=== PATIENT | male | born 1970 | race Caucasian/White ===

== ENCOUNTER 2022-11-12 06:10 | Emergency (ER) | payer MEDICAID, SELFPAY ==
--- NOTE | 2022-11-12 06:42 | ECG_ITS ---
Test Reason : CP Blood Pressure : / mmHG Vent. Rate : 075 BPM Atrial Rate : 075 BPM P-R Int : 146 ms QRS Dur : 088 ms QT Int : 420 ms P-R-T Axes : 043 032 060 degrees QTc Int : 469 ms Normal sinus rhythm Normal ECG No previous ECGs available Referred By: Dona Hernández Electronically Signed By:MOY HAIRSTON
--- NOTE | 2022-11-12 07:32 | ED_ITS ---
HPI - Alcohol General Chief Complaint: ETOH/Substance Use Time Seen by Provider: 11/12/22 07:26 Source: patient Mode of arrival: ambulatory Limitations: no limitations History of Present Illness HPI narrative: 52-year-old male with history of alcohol abuse and dependence, history withdrawal seizures in the past, history of HTN, borderline diabetes, history of PR x2 in the past who presents to the ER for evaluation of alcohol withdrawal. He states he usually drinks 7 or 8 large beers per day. He has been trying to wean himself off at home in is having symptoms of severe alcohol withdrawal. He feels anxious, nervous, shaky, nauseous and he has vomited a few times. He has a headache. He states his last alcoholic drink was about 8 hours ago. He denies any other drug use. He states he wants to be sober. He last went to [facility] for detox about 3 months ago and his sobriety lasted about a month afterward. He reports suffering from depression. Denies SI. Denies any chest pain, SOB, abdominal pain at this time. MD complaint: alcohol withdrawal, alcohol dependence and desires rehab Last drink: Hours (ago) (8) Chronic alcohol use: Yes Recent trauma: No Associated symptoms: nausea, vomiting, diaphoresis, tremors and depression Treatments prior to arrival: none Related Data Allergies Allergy/AdvReac Type Severity Reaction Status Date / Time No Known Allergies Allergy Verified 11/12/22 08:05 Review of Systems 2 Review of Systems: Yes all other systems are reviewed and are negative [facility] Social History Social History Alcohol intake: current Alcohol intake frequency: 3 or more drinks per day Alcohol type: beer Smoked in Last 30 Days: Yes Use of substances other than those prescribed or required for medical reasons: No Advance Directives: No Advance Directives Information Provided: Yes Physical Exam ED Vital Signs: Vital Signs - 24 hr 11/12/22 09:16 11/12/22 11:43 11/12/22 12:45 Temperature 98.2 F 99.8 F 99.1 F Pulse Rate 95 95 78 Respiratory Rate 17 15 18 Blood Pressure 168/103 H 162/96 H 166/104 H Pulse Oximetry 96 95 96 Oxygen Delivery Method Room Air Room Air BMI result Body Mass Index 32.6 Appearance: Alert. Oriented X3. anxious Head: normocephalic, atraumatic. Eyes: Pupils equal, round and reactive to light. ENT: Pharynx normal. No tonsillar swelling or exudate. Neck: Normal inspection. Neck supple. CVS: Normal heart rate and rhythm. Pulses normal. Respiratory: No respiratory distress. Breath sounds normal. Abdomen: Soft and nontender. +BS x4 Skin: Skin warm and dry. Normal skin color. Normal skin turgor. No rashes. Extremities: No lower extremity edema. No joint swelling. mild hand tremor Neuro/psych: Oriented X 3. No motor deficit. No sensory deficit. CN II-XII intact. Normal speech and cognition. Course Reevaluation(s) Reevaluation #1: Patient face and physician observation. Patient has been medically cleared at this time and is awaiting evaluation by Addiction Medicine. Alcohol level 129. Lab work otherwise unremarkable. Vital signs remained stable. Given Ativan, Zofran, Tylenol for comfort meds. Will monitor CIWA scores. Will continue monitor. Time: 09:15 Reevaluation #2: No detox beds available at this time. CIWA improved to a 2. Patient is stable for discharge home with plan to continue calling local detox facilities for potential beds. He agrees with plan. Comfortable discharge home. Strict return precautions were discussed and patient expressed understanding. Case discussed with Marley from recovery. Time: 13:23 Medical Decision Making Medical Decision Making [facility] Narrative: 52-year-old male with history of alcohol use disorder, history of alcohol withdrawal seizures in the past who presents to the ER for evaluation of withdrawal from alcohol. He states his last drink was 8 hours ago. He reports anxiety, tremulousness, headache, nausea and states he vomited. Initial CIWA score is 11. He was given 2 mg of IV Ativan. He is feeling much better. Alcohol level is 129. His lab workup was unremarkable. He was seen by addiction medicine, and is agreeable to a detox bed search. Will monitor his CIWA scores and need for additional benzodiazepines verses phenobarbital and admission for alcohol withdrawal. Will monitor closely. Differential Diagnosis Differential Diagnoses: The differential diagnosis associated with the presentation includes Alcohol intoxication, alcohol withdrawal, polysubstance abuse, dehydration, viral syndrome, metabolic derangement Admission/Observation Consideration of admission/observation: Escalation of care including admission/observation considered CIWA of 11, considered admission for alcohol withdrawal Consult Healthcare Provider Management of the patient was discussed with: Behavioral Health Provider Lab Data [facility] Lab Attestation statement: I reviewed the patient's lab results. Isolated mild elevation of total bilirubin only, normal LFTs and lipase 11/12/22 07:40 11/12/22 07:40 Labs: Lab Results 11/12/22 Range/Units 07:40 WBC 6.6 (4.8-10.8) X10*3/uL RBC 4.66 (4.60-5.80) X10*6/uL Hgb 14.2 (14.0-18.0) g/dl Hct 40.2 L (42.0-52.0) % MCV 86.3 (80.0-98.0) fL MCH 30.5 (27.0-33.0) pg MCHC 35.3 (31.0-36.0) g/dl RDW 13.2 (11.0-16.0) % Plt Count 215 (160-400) X10*3/uL MPV 9.6 (9.4-12.4) fL Immature Gran % (Auto) 0.3 (0.0-0.4) % Neut % (Auto) 75.2 H (45-73) % Lymph % (Auto) 16.9 L (20-40) % [place] % (Auto) 5.6 (2-11) % Eos % (Auto) 1.4 (0-4) % Baso % (Auto) 0.6 (0-2) % Lymph # (Auto) 1.1 L (1.2-4.9) X10*3/uL [place] # (Auto) 0.4 (0.1-1.2) X10*3/uL Eos # (Auto) 0.1 (0.0-0.4) X10*3/uL Baso # (Auto) 0.0 (0.0-0.2) X10*3/uL Abs Immat Gran (auto) 0.02 (0.00-0.03) X10*3/uL Absolute Neuts (auto) 5.0 (2.0-8.3) x10*3/uL Absolute Nucleated RBC 0.000 (0.0-0.012) X10*3/uL Nucleated RBC % (auto) 0.0 (0.0-0.2) /100WBC Sodium 141 (135-145) mmol/L Potassium 4.4 (3.3-5.1) mmol/L Chloride 106 (96-108) mmol/L Carbon Dioxide 19 L (22-29) mmol/L Anion Gap 20 (12-20) BUN 10 (9-16) mg/dL Creatinine 1.01 (0.5-1.4) mg/dL Estim Creat Clear Calc TNP Estimated GFR > 60 Random Glucose 79 (60-115) mg/dL Calcium 9.5 (8.4-10.2) mg/dL Magnesium 2.1 (1.6-2.6) mg/dL Total Bilirubin 1.6 H (0.0-1.0) mg/dL Direct Bilirubin 0.4 (0.0-0.5) mg/dL AST 34 (5-37) U/L ALT 22 (0-40) U/L Alkaline Phosphatase 59 (39-117) U/L Total Protein 7.2 (6.5-8.0) g/dL Albumin 4.3 (3.5-5.0) g/dL Lipase 43 (8-78) U/L Ethyl Alcohol 129 mg/dL Prescription Management I considered prescription management with: Other (Benzodiazepine) Chronic Conditions Patient?s care impacted by: Other (Coronary artery disease, depression, alcohol use disorder) Social Determinants Patient?s care significantly limited by Social Determinants of Health including: Problems related to primary support group and Other Social Determinant of Health Medications Administered Discontinued Medications Generic Name Dose Route Start Last Admin Trade Name Mir PRN Reason Stop Dose Admin Acetaminophen 975 mg 11/12/22 07:59 11/12/22 08:04 Acetaminophen 325 Mg Tablet PO 11/12/22 08:00 975 mg ONCE ONE Administration Sodium Chloride 1,000 mls @ 999 mls/hr 11/12/22 07:30 11/12/22 09:10 Ns IVCONT 11/12/22 08:30 Infused .Q1H1M KATHERYN Infusion Lorazepam 2 mg 11/12/22 07:30 11/12/22 08:04 Lorazepam 2 Mg/Ml Vial IVPUSH 11/12/22 07:31 2 mg ONCE ONE Administration Lorazepam 1 mg 11/12/22 11:40 11/12/22 12:38 Lorazepam 1 Mg Tablet PO 11/12/22 11:41 1 mg ONCE ONE Administration Ondansetron HCl 4 mg 11/12/22 07:30 11/12/22 08:04 Ondansetron Hcl 4 Mg/2 Ml Vial IVPUSH 11/12/22 07:31 4 mg ONCE ONE Administration Ticagrelor 90 mg 11/12/22 11:40 11/12/22 12:39 Ticagrelor 90 Mg Tablet PO 11/12/22 11:41 90 mg ONCE ONE Administration Critical Care Time Critical Care Time Critical Care Time: No Discharge Plan Discharge Clinical Impression: Alcohol use disorder Patient Disposition: Home, Self-Care Instructions: Alcohol Use Disorder (ED) Additional Instructions: Continue to call local rehab/detox facilities for a bed. If/when you develop increasing alcohol withdrawal symptoms, come back to the emergency room Acute alcohol withdrawal can be life-threatening If you develop new or worsening symptoms call 911 or come back to the ER for further evaluation.
[2022-11-12 07:47] LABS: MANUAL DIFF FLAG NO
[2022-11-12 07:48] LABS: Basophils Percent Auto 0.6 % (0-2); Eosinophils Absolute Auto 0.1 X10*3/uL (0.0-0.4); Eosinophils Percent Auto 1.4 % (0-4); Hematocrit 40.2 % (42.0-52.0); Hemoglobin 14.2 g/dl (14.0-18.0); Imm Gran Abs Auto 0.02 X10*3/uL (0.00-0.03); Imm Gran Pct Auto 0.3 % (0.0-0.4); Lymphocytes Absolute Auto 1.1 X10*3/uL (1.2-4.9); Lymphocytes Percent Auto 16.9 % (20-40); Mean Corpuscular HGB Conc 35.3 g/dl (31.0-36.0); Mean Corpuscular Hemoglobin 30.5 pg (27.0-33.0); Mean Corpuscular Volume 86.3 fL (80.0-98.0); Mean Platelet Volume 9.6 fL (9.4-12.4); Monocytes Absolute Auto 0.4 X10*3/uL (0.1-1.2); Monocytes Percent Auto 5.6 % (2-11); Neutrophils Percent Auto 75.2 % (45-73); Platelet Count 215 X10*3/uL (160-400); Red Blood Count 4.66 X10*6/uL (4.60-5.80); Red Cell Distribution Width 13.2 % (11.0-16.0); White Blood Count 6.6 X10*3/uL (4.8-10.8)
[2022-11-12 07:58] LABS: Ethanol 129 mg/dL
[2022-11-12 08:02] LABS: Alanine Aminotransferase 22 U/L (0-40); Albumin Level 4.3 g/dL (3.5-5.0); Alkaline Phosphatase 59 U/L (39-117); Anion Gap 20 (12-20); Aspartate Amino Transferase 34 U/L (5-37); Bilirubin Direct 0.4 mg/dL (0.0-0.5); Bilirubin Total 1.6 mg/dL (0.0-1.0); Blood Urea Nitrogen 10 mg/dL (9-16); Calcium 9.5 mg/dL (8.4-10.2); Carbon Dioxide 19 mmol/L (22-29); Chloride 106 mmol/L (96-108); Estimated Glomerular Filt Rate > 60; Glucose Random 79 mg/dL (60-115); Lipase 43 U/L (8-78); Magnesium 2.1 mg/dL (1.6-2.6); Potassium 4.4 mmol/L (3.3-5.1); Sodium 141 mmol/L (135-145); Total Protein 7.2 g/dL (6.5-8.0)
[2022-11-12] MEDS: 0.9 % Sodium Chloride 1,000 ML 999 ML IVCONT (08:04)
[2022-11-12] MEDS: LORazepam 2 MG/ML VIAL IVPUSH (08:04)
[2022-11-12] MEDS: ondansetron HCL 4 MG/2 ML VIAL IVPUSH (08:04)
[2022-11-12] MEDS: Acetaminophen 325 MG TABLET 975 MG PO (08:04)
[2022-11-12 08:05] VITALS: BMI 32.6
--- NOTE | 2022-11-12 08:29 | PC.NURSE ---
PT IS A/O X 4 NO SOB/JUN NOTED SPEAKS IN FULL SENTENCES. C/O 8/10 CHEST PAIN/EPIGASTRIC PAIN AND HEADACHE. PT DENIES ANY FALL. PT C/O NAUSEA, NO VOMITING. PT'S CIWA SCALE -11. PT MEDICATED WITH ZOFRAN, ATIVAN, TYLENOL AND NS 1L BOLUS. NO SEIZURE ACTIVITY NOTED. PT IS AWARE OF PLAN OF CARE.
[2022-11-12 09:16] VITALS: BP 168/103; PULSE 95; RESP 17; TEMP 36.8; O2SAT 96
--- NOTE | 2022-11-12 11:27 | MHC.RECOVRN ---
Addendum entered by Marley Viveros RN 11/12/22 11:53: Referral packet sent to Ramesh. Addendum entered by Marley Viveros RN 11/12/22 11:43: Pt requesting to speak with t/w, states he has changed his mind and would like to explore going to a detox. Plan to conduct a detox bedsearch at this time, pt asking to stay local. Original Note: T/w met with pt to discuss his goals for recovery. Per provider note pt seeking detox at this time. When asked, pt declining detox stating I just did detox and expressing that he wishes to go home and just stop drinking . T/w expressed how dangerous it is to stop drinking cold turkey, pt educated that he needs to slowly and carefully cut down either under monitoring of medical providers, or very slowly on his own. T/w discussed dangers of withdrawal seizures and educated pt that ETOH is one of the only substances that withdrawal can be fatal. Pt agreeable to resource packet. Discussed with provider Shira and plan to monitor.
[2022-11-12 11:43] VITALS: BP 162/96; PULSE 95; RESP 15; TEMP 37.7; O2SAT 95
--- NOTE | 2022-11-12 11:45 | MHC.EDTECH ---
I and Patrick gave the patient a bed bath, and clean his feet. we did not see any maggots.
[2022-11-12] MEDS: LORazepam 1 MG TABLET PO (12:38)
[2022-11-12] MEDS: Ticagrelor 90 MG TABLET PO (12:39)
[2022-11-12 12:45] VITALS: BP 166/104; PULSE 78; RESP 18; TEMP 37.3; O2SAT 96
[2022-11-12] MEDS: chlordiazePOXIDE HCl 25 MG CAPSULE PO (13:26)
== END 2022-11-12 13:37 | disposition home or self-care (01) ==
PROVIDERS: Physician Assistant; Emergency Provider Emergency Medicine
DX: F10.239 Alcohol dependence with withdrawal, unspecified (principal); R07.89 Other chest pain; Y90.6 Blood alcohol level of 120-199 mg/100 ml; Z79.899 Other long term (current) drug therapy
CPT/HCPCS: 36415; 80048; 80076; 80307; 83690; 83735; 85025; 93005; 96361; 96374; 96375; 99284; J2060; J2405

== ENCOUNTER 2022-11-13 08:24 | Emergency (ER) | payer MEDICAID, SELFPAY ==
[2022-11-13 08:42] VITALS: BP 153/101; PULSE 84; RESP 22; TEMP 36.9; O2SAT 99; BMI 35.0
--- NOTE | 2022-11-13 09:02 | PC.NURSE ---
Pt reporting he was unable to get into detox, and was d/c home, told to come back if he felt worst. Pt reporting SANDOVAL, Nausea, increased anxiety this morning. Last drink was 2 days ago. Pt speaking in full sentences at this time, is calm and cooperative. Pt reporting the Ativan and Librium he received yesterday was extremely helpful. Reports he has not been able to stomach any Po intake besides water for 2 days
--- NOTE | 2022-11-13 09:24 | ECG_ITS ---
Test Reason : SEIZURE Blood Pressure : / mmHG Vent. Rate : 089 BPM Atrial Rate : 089 BPM P-R Int : 164 ms QRS Dur : 104 ms QT Int : 358 ms P-R-T Axes : 026 039 029 degrees QTc Int : 435 ms Sinus rhythm with occasional Premature ventricular complexes Otherwise normal ECG When compared with ECG of 12-NOV-2022 06:42, Premature ventricular complexes are now Present Referred By: Frederick Bradley Electronically Signed By:MOY HAIRSTON
[2022-11-13] MEDS: LORazepam 1 MG TABLET 2 MG PO (09:41)
--- NOTE | 2022-11-13 09:53 | ED_ITS ---
HPI - Alcohol General Chief Complaint: ETOH/Substance Use Stated Complaint: Meds For Alcohol Withdrawal Time Seen by Provider: 11/13/22 08:48 Source: patient Mode of arrival: ambulatory Limitations: no limitations History of Present Illness HPI narrative: This is a 52-year-old male history of alcohol use disorder presenting to the emergency department stating that he may be in alcohol withdrawal, patient reports he typically drinks 6, 22 oz beers and a few naps a day last drink was 2 days ago, he reports he was seen here yesterday given Ativan and Librium while in the department and was discharged home without medications, he reports he is trying to find himself detox from home, he reports he is shaky, anxious, and is having muscle aches and pains. Denies SI and HI. No hallucinations. Denies nausea/vomiting. Denies fevers, chills Related Data Allergies Allergy/AdvReac Type Severity Reaction Status Date / Time No Known Allergies Allergy Verified 11/12/22 08:05 Review of Systems Review of Systems: Constitutional : No Weight loss, No Fever, No Chills, No Fatigue, No Malaise ENT/Mouth : No sore throat, No Rhinorrhea Eyes: No Eye Pain, No Swelling, No Redness Cardiovascular : No Chest Pain, No SOB, No Dyspnea on Exertion, No Orthopnea, No Edema, No Palpitations Respiratory : No Cough, No Sputum, No Wheezing Gastrointestinal : No Nausea, No Vomiting, No Diarrhea, No Constipation, No abdominal Pain, No Hematochezia, No Melena Genitourinary : No Dysuria, No Urinary Frequency, No Hematuria, Musculoskeletal : No joint pain, No Myalgias, No Joint Swelling Skin : No Skin Lesions, No rash Neuro : No Weakness, No Numbness, No Dizziness, No Headache Psych : No Anxiety/Panic, No Depression All other systems reviewed and are negative Yes all other systems are reviewed and are negative [facility] Past Medical History Attestation statement: The following information was validated with the patient. Source: old records reviewed and nursing notes reviewed Social History Social History Alcohol intake: current Alcohol intake frequency: 3 or more drinks per day Alcohol type: beer and hard liquor Smoked in Last 30 Days: Yes Use of substances other than those prescribed or required for medical reasons: No Advance Directives: No Advance Directives Information Provided: No Physical Exam ED Vital Signs: Vital Signs - 24 hr 11/13/22 08:42 Temperature 98.4 F Pulse Rate 84 Respiratory Rate 22 H Blood Pressure 153/101 H Pulse Oximetry 99 Oxygen Delivery Method Room Air BMI result Body Mass Index 35.0 vss Appearance: Alert.? Oriented X3.? No acute distress.? Head: Normocephalic, atraumatic, no step-offs or deformities Eyes: Pupils equal, round and reactive to light.? Neck: Normal inspection.? Neck supple.? No tongue fasciculation CVS: Normal heart rate and rhythm.? Pulses normal.? Respiratory: No respiratory distress.? Breath sounds normal.? Abdomen: Soft and nontender.? Skin: Skin warm and dry.? Normal skin color.? Normal skin turgor.? Extremities: No lower extremity edema.? No calf ttp. 5/5 strength to bilateral upper and lower extremities. Slight upper extremity tremor. Neuro: Oriented X 3.? No motor deficit.? No sensory deficit. CN 2-12 intact Course Reevaluation(s) Reevaluation #1: Patient refused labs, further intervention, just wanted Ativan. He is refusing detox. I told me he would be leaving against medical advice if he leaves this facility without admission he tells me he is too busy. I did write up his disposition as against medical advice, patient eloped the department prior to signing paperwork however nursing did make him aware of risks. He was alert and oriented x4 at time patient left, mentating well. Not suicidal or homicidal. Time: 11:21 Medical Decision Making Medical Decision Making [facility] Narrative: 1121 52-year-old male presents stating he thinks he may be in withdrawal last drink 2 days ago. Came in yesterday and got Ativan and Librium Physical examination slight upper extremity tremor, no tongue fasciculations. No hallucinations. Patient well appearing patient is tachypneic and hypertensive CIWA 5 on my exam Likely alcohol withdrawal without delirium tremens, no signs of seizure. No suicidal or homicidal ideation. Will rule out metabolic derangement/electrolyte abnormalities. Patient denies recent drinking, unlikely acute intoxication. Low suspicion for polysubstance abuse. No signs of trauma head, neck, chest, abdomen and pelvis. Plan at this time Ativan, offered patient hospital admission however he is refusing he states he does not to stay for that. He does not exceed care team. He states he wants to find detox outpatient on his own. Differential Diagnosis Differential Diagnoses: The differential diagnosis associated with the present ation includes Likely alcohol withdrawal without delirium tremens, no signs of seizure. No suicidal or homicidal ideation. Will rule out metabolic derangement/electrolyte abnormalities. Patient denies recent drinking, unlikely acute intoxication. Low suspicion for polysubstance abuse. No signs of trauma head, neck, chest, abdomen and pelvis. Admission/Observation Consideration of admission/observation: Escalation of care including admission/observation considered unlikely Core Measures AMI core measures followed: Yes Measure exclusions: not indicated Medications Administered Discontinued Medications Generic Name Dose Route Start Last Admin Trade Name Freq PRN Reason Stop Dose Admin Lorazepam 2 mg 11/13/22 09:37 11/13/22 09:41 Lorazepam 1 Mg Tablet PO 11/13/22 09:38 2 mg ONCE ONE Administration Critical Care Time Critical Care Time Critical Care Time: No Discharge Plan Discharge Clinical Impression: Alcohol use disorder, Left against medical advice Patient Disposition: Home, Self-Care Instructions: Abuse of Alcohol (ED), Alcohol Use Disorder (ED) Additional Instructions: Take your medications as prescribed. If you were prescribed antibiotics today, it is important that you take your medication to their entirety, do not skip any doses, do not finish them early. Follow-up with your primary care provider this week. Return to the emergency department with new or worsening symptoms. Such as fevers, chills, chest pain, shortness of breath, nausea, vomiting, dizziness, headache, vision changes, lethargy In case of emergency call 911 You decided to leave against medical advice. Risks include worsening condition, decreased quality of life, pain, , respiratory distress, seizure- Referrals: Hermila Cui PA [Primary Care Provider] - 2 days Stand Alone Forms: Against Medical Advice
--- NOTE | 2022-11-13 10:18 | MHC.RECOVRN ---
Addendum entered by Marley Viveros RN 11/13/22 10:28: Referral packet sent to Gadiel for review. Original Note: T/w in to meet with pt to discuss recovery goals. Pt agreeable to detox bedsearch. Pt seen by t/w yesterday and unable to find pt a bed, pt was enc to return to ED should he feel withdrawal symptoms. Pt endorsing anxiety, nausea, and bad headache pt's last drink yesterday, daily ETOH use of 6-7 22oz beers a day. Pt reports he has been attempting to self wean at home, but has been experiencing significant withdrawal symptoms. Pt reports hx of seizures from withdrawal. Plan to conduct a detox bedsearch at this time.
--- NOTE | 2022-11-13 10:51 | MHC.EDTECH ---
This pct attempted to take an EKG but patient refused stated he had an EKG yesterday and doesn't feel he needs one and also stated he doesn't feel like hes getting the care he needs. RN aware
--- NOTE | 2022-11-13 11:01 | PC.NURSE ---
PT REFUSING EKG AND LABS ORDERED PROVIDER AWARE
--- NOTE | 2022-11-13 11:15 | PC.NURSE ---
PT LEFT ED WITHOUT DISCHARGE INSTRUCTIONS
== END 2022-11-13 11:52 | disposition home or self-care (01) ==
PROVIDERS: Emergency Provider Emergency Medicine; PCP Physician Assistant
DX: F10.988 Alcohol use, unspecified with other alcohol-induced disorder (principal); Y90.9 Presence of alcohol in blood, level not specified; M79.18 Myalgia, other site; G25.2 Other specified forms of tremor; I10 Essential (primary) hypertension; R06.82 Tachypnea, not elsewhere classified
CPT/HCPCS: 93005; 99283; 99284

== ENCOUNTER 2023-04-27 11:54 | Inpatient (IN) | payer MEDICAID, SELFPAY ==
--- NOTE | ~2023-04-27 | US_ITS ---
EXAMINATION: US ABDOMEN LIMITED CLINICAL INFORMATION: Right upper quadrant pain, elevated lipase. COMPARISON: Chest radiograph 04/27/2023 TECHNIQUE: Real-time imaging of the right upper quadrant abdominal viscera. Technically difficult study due to body habitus and patient's inability to hold their breath. FINDINGS: PANCREAS: The pancreas is obscured by bowel gas. LIVER: The left lobe is obscured by bowel gas. Views are slightly limited by the patient's inability to take a deep breath and hold it. The liver is normal in size. The liver contour is normal. There is diffuse increased liver parenchymal echogenicity, consistent with hepatic steatosis. No focal hepatic lesion. There is no intrahepatic biliary duct dilatation seen. GALLBLADDER: Normal. The gallbladder is physiologically distended without evidence of stones, sludge, polyps, wall thickening or pericholecystic fluid. COMMON BILE DUCT: Normal in caliber measuring 0.4 cm in diameter. RIGHT KIDNEY: Views are of the right kidney are limited due to body habitus and patient's inability to hold their breath. No hydronephrosis. No renal calculi or focal parenchymal lesions. The kidney measures 9.2 cm in maximum dimension. FREE FLUID: None. US/US abdomen limited IMPRESSION: 1. Hepatic steatosis. 2. The pancreas and left lobe of the liver are obscured by bowel gas. 3. Views of the right kidney are limited due to body habitus and patient's inability to hold their breath.
--- NOTE | ~2023-04-27 | XR_ITS ---
EXAMINATION: XR ABDOMEN KUB CLINICAL INDICATION: Abdominal pain and bowel obstruction COMPARISON: 04/27/2023 TECHNIQUE: AP view of the abdomen. FINDINGS: There is extensive enteric distention today of the small bowel with nondistended colon. 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 No free air. No mass effect. XR/XR KUB IMPRESSION: Persistent small bowel distention.
--- NOTE | ~2023-04-27 | XR_ITS ---
EXAMINATION: XR CHEST CLINICAL INFORMATION: Chest pain COMPARISON: None available. TECHNIQUE: AP upright portable view of the chest was obtained. 12:58 PM FINDINGS: The patient is slightly rotated on the frontal view. The lungs are well expanded and clear. No focal consolidation, interstitial pulmonary edema or pneumothorax. The cardiac silhouette is mildly enlarged. Stent is seen in within a coronary artery. No pleural effusion. Several healed right lateral rib fractures are noted. XR/XR chest 1V IMPRESSION: No acute cardiopulmonary disease.
--- NOTE | ~2023-04-27 | CT_ITS ---
EXAMINATION: CT ABDOMEN AND PELVIS WITH CONTRAST CLINICAL INFORMATION: Abdominal pain. COMPARISON: Abdominal ultrasound earlier today. TECHNIQUE: Multidetector volumetric images were obtained from the superior aspect of the liver through the pubic symphysis following administration 85 mL of Omnipaque 350 intravenous contrast. Sagittal and coronal reformatted images were obtained on the technologist's workstation. Oral contrast: No This CT examination was performed using dose optimization techniques as appropriate, variously including the following: *Automated exposure control *Adjustment of mA and/or kV according to patient size (this includes techniques or standardized protocols for targeted exams where dose is matched to indication/reason for exam; i.e. extremities or head) *Use of iterative reconstruction technique DLP: 774 mGy-cm FINDINGS: LUNG BASES: No focal consolidation or pleural effusion. Partially seen multivessel coronary artery calcifications. LIVER, GALLBLADDER, AND BILIARY TREE: Decreased attenuation of liver parenchyma consistent with hepatic steatosis. Otherwise, liver is normal in size and morphology. Too small to characterize hypodensity in the left hepatic lobe (3:17), statistically favoring to represent a cyst. No biliary ductal dilatation. The gallbladder is unremarkable with no evidence of radiopaque gallstones, gallbladder wall thickening, or obvious pericholecystic inflammatory changes. PANCREAS: Unremarkable. SPLEEN: Unremarkable. ADRENAL GLANDS: Unremarkable. KIDNEYS AND URETERS: Asymmetric atrophy of the right kidney with cortical thinning. The right kidney measures 9.7 cm in length and the left kidney measures 12.9 cm in length. A few too small to characterize cortical hypodensities in the right kidney, statistically favoring to represent simple cysts and for which no imaging follow-up is recommended. No nephrolithiasis or hydronephrosis. Mild fairly symmetric perinephric fat stranding of uncertain significance. BLADDER: Unremarkable. GASTROINTESTINAL TRACT: Diffuse dilatation of the small bowel measuring up to 4 cm in diameter. The transition point appears to be identified in the right abdomen with decompressed distal ileum and terminal ileum. No significant pericolonic inflammatory changes. Normal appearance of the terminal ileum. Normal appendix. No pneumatosis, free air or organized extraluminal collection. ABDOMINAL WALL: Small fat-containing umbilical hernia. LYMPH NODES: No lymphadenopathy. VASCULAR: Scattered atherosclerotic disease. Normal caliber of the abdominal aorta. PELVIC VISCERA: Unremarkable. OSSEOUS STRUCTURES: No acute or aggressive appearing osseous findings. Rigid spine with prominent fused anterior osteophytes. Chronic bilateral rib deformities. CT/CT abdomen pelvis w IV con IMPRESSION: 1. Findings are most consistent with a small bowel obstruction transitioning in the right abdomen into a decompressed distal ileum and terminal ileum. 2. Hepatic steatosis. 3. Asymmetric atrophy of the right kidney.
--- NOTE | 2023-04-27 12:09 | ECG_ITS ---
Test Reason : CP Blood Pressure : / mmHG Vent. Rate : 073 BPM Atrial Rate : 073 BPM P-R Int : 148 ms QRS Dur : 090 ms QT Int : 430 ms P-R-T Axes : 042 043 075 degrees QTc Int : 473 ms Normal sinus rhythm Normal ECG When compared with ECG of 13-NOV-2022 22:12, Premature ventricular complexes are no longer Present Referred By: Yulissa Salazar Electronically Signed By:VARGHESE QUIROZ MD
[2023-04-27 12:10] VITALS: BP 117/79; BP 122/75; PULSE 72; PULSE 75; RESP 18; TEMP 36.6; O2SAT 95; O2SAT 96; BMI 34.6
--- NOTE | 2023-04-27 12:24 | ED.CHESTPAIN ---
HPI - Chest Pain General Chief Complaint: Chest Pain Stated Complaint: STABBING CP 8 HRS,HEAVY ETOH USE 3 DAYS,VOMITING Time Seen by Provider: 04/27/23 12:05 Source: patient and RN notes reviewed Mode of arrival: ambulatory Limitations: no limitations History of Present Illness HPI narrative: This is a 52-year-old male, with a history of EtOH abuse, and history of 2 heart attacks, presenting to the emergency department for evaluation of alcohol withdrawal. He states that since last night he has had intermittent chest pain and shortness of breath, which last for several hours and resolves on its own. The chest pain is nonradiating. He also endorses nausea, vomiting, and diarrhea. Denies any hemoptysis, palpitations. He states that he drinks 7-8 12oz beers with 3-4 nips of hard alcohol per day. Last drink about 8 hours ago. He feels as though he is in alcohol withdrawal. He has a history of alcohol withdrawal seizures. MD complaint: chest pain Pertinent past history: prior ID Onset (ago): day(s) Prior episodes: Yes Onset: during rest Pain location: substernal Pain radiation: none Severity: moderate Relieving factors: nothing Exacerbating factors: nothing Associated symptoms: nausea and vomiting Treatment prior to arrival: none Risk Factors Coronary artery disease risk factors: none Thoracic aortic dissection risk factors: none Related Data Allergies Allergy/AdvReac Type Severity Reaction Status Date / Time No Known Allergies Allergy Verified 11/12/22 08:05 Review of Systems Review of Systems: Yes all other systems are reviewed and are negative Constitutional: Constitutional: [place] [facility] [place] Social History Social History Alcohol intake: current Alcohol intake frequency: 0-2 drinks per day Alcohol type: beer and hard liquor Smoked in Last 30 Days: Yes Use of substances other than those prescribed or required for medical reasons: No Advance Directives: No Advance Directives Information Provided: Yes Physical Exam Vital Signs: Vital Signs: Last Vital Signs Temp 98.1 F 04/28/23 00:13 Pulse 93 04/28/23 00:13 Resp 16 04/28/23 00:13 BP 150/99 H 04/28/23 00:13 Pulse Ox 93 04/28/23 00:13 O2 Del Method Room Air 04/28/23 00:13 BMI result Body Mass Index 34.6 Const: General: cooperative, comfortable and no acute distress Orientation/consciousness: patient oriented x3 Limitations: no limitations HEENT: Head: Yes normal to inspection, Yes normocephalic and Yes atraumatic Ears: hearing grossly normal bilaterally General nose exam: Normal external nose present Face and sinus: Yes normal facial exam Mouth: Normal oral and palatal mucosa present, oropharynx normal and moist mucous membranes Throat: Yes posterior oropharynx normal Eyes: General: appearance normal, both eyes and all related structures Eyelids: Yes eyelids normal Conjunctivae: conjunctivae normal Sclerae: sclerae normal Pupils: Equal, round and reactive pupils present EOM: EOMs intact bilaterally Neck: Neck: Yes normal visual inspection, Yes full ROM and Yes no lymphadenopathy Lymphatic: no lymphadenopathy noted Chest: Chest palpation & inspection: normal inspection of the chest Resp: Effort & Inspection: normal respiratory effort and able to speak in complete sentences Auscultation: clear to auscultation bilaterally, no crackles, no rales, no rhonchi and no wheezes Cardio: Rate: regular rate Rhythm: regular rhythm Heart sounds: S1 normal heart sound present and S2 normal heart sound present GI: Other: Abdomen is soft, nontender, nondistended Inspection: Yes normal to inspection Skin: General skin exam: no rashes or lesions noted Trauma: no lacerations or abrasions Wounds: no wounds Neuro: General: patient oriented x3 and moves all extremities Cranial nerves: Yes Equal, round and reactive pupils present Extrem: General: Yes normal to inspection Right upper extremity: normal to inspection Left upper extremity: normal to inspection Right lower extremity: normal to inspection Left lower extremity: normal to inspection Course Reevaluation(s) Reevaluation #1: CBC, with no leukocytosis, chemistry within normal limits. He does have an elevated lipase at 258. Patient asleep, resting comfortably. Awaiting ultrasound. Time: 14:22 Reevaluation #2: Ultrasound returns, revealing hepatic steatosis, pancreas and left lobe of the liver arms scared by gas, views of the right kidney limited due to body habitus. Patient re-evaluated, states that he is still feeling ?bad?. Reporting diffuse abdominal pain. Time: 16:57 Reevaluation #3: Patient complaining complaining of severe abdominal pain, he has tenderness toleration along the umbilical region. Lipase elevated elevated at 258. ?pancreatitis. Will get troponin, CT abdomen, and medicate with Ativan. CT abdomen and pelvis with IV contrast ordered. Sign-out given to my colleague Malachi, pending CT abdomen reassess. Time: 17:47 Additional Reevaluation(s): 04/27/2023 20:00 - reviewed CT abdomen and pelvis which reveals radiologist impression of small bowel obstruction transitioning into the right abdomen into a decompressed distal ileum and terminal ileum. I consulted with General surgery on-call, Dr. Childress who expressed concern for ileus rather than small bowel obstruction secondary to a pancreatitis. She evaluated patient at bedside and patient was admitted to surgical service for acute pancreatitis and partial small-bowel obstruction. Medications Administered Generic Name Dose Route Start Last Admin Trade Name Freq PRN Reason Stop Dose Admin Sodium Chloride 1,000 mls @ 100 mls/hr 04/27/23 22:30 04/27/23 22:50 Ns IVCONT 100 mls/hr .Q10H KATHERYN Administration Discontinued Medications Generic Name Dose Route Start Last Admin Trade Name Freq PRN Reason Stop Dose Admin Sodium Chloride 1,000 mls @ 999 mls/hr 04/27/23 12:24 04/27/23 14:50 Ns IV 04/27/23 13:24 Infused .Q1H1M ONE Infusion Sodium Chloride 1,000 mls @ 999 mls/hr 04/27/23 17:49 04/27/23 19:06 Ns IV 04/27/23 18:49 Infused .Q1H1M ONE Infusion Iohexol 100 ml 04/27/23 19:06 04/27/23 19:06 Iohexol 350 Mg/Ml 100 Ml Infus..Btl IV 04/27/23 19:07 85 ml ONCE ONE Administration Lorazepam 2 mg 04/27/23 12:24 04/27/23 12:32 Lorazepam 2 Mg/Ml Vial IVPUSH 04/27/23 12:25 2 mg ONCE ONE Administration Lorazepam 2 mg 04/27/23 17:49 04/27/23 18:02 Lorazepam 2 Mg/Ml Vial IVPUSH 04/27/23 17:50 2 mg ONCE ONE Administration Medical Decision Making Medical Decision Making [facility] Narrative: This is a 52-year-old male, with a history of EtOH abuse, and 2 myocardial infarctions, presenting to the emergency department for evaluation of alcohol abuse/withdrawal and 10/10 chest pain with associated nausea, vomiting and diarrhea. On arrival, vital signs within normal limits. Patient is nontoxic appearing. Lungs clear to auscultation bilaterally, abdomen is soft and nontender. Dry mucous membranes noted. Differential diagnoses include ACS, pneumonia, alcohol withdrawal, ETOH dependency Plan: Labs, EKG, chest x-ray, CIWA, IV Ativan Differential Diagnosis Differential Diagnoses: The differential diagnosis associated with the presentation includes Alcohol abuse, ACS-unlikely, alcohol withdrawal COVID, flu Admission/Observation Consideration of admission/observation: Escalation of care including admission/observation considered Lab Data MDM Lab Attestation statement: I reviewed the patient's lab results. 04/27/23 12:26 04/27/23 12:26 Labs: Lab Results 04/27/23 04/27/23 04/27/23 Range/Units 12:26 14:09 14:54 WBC 7.5 (4.8-10.8) X10*3/uL RBC 5.00 (4.60-5.80) X10*6/uL Hgb 15.2 (14.0-18.0) g/dl Hct 44.0 (42.0-52.0) % MCV 88.0 (80.0-98.0) fL MCH 30.4 (27.0-33.0) pg MCHC 34.5 (31.0-36.0) g/dl RDW 13.3 (11.0-16.0) % Plt Count 261 (160-400) X10*3/uL MPV 9.7 (9.4-12.4) fL Immature Gran % (Auto) 0.4 (0.0-0.4) % Neut % (Auto) 69.2 (45-73) % Lymph % (Auto) 22.8 (20-40) % [place] % (Auto) 6.3 (2-11) % Eos % (Auto) 0.8 (0-4) % Baso % (Auto) 0.5 (0-2) % Lymph # (Auto) 1.7 (1.2-4.9) X10*3/uL [place] # (Auto) 0.5 (0.1-1.2) X10*3/uL Eos # (Auto) 0.1 (0.0-0.4) X10*3/uL Baso # (Auto) 0.0 (0.0-0.2) X10*3/uL Abs Immat Gran (auto) 0.03 (0.00-0.03) X10*3/uL Absolute Neuts (auto) 5.2 (2.0-8.3) x10*3/uL Absolute Nucleated RBC 0.000 (0.0-0.012) X10*3/uL Nucleated RBC % (auto) 0.0 (0.0-0.2) /100WBC Sodium 139 (135-145) mmol/L Potassium 4.0 (3.3-5.1) mmol/L Chloride 102 (96-108) mmol/L Carbon Dioxide 22 (22-29) mmol/L Anion Gap 19 (12-20) BUN 11 (9-16) mg/dL Creatinine 1.00 (0.5-1.4) mg/dL Estim Creat Clear Calc 100.5 Estimated GFR > 60 Random Glucose 97 (60-115) mg/dL Calcium 8.6 D (8.4-10.2) mg/dL Magnesium 2.4 (1.6-2.6) mg/dL Total Bilirubin 0.7 (0.0-1.0) mg/dL Direct Bilirubin 0.2 (0.0-0.5) mg/dL AST 25 (5-37) U/L ALT 15 (0-40) U/L Alkaline Phosphatase 57 (39-117) U/L Troponin I High Sens < 2.7 (<3.5-35.0) ng/L Total Protein 7.4 (6.5-8.0) g/dL Albumin 4.3 (3.5-5.0) g/dL Lipase 258 H (8-78) U/L Urine Opiates Screen Not Detected (Not Detect) Urine Fentanyl Screen Not Detected (Not Detect) Ur Barbiturates Screen Not Detected (Not Detect) Ur Phencyclidine Scrn Not Detected (Not Detect) Ur Amphetamines Screen Not Detected (Not Detect) U Benzodiazepines Scrn Not Detected (Not Detect) Urine Cocaine Screen Not Detected (Not Detect) U Marijuana (THC) Screen Not Detected (Not Detect) Ethyl Alcohol 374 H* mg/dL Influenza Type A (PCR) NEGATIVE (Negative) Influenza Type B (PCR) NEGATIVE (Negative) RSV RNA Qual (PCR) NEGATIVE (Negative) SARS-CoV-2 RNA (RT-PCR) NEGATIVE (Negative) 02/20/24 Range/Units 18:13 WBC (4.8-10.8) X10*3/uL RBC (4.60-5.80) X10*6/uL Hgb (14.0-18.0) g/dl Hct (42.0-52.0) % MCV (80.0-98.0) fL MCH (27.0-33.0) pg MCHC (31.0-36.0) g/dl RDW (11.0-16.0) % Plt Count (160-400) X10*3/uL MPV (9.4-12.4) fL Immature Gran % (Auto) (0.0-0.4) % Neut % (Auto) (45-73) % Lymph % (Auto) (20-40) % [place] % (Auto) (2-11) % Eos % (Auto) (0-4) % Baso % (Auto) (0-2) % Lymph # (Auto) (1.2-4.9) X10*3/uL [place] # (Auto) (0.1-1.2) X10*3/uL Eos # (Auto) (0.0-0.4) X10*3/uL Baso # (Auto) (0.0-0.2) X10*3/uL Abs Immat Gran (auto) (0.00-0.03) X10*3/uL Absolute Neuts (auto) (2.0-8.3) x10*3/uL Absolute Nucleated RBC (0.0-0.012) X10*3/uL Nucleated RBC % (auto) (0.0-0.2) /100WBC Sodium (135-145) mmol/L Potassium (3.3-5.1) mmol/L Chloride (96-108) mmol/L Carbon Dioxide (22-29) mmol/L Anion Gap (12-20) BUN (9-16) mg/dL Creatinine (0.5-1.4) mg/dL Estim Creat Clear Calc Estimated GFR Random Glucose (60-115) mg/dL Calcium (8.4-10.2) mg/dL Magnesium (1.6-2.6) mg/dL Total Bilirubin (0.0-1.0) mg/dL Direct Bilirubin (0.0-0.5) mg/dL AST (5-37) U/L ALT (0-40) U/L Alkaline Phosphatase (39-117) U/L Troponin I High Sens 2.7 (<3.5-35.0) ng/L Total Protein (6.5-8.0) g/dL Albumin (3.5-5.0) g/dL Lipase (8-78) U/L Urine Opiates Screen (Not Detect) Urine Fentanyl Screen (Not Detect) Ur Barbiturates Screen (Not Detect) Ur Phencyclidine Scrn (Not Detect) Ur Amphetamines Screen (Not Detect) U Benzodiazepines Scrn (Not Detect) Urine Cocaine Screen (Not Detect) U Marijuana (THC) Screen (Not Detect) Ethyl Alcohol mg/dL Influenza Type A (PCR) (Negative) Influenza Type B (PCR) (Negative) RSV RNA Qual (PCR) (Negative) SARS-CoV-2 RNA (RT-PCR) (Negative) Radiology Impression Discussion of test interpretation with radiology: I have reviewed the radiologist's reading. Discharge Plan Discharge Clinical Impression: Partial small bowel obstruction, Pancreatitis, alcoholic, acute Patient Disposition: Admitted As Inpatient
--- NOTE | 2023-04-27 12:25 | PC.NURSE ---
per pt, he has constant 10/10 CP, nausea, dizziness, shortness of brath, headache. He also reports sore throat and nasal congestion. pt says he is a daily drinker and his last drink was at midnight when he had several beers and some nips. Comes in with 18g IV. EKG done, labs drawn
[2023-04-27] MEDS: 0.9 % Sodium Chloride 1,000 ML 999 ML IV ×2 (12:32→18:02)
[2023-04-27] MEDS: LORazepam 2 MG/ML VIAL IVPUSH ×2 (12:32→18:02)
[2023-04-27 12:36] LABS: MANUAL DIFF FLAG NO
[2023-04-27 12:39] LABS: Basophils Percent Auto 0.5 % (0-2); Eosinophils Absolute Auto 0.1 X10*3/uL (0.0-0.4); Eosinophils Percent Auto 0.8 % (0-4); Hemoglobin 15.2 g/dl (14.0-18.0); Imm Gran Abs Auto 0.03 X10*3/uL (0.00-0.03); Imm Gran Pct Auto 0.4 % (0.0-0.4); Lymphocytes Absolute Auto 1.7 X10*3/uL (1.2-4.9); Lymphocytes Percent Auto 22.8 % (20-40); Mean Corpuscular HGB Conc 34.5 g/dl (31.0-36.0); Mean Corpuscular Hemoglobin 30.4 pg (27.0-33.0); Mean Platelet Volume 9.7 fL (9.4-12.4); Monocytes Absolute Auto 0.5 X10*3/uL (0.1-1.2); Monocytes Percent Auto 6.3 % (2-11); Neutrophils Absolute Auto 5.2 x10*3/uL (2.0-8.3); Neutrophils Percent Auto 69.2 % (45-73); Platelet Count 261 X10*3/uL (160-400); Red Cell Distribution Width 13.3 % (11.0-16.0); White Blood Count 7.5 X10*3/uL (4.8-10.8)
[2023-04-27 12:58] LABS: Alanine Aminotransferase 15 U/L (0-40); Albumin Level 4.3 g/dL (3.5-5.0); Alkaline Phosphatase 57 U/L (39-117); Anion Gap 19 (12-20); Aspartate Amino Transferase 25 U/L (5-37); Bilirubin Direct 0.2 mg/dL (0.0-0.5); Bilirubin Total 0.7 mg/dL (0.0-1.0); Blood Urea Nitrogen 11 mg/dL (9-16); Calcium 8.6 mg/dL (8.4-10.2); Carbon Dioxide 22 mmol/L (22-29); Chloride 102 mmol/L (96-108); Creatinine Clr Calc Pharmacy 100.5; Estimated Glomerular Filt Rate > 60; Ethanol 374 mg/dL; Glucose Random 97 mg/dL (60-115); Lipase 258 U/L (8-78); Magnesium 2.4 mg/dL (1.6-2.6); Sodium 139 mmol/L (135-145); Total Protein 7.4 g/dL (6.5-8.0)
[2023-04-27 13:07] LABS: Troponin-I High Sensitivity < 2.7 ng/L (<3.5-35.0)
[2023-04-27 14:06] VITALS: BP 145/86; PULSE 97; RESP 18; O2SAT 97
--- NOTE | 2023-04-27 14:43 | PC.NURSE ---
pt reports feeling significantly better. he says his nausea is mild, he is not having tactile disturbances, and his chest pain has reduced to a 5/10. he says his nausea is still there, but at baseline. he states it is always there a little bit
[2023-04-27 14:59] LABS: Influenza A PCR NEGATIVE (Negative); Influenza B PCR NEGATIVE (Negative); Resp Syncy Virus RNA Qual PCR NEGATIVE (Negative); SARS COV2 PCR INHOUSE NEGATIVE (Negative)
[2023-04-27 15:11] LABS: Amphetamine Screen Urine Not Detected (Not Detect); Barbiturates, Urine Not Detected (Not Detect); Benzodiazepines Screen Urine Not Detected (Not Detect); Cannabinoid Screen Urine Not Detected (Not Detect); Cocaine Screen Urine Not Detected (Not Detect); Fentanyl, urine Not Detected (Not Detect); Opiate Screen Urine Not Detected (Not Detect); Phencyclidine Screen Urine Not Detected (Not Detect)
[2023-04-27 18:08] VITALS: BP 133/80; PULSE 87; RESP 15; TEMP 36.7; O2SAT 94
--- NOTE | 2023-04-27 18:17 | MHC.EDTECH ---
Patient repeated trop drawn and sent to lab ,vitals taken .
[2023-04-27 18:43] LABS: Troponin-I High Sensitivity 2.7 ng/L (<3.5-35.0)
[2023-04-27] MEDS: iohexoL 350 MG/ML 100 ML INFUS..BTL IV (19:06)
[2023-04-27 19:11] VITALS: BP 154/91; PULSE 91; RESP 18; TEMP 36.4; O2SAT 94
[2023-04-27 21:26] VITALS: BP 141/90; PULSE 98; RESP 14; TEMP 36.6; O2SAT 96
--- NOTE | 2023-04-27 22:43 | P.HPGS_ITS ---
History of Present Illness History of Present Illness Date of Service: 04/27/23 Chief complaint: Chest pain Narrative: Papi Pierce is a 52 year old male known alcoholic who came into the emergency room today complaining of chest pain and sensation of not being able to breathe. He said he was not feeling well. At the time he was highly intoxicated said that he had been drinking earlier today. He says he drinks rum and beer in moderate amounts. He says he drinks 2 take away his depression and his pain. Initially said he has had diarrhea but then said his last bowel movement was 2 days ago. He says that he has passed gas yesterday and today in the emergency room but it is difficult to know how reliable he is. At this point he is more awake and alert and sober but a little difficult to hold down and get an accurate story. He denies any previous surgery although he says he has had kidney stones and had a stent and a procedure for that. He says he has not been eating the last several days because he has been drinking alcohol consistently. He says that he does smoke about 1-2 cigarettes a day but denies any drug use. He says that he does not want to drink anymore because he is getting too old for that. Review of Systems Review of Systems: Yes all other systems are reviewed and are negative [facility]LY [facility], [facility] Social History Social History Alcohol intake: current Alcohol intake frequency: 0-2 drinks per day Alcohol type: beer and hard liquor Smoked in Last 30 Days: Yes Use of substances other than those prescribed or required for medical reasons: No Advance Directives: No Advance Directives Information Provided: Yes Meds Allergies Allergy/AdvReac Type Severity Reaction Status Date / Time No Known Allergies Allergy Verified 11/12/22 08:05 Active Medications: Current Medications Diatrizoate Meglum/Diatrizoate Sod (Diatrizoate Meglumine, Sodium 120 Ml Solution) 100 ml PO ONCE ONE Stop: 04/27/23 22:26 Sodium Chloride (Ns) 1,000 mls @ 100 mls/hr IVCONT .Q10H KATHERYN Ondansetron HCl (Ondansetron Hcl 4 Mg/2 Ml Vial) 4 mg IVPUSH Q8H PRN PRN Reason: Nausea and Vomiting Sodium Chloride (0.9 % Sodium Chloride Flush 3 Ml Syringe) 3 ml IVFLUSH QSHIFT KATHERYN Physical Exam Vital Signs: Vital Signs: Last Vital Signs Temp 97.9 F 04/27/23 21:26 Pulse 98 04/27/23 21:26 Resp 14 04/27/23 21:26 BP 141/90 H 04/27/23 21:26 Pulse Ox 96 04/27/23 21:26 O2 Del Method Room Air 04/27/23 21:26 BMI result Body Mass Index 34.6 Const: General: cooperative and no acute distress Orientation/consciousness: patient oriented x3 HEENT: Head: Yes normal to inspection Resp: Effort & Inspection: normal respiratory effort and able to speak in complete sentences Auscultation: clear to auscultation bilaterally Cardio: Rate: regular rate Rhythm: regular rhythm GI: Other: His abdomen is round but he says it is always like this and he has a small umbilical hernia with some incarcerated fat. His abdomen is mildly tender to deep palpation but no guarding rebound or peritoneal signs. He does have bowel sounds but they are little hypoactive Skin: Other: Nonicteric Neuro: General: patient oriented x3 Extrem: General: Yes full ROM Psych: Appearance: disheveled Affect: Labile affect present Attitude: cooperative Thought content: Normal thought content present Insight: Fair insight present (Psych) Judgement: Fair judgement present (Psych) Results Results Labs: Short CBC 04/27/23 Range/Units 12:26 WBC 7.5 (4.8-10.8) X10*3/uL Hgb 15.2 (14.0-18.0) g/dl Hct 44.0 (42.0-52.0) % Plt Count 261 (160-400) X10*3/uL BMP 04/27/23 12:26 Sodium 139 Potassium 4.0 Chloride 102 Carbon Dioxide 22 BUN 11 Creatinine 1.00 Calcium 8.6 D Liver Function 04/27/23 Range/Units 12:26 Total Bilirubin 0.7 (0.0-1.0) mg/dL Direct Bilirubin 0.2 (0.0-0.5) mg/dL AST 25 (5-37) U/L ALT 15 (0-40) U/L Alkaline Phosphatase 57 (39-117) U/L Albumin 4.3 (3.5-5.0) g/dL Abdomen CT scan report/results: report reviewed and image reviewed CT scan - pelvis: report reviewed and image reviewed Assessment and Plan (1) Partial small bowel obstruction: Status: Acute (2) Pancreatitis, alcoholic, acute: Status: Acute Plan The patient is a 52-year-old male with a significant alcohol abuse history who comes in today complaining of chest pain and not feeling well. He has had a history of cardiac MIs in the past. He admits to some abdominal pain and nausea and vomiting and on initial examination and laboratory work his white count was normal but is lipase was elevated. Right upper quadrant ultrasound was done to rule out gallstone pancreatitis but this was normal. He then underwent a CT scan of his abdomen and pelvis which showed moderate distended diffuse small bowel loops with a transition point in the right lower quadrant. He does have some bowel sounds his abdomen is not very tender his white count is normal. He has never had any surgeries before so in regards to adhesions he really should have a history for too much of that. Question small bowel mass or potentially congenital adhesion or internal hernia. At this point he has not sick he is thirsty asking for food and drinks it saying that his abdomen does not hurt and he has not nauseated. We will plan on getting a Gastrografin study and seeing what this shows. We will mix Gastrografin 100 cc with 200 cc of p.o. clear liquids and then carry out abdominal films in the morning. If KUB shows holdup of contrast and small bowel are the patient's situation worsens we will consider exploratory laparoscopy/laparotomy and evaluation of the distal small bowel. Patient at this point does not want any surgery thinking it is all ridiculous and that he wants to have something to drink. I explained the concerns of his diagnosis and our plan for tonight and after much convincing he is in agreement to cooperate and drink his contrast and then be re-evaluated in the morning. In the past he has left AMA but he says that he will not do that this time. Quality Stroke Does the patient have a stroke diagnosis?: No VTE Prior VTE?: No VTE Risk Level:: Surgical - low VTE Device Contraindication: N/A - Device Ordered VTE Drug Contraindication: Treatment Not Indicated Procedures Date of Service Date of Service: 04/27/23
[2023-04-27] MEDS: 0.9 % Sodium Chloride 1,000 ML 100 ML IVCONT (22:50)
[2023-04-28] VITALS (7 sets, daily range): BP systolic 150–199; BP diastolic 84–100; PULSE 70–100; RESP 16–18; TEMP 36.2–36.9; O2SAT 93–97; BMI 34.1
[2023-04-28] MEDS: 0.9 % Sodium Chloride Flush 3 ML SYRINGE IVFLUSH (00:01)
[2023-04-28] MEDS: PHENobarbitaL sodium 130 MG/ML IM ONCE 273 MG IM (02:48)
[2023-04-28 05:16] LABS: MANUAL DIFF FLAG NO
[2023-04-28 05:19] LABS: Basophils Absolute Auto 0.1 X10*3/uL (0.0-0.2); Basophils Percent Auto 0.7 % (0-2); Eosinophils Absolute Auto 0.1 X10*3/uL (0.0-0.4); Eosinophils Percent Auto 0.8 % (0-4); Hematocrit 39.6 % (42.0-52.0); Hemoglobin 13.7 g/dl (14.0-18.0); Imm Gran Abs Auto 0.02 X10*3/uL (0.00-0.03); Imm Gran Pct Auto 0.3 % (0.0-0.4); Lymphocytes Absolute Auto 1.1 X10*3/uL (1.2-4.9); Lymphocytes Percent Auto 14.9 % (20-40); Mean Corpuscular HGB Conc 34.6 g/dl (31.0-36.0); Mean Corpuscular Hemoglobin 31.2 pg (27.0-33.0); Mean Corpuscular Volume 90.2 fL (80.0-98.0); Mean Platelet Volume 10.1 fL (9.4-12.4); Monocytes Absolute Auto 0.6 X10*3/uL (0.1-1.2); Monocytes Percent Auto 8.4 % (2-11); Neutrophils Absolute Auto 5.7 x10*3/uL (2.0-8.3); Neutrophils Percent Auto 74.9 % (45-73); Platelet Count 223 X10*3/uL (160-400); Red Blood Count 4.39 X10*6/uL (4.60-5.80); Red Cell Distribution Width 13.3 % (11.0-16.0); White Blood Count 7.6 X10*3/uL (4.8-10.8)
[2023-04-28 05:55] LABS: Blood Urea Nitrogen 14 mg/dL (9-16); Calcium 8.2 mg/dL (8.4-10.2); Carbon Dioxide 16 mmol/L (22-29); Chloride 107 mmol/L (96-108); Creatinine Clr Calc Pharmacy 115.5; Estimated Glomerular Filt Rate > 60; Glucose Random 64 mg/dL (60-115); Lipase 73 U/L (8-78); Potassium 4.2 mmol/L (3.3-5.1); Sodium 141 mmol/L (135-145)
[2023-04-28 05:56] LABS: Anion Gap 22 (12-20)
[2023-04-28] MEDS: PHENobarbitaL sodium 130 MG/ML VIAL IM Q3Hx2 205 MG IM ×2 (06:43→09:50)
--- NOTE | 2023-04-28 08:02 | PC.NURSE ---
assumed care of pt at 0700. pt a&o x4, pleasant, calm, and cooperative. pt NPO, KUB taken this AM. fluids infusing per may. admission report complete. awaiting for transport.
--- NOTE | 2023-04-28 08:21 | P.PNGS_ITS ---
Subjective Subjective Date of Service: 05/05/23 Interval history: history reviewed came in for chest pain, ETOH abuse CT aof abd shows diffuse dilatation of SB, question of transition in distal ileum clinically looks well passing flatus no nausea or vomitting no previous surgery denies abdl pain Physical Exam 2 Vital Signs: Vital Signs: Last Vital Signs Temp 98.3 F 04/28/23 06:10 Pulse 100 04/28/23 06:10 Resp 18 04/28/23 06:10 BP 155/100 H 04/28/23 06:10 Pulse Ox 97 04/28/23 06:10 O2 Del Method Room Air 04/28/23 06:10 BMI result Body Mass Index 34.6 Const: General: comfortable and no acute distress O rientation/consciousness: patient oriented x3 Neck: Neck: Yes no lymphadenopathy Resp: Auscultation: clear to auscultation bilaterally Cardio: Rhythm: regular rhythm GI: Palpation (GI): Soft to palpation, nontender and no guarding Neuro: General: patient oriented x3 Objective Data Active Medications Sodium Chloride (Ns) 1,000 mls @ 100 mls/hr IVCONT .Q10H [facility] Last Admin: 04/27/23 22:50 Dose: 100 mls/hr Documented By: IAN Thiamine HCl 100 mg/ Sodium (Chloride) 101 mls @ 202 mls/hr IV DAILY [facility] Folic Acid 1 mg/ Sodium (Chloride) 50.2 mls @ 100.4 mls/hr IV DAILY [facility] Stop: 04/30/23 09:29 Ondansetron HCl (Ondansetron Hcl 4 Mg/2 Ml Vial) 4 mg IVPUSH Q8H PRN PRN Reason: Nausea and Vomiting Pharmacy Consult (Consult Rx Etoh Phenob Im/Po) 1 each MISCELLANE ONCE PRN; Protocol PRN Reason: Consult order Phenobarbital (Phenobarbital 15 Mg Tablet) 45 mg PO BID [facility]; Protocol Stop: 04/30/23 09:01 Phenobarbital (Phenobarbital 30 Mg Tablet) 30 mg PO BID [facility]; Protocol Stop: 05/02/23 09:01 Phenobarbital (Phenobarbital 30 Mg Tablet) 30 mg PO DAILY [facility]; Protocol Stop: 05/04/23 09:01 Phenobarbital Sodium (Phenobarbital Sodium 130 Mg/Ml Vial Im Q3hx2) 205 mg IM Q3H [facility]ATH[facility] Stop: 04/28/23 09:01 Last Admin: 04/28/23 06:43 Dose: 205 mg Documented By: LEONARD Sodium Chloride (0.9 % Sodium Chloride Flush 3 Ml Syringe) 3 ml IVFLUSH [facility] Last Admin: 04/28/23 07:14 Dose: Not Given Documented By: ALEXIS Non-Admin Reason: Med Not Available Labs 04/28/23 04:31 04/29/23 07:27 Labs: Laboratory Results - last 24 hr 04/27/23 04/27/23 04/27/23 12:26 14:09 14:54 MCV 88.0 MCH 30.4 MCHC 34.5 RDW 13.3 Plt Count 261 MPV 9.7 Immature Gran % (Auto) 0.4 Neut % (Auto) 69.2 Lymph % (Auto) 22.8 [place] % (Auto) 6.3 Eos % (Auto) 0.8 Baso % (Auto) 0.5 Lymph # (Auto) 1.7 [place] # (Auto) 0.5 Eos # (Auto) 0.1 Baso # (Auto) 0.0 Abs Immat Gran (auto) 0.03 Absolute Neuts (auto) 5.2 Absolute Nucleated RBC 0.000 Nucleated RBC % (auto) 0.0 Anion Gap 19 Estim Creat Clear Calc 100.5 Estimated GFR > 60 Random Glucose 97 Calcium 8.6 D Magnesium 2.4 Total Bilirubin 0.7 Direct Bilirubin 0.2 AST 25 ALT 15 Alkaline Phosphatase 57 Troponin I High Sens < 2.7 Total Protein 7.4 Albumin 4.3 Lipase 258 H Urine Opiates Screen Not Detected Urine Fentanyl Screen Not Detected Ur Barbiturates Screen Not Detected Ur Phencyclidine Scrn Not Detected Ur Amphetamines Screen Not Detected U Benzodiazepines Scrn Not Detected Urine Cocaine Screen Not Detected U Marijuana (THC) Screen Not Detected Ethyl Alcohol 374 H* Influenza Type A (PCR) NEGATIVE Influenza Type B (PCR) NEGATIVE RSV RNA Qual (PCR) NEGATIVE SARS-CoV-2 RNA (RT-PCR) NEGATIVE 04/27/23 04/28/23 18:13 04:31 MCV 90.2 MCH 31.2 MCHC 34.6 RDW 13.3 Plt Count 223 MPV 10.1 Immature Gran % (Auto) 0.3 Neut % (Auto) 74.9 H Lymph % (Auto) 14.9 L [place] % (Auto) 8.4 Eos % (Auto) 0.8 Baso % (Auto) 0.7 Lymph # (Auto) 1.1 L [place] # (Auto) 0.6 Eos # (Auto) 0.1 Baso # (Auto) 0.1 Abs Immat Gran (auto) 0.02 Absolute Neuts (auto) 5.7 Absolute Nucleated RBC 0.000 Nucleated RBC % (auto) 0.0 Anion Gap 22 H Estim Creat Clear Calc 115.5 Estimated GFR > 60 Random Glucose 64 Calcium 8.2 L Magnesium Total Bilirubin Direct Bilirubin AST ALT Alkaline Phosphatase Troponin I High Sens 2.7 Total Protein Albumin Lipase 73 Urine Opiates Screen Urine Fentanyl Screen Ur Barbiturates Screen Ur Phencyclidine Scrn Ur Amphetamines Screen U Benzodiazepines Scrn Urine Cocaine Screen U Marijuana (THC) Screen Ethyl Alcohol Influenza Type A (PCR) Influenza Type B (PCR) RSV RNA Qual (PCR) SARS-CoV-2 RNA (RT-PCR) Procedures Date of Service Date of Service: 05/05/23 Progress Note: A&P Assessment and plan (1) Pancreatitis, alcoholic, acute: Status: Acute Assessment and Plan: CT reviewed - equivocal findings, question of PSBO KUB this AM - good amount of air in colon passing flatus abd soft and nontender no vomitting clinically not obstructed at this time will hold off on SB series trial of clear liquids Hospitalist consult - afib, ETOH Time Spent With Patient Time: Total time managing care of this patient today ____ minutes. Quality Stroke Does the patient have a stroke diagnosis?: No VTE Prior VTE?: No VTE Risk Level:: Surgical - low VTE Device Contraindication: N/A - Device Ordered VTE Drug Contraindication: Treatment Not Indicated
[2023-04-28] MEDS: 0.9 % Sodium Chloride 1,000 ML 100 ML IVCONT ×2 (09:40→19:40)
[2023-04-28] MEDS: Thiamine HCL 100 MG in 0.9 % Sodium Chloride 100 ML 202 MG IV (09:42)
--- NOTE | 2023-04-28 10:35 | PHA.MEDREC ---
Pharmacy Consult ? Medication Reconciliation Pharmacy has completed the medication reconciliation. Spoke to patient and confirmed medication list.
[2023-04-28] MEDS: Folic Acid 1 MG in 0.9 % Sodium Chloride 50 ML 100.4 MG IV (10:49)
--- NOTE | 2023-04-28 10:56 | MHC.CM.PN ---
pt lives at [place] residence he will need transport home when dcd
--- NOTE | 2023-04-28 11:22 | P.CONHOSP_ITS ---
History of Present Illness Data of Consult Service Date: 04/28/23 Primary Care Provider: Unknown Physician HPI Reason for consult: Etoh withdrawal, med management Patient is a 52-year-old male with a PMH significant for MIs x2 (2014 and 2019), alcohol use disorder drinking 12-pack and 4 nips daily, and hx of withdrawal seizures who initially presented to the emergency department for evaluation of alcohol withdrawal, intermittent chest pain and shortness of breath, nausea, vomiting, and diarrhea. Workup in the ED showed likely at least partial small bowel obstruction and patient was admitted under general surgery services for initial conservative management. Medical consult for alcohol withdrawal and medical management. Pt was started on phenobarb protocol last night. Patient seen and evaluated in bed where he is resting comfortably. Reports continuing to pass gas. Gets up during interview to go to the bathroom and reports having a large amount of liquid stool. Continues to experience mild central, substernal chest discomfort though improved since yesterday. Has headache and some nausea, but no vomiting. SOB better. Denies abdominal pain. Review of Systems 2 Review of Systems: Nausea, no vomiting Mild substernal chest discomfort Passing flatus Large liquid bowel movement x1 No abdominal pain [facility] Medical History (Updated 04/28/23 @ 12:28 by KE Cheung) Myocardial infarction CAD (coronary artery disease) Social History Alcohol intake: current Alcohol intake frequency: 0-2 drinks per day Alcohol type: beer and hard liquor service: No Meds Allergies Allergy/AdvReac Type Severity Reaction Status Date / Time No Known Allergies Allergy Verified 11/12/22 08:05 Active Medications: Current Medications Sodium Chloride (Ns) 1,000 mls @ 100 mls/hr IVCONT .Q10H [facility] Last Admin: 04/28/23 09:40 Dose: 100 mls/hr Thiamine HCl 100 mg/ Sodium (Chloride) 101 mls @ 202 mls/hr IV DAILY [facility] Last Infusion: 04/28/23 10:23 Dose: Infused Folic Acid 1 mg/ Sodium (Chloride) 50.2 mls @ 100.4 mls/hr IV DAILY [facility] Stop: 04/30/23 09:29 Last Admin: 04/28/23 10:49 Dose: 100.4 mls/hr Ondansetron HCl (Ondansetron Hcl 4 Mg/2 Ml Vial) 4 mg IVPUSH Q8H PRN PRN Reason: Nausea and Vomiting Pharmacy Consult (Consult Rx Etoh Phenob Im/Po) 1 each MISCELLANE ONCE PRN; Protocol PRN Reason: Consult order Phenobarbital (Phenobarbital 15 Mg Tablet) 45 mg PO BID [facility]; Protocol Stop: 04/30/23 09:01 Phenobarbital (Phenobarbital 30 Mg Tablet) 30 mg PO BID [facility]; Protocol Stop: 05/02/23 09:01 Phenobarbital (Phenobarbital 30 Mg Tablet) 30 mg PO DAILY [facility]; Protocol Stop: 05/04/23 09:01 Sodium Chloride (0.9 % Sodium Chloride Flush 3 Ml Syringe) 3 ml IVFLUSH QSHIFT [facility] Last Admin: 04/28/23 07:14 Dose: Not Given Home Medications Medication Instructions Recorded Confirmed Last Taken Type aspirin 81 mg tablet,delayed 81 mg PO DAILY 04/28/23 04/28/23 04/27/23 History release atorvastatin 80 mg tablet 80 mg PO DAILY 04/28/23 04/28/23 04/27/23 History carvedilol 6.25 mg tablet 6.25 mg PO BID 04/28/23 04/28/23 04/27/23 History escitalopram oxalate 20 mg tablet 20 mg PO DAILY 04/28/23 04/28/23 04/27/23 History ticagrelor 90 mg tablet (Brilinta) 90 mg PO BID 04/28/23 04/28/23 04/27/23 History trazodone 50 mg tablet 100 mg PO BEDTIME 04/28/23 04/28/23 04/27/23 History Physical Exam 2 Vital Signs and Narrative: Vital Signs: Last Vital Signs Temp 97.2 F 04/28/23 08:00 Pulse 88 04/28/23 08:00 Resp 18 04/28/23 08:00 BP 199/97 H 04/28/23 08:00 Pulse Ox 97 04/28/23 08:00 O2 Del Method Room Air 04/28/23 08:00 BMI result Body Mass Index 34.6 General: AOx3, no acute distress Resp: CTA bilaterally CVS: S1, S2, RRR GI: +BS, NT, no distention Skin: Warm, dry Neuro: Cranial nerves II-XII grossly intact bilaterally. Motor grossly intact bilaterally Extremities: No edema Psych: Appropriate affect Results Labs 04/28/23 04:31 04/28/23 04:31 Labs: Laboratory Results - last 24 hr 04/27/23 04/27/23 04/27/23 12:26 14:09 14:54 MCV 88.0 MCH 30.4 MCHC 34.5 RDW 13.3 Plt Count 261 MPV 9.7 Immature Gran % (Auto) 0.4 Neut % (Auto) 69.2 Lymph % (Auto) 22.8 [place] % (Auto) 6.3 Eos % (Auto) 0.8 Baso % (Auto) 0.5 Lymph # (Auto) 1.7 [place] # (Auto) 0.5 Eos # (Auto) 0.1 Baso # (Auto) 0.0 Abs Immat Gran (auto) 0.03 Absolute Neuts (auto) 5.2 Absolute Nucleated RBC 0.000 Nucleated RBC % (auto) 0.0 Anion Gap 19 Estim Creat Clear Calc 100.5 Estimated GFR > 60 Random Glucose 97 Calcium 8.6 D Magnesium 2.4 Total Bilirubin 0.7 Direct Bilirubin 0.2 AST 25 ALT 15 Alkaline Phosphatase 57 Troponin I High Sens < 2.7 Total Protein 7.4 Albumin 4.3 Lipase 258 H Urine Opiates Screen Not Detected Urine Fentanyl Screen Not Detected Ur Barbiturates Screen Not Detected Ur Phencyclidine Scrn Not Detected Ur Amphetamines Screen Not Detected U Benzodiazepines Scrn Not Detected Urine Cocaine Screen Not Detected U Marijuana (THC) Screen Not Detected Ethyl Alcohol 374 H* Influenza Type A (PCR) NEGATIVE Influenza Type B (PCR) NEGATIVE RSV RNA Qual (PCR) NEGATIVE SARS-CoV-2 RNA (RT-PCR) NEGATIVE 04/27/23 04/28/23 18:13 04:31 MCV 90.2 MCH 31.2 MCHC 34.6 RDW 13.3 Plt Count 223 MPV 10.1 Immature Gran % (Auto) 0.3 Neut % (Auto) 74.9 H Lymph % (Auto) 14.9 L [place] % (Auto) 8.4 Eos % (Auto) 0.8 Baso % (Auto) 0.7 Lymph # (Auto) 1.1 L [place] # (Auto) 0.6 Eos # (Auto) 0.1 Baso # (Auto) 0.1 Abs Immat Gran (auto) 0.02 Absolute Neuts (auto) 5.7 Absolute Nucleated RBC 0.000 Nucleated RBC % (auto) 0.0 Anion Gap 22 H Estim Creat Clear Calc 115.5 Estimated GFR > 60 Random Glucose 64 Calcium 8.2 L Magnesium Total Bilirubin Direct Bilirubin AST ALT Alkaline Phosphatase Troponin I High Sens 2.7 Total Protein Albumin Lipase 73 Urine Opiates Screen Urine Fentanyl Screen Ur Barbiturates Screen Ur Phencyclidine Scrn Ur Amphetamines Screen U Benzodiazepines Scrn Urine Cocaine Screen U Marijuana (THC) Screen Ethyl Alcohol Influenza Type A (PCR) Influenza Type B (PCR) RSV RNA Qual (PCR) SARS-CoV-2 RNA (RT-PCR) Imaging Radiologist's Impressions: Impressions Chest X-Ray 04/27/23 13:00 IMPRESSION: No acute cardiopulmonary disease. Abdomen Ultrasound 04/27/23 15:17 IMPRESSION: 1. Hepatic steatosis. 2. The pancreas and left lobe of the liver are obscured by bowel gas. 3. Views of the right kidney are limited due to body habitus and patient's inability to hold their breath. Abdomen/Pelvis CT 04/27/23 19:10 IMPRESSION: 1. Findings are most consistent with a small bowel obstruction transitioning in the right abdomen into a decompressed distal ileum and terminal ileum. 2. Hepatic steatosis. 3. Asymmetric atrophy of the right kidney. KUB X-Ray 04/28/23 08:00 IMPRESSION: Persistent small bowel distention. Assessment and Plan (1) Partial small bowel obstruction: Status: Acute Plan Patient is a 52-year-old male with a PMH significant for MIs x2 (2014 and 2019), alcohol use disorder drinking 12-pack and 4 nips daily, and hx of withdrawal seizures who initially presented to the emergency department for evaluation of alcohol withdrawal, intermittent chest pain and shortness of breath, nausea, vomiting, and diarrhea. Workup in the ED showed likely at least partial small bowel obstruction and patient was admitted under general surgery services for initial conservative management. Medical consult for alcohol withdrawal and medical management. Small-bowel obstruction Passing flatus, had large liquid bowel movement Plan as per General surgery Alcohol withdrawal Patient reports drinking 12 pack of beer and four nips daily Continue phenobarb protocol Will give one dose Protonix IV, start on famotidine Folic acid, thiamine, multivitamin Monitor CIWA Chest pain EKG showed normal sinus rhythm without ischemic changes Initial troponin negative with repeat 2.7 Most likely secondary to partial small bowel obstruction, possibly GERD/alcoholic gastritis Will repeat EKG if patient's chest pain returns CAD/hx of MIs Hold aspirin and ticagrelor d/t possible exploratory laparotomy Continue tomorrow if patient advance his diet and continues to pass flatus and stool HTN Continue carvedilol Thank you for allowing us to participate in the care of this patient. Will continue to follow along with you. Attending: Dr. Benson
[2023-04-28] MEDS: Pantoprazole Sodium 40 MG/10 ML VIAL IVPUSH (12:58)
[2023-04-28] MEDS: ondansetron HCL 4 MG/2 ML VIAL IVPUSH (12:58)
[2023-04-28] MEDS: Escitalopram Oxalate 20 MG TABLET PO (13:00)
[2023-04-28] MEDS: Atorvastatin Calcium 80 MG TABLET PO (13:00)
[2023-04-28] MEDS: carvediloL 6.25 MG TABLET PO ×2 (13:01→19:42)
[2023-04-28] MEDS: Acetaminophen 325 MG TABLET 650 MG PO ×2 (13:01→19:41)
[2023-04-28] MEDS: Multivitamin TABLET 1 TAB PO (13:01)
--- NOTE | 2023-04-28 15:46 | PM.EVENT ---
Event Note Date of Service: 04/28/23 Event Note: Has had multiple loose stools during the day Denies significant abdominal pain Complaints of headache, dizziness and nausea Abdomen soft and benign No significant tenderness Currently obstructed Likely to advance diet tomorrow Appreciate input by hospitalist service for coronary artery disease and ETOH Time Spent With Patient Time: Total time managing care of this patient today ____ minutes.
[2023-04-28] MEDS: amLODIPine Besylate 5 MG TABLET PO (15:47)
[2023-04-28] MEDS: PHENobarbitaL sodium 130 MG/ML VIAL IM (17:19)
[2023-04-28] MEDS: Famotidine 20 MG TABLET PO (19:42)
[2023-04-28] MEDS: PHENobarbitaL 15 MG TABLET 45 MG PO (19:42)
[2023-04-28] MEDS: traZODone HCL 100 MG TABLET PO (19:42)
[2023-04-29 03:02] VITALS: BP 168/73; PULSE 71; RESP 16; TEMP 36.4; O2SAT 98
[2023-04-29] MEDS: ondansetron HCL 4 MG/2 ML VIAL IVPUSH ×2 (03:20→12:54)
[2023-04-29] MEDS: Acetaminophen 325 MG TABLET 650 MG PO ×5 (03:23→23:45)
[2023-04-29] MEDS: HYDROmorphone HCl 1 MG/ML SYRINGE IVPUSH (03:53)
[2023-04-29] MEDS: 0.9 % Sodium Chloride 1,000 ML 100 ML IVCONT ×2 (04:59→15:13)
[2023-04-29 07:27] VITALS: BP 157/80; PULSE 63; RESP 20; TEMP 36.8; O2SAT 97
[2023-04-29] MEDS: carvediloL 6.25 MG TABLET PO ×2 (07:49→19:38)
[2023-04-29] MEDS: PHENobarbitaL 15 MG TABLET 45 MG PO ×2 (07:50→19:37)
[2023-04-29] MEDS: Escitalopram Oxalate 20 MG TABLET PO (07:50)
[2023-04-29] MEDS: Multivitamin TABLET 1 TAB PO (07:50)
[2023-04-29] MEDS: Atorvastatin Calcium 80 MG TABLET PO (07:51)
[2023-04-29] MEDS: Famotidine 20 MG TABLET PO ×2 (07:51→19:37)
[2023-04-29] MEDS: Thiamine HCL 100 MG in 0.9 % Sodium Chloride 100 ML 202 MG IV (07:53)
[2023-04-29 08:08] LABS: Anion Gap 14 (12-20); Blood Urea Nitrogen 7 mg/dL (9-16); Calcium 8.5 mg/dL (8.4-10.2); Carbon Dioxide 28 mmol/L (22-29); Chloride 105 mmol/L (96-108); Creatinine Clr Calc Pharmacy 116.1; Estimated Glomerular Filt Rate > 60; Glucose Random 117 mg/dL (60-115); Potassium 3.8 mmol/L (3.3-5.1); Sodium 143 mmol/L (135-145)
--- NOTE | 2023-04-29 08:10 | PM.PNGS ---
Subjective Subjective Date of Service: 04/29/23 Interval history: feels anxious, says he is in withdrawal denies abdl pain some loose stools passing flatus Physical Exam Vital Signs: Vital Signs: Last Vital Signs Temp 98.3 F 04/29/23 07:27 Pulse 63 04/29/23 07:27 Resp 20 04/29/23 07:27 BP 168/73 H 04/29/23 03:02 Pulse Ox 97 04/29/23 07:27 O2 Del Method Room Air 04/29/23 07:27 BMI result Body Mass Index 34.1 Const: Other: anxious General: comfortable and no acute distress Resp: Effort & Inspection: normal respiratory effort Cardio: Rate: regular rate GI: Palpation (GI): Soft to palpation, not firm and nontender Objective Data Active Medications Acetaminophen (Acetaminophen 325 Mg Tablet) 650 mg PO Q4H PRN PRN Reason: Pain, Mild (Pain Scale 1-3) Last Admin: 04/29/23 07:50 Dose: 650 mg Documented By: REAGAN Atorvastatin Calcium (Atorvastatin Calcium 80 Mg Tablet) 80 mg PO DAILY [facility] Last Admin: 04/29/23 07:51 Dose: 80 mg Documented By: REAGAN Carvedilol (Carvedilol 6.25 Mg Tablet) 6.25 mg PO BID [facility]; Protocol Last Admin: 04/29/23 07:49 Dose: 6.25 mg Documented By: REAGAN Escitalopram Oxalate (Escitalopram Oxalate 20 Mg Tablet) 20 mg PO DAILY [facility] Last Admin: 04/29/23 07:50 Dose: 20 mg Documented By: REAGAN Famotidine (Famotidine 20 Mg Tablet) 20 mg PO BID [facility] Last Admin: 04/29/23 07:51 Dose: 20 mg Documented By: REAGAN Sodium Chloride (Ns) 1,000 mls @ 100 mls/hr IVCONT .Q10H [facility] Last Admin: 04/29/23 04:59 Dose: 100 mls/hr Documented By: BRIA Thiamine HCl 100 mg/ Sodium (Chloride) 101 mls @ 202 mls/hr IV DAILY [facility] Last Admin: 04/29/23 07:53 Dose: 202 mls/hr Documented By: REAGAN Folic Acid 1 mg/ Sodium (Chloride) 50.2 mls @ 100.4 mls/hr IV DAILY [facility] Stop: 04/30/23 09:29 Last Infusion: 04/28/23 11:37 Dose: Infused Documented By: REAGAN Multivitamins/Vitamin C (Multivitamin Tablet) 1 tab PO DAILY [facility] Stop: 05/01/23 12:34 Last Admin: 04/29/23 07:50 Dose: 1 tab Documented By: REAGAN Ondansetron HCl (Ondansetron Hcl 4 Mg/2 Ml Vial) 4 mg IVPUSH Q8H PRN PRN Reason: Nausea and Vomiting Last Admin: 04/29/23 03:20 Dose: 4 mg Documented By: BRIA Pharmacy Consult (Consult Rx Etoh Phenob Im/Po) 1 each MISCELLANE ONCE PRN; Protocol PRN Reason: Consult order Phenobarbital (Phenobarbital 15 Mg Tablet) 45 mg PO BID [facility]; Protocol Stop: 04/30/23 09:01 Last Admin: 04/29/23 07:50 Dose: 45 mg Documented By: REAGAN Phenobarbital (Phenobarbital 30 Mg Tablet) 30 mg PO BID [facility]; Protocol Stop: 05/02/23 09:01 Phenobarbital (Phenobarbital 30 Mg Tablet) 30 mg PO DAILY [facility]; Protocol Stop: 05/04/23 09:01 Sodium Chloride (0.9 % Sodium Chloride Flush 3 Ml Syringe) [facility] Last Admin: 04/29/23 07:39 Dose: Not Given Documented By: REAGAN Non-Admin Reason: IV Running Trazodone HCl (Trazodone Hcl 100 Mg Tablet) 100 mg PO BEDTIME [facility] Last Admin: 04/28/23 19:42 Dose: 100 mg Documented By: BRIA Labs 04/28/23 04:31 04/29/23 07:27 Labs: Laboratory Results - last 24 hr 04/29/23 04/29/23 07:27 07:35 Hold Purple Top SEE NOTE Anion Gap 14 Estim Creat Clear Calc 116.1 Estimated GFR > 60 Random Glucose 117 H Calcium 8.5 Procedures Date of Service Date of Service: 04/29/23 Progress Note: A&P Assessment and plan (1) Ileus: Status: Acute Assessment and Plan: clinically not obstructed likely had ileus from ETOH, pancreatitis no abdl pain or tenderness advance diet Hospitalist following for ETOH, on withdrawal precautions/protocol pt counseled Time Spent With Patient Time: Total time managing care of this patient today ____ minutes. Quality Stroke Does the patient have a stroke diagnosis?: No VTE Prior VTE?: No VTE Risk Level:: Surgical - low VTE Device Contraindication: N/A - Device Ordered VTE Drug Contraindication: Treatment Not Indicated
[2023-04-29] MEDS: Folic Acid 1 MG in 0.9 % Sodium Chloride 50 ML 100.4 MG IV (09:33)
--- NOTE | 2023-04-29 12:34 | P.PNIM_ITS ---
Subjective Subjective Date of Service: 04/29/23 Interval History: seen and evaluated reports pain is better has mild nausea tolerating clears feels tired, palpitations and hot flashes Review of Systems Review of Systems: Yes all other systems are reviewed and are negative Physical Exam 2 Vital Signs: Vital Signs: Last Vital Signs Temp 98.3 F 04/29/23 07:27 Pulse 63 04/29/23 07:27 Resp 20 04/29/23 07:27 BP 157/80 H 04/29/23 07:27 Pulse Ox 97 04/29/23 07:27 O2 Del Method Room Air 04/29/23 07:27 BMI result Body Mass Index 34.1 Const: Other: Constitutional : Awake, interactive, little anxious Neck : Normal inspection, Supple Cardiovascular : RRR, no JVP, no lower extremity edema Respiratory : good bilateral air entry, no crackles, wheezes or rhonchi Gastrointestinal: soft, lax, Normal bowel sounds, mild generalized tenderness with no surgical signs Skin : Warm, Dry Neurological : Alert & oriented x3, No focal deficit, mild tremor Objective Data Active Medications Acetaminophen (Acetaminophen 325 Mg Tablet) 650 mg PO Q4H PRN PRN Reason: Pain, Mild (Pain Scale 1-3) Last Admin: 04/29/23 07:50 Dose: 650 mg Documented By: REAGAN Atorvastatin Calcium (Atorvastatin Calcium 80 Mg Tablet) 80 mg PO DAILY [facility] Last Admin: 04/29/23 07:51 Dose: 80 mg Documented By: REAGAN Carvedilol (Carvedilol 6.25 Mg Tablet) 6.25 mg PO BID [facility]; Protocol Last Admin: 04/29/23 07:49 Dose: 6.25 mg Documented By: REAGAN Escitalopram Oxalate (Escitalopram Oxalate 20 Mg Tablet) 20 mg PO DAILY [facility] Last Admin: 04/29/23 07:50 Dose: 20 mg Documented By: REAGAN Famotidine (Famotidine 20 Mg Tablet) 20 mg PO BID [facility] Last Admin: 04/29/23 07:51 Dose: 20 mg Documented By: REAGAN Sodium Chloride (Ns) 1,000 mls @ 100 mls/hr IVCONT .Q10H [facility] Last Admin: 04/29/23 04:59 Dose: 100 mls/hr Documented By: BRIA Thiamine HCl 100 mg/ Sodium (Chloride) 101 mls @ 202 mls/hr IV DAILY [facility] Last Infusion: 04/29/23 08:32 Dose: Infused Documented By: REAGAN Folic Acid 1 mg/ Sodium (Chloride) 50.2 mls @ 100.4 mls/hr IV DAILY [facility] Stop: 04/30/23 09:29 Last Infusion: 04/29/23 10:34 Dose: Infused Documented By: REAGAN Multivitamins/Vitamin C (Multivitamin Tablet) 1 tab PO DAILY [facility] Stop: 05/01/23 12:34 Last Admin: 04/29/23 07:50 Dose: 1 tab Documented By: REAGAN Ondansetron HCl (Ondansetron Hcl 4 Mg/2 Ml Vial) 4 mg IVPUSH Q8H PRN PRN Reason: Nausea and Vomiting Last Admin: 04/29/23 03:20 Dose: 4 mg Documented By: BRIA Pharmacy Consult (Consult Rx Etoh Phenob Im/Po) 1 each [facility]IS[facility]ANE ONCE [facility]; Protocol PRN Reason: Consult order Phenobarbital (Phenobarbital 15 Mg Tablet) 45 mg PO BID [facility]; Protocol Stop: 04/30/23 09:01 Last Admin: 04/29/23 07:50 Dose: 45 mg Documented By: REAAGN Phenobarbital (Phenobarbital 30 Mg Tablet) 30 mg PO BID [facility]; Protocol Stop: 05/02/23 09:01 Phenobarbital (Phenobarbital 30 Mg Tablet) 30 mg PO DAILY [facility]; Protocol Stop: 05/04/23 09:01 Sodium Chloride (0.9 % Sodium Chloride Flush 3 Ml Syringe) 3 ml IVFLUSH QSHIFT [facility] Last Admin: 04/29/23 07:39 Dose: Not Given Documented By: REAGAN Non-Admin Reason: IV Running Trazodone HCl (Trazodone Hcl 100 Mg Tablet) 100 mg PO BEDTIME [facility] Last Admin: 04/28/23 19:42 Dose: 100 mg Documented By: BRIA Labs 04/28/23 04:31 04/29/23 07:27 Labs: Laboratory Results - last 24 hr 04/29/23 04/29/23 07:27 07:35 Hold Purple Top SEE NOTE Anion Gap 14 Estim Creat Clear Calc 116.1 Estimated GFR > 60 Random Glucose 117 H Calcium 8.5 Assessment and Plan (1) Pancreatitis, alcoholic, acute: Status: Acute (2) Alcohol withdrawal: Status: Acute Plan Patient is a 52-year-old male with a PMH significant for MIs x2 (2014 and 2019), alcohol use disorder drinking 12-pack and 4 nips daily, and hx of withdrawal seizures who initially presented to the emergency department for evaluation of alcohol withdrawal, intermittent chest pain and shortness of breath, nausea, vomiting, and diarrhea. Workup in the ED showed likely at least partial small bowel obstruction and patient was admitted under general surgery services for initial conservative management. Medical consult for alcohol withdrawal and medical management. Small-bowel obstruction having bowel movements Plan as per General surgery Alcohol withdrawal Continue phenobarb protocol famotidine Folic acid, thiamine, multivitamin Monitor CIWA give extra dose PHenobarb CAD/hx of MIs restart aspirin and ticagrelor HTN Continue carvedilol Thank you for allowing us to participate in the care of this patient. Will continue to follow along with you. Quality Stroke Does the patient have a stroke diagnosis?: No VTE Prior VTE?: No VTE Risk Level:: Surgical - low VTE Device Contraindication: N/A - Device Ordered VTE Drug Contraindication: Treatment Not Indicated
[2023-04-29] MEDS: PHENobarbitaL sodium 130 MG/ML VIAL IM ×2 (12:55→23:51)
[2023-04-29 15:06] VITALS: BP 162/92; PULSE 74; RESP 18; TEMP 36.8; O2SAT 97
[2023-04-29 19:01] VITALS: BP 158/86; PULSE 78; RESP 18; TEMP 36.3; O2SAT 95
[2023-04-29] MEDS: traZODone HCL 100 MG TABLET PO (19:38)
[2023-04-29] MEDS: oxyCODONE HCl Immed Release 5 MG TABLET PO (23:27)
[2023-04-30] MEDS: oxyCODONE HCl Immed Release 5 MG TABLET PO ×3 (03:05→11:04)
[2023-04-30 04:00] VITALS: BP 159/97; PULSE 63; RESP 18; TEMP 36.2; O2SAT 96
[2023-04-30] MEDS: Acetaminophen 325 MG TABLET 650 MG PO (06:39)
[2023-04-30 07:04] VITALS: BP 170/98; PULSE 66; RESP 18; TEMP 36.6; O2SAT 97
[2023-04-30] MEDS: Escitalopram Oxalate 20 MG TABLET PO (08:16)
[2023-04-30] MEDS: Multivitamin TABLET 1 TAB PO (08:16)
[2023-04-30] MEDS: Atorvastatin Calcium 80 MG TABLET PO (08:16)
[2023-04-30] MEDS: PHENobarbitaL 15 MG TABLET 45 MG PO (08:16)
[2023-04-30] MEDS: carvediloL 6.25 MG TABLET PO ×2 (08:16→10:56)
[2023-04-30] MEDS: Famotidine 20 MG TABLET PO (08:17)
[2023-04-30] MEDS: Aspirin Enteric Coated 81 MG TABLET.DR PO (08:17)
[2023-04-30] MEDS: Thiamine HCL 100 MG in 0.9 % Sodium Chloride 100 ML 202 MG IV (08:17)
[2023-04-30] MEDS: amLODIPine Besylate 5 MG TABLET PO (08:54)
[2023-04-30] MEDS: 0.9 % Sodium Chloride Flush 3 ML SYRINGE IVFLUSH (08:55)
--- NOTE | 2023-04-30 09:56 | PM.PNGS ---
Subjective Subjective Date of Service: 04/30/23 <Stephanie aPdilla PA-C - Last Filed: 04/30/23 09:58> 04/30/23 <Percy Cuevas MD - Last Filed: 04/30/23 13:22> Interval history: Overall feels better. Continues to have anxiety but this is at his baseline. Denies abd pain. Tolerating diet. BM more formed this am. Asking to go home. <Stephanie Padilla PA-C - Last Filed: 04/30/23 09:58> Physical Exam Vital Signs: Vital Signs: Last Vital Signs Temp 97.8 F 04/30/23 07:04 Pulse 66 04/30/23 07:04 Resp 18 04/30/23 07:04 BP 170/98 H 04/30/23 07:04 Pulse Ox 97 04/30/23 07:04 O2 Del Method Room Air 04/30/23 07:04 BMI result Body Mass Index 34.1 <Stephanie Padilla PA-C - Last Filed: 04/30/23 09:58> Const: General: comfortable, no acute distress and alert <Stephanie Padilla PA-C - Last Filed: 04/30/23 09:58> Orientation/consciousness: patient oriented x3 <Stephanie Padilla PA-C - Last Filed: 04/30/23 09:58> Resp: Effort & Inspection: normal respiratory effort <Stephanie Padilla PA-C - Last Filed: 04/30/23 09:58> GI: Inspection: No distended <Stephanie Padilla PA-C - Last Filed: 04/30/23 09:58> Palpation (GI): Soft to palpation, nontender, no guarding and not rigid <Stephanie Padilla PA-C - Last Filed: 04/30/23 09:58> Skin: General skin exam: no rashes or lesions noted and no jaundice <PORTIA Cevallos Last Filed: 04/30/23 09:58> Neuro: General: patient oriented x3 <PORTIA Cevallos Last Filed: 04/30/23 09:58> Objective Data Active Medications Acetaminophen (Acetaminophen 325 Mg Tablet) 650 mg PO Q4H PRN PRN Reason: Pain, Mild (Pain Scale 1-3) Last Admin: 04/30/23 06:39 Dose: 650 mg Documented By: ARELI Amlodipine Besylate (Amlodipine Besylate 5 Mg Tablet) 5 mg PO DAILY [facility]; Protocol Last Admin: 04/30/23 08:54 Dose: 5 mg Documented By: RENETTA Aspirin (Aspirin Enteric Coated 81 Mg Tablet.Dr) 81 mg PO DAILY [facility] Last Admin: 04/30/23 08:17 Dose: 81 mg Documented By: RENETTA Atorvastatin Calcium (Atorvastatin Calcium 80 Mg Tablet) 80 mg PO DAILY [facility] Last Admin: 04/30/23 08:16 Dose: 80 mg Documented By: RENETTA Carvedilol (Carvedilol 12.5 Mg Tablet) 12.5 mg PO BID [facility]; Protocol Escitalopram Oxalate (Escitalopram Oxalate 20 Mg Tablet) 20 mg PO DAILY [facility] Last Admin: 04/30/23 08:16 Dose: 20 mg Documented By: RENETTA Famotidine (Famotidine 20 Mg Tablet) 20 mg PO BID [facility] Last Admin: 04/30/23 08:17 Dose: 20 mg Documented By: RENETTA Thiamine HCl 100 mg/ Sodium (Chloride) 101 mls @ 202 mls/hr IV DAILY [facility] Last Infusion: 04/30/23 08:57 Dose: Infused Documented By: RENETTA Multivitamins/Vitamin C (Multivitamin Tablet) 1 tab PO DAILY [facility] Stop: 05/01/23 12:34 Last Admin: 04/30/23 08:16 Dose: 1 tab Documented By: RENETTA Ondansetron HCl (Ondansetron Hcl 4 Mg/2 Ml Vial) 4 mg IVPUSH Q8H PRN PRN Reason: Nausea and Vomiting Last Admin: 04/29/23 12:54 Dose: 4 mg Documented By: REAGAN Oxycodone HCl (Oxycodone Hcl Immed Release 5 Mg Tablet) 5 mg PO Q4H PRN PRN Reason: Pain, Severe (Pain Scale 7-10) Last Admin: 04/30/23 06:40 Dose: 5 mg Documented By: ARELI Pharmacy Consult (Consult Rx Etoh Phenob Im/Po) 1 each MISCELLANE ONCE PRN; Protocol PRN Reason: Consult order Phenobarbital (Phenobarbital 30 Mg Tablet) 30 mg PO BID [facility]; Protocol Stop: 05/02/23 09:01 Phenobarbital (Phenobarbital 30 Mg Tablet) 30 mg PO DAILY [facility]; Protocol Stop: 05/04/23 09:01 Phenobarbital Sodium (Phenobarbital Sodium 130 Mg/Ml Vial) 130 mg IM ONCE PRN PRN Reason: Alcohol Withdrawal Last Admin: 04/29/23 23:51 Dose: 130 mg Documented By: ARELI Sodium Chloride (0.9 % Sodium Chloride Flush 3 Ml Syringe) 3 ml IVFLUSH QSHIFT [facility] Last Admin: 04/30/23 08:55 Dose: 3 ml Documented By: RENETTA Trazodone HCl (Trazodone Hcl 100 Mg Tablet) 100 mg PO BEDTIME [facility] Last Admin: 04/29/23 19:38 Dose: 100 mg Documented By: REAGAN <Stephanie Padilla PA-C - Last Filed: 04/30/23 09:58> Labs CBC & Chem 7: 04/28/23 04:31 04/29/23 07:27 <Stephanie Padilla PA-C - Last Filed: 04/30/23 09:58> Procedures Date of Service Date of Service: 04/30/23 <Stephanie Padilla PA-C - Last Filed: 04/30/23 09:58> 04/30/23 <Percy Ceuvas MD - Last Filed: 04/30/23 13:22> Progress Note: A&P Assessment and plan (1) Ileus: Status: Acute <Stephanie Padilla PA-C - Last Filed: 04/30/23 09:58> Assessment and Plan: Denies abdominal pain Tolerating diet well Good flatus and BMs Abdomen soft, nontender, nondistended Okay to DC home Consult on ETOH abuse Discussed with hospitalist service <Percy Cuevas MD - Last Filed: 04/30/23 13:22> (2) Alcohol withdrawal: Status: Acute <Stephanie Padilla PA-C - Last Filed: 04/30/23 09:58> Assessment and Plan: Likely had ileus from ETOH, pancreatitis. Now tolerating solid diet with good GI function. Abd remains benign. Will discuss with medicine regarding possible dc to home. Has f/u appt for depression in early May. <Stephanie Padilla PA-C - Last Filed: 04/30/23 09:58> Time Spent With Patient Time: Total time managing care of this patient today ____ minutes. <Stephanie Padilla PA-C - Last Filed: 04/30/23 09:58> Quality Stroke Does the patient have a stroke diagnosis?: No <Stephanie Padilla PA-C - Last Filed: 04/30/23 09:58> VTE Prior VTE?: No <Stephanie Padilla PA-C - Last Filed: 04/30/23 09:58> VTE Risk Level:: Surgical - low <Stephanie Padilla PA-C - Last Filed: 04/30/23 09:58> VTE Device Contraindication: N/A - Device Ordered <Stephanie Padilla PA-C - Last Filed: 04/30/23 09:58> VTE Drug Contraindication: Treatment Not Indicated <Stephanie Padilla PA-C - Last Filed: 04/30/23 09:58>
[2023-04-30] MEDS: Folic Acid 1 MG in 0.9 % Sodium Chloride 50 ML 100.4 MG IV (10:18)
[2023-04-30 10:33] VITALS: BP 173/95
--- NOTE | 2023-04-30 10:49 | PM.DS ---
DS: Providers Provider Date of Service: 04/30/23 Date of admission: 04/27/23 22:25 Primary care physician: Unknown Physician Attending physician on admission: Kristine Childress Consults: 04/27/23 22:35 Consult to Hospitalist Routine Comment: Consulting Provider: Hospitalist Reason For Exam: med management of etoh intoxication possible detox 04/28/23 08:26 Consult to Hospitalist Routine Comment: Consulting Provider: Hospitalist Reason For Exam: ETOH abuse, hx of CAD Attending physician on discharge: Percy Cuevas DS: Diagnosis Discharge Diagnosis (1) Ileus: Status: Acute (2) Alcohol withdrawal: Status: Acute DS: Summary Hospital Course Hospital Course: HPI AT ADMISSION: Papi Pierce is a 52 year old male known alcoholic who came into the emergency room today complaining of chest pain and sensation of not being able to breathe. He said he was not feeling well. At the time he was highly intoxicated said that he had been drinking earlier today. He says he drinks rum and beer in moderate amounts. He says he drinks 2 take away his depression and his pain. Initially said he has had diarrhea but then said his last bowel movement was 2 days ago. He says that he has passed gas yesterday and today in the emergency room but it is difficult to know how reliable he is. At this point he is more awake and alert and sober but a little difficult to hold down and get an accurate story. He denies any previous surgery although he says he has had kidney stones and had a stent and a procedure for that. He says he has not been eating the last several days because he has been drinking alcohol consistently. He says that he does smoke about 1-2 cigarettes a day but denies any drug use. He says that he does not want to drink anymore because he is getting too old for that. Right upper quadrant ultrasound was done to rule out gallstone pancreatitis but this was normal. He then underwent a CT scan of his abdomen and pelvis which showed moderate distended diffuse small bowel loops with a transition point in the right lower quadrant. HOSPITAL COURSE: The patient was admitted to the surgical service for further evaluation and treatment. He was kept NPO and on IVF with plan for Gastrografin study with f/u KUB to further evaluation possible SBO. Hospitalist consult was obtained for management of his medical comorbidities. He was placed on CIWA precautions and phenobarbitol protocol. His abdominal symptoms resolved during his stay and f/u KUB showed air in the colon. He began to pass flatus. Likely had ileus secondary to ETOH intake. He was advanced to clear liquids and then solids which he was tolerating. He began to have loose BMs. He remained inpatient for treatment of alcohol withdrawal. His home medications were resumed. His BP was uncontrolled on his home dose of carvedilol and this was increased to 12.5mg PO BID and amlodipine 5mg PO daily was added. On the day of discharge, his abdominal symptoms and withdrawal symptoms had resolved. He felt back to baseline. He was tolerating a solid diet with good GI function. His abdomen was benign and soft without any abd tenderness. He was educated on abstaining from alcohol. He was discharged to home on 04/30/23 in stable condition. He is to follow up with his PCP. Status at Discharge Functional status at discharge: independent ambulation Overall status at discharge: patient is back to baseline Time Attestation Discharge coordination time: Less than 30 minutes Quality: Safe Use of Opioids Does Pt have an Active Cancer Diagnosis on the Problem List?: No Quality: Stroke Does the patient have a stroke diagnosis?: No Physical Exam Vital Signs: Vital Signs: Last Vital Signs Temp 97.8 F 04/30/23 07:04 Pulse 66 04/30/23 07:04 Resp 18 04/30/23 07:04 BP 173/95 H 04/30/23 10:33 Pulse Ox 97 04/30/23 07:04 O2 Del Method Room Air 04/30/23 07:04 BMI result Body Mass Index 34.1 Const: General: comfortable, no acute distress and alert Orientation/consciousness: patient oriented x3 Resp: Effort & Inspection: normal respiratory effort GI: Other: protuberant abd Inspection: No distended Palpation (GI): Soft to palpation and nontender Skin: General skin exam: no rashes or lesions noted and no jaundice Neuro: General: patient oriented x3 and moves all extremities Discharge Plan Discharge Anticipated Discharge Date/Time: 04/30/23 10:48 Patient Disposition: Home, Self-Care Discharge Diagnosis: ileus, ETOH withdrawal Referrals: Physician,Unknown J [Primary Care Provider] - 1 Week Discharge Medications: New trazodone 50 mg tablet 50 mg PO BEDTIME PRN (Reason: insomnia) Qty: 30 0RF carvedilol 12.5 mg Tablet 12.5 mg PO BID Qty: 180 0RF Protocol: Hold for SBP/HR < HOLD for SBP < : 90 HOLD for HR < : 60 amlodipine 5 mg Tablet 5 mg PO DAILY Qty: 90 0RF Protocol: Hold for SBP< HOLD for SBP < : 90 Continued atorvastatin 80 mg tablet 80 mg PO DAILY trazodone 50 mg tablet 100 mg PO BEDTIME aspirin 81 mg tablet,delayed release (DR/EC) 81 mg PO DAILY escitalopram oxalate 20 mg tablet 20 mg PO DAILY Brilinta 90 mg tablet 90 mg PO BID Discontinued carvedilol 6.25 mg tablet 6.25 mg PO BID Discharge Orders: Discharge Order (Routine); Ordered 04/30/23 Ordered By: Stephanie Padilla Diet: Advance to usual diet Activity on Discharge: As tolerated Stand Alone Forms: Patient Portal Discharge page Activity Restrictions/Additional Instructions: Follow up with your PCP. Abstain from alcohol. Call Your Doctor If: ? ? -Your temperature exceeds 101.5? F? ? ? -You experience excessive pain or swelling ? ? -You have an unexpected reaction to medication ? ? -You experience continued vomiting/nausea Care Plan Goals: Return to baseline health and resume normal activities. Abstain from alcohol. Health Concerns: ileus alcohol abuse and withdrawal hypertension Plan of Treatment: supportive f/u with PCP and therapist, treatment for alcohol abuse Assessment: Improved
--- NOTE | 2023-04-30 10:57 | MHC.CM.PN ---
[place] [facility] home via [facility] [place]
== END 2023-04-30 11:06 | disposition home or self-care (01) | DRG 282 ==
LOC: HO.ED 13:58 → HO.EDOVER 22:41 → HO.S3 04-28 07:32
PROVIDERS: Physician Assistant Medical; Surgery; Admitting Provider Surgery; Emergency Provider Emergency Medicine; Visit Provider Surgery
DX: K85.20 Alcohol induced acute pancreatitis without necrosis or infection (principal); K56.7 Ileus, unspecified; F10.229 Alcohol dependence with intoxication, unspecified; K29.20 Alcoholic gastritis without bleeding; F17.210 Nicotine dependence, cigarettes, uncomplicated; I25.10 Atherosclerotic heart disease of native coronary artery without angina pectoris; Z71.6 Tobacco abuse counseling; Z20.822 Contact with and (suspected) exposure to COVID-19; I25.2 Old myocardial infarction; Y90.8 Blood alcohol level of 240 mg/100 ml or more; Z79.82 Long term (current) use of aspirin; Z79.899 Other long term (current) drug therapy
CPT/HCPCS: 0241U; 36415; 71045; 74018; 74177; 76705; 80048; 80076; 80307; 83690; 83735; 84484; 85025; 93005; 99285; C9113; J1170; J2060; J2405; J2560; J3411; Q9967

== ENCOUNTER → 2023-04-27 12:09 | Outpatient (BNV) | payer MEDICAID, SELFPAY | PROVIDERS: Admitting Provider Surgery; Emergency Provider Emergency Medicine; Visit Provider Internal Medicine Cardiovascular Disease | DX: R07.9 Chest pain, unspecified (principal) | CPT/HCPCS: 93010 ==

== ENCOUNTER → 2023-04-27 22:25 | Outpatient (BNV) | payer MEDICAID, SELFPAY | PROVIDERS: Admitting Provider Surgery; Emergency Provider Emergency Medicine; Visit Provider Student in an Organized Health Care Education/Training Program | DX: K85.20 Alcohol induced acute pancreatitis without necrosis or infection (principal); F10.939 Alcohol use, unspecified with withdrawal, unspecified; K56.600 Partial intestinal obstruction, unspecified as to cause | CPT/HCPCS: 99222; 99231 ==

== ENCOUNTER → 2023-04-27 22:25 | Outpatient (BNV) | payer MEDICAID, SELFPAY | PROVIDERS: Admitting Provider Surgery; Emergency Provider Emergency Medicine; Visit Provider Surgery | DX: K56.7 Ileus, unspecified (principal); K85.20 Alcohol induced acute pancreatitis without necrosis or infection; F10.939 Alcohol use, unspecified with withdrawal, unspecified | CPT/HCPCS: 99223; 99232; 99238; 99499 ==

== ENCOUNTER 2023-05-03 10:52 | Emergency (ER) | payer MEDICAID, SELFPAY ==
[2023-05-03 10:55] VITALS: BP 148/88; PULSE 70; O2SAT 99
[2023-05-03 11:39] VITALS: BP 119/74; PULSE 69; RESP 18; TEMP 36.8; O2SAT 99; BMI 34.2
--- NOTE | 2023-05-03 11:40 | ED.GENADULT ---
HPI - General Adult General Chief complaint: Dizziness Stated complaint: vomiting,dizzy Related Data Home Medications Medication Instructions Recorded Confirmed aspirin 81 mg tablet,delayed 81 mg PO DAILY 04/28/23 04/28/23 release atorvastatin 80 mg tablet 80 mg PO DAILY 04/28/23 04/28/23 escitalopram oxalate 20 mg tablet 20 mg PO DAILY 04/28/23 04/28/23 ticagrelor 90 mg tablet (Brilinta) 90 mg PO BID 04/28/23 04/28/23 trazodone 50 mg tablet 100 mg PO BEDTIME 04/28/23 04/28/23 Previous Rx's Medication Instructions Recorded amlodipine 5 mg tablet 5 mg PO DAILY #90 tabs 04/30/23 carvedilol 12.5 mg tablet 12.5 mg PO BID #180 tabs 04/30/23 trazodone 50 mg tablet 50 mg PO BEDTIME PRN insomnia #30 04/30/23 tabs Allergies Allergy/AdvReac Type Severity Reaction Status Date / Time No Known Allergies Allergy Verified 11/12/22 08:05 [facility] Past Medical History Medical History (Updated 05/03/23 @ 22:57 by KE Zhu) Ileus Myocardial infarction CAD (coronary artery disease) Social History Social History Household Members Other:: self Housing: Apartment Do you presently have visiting nurse or other home services: No Alcohol intake: current Alcohol intake frequency: 0-2 drinks per day Alcohol type: beer and hard liquor Patient Tobacco Use Status: Current everyday Tobacco user Tobacco use type: Cigarette Cigarettes Per Day: 3 Years Smoked: 40 Second Hand Smoke Exposure: No service: No Physical Exam ED Vital Signs: Vital Signs - 24 hr 05/03/23 11:39 Temperature 98.3 F Pulse Rate 69 Respiratory Rate 18 Blood Pressure 119/74 Pulse Oximetry 99 Oxygen Delivery Method Room Air BMI result Body Mass Index 34.2 Course Course Course Narrative: RME: 52 yo male hx of etoh abuse and [place] X2, nausea, vomiting, diarrhea, headache, and dizziness x 1wk. dx with pancreatitis 1 wk ago here, admitted. while here, he went through detox from etoh. last drink 8 days ago. denies hx of withdrawal or withdrawal seizure. placed on new BP meds (amlodipine) and increased carvedolol to 12.5 at ED visit 6 days ago. additionally endorses infected tooth to right front upper. admits to chills. denies chest pain, SOB. +epigastric ttp. no asterixis or tongue fasiculations. labs, UA ordered. Full HPI, ROS and PE to be performed by the primary ED provider. Reevaluation(s) Reevaluation #1: Patient left the ED without completing treatment. Medical Decision Making Lab Data 05/03/23 12:13 05/03/23 12:13 Labs: Lab Results 05/03/23 Range/Units 12:13 WBC 7.8 (4.8-10.8) X10*3/uL RBC 4.58 L (4.60-5.80) X10*6/uL Hgb 14.3 (14.0-18.0) g/dl Hct 40.3 L (42.0-52.0) % MCV 88.0 (80.0-98.0) fL MCH 31.2 (27.0-33.0) pg MCHC 35.5 (31.0-36.0) g/dl RDW 13.3 (11.0-16.0) % Plt Count 235 (160-400) X10*3/uL MPV 9.6 (9.4-12.4) fL Immature Gran % (Auto) 0.3 (0.0-0.4) % Neut % (Auto) 71.6 (45-73) % Lymph % (Auto) 17.6 L (20-40) % [place] % (Auto) 6.9 (2-11) % Eos % (Auto) 3.2 (0-4) % Baso % (Auto) 0.4 (0-2) % Lymph # (Auto) 1.4 (1.2-4.9) X10*3/uL [place] # (Auto) 0.5 (0.1-1.2) X10*3/uL Eos # (Auto) 0.3 (0.0-0.4) X10*3/uL Baso # (Auto) 0.0 (0.0-0.2) X10*3/uL Abs Immat Gran (auto) 0.02 (0.00-0.03) X10*3/uL Absolute Neuts (auto) 5.6 (2.0-8.3) x10*3/uL Absolute Nucleated RBC 0.000 (0.0-0.012) X10*3/uL Nucleated RBC % (auto) 0.0 (0.0-0.2) /100WBC Sodium 138 (135-145) mmol/L Potassium 3.2 L (3.3-5.1) mmol/L Chloride 103 (96-108) mmol/L Carbon Dioxide 24 (22-29) mmol/L Anion Gap 14 (12-20) BUN 12 (9-16) mg/dL Creatinine 1.01 (0.5-1.4) mg/dL Estim Creat Clear Calc 99.0 Estimated GFR > 60 Random Glucose 107 (60-115) mg/dL Calcium 9.5 D (8.4-10.2) mg/dL Magnesium 1.9 (1.6-2.6) mg/dL Total Bilirubin 0.7 (0.0-1.0) mg/dL AST 58 H (5-37) U/L ALT 35 (0-40) U/L Alkaline Phosphatase 50 (39-117) U/L Total Protein 7.3 (6.5-8.0) g/dL Albumin 4.2 (3.5-5.0) g/dL Lipase 71 (8-78) U/L Discharge Plan Discharge Clinical Impression: Vomiting Patient Disposition: Left W/O Completing Treatment Prescriptions: No Action atorvastatin 80 mg tablet 80 mg PO DAILY trazodone 50 mg tablet 100 mg PO BEDTIME aspirin 81 mg tablet,delayed release (DR/EC) 81 mg PO DAILY escitalopram oxalate 20 mg tablet 20 mg PO DAILY Brilinta 90 mg tablet 90 mg PO BID trazodone 50 mg tablet 50 mg PO BEDTIME PRN (Reason: insomnia) Qty: 30 0RF carvedilol 12.5 mg Tablet 12.5 mg PO BID Qty: 180 0RF Protocol: Hold for SBP/HR < HOLD for SBP < : 90 HOLD for HR < : 60 amlodipine 5 mg Tablet 5 mg PO DAILY Qty: 90 0RF Protocol: Hold for SBP< HOLD for SBP < : 90 Discharge Date/Time: 05/03/23 17:49
--- NOTE | 2023-05-03 11:47 | ECG_ITS ---
Test Reason : dizziness Blood Pressure : / mmHG Vent. Rate : 064 BPM Atrial Rate : 064 BPM P-R Int : 138 ms QRS Dur : 084 ms QT Int : 442 ms P-R-T Axes : -09 021 049 degrees QTc Int : 455 ms Normal sinus rhythm Nonspecific ST and T wave abnormality Abnormal ECG When compared with ECG of 27-APR-2023 12:01, Nonspecific T wave abnormality now evident in Inferior leads Referred By: Karlie Mann Electronically Signed By:LUIS ROUSE
[2023-05-03 12:23] LABS: MANUAL DIFF FLAG NO
[2023-05-03 12:26] LABS: Basophils Percent Auto 0.4 % (0-2); Eosinophils Absolute Auto 0.3 X10*3/uL (0.0-0.4); Eosinophils Percent Auto 3.2 % (0-4); Hematocrit 40.3 % (42.0-52.0); Hemoglobin 14.3 g/dl (14.0-18.0); Imm Gran Abs Auto 0.02 X10*3/uL (0.00-0.03); Imm Gran Pct Auto 0.3 % (0.0-0.4); Lymphocytes Absolute Auto 1.4 X10*3/uL (1.2-4.9); Lymphocytes Percent Auto 17.6 % (20-40); Mean Corpuscular HGB Conc 35.5 g/dl (31.0-36.0); Mean Corpuscular Hemoglobin 31.2 pg (27.0-33.0); Mean Platelet Volume 9.6 fL (9.4-12.4); Monocytes Absolute Auto 0.5 X10*3/uL (0.1-1.2); Monocytes Percent Auto 6.9 % (2-11); Neutrophils Absolute Auto 5.6 x10*3/uL (2.0-8.3); Neutrophils Percent Auto 71.6 % (45-73); Platelet Count 235 X10*3/uL (160-400); Red Blood Count 4.58 X10*6/uL (4.60-5.80); Red Cell Distribution Width 13.3 % (11.0-16.0); White Blood Count 7.8 X10*3/uL (4.8-10.8)
[2023-05-03 12:40] LABS: Alanine Aminotransferase 35 U/L (0-40); Albumin Level 4.2 g/dL (3.5-5.0); Alkaline Phosphatase 50 U/L (39-117); Anion Gap 14 (12-20); Aspartate Amino Transferase 58 U/L (5-37); Bilirubin Total 0.7 mg/dL (0.0-1.0); Blood Urea Nitrogen 12 mg/dL (9-16); Calcium 9.5 mg/dL (8.4-10.2); Carbon Dioxide 24 mmol/L (22-29); Chloride 103 mmol/L (96-108); Estimated Glomerular Filt Rate > 60; Glucose Random 107 mg/dL (60-115); Lipase 71 U/L (8-78); Magnesium 1.9 mg/dL (1.6-2.6); Potassium 3.2 mmol/L (3.3-5.1); Sodium 138 mmol/L (135-145); Total Protein 7.3 g/dL (6.5-8.0)
== END 2023-05-03 17:49 | disposition left against medical advice (07) ==
PROVIDERS: Physician Assistant Medical; Emergency Provider Emergency Medicine; PCP Physician Assistant
DX: R11.10 Vomiting, unspecified (principal); F10.10 Alcohol abuse, uncomplicated; I25.10 Atherosclerotic heart disease of native coronary artery without angina pectoris; I25.2 Old myocardial infarction; Z79.899 Other long term (current) drug therapy
CPT/HCPCS: 36415; 80053; 83690; 83735; 85025; 93005; 99283

== ENCOUNTER → 2023-05-03 11:47 | Outpatient (BNV) | payer MEDICAID, SELFPAY | PROVIDERS: Visit Provider Internal Medicine | DX: R94.31 Abnormal electrocardiogram [ECG] [EKG] (principal) | CPT/HCPCS: 93010 ==

== ENCOUNTER 2023-05-26 11:38 | Inpatient (IN) | payer MEDICAID, SELFPAY ==
--- NOTE | ~2023-05-26 | XR_ITS ---
EXAMINATION: XR ABDOMEN KUB CLINICAL INDICATION: Abdominal pain with history of obstruction COMPARISON: KUB 04/28/2023 TECHNIQUE: AP view of the abdomen. FINDINGS: Compared with the previous study, there is been significant improvement in appearances with resolved dilatation of the previously seen dilated small bowel loops. At this time, a few air-filled nondilated loops are present in the left midabdomen. Gas and stool present throughout the colon. There is no evidence of bowel obstruction. Phleboliths are noted in the left hemipelvis. XR/XR KUB IMPRESSION: No evidence of bowel obstruction. Significant improvement in appearances when compared to the prior study.
--- NOTE | 2023-05-26 11:56 | ED.ALCOHOL ---
HPI - Alcohol General Chief Complaint: Abdominal Pain Stated Complaint: ETOH NEEDS DETOX Time Seen by Provider: 05/26/23 16:35 Source: patient, EMS, RN notes reviewed and old records reviewed Mode of arrival: EMS Limitations: no limitations History of Present Illness HPI narrative: 52 year old male with pmhx significant for etoh abuse, acute pancreatitis, and myocardial infarction x2 presents with nausea, vomiting, abdominal pain, dizziness, and headache x3-5days. He currently endorses 10/10 diffuse abdominal pain without radiation. Admits to consuming 7-8 12oz beers and 3-4 nips of hard liquor daily. Reports last drank one large beer a few hours ago to take the edge off . Endorses history of ETOH withdrawal seizures. He last went to detox a few months ago. He has been unable to tolerate PO intake over the last few days due to nausea. Last BM this morning. Denies SI/HI. Denies AH/VH/TH. Denies illicit substance use including marijuana. Endorses smoking tobacco- approximately 3 cigarettes a day. Denies known sick contacts. Denies fever, chills, sore throat, chest pain, palpitations, sob, dyspnea, flank pain, dysuria, hematuria. Related Data Home Medications Medication Instructions Recorded Confirmed aspirin 81 mg tablet,delayed 81 mg PO DAILY 04/28/23 05/26/23 release atorvastatin 80 mg tablet 80 mg PO DAILY 04/28/23 05/26/23 escitalopram oxalate 20 mg tablet 20 mg PO DAILY 04/28/23 05/26/23 ticagrelor 90 mg tablet (Brilinta) 90 mg PO BID 04/28/23 05/26/23 trazodone 50 mg tablet 50 mg PO BEDTIME 04/28/23 05/26/23 Previous Rx's Medication Instructions Recorded amlodipine 5 mg tablet 5 mg PO DAILY #90 tabs 04/30/23 carvedilol 12.5 mg tablet 12.5 mg PO BID #180 tabs 04/30/23 trazodone 50 mg tablet 50 mg PO BEDTIME PRN insomnia #30 04/30/23 tabs Allergies Allergy/AdvReac Type Severity Reaction Status Date / Time No Known Allergies Allergy Verified 11/12/22 08:05 Review of Systems Review of Systems: Constitutional: No fever, chills, fatigue, night sweats, weight changes ENT/Mouth: No ear pain, hearing loss, nasal congestion, sinus pain, rhinorrhea, sore throat Eyes: No eye pain, swelling, redness, vision changes, discharge Cardio: No chest pain, palpitations, ARCE, orthopnea, peripheral edema Pulm: No SOB, cough, sputum, wheezing, dyspnea, hemoptysis GI: +nausea, +vomiting, No hematemesis, +abdominal pain, No diarrhea, constipation, hematochezia, melena : No irregular bleeding, dysuria, frequency, urgency, hesitancy, hematuria, flank pain, urinary flow changes, urinary incontinence or retention MSK: No back pain, neck pain, joint pain, +myalgias Skin: No lesions, rashes Neuro: No weakness, numbness, paresthesias, LOC, +dizziness, +headache Psych: No anxiety/panic, depression, SI/HI, AH/VH All other systems reviewed and are negative. [facility] Past Medical History Attestation statement: The following information was validated with the patient. Source: old records reviewed and nursing notes reviewed Medical History Ileus Myocardial infarction CAD (coronary artery disease) Social History Social History Household Members: None Household Members Other:: self Housing: Apartment Do you presently have visiting nurse or other home services: No Alcohol intake: current Alcohol intake frequency: 3 or more drinks per day Alcohol type: beer and hard liquor Patient Tobacco Use Status: Current everyday Tobacco user Tobacco use type: Cigarette Cigarettes Per Day: 4 Years Smoked: 40 Smoked in Last 30 Days: No Patient Interested in Nicotine Replacement: No Patient Given Instructions on How to Stop Smoking: No Second Hand Smoke Exposure: No Use of substances other than those prescribed or required for medical reasons: No Have you been hit, kicked, punched, or otherwise hurt by someone within the past year? If so, by whom?: No Do you feel safe in your current relationship?: No Are you made to feel afraid or neglected: No Advance Directives: Yes Advance Directives Information Provided: No Advance Directives on File: No Advance Directives Date on File: 05/26/23 Do you have thoughts of harming others: None Recently lost weight without trying: No service: No Physical Exam ED Vital Signs: Vital Signs - 24 hr 05/26/23 11:59 05/26/23 15:22 Temperature 99.3 F 100 F Pulse Rate 66 76 Respiratory Rate 14 18 Blood Pressure 130/74 151/88 H Pulse Oximetry 98 95 Oxygen Delivery Method Room Air Room Air BMI result Body Mass Index 26.2 Const Orientation/consciousness: patient oriented x3 Eyes Pupils: Equal, round and reactive pupils present GI Other: + abdomen soft, slightly distended, diffusely tender to palpation greater on the right side of the abdomen. Normoactive bowel sounds x4. No fluid wave. Inspection: Yes normal to inspection General: Yes no CVA tenderness Back/Spine/Pelvis Back: no CVA tenderness Skin General skin exam: no rashes or lesions noted Neuro General: patient oriented x3 and gait normal Cranial nerves: Yes CN's II-XII intact bilaterally and Yes Equal, round and reactive pupils present Motor exam (neuro): no tremor noted, no asterixis and Motor fasciculations not present Coordination: [id number] test normal, [id number] test normal and Normal rapid alternating movements of the distal upper extremity present (Neuro) Pupils: Normal pupillary reactivity/response: bilateral Course Course Course Narrative: 1428-- CBC without leukocytosis or left shift. H&H stable. Chemistry without acute electrolyte abnormality requiring intervention. Slightly elevated total bili to 1.9, chronic when compared to priors. Lipase WNL at 62 > no concern for acute pancreatitis. Normal renal function. Ethanol undetectable. Salicylate undetectable > pending UA and urine drug screen 1520-- Patient evaluated by Yuliya from addiction medicine who states that patient is declining bed search for detox facility and wishes to detox at [facility]. Yuliya states that this is not feasible. As patient is declining bed search at this time, he will be discharged home on scheduled librium for etoh withdrawal given patient remains stable. 1537-- patient is still diaphoretic and tremulous after receiving Ativan. CIWA 11. He was initially normotensive with vitals wnl. He is now hypertensive with a temp of 100F. Viral serology ordered to rule out acute febrile illness. Motrin ordered. Discussed with my attending physician, Dr. Hernández. Given patient has a history of withdrawal seizures, patient will be placed on phenobarbital protocol and presented for admission for acute etoh wtihdrawal. 1530-- Urine without infection. UDS negative. Ethanol 29. Viral serology negative. I spoke with to hospitalist Dr. Torrez who states he will accept patient for admission for acute etoh withdrawal however suggests obtaining KUB first. Labs are pretty unremarkable and patient passed BM this morning however given history of obstruction approximately one month ago, will order KUB for rule out. 1641-- sign-out given to my colleague PORTIA Littlejohn. Patient is stable at the end of my shift. He is pending KUB +/- surgical consult and admission. Reevaluation(s) Reevaluation #1: Negative KUB --> admission Time: 17:44 Medical Decision Making Medical Decision Making [facility] Narrative: 52 year old male with pmhx significant for etoh abuse, acute pancreatitis, and myocardial infarction x2 presents with nausea, vomiting, abdominal pain, dizziness, and headache x3-5days. Vital signs stable. Patient is nontoxic appearing in no acute distress. Slightly diaphoretic and tremulous. No asterixis. No tongue fasciculations. Ambulating with steady gait. Abdomen soft, distended, diffusely tender to palpation greater on the right side. Normoactive bowel sounds x4. RRR. Lungs CTA b/l. No peripheral edema or JVD. Differential diagnosis includes acute etoh intoxication, etoh withrdawal, polysubstance use. lower suspicion for DT, etoh withdrawal seizures. Plan for medical clearance for addiction med consult. Differential Diagnosis Differential Diagnoses: The differential diagnosis associated with the presentation includes As above Admission/Observation Consideration of admission/observation: Escalation of care including admission/observation considered Patient in acute alcohol withdrawal will be admitted. Consult Healthcare Provider Yuliya Hammond, addiction med Dr. Hinton, hospitalist Dr. Torrez, hospitalist Lab Data [facility] Lab Attestation statement: I reviewed the patient's lab results. As above 05/26/23 12:57 05/26/23 12:57 Labs: Lab Results 05/26/23 05/26/23 05/26/23 Range/Units 12:57 15:45 17:07 WBC 6.0 (4.8-10.8) X10*3/uL RBC 4.54 L (4.60-5.80) X10*6/uL Hgb 14.3 (14.0-18.0) g/dl Hct 39.8 L (42.0-52.0) % MCV 87.7 (80.0-98.0) fL MCH 31.5 (27.0-33.0) pg MCHC 35.9 (31.0-36.0) g/dl RDW 13.3 (11.0-16.0) % Plt Count 195 (160-400) X10*3/uL MPV 10.2 (9.4-12.4) fL Immature Gran % (Auto) 0.2 (0.0-0.4) % Neut % (Auto) 70.7 (45-73) % Lymph % (Auto) 19.5 L (20-40) % [place] % (Auto) 7.1 (2-11) % Eos % (Auto) 1.8 (0-4) % Baso % (Auto) 0.7 (0-2) % Lymph # (Auto) 1.2 (1.2-4.9) X10*3/uL Hyde # (Auto) 0.4 (0.1-1.2) X10*3/uL Eos # (Auto) 0.1 (0.0-0.4) X10*3/uL Baso # (Auto) 0.0 (0.0-0.2) X10*3/uL Abs Immat Gran (auto) 0.01 (0.00-0.03) X10*3/uL Absolute Neuts (auto) 4.3 (2.0-8.3) x10*3/uL Absolute Nucleated RBC 0.000 (0.0-0.012) X10*3/uL Nucleated RBC % (auto) 0.0 (0.0-0.2) /100WBC Sodium 133 L (135-145) mmol/L Potassium 3.8 (3.3-5.1) mmol/L Chloride 103 (96-108) mmol/L Carbon Dioxide 16 L (22-29) mmol/L Anion Gap 18 (12-20) BUN 11 (9-16) mg/dL Creatinine 0.85 (0.5-1.4) mg/dL Estim Creat Clear Calc 138.0 Estimated GFR > 60 Random Glucose 80 (60-115) mg/dL Calcium 8.8 D (8.4-10.2) mg/dL Magnesium 2.1 (1.6-2.6) mg/dL Total Bilirubin 1.9 H (0.0-1.0) mg/dL AST 20 (5-37) U/L ALT 13 (0-40) U/L Alkaline Phosphatase 54 (39-117) U/L Total Protein 7.3 (6.5-8.0) g/dL Albumin 4.3 (3.5-5.0) g/dL Lipase 62 (8-78) U/L Urine Color Yellow Urine Appearance Clear Urine pH 5.5 (5.0-9.0) Ur Specific [place] <= 1.005 (1.005-1.025) Urine Protein Negative (Neg-Trace) mg/dL Urine Glucose (UA) Negative (Negative) mg/dL Urine Ketones 15 (Negative) mg/dL Urine Blood Negative (Negative) Urine Nitrite Negative (Negative) Ur Leukocyte Esterase Negative (Negative) Salicylates < 5.0 L (15-30) mg/dL Urine Opiates Screen Not Detected (Not Detect) Urine Fentanyl Screen Not Detected (Not Detect) Ur Barbiturates Screen Not Detected (Not Detect) Ur Phencyclidine Scrn Not Detected (Not Detect) Ur Amphetamines Screen Not Detected (Not Detect) U Benzodiazepines Scrn Not Detected (Not Detect) Urine Cocaine Screen Not Detected (Not Detect) U Marijuana (THC) Screen Not Detected (Not Detect) Ethyl Alcohol 29 mg/dL Influenza Type A (PCR) NEGATIVE (Negative) Influenza Type B (PCR) NEGATIVE (Negative) RSV RNA Qual (PCR) NEGATIVE (Negative) SARS-CoV-2 RNA (RT-PCR) NEGATIVE (Negative) Independent Interpretation I performed an independent interpretation of an: Plain X-Ray Interpretation: I have personally reviewed KUB and agree with radiologist's interpretation. Radiology Impression Discussion of test interpretation with radiology: I have reviewed the radiologist's reading. Radiologist Impression: EXAMINATION: XR ABDOMEN KUB CLINICAL INDICATION: Abdominal pain with history of obstruction COMPARISON: KUB 04/28/2023 TECHNIQUE: AP view of the abdomen. FINDINGS: Compared with the previous study, there is been significant improvement in appearances with resolved dilatation of the previously seen dilated small bowel loops. At this time, a few air-filled nondilated loops are present in the left midabdomen. Gas and stool present throughout the colon. There is no evidence of bowel obstruction. Phleboliths are noted in the left hemipelvis. XR/XR KUB IMPRESSION: No evidence of bowel obstruction. Significant improvement in appearances when compared to the prior study. Independent Historian Clinical information obtained from an independent historian. History obtained from or confirmed by: EMS External Record Review External record reviewed: Inpatient record, Office record, Outpatient record, Prior outpatient labs, Prior outpatient radiology, Primary care record and Outside ED record Prescription Management I considered prescription management with: Pain Medication and Other (zofran) Chronic Conditions Patient?s care impacted by: Other (etoh dependence) Social Determinants Patient?s care significantly limited by Social Determinants of Health including: Alcoholism and drug addiction in family and Other Social Determinant of Health Medications Administered Generic Name Dose Route Start Last Admin Trade Name Freq PRN Reason Stop Dose Admin Enoxaparin Sodium 40 mg 05/26/23 19:00 05/26/23 19:38 Enoxaparin Sodium 40 Mg/0.4 Ml Syringe SUBCUT Not Given Q24H KATHERYN Lactated Ringer's 1,000 mls @ 100 mls/hr 05/26/23 16:15 05/26/23 17:28 Lr IVCONT 100 mls/hr .Q10H KATHERYN Administration Thiamine HCl 100 mg/ Sodium 101 mls @ 202 mls/hr 05/26/23 16:15 05/26/23 18:06 Chloride IV Infused DAILY KATHERYN Infusion Folic Acid 1 mg/ Sodium 50.2 mls @ 100.4 mls/hr 05/26/23 16:15 05/26/23 18:25 Chloride IV Infused DAILY KATHERYN Infusion Discontinued Medications Generic Name Dose Route Start Last Admin Trade Name Freq PRN Reason Stop Dose Admin Sodium Chloride 1,000 mls @ 999 mls/hr 05/26/23 12:45 05/26/23 14:10 Ns IV 05/26/23 13:45 Infused .Q1H1M KATHERYN Infusion Lorazepam 2 mg 05/26/23 12:03 05/26/23 12:19 Lorazepam 1 Mg Tablet PO 05/26/23 12:04 2 mg ONCE ONE Administration Ondansetron HCl 4 mg 05/26/23 12:42 05/26/23 13:01 Ondansetron Hcl 4 Mg/2 Ml Vial IVPUSH 05/26/23 12:43 4 mg ONCE ONE Administration Phenobarbital Sodium 460.2 mg 05/26/23 16:00 05/26/23 17:21 Phenobarbital Sodium 130 Mg/Ml Im Once IM 05/26/23 16:01 460.2 mg ONCE ONE Administration Protocol Critical Care Time Critical Care Time Critical Care Time: Yes Total Critical Care Time: 120 Attestation: Critical care time in the amount of 120 minutes has been provided to the patient in terms of direct patient care, frequent reevaluation, consultation with addiction medicine and hospitalist, review and interpretation of medical data and results, and management of potentially life-threatening conditions. This is all outside of any medical procedures. Discharge Plan Discharge Clinical Impression: Alcohol abuse, Alcohol withdrawal Patient Disposition: Admitted As Inpatient Interventions: Admission Worksheet (ED) Last Done: 05/26/23 19:35 Discharge Date/Time: 05/26/23 20:44
[2023-05-26 11:59] VITALS: BP 130/74; PULSE 66; PULSE 69; RESP 14; TEMP 37.4; O2SAT 98; O2SAT 99; BMI 26.2
[2023-05-26] MEDS: LORazepam 1 MG TABLET 2 MG PO (12:19)
[2023-05-26] MEDS: 0.9 % Sodium Chloride 1,000 ML 999 ML IV (12:59)
[2023-05-26] MEDS: ondansetron HCL 4 MG/2 ML VIAL IVPUSH (13:01)
[2023-05-26 13:17] LABS: MANUAL DIFF FLAG NO
[2023-05-26 13:25] LABS: Basophils Percent Auto 0.7 % (0-2); Eosinophils Absolute Auto 0.1 X10*3/uL (0.0-0.4); Eosinophils Percent Auto 1.8 % (0-4); Hematocrit 39.8 % (42.0-52.0); Hemoglobin 14.3 g/dl (14.0-18.0); Imm Gran Abs Auto 0.01 X10*3/uL (0.00-0.03); Imm Gran Pct Auto 0.2 % (0.0-0.4); Lymphocytes Absolute Auto 1.2 X10*3/uL (1.2-4.9); Lymphocytes Percent Auto 19.5 % (20-40); Mean Corpuscular HGB Conc 35.9 g/dl (31.0-36.0); Mean Corpuscular Hemoglobin 31.5 pg (27.0-33.0); Mean Corpuscular Volume 87.7 fL (80.0-98.0); Mean Platelet Volume 10.2 fL (9.4-12.4); Monocytes Absolute Auto 0.4 X10*3/uL (0.1-1.2); Monocytes Percent Auto 7.1 % (2-11); Neutrophils Absolute Auto 4.3 x10*3/uL (2.0-8.3); Neutrophils Percent Auto 70.7 % (45-73); Platelet Count 195 X10*3/uL (160-400); Red Blood Count 4.54 X10*6/uL (4.60-5.80); Red Cell Distribution Width 13.3 % (11.0-16.0)
[2023-05-26 13:32] LABS: Ethanol 29 mg/dL
[2023-05-26 13:33] LABS: Alanine Aminotransferase 13 U/L (0-40); Albumin Level 4.3 g/dL (3.5-5.0); Alkaline Phosphatase 54 U/L (39-117); Anion Gap 18 (12-20); Aspartate Amino Transferase 20 U/L (5-37); Bilirubin Total 1.9 mg/dL (0.0-1.0); Blood Urea Nitrogen 11 mg/dL (9-16); Calcium 8.8 mg/dL (8.4-10.2); Carbon Dioxide 16 mmol/L (22-29); Chloride 103 mmol/L (96-108); Estimated Glomerular Filt Rate > 60; Glucose Random 80 mg/dL (60-115); Lipase 62 U/L (8-78); Magnesium 2.1 mg/dL (1.6-2.6); Potassium 3.8 mmol/L (3.3-5.1); Sodium 133 mmol/L (135-145); Total Protein 7.3 g/dL (6.5-8.0)
[2023-05-26 13:35] LABS: Salicylate < 5.0 mg/dL (15-30)
--- NOTE | 2023-05-26 13:49 | MHC.RECOVRN ---
Received Addiction Medicine consult for alcohol use, seeking ATS. Chart reviewed, pt not yet medically cleared. Will continue to follow.
--- NOTE | 2023-05-26 15:19 | MHC.RECOVRN ---
Met with pt in [id number] after consult placed to Addiction Medicine for alcohol use, seeking ATS. Pt medically cleared. Pt reports alcohol use, 3 nips plus 3 24 ounce beers daily, last drink prior to arrival. Pt reports longest period in recovery was 1.5 months after completing treatment at [facility] last summer. Pt does not desire ATS facility, however, is requesting to be admitted to the hospital. Discussed with provider, pt does not meet criteria for medical admission but will send Librium prescription. Discussed outpatient options with pt, pt declines referrals at this time. Pt provided with written resources including ATS, harm reduction, CCC, etc. Pt reports inability to find transportation home, t/w scheduled Ly[employer] for 4:30. Pt denies other questions or concerns at this time.
[2023-05-26 15:22] VITALS: BP 151/88; PULSE 76; RESP 18; TEMP 37.7; O2SAT 95
[2023-05-26 15:57] LABS: Appearance Urine Clear; Color Urine Yellow; Glucose Urine UA Negative (Negative); Leukocyte Esterase Urine Negative (Negative); Nitrite Urine Negative (Negative); PH 5.5 (5.0-9.0); Specific Gravity - Urine <= 1.005 (1.005-1.025); Urine Blood Negative (Negative); Urine Ketones 15 mg/dL (Negative); Urine Protein Negative (Neg-Trace)
[2023-05-26 16:05] LABS: Amphetamine Screen Urine Not Detected (Not Detect); Barbiturates, Urine Not Detected (Not Detect); Benzodiazepines Screen Urine Not Detected (Not Detect); Cannabinoid Screen Urine Not Detected (Not Detect); Cocaine Screen Urine Not Detected (Not Detect); Fentanyl, urine Not Detected (Not Detect); Opiate Screen Urine Not Detected (Not Detect); Phencyclidine Screen Urine Not Detected (Not Detect)
--- NOTE | 2023-05-26 17:12 | PHA.MEDREC ---
Pharmacy Consult ? Medication Reconciliation Pharmacy has completed the medication reconciliation.Confirmed medications with patient and through claim history. Reports that he hasn't taking Atorvastatin in about a week.
[2023-05-26] MEDS: PHENobarbitaL sodium 130 MG/ML IM ONCE 460.2 MG IM (17:21)
[2023-05-26] MEDS: Thiamine HCL 100 MG in 0.9 % Sodium Chloride 100 ML 202 MG IV (17:28)
[2023-05-26] MEDS: Lactated Ringers 1,000 ML 100 ML IVCONT (17:28)
--- NOTE | 2023-05-26 17:35 | PC.NURSE ---
pharmacy notified for need to retime phenobarb as initial dose administered later than ordered time.
[2023-05-26 17:53] LABS: Influenza A PCR NEGATIVE (Negative); Influenza B PCR NEGATIVE (Negative); Resp Syncy Virus RNA Qual PCR NEGATIVE (Negative); SARS COV2 PCR INHOUSE NEGATIVE (Negative)
[2023-05-26] MEDS: Folic Acid 1 MG in 0.9 % Sodium Chloride 50 ML 100.4 MG IV (17:54)
--- NOTE | 2023-05-26 18:38 | P.HPHOSP_ITS ---
History of Present Illness Date of Service: 05/26/23 Attending physician on admission: Edilberto Torrez Chief Complaint: Alcohol withdrawal Pt is a 52-year-old male with a PMH significant for?HTN, HLD/CAD, hx of UT (last in 2020) s/p stenting, and alcohol use disorder with hx of alcohol withdrawal with seizures who presents to the ED with??withdrawal symptoms?. Patient initially presented to the ED complaining of nausea, vomiting, abdominal pain, lightheadedness, dizziness, and headache times 3-5 days. Has been unable to tolerate p.o. for the past 2-3 days secondary to nausea and because he was drinking so heavily. Reports he has been drinking ?a good amount? of alcohol, apparently 6+ beers daily and 3-4 nips of hard liquor. Last drink was 1 hour prior to arriving to the ED. Reports increasing anxiety, tino, diaphoresis, and tremors. Patient was previously admitted to the hospital last month on 04/27- 04/30 for ileus/possible SBO and alcohol withdrawal. Today patient reports passing gas with last bowel movement earlier this morning. Currently reports abdominal pain moderately well controlled. Denies chest pain/pressure, palpitations. No shortness of breath. Denies fever, chills. In the ED pt had elevated temperature of 100.0 degrees and was mildly hypertensive up to 151/88. Labs were significant for sodium 133, and bilirubin 1.9, otherwise grossly unremarkable. Tested negative for influenza type a and B, RSV, COVID. Tox screen showing ethyl alcohol level of 29, otherwise negative. KUB showed no evidence of bowel obstruction and significant improvement appearances when compared to prior study on 04/28/2023. Pt was treated with lorazepam, IVF, and ondansetron. Pt will be admitted to the hospital for treatment and further evaluation acute alcohol withdrawal. Review of Systems 2 Review of Systems: Anxiety Upper extremity tremors Diaphoresis Nausea, vomiting, abdominal pain Denies auditory or visual hallucination No chest pain/pressure, palpitations No shortness of breath [facility] Medical History Ileus Myocardial infarction CAD (coronary artery disease) Social History Household Members: None Household Members Other:: self Housing: Apartment Do you presently have visiting nurse or other home services: No Alcohol intake: current Alcohol intake frequency: 3 or more drinks per day Alcohol type: beer and hard liquor Patient Tobacco Use Status: Current everyday Tobacco user Tobacco use type: Cigarette Cigarettes Per Day: 4 Years Smoked: 40 Smoked in Last 30 Days: No Patient Interested in Nicotine Replacement: No Patient Given Instructions on How to Stop Smoking: No Second Hand Smoke Exposure: No Use of substances other than those prescribed or required for medical reasons: No Currently Displaying Signs/Symptoms of Drug Intoxication Withdrawal: No Have you been hit, kicked, punched, or otherwise hurt by someone within the past year? If so, by whom?: No Do you feel safe in your current relationship?: No Are you made to feel afraid or neglected: No Advance Directives: Yes Advance Directives Information Provided: No Advance Directives on File: No Advance Directives Date on File: 05/26/23 Do you have thoughts of harming others: None Recently lost weight without trying: No service: No Meds Allergies Allergy/AdvReac Type Severity Reaction Status Date / Time No Known Allergies Allergy Verified 11/12/22 08:05 Active Medications: Current Medications Acetaminophen (Acetaminophen 325 Mg Tablet) 650 mg PO Q6H PRN PRN Reason: Pain, Mild (Pain Scale 1-3) Amlodipine Besylate (Amlodipine Besylate 5 Mg Tablet) 5 mg PO DAILY [facility]; Protocol Aspirin (Aspirin Enteric Coated 81 Mg Tablet.Dr) 81 mg PO DAILY [facility] Atorvastatin Calcium (Atorvastatin Calcium 80 Mg Tablet) 80 mg PO DAILY [facility] Benzonatate (Benzonatate 100 Mg Capsule) 100 mg PO TID PRN PRN Reason: Cough Carvedilol (Carvedilol 12.5 Mg Tablet) 12.5 mg PO BID [facility]; Protocol Docusate Sodium (Docusate Sodium 100 Mg Capsule) 100 mg PO DAILY PRN PRN Reason: Constipation Enoxaparin Sodium (Enoxaparin Sodium 40 Mg/0.4 Ml Syringe) 40 mg SUBCUT Q24H [facility] Escitalopram Oxalate (Escitalopram Oxalate 20 Mg Tablet) 20 mg PO DAILY [facility] Famotidine (Famotidine 20 Mg Tablet) 20 mg PO BID [facility] Lactated Ringer's (Lr) 1,000 mls @ 100 mls/hr IVCONT .Q10H [facility] Last Admin: 05/26/23 17:28 Dose: 100 mls/hr Thiamine HCl 100 mg/ Sodium (Chloride) 101 mls @ 202 mls/hr IV DAILY [facility] Last Infusion: 05/26/23 18:06 Dose: Infused Folic Acid 1 mg/ Sodium (Chloride) 50.2 mls @ 100.4 mls/hr IV DAILY [facility] Last Infusion: 05/26/23 18:25 Dose: Infused Ondansetron HCl (Ondansetron Hcl 4 Mg/2 Ml Vial) 4 mg IVPUSH Q8H PRN PRN Reason: Nausea and Vomiting Pharmacy Consult (Consult Rx Etoh Phenob Im/Po) 1 each MISCELLANE ONCE PRN; Protocol PRN Reason: Consult order Phenobarbital (Phenobarbital 30 Mg Tablet) 60 mg PO BID [facility]; Protocol Stop: 05/28/23 21:01 Phenobarbital (Phenobarbital 30 Mg Tablet) 30 mg PO BID [facility]; Protocol Stop: 05/30/23 21:01 Phenobarbital (Phenobarbital 30 Mg Tablet) 30 mg PO DAILY [facility] Stop: 06/01/23 09:01 Phenobarbital Sodium (Phenobarbital Sodium 130 Mg/Ml Vial Im Q3hx2) 345.8 mg IM Q3H [facility]; Protocol Stop: 05/26/23 22:01 Sodium Chloride (0.9 % Sodium Chloride Flush 3 Ml Syringe) 3 ml IVFLUSH QSHIFT [facility] Trazodone HCl (Trazodone Hcl 50 Mg Tablet) 50 mg PO BEDTIME PRN PRN Reason: insomnia Trazodone HCl (Trazodone Hcl 50 Mg Tablet) 50 mg PO BEDTIME [facility] Home Medications Medication Instructions Recorded Confirmed Last Taken Type aspirin 81 mg tablet,delayed 81 mg PO DAILY 04/28/23 05/26/23 05/26/23 History release atorvastatin 80 mg tablet 80 mg PO DAILY 04/28/23 05/26/23 04/27/23 History escitalopram oxalate 20 mg tablet 20 mg PO DAILY 04/28/23 05/26/23 05/26/23 History ticagrelor 90 mg tablet (Brilinta) 90 mg PO BID 04/28/23 05/26/23 05/26/23 History trazodone 50 mg tablet 50 mg PO BEDTIME 04/28/23 05/26/23 04/27/23 History Physical Exam 2 Vital Signs and Narrative: Vital Signs: Last Vital Signs Temp 100 F 05/26/23 15:22 Pulse 76 05/26/23 15:22 Resp 18 05/26/23 15:22 BP 151/88 H 05/26/23 15:22 Pulse Ox 95 05/26/23 15:22 O2 Del Method Room Air 05/26/23 15:22 BMI result Body Mass Index 26.2 General: AOx3, no acute distress Resp: CTA bilaterally CVS: S1, S2, RRR GI: +BS, NT, no distention Skin: Warm, dry Neuro: Cranial nerves II-XII grossly intact bilaterally. Motor grossly intact bilaterally. No upper extremity tremors noted. No tongue fasciculations. Extremities: No edema Psych: Slightly nervous, agitated Results Labs 05/26/23 12:57 05/27/23 06:24 Labs: Laboratory Results - last 24 hr 05/26/23 05/26/23 05/26/23 12:57 15:45 17:07 MCV 87.7 MCH 31.5 MCHC 35.9 RDW 13.3 Plt Count 195 MPV 10.2 Immature Gran % (Auto) 0.2 Neut % (Auto) 70.7 Lymph % (Auto) 19.5 L [place] % (Auto) 7.1 Eos % (Auto) 1.8 Baso % (Auto) 0.7 Lymph # (Auto) 1.2 [place] # (Auto) 0.4 Eos # (Auto) 0.1 Baso # (Auto) 0.0 Abs Immat Gran (auto) 0.01 Absolute Neuts (auto) 4.3 Absolute Nucleated RBC 0.000 Nucleated RBC % (auto) 0.0 Anion Gap 18 Estim Creat Clear Calc 138.0 Estimated GFR > 60 Random Glucose 80 Calcium 8.8 D Magnesium 2.1 Total Bilirubin 1.9 H AST 20 ALT 13 Alkaline Phosphatase 54 Total Protein 7.3 Albumin 4.3 Lipase 62 Urine Color Yellow Urine Appearance Clear Urine pH 5.5 Ur Specific [place] <= 1.005 Urine Protein Negative Urine Glucose (UA) Negative Urine Ketones 15 Urine Blood Negative Urine Nitrite Negative Ur Leukocyte Esterase Negative Salicylates < 5.0 L Urine Opiates Screen Not Detected Urine Fentanyl Screen Not Detected Ur Barbiturates Screen Not Detected Ur Phencyclidine Scrn Not Detected Ur Amphetamines Screen Not Detected U Benzodiazepines Scrn Not Detected Urine Cocaine Screen Not Detected U Marijuana (THC) Screen Not Detected Ethyl Alcohol 29 Influenza Type A (PCR) NEGATIVE Influenza Type B (PCR) NEGATIVE RSV RNA Qual (PCR) NEGATIVE SARS-CoV-2 RNA (RT-PCR) NEGATIVE Imaging Radiologist's Impressions: Impressions KUB X-Ray 05/26/23 16:15 IMPRESSION: No evidence of bowel obstruction. Significant improvement in appearances when compared to the prior study. Assessment and Plan (1) Alcohol withdrawal: Qualifiers: Complication of substance-induced condition: uncomplicated Qualified Code(s): F10.930 - Alcohol use, unspecified with withdrawal, uncomplicated Status: Acute Plan Pt is a 52-year-old male with a PMH significant for?HTN, HLD/CAD, hx of UT (last in 2020) s/p stenting, and alcohol use disorder with hx of alcohol withdrawal with seizures who presents to the ED with??withdrawal symptoms?. Pt will be admitted to the hospital for treatment and further evaluation acute alcohol withdrawal. Acute alcohol withdrawal Patient given Ativan in ED Will start on Phenobarb protocol Daily multivitamin, folic acid, Thiamine Famotidine 20 mg p.o. Follow lytes, Mag, BMP CIWA scale Seizure protocols Addiction medicine consult Monitor on telemetry Intractable nausea, vomiting, abdominal pain Previously admitted 1 month prior for ileus/possible SBO Today KUB negative for SBO; abdominal exam benign Antiemetics for nausea Analgesics for pain management Clear liquid diet for now, advance as tolerated HTN Continue amlodipine, carvedilol HLD/CAD Continue statin, aspirin Hold Brillinta while on phenobarb Mood disorder Continue escitalopram Insomnia Continue trazodone Full Code Attending:?Dr. Torrez DVT Prophylaxis: Lovenox Pt will require a hospitalization of at least two nights for treatment of?acute alcohol withdrawal. Given patient's previous history of alcohol withdrawal with seizures, he will require hospitalization for treatment of alcohol withdrawal with phenobarb, and close monitoring of labs and cardiac functioning. Quality Stroke Does the patient have a stroke diagnosis?: No VTE Prior VTE?: No VTE Risk Level:: Medical - moderate - high VTE Device Contraindication: Treatment Not Indicated VTE Drug Contraindication: N/A - Med Ordered
[2023-05-26 20:59] VITALS: BMI 24.7
[2023-05-26 21:10] VITALS: BP 143/83; PULSE 79; RESP 16; TEMP 36.7; O2SAT 94
[2023-05-26] MEDS: PHENobarbitaL sodium 130 MG/ML VIAL IM Q3Hx2 345.8 MG IM (21:24)
[2023-05-26] MEDS: traZODone HCL 50 MG TABLET PO (21:24)
[2023-05-26] MEDS: Famotidine 20 MG TABLET PO (21:24)
[2023-05-26] MEDS: carvediloL 12.5 MG TABLET PO (21:24)
[2023-05-27] VITALS (8 sets, daily range): BP systolic 106–174; BP diastolic 66–94; PULSE 60–94; RESP 16–20; TEMP 36–37.1; O2SAT 95–98
[2023-05-27] MEDS: PHENobarbitaL sodium 130 MG/ML VIAL IM Q3Hx2 345.8 MG IM (00:13)
[2023-05-27] MEDS: Lactated Ringers 1,000 ML 100 ML IVCONT (03:31)
[2023-05-27 06:59] LABS: Anion Gap 15 (12-20); Blood Urea Nitrogen 11 mg/dL (9-16); Calcium 8.7 mg/dL (8.4-10.2); Carbon Dioxide 23 mmol/L (22-29); Chloride 107 mmol/L (96-108); Estimated Glomerular Filt Rate > 60; Glucose Random 98 mg/dL (60-115); Potassium 4.3 mmol/L (3.3-5.1); Sodium 141 mmol/L (135-145)
[2023-05-27] MEDS: Aspirin Enteric Coated 81 MG TABLET.DR PO (08:26)
[2023-05-27] MEDS: Atorvastatin Calcium 80 MG TABLET PO (08:26)
[2023-05-27] MEDS: Escitalopram Oxalate 20 MG TABLET PO (08:26)
[2023-05-27] MEDS: amLODIPine Besylate 5 MG TABLET PO (08:26)
[2023-05-27] MEDS: carvediloL 12.5 MG TABLET PO ×2 (08:26→20:12)
[2023-05-27] MEDS: Famotidine 20 MG TABLET PO ×2 (08:26→20:12)
[2023-05-27] MEDS: PHENobarbitaL 30 MG TABLET 60 MG PO ×2 (08:27→20:12)
[2023-05-27] MEDS: Folic Acid 1 MG in 0.9 % Sodium Chloride 50 ML 100 MG IV (08:27)
[2023-05-27] MEDS: Acetaminophen 325 MG TABLET 650 MG PO (08:30)
[2023-05-27] MEDS: ondansetron HCL 4 MG/2 ML VIAL IVPUSH (08:31)
--- NOTE | 2023-05-27 10:32 | MHC.RECOVRN ---
Met with pt while in ED prior to admission. Had discussed outpatient supports at that time, pt declined referrals. T/w available if pt would like to discuss further.
[2023-05-27] MEDS: hydrOXYzine HCL 25 MG TABLET PO (11:13)
--- NOTE | 2023-05-27 13:15 | MHC.CM.PN ---
Male 52 DX ETOH WD He lives in a CHD apartment. 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 He is independent with all functional mobility. He states that he is depressed. Notified MD. Psych eval pending. 413 cares and Family resource guide have been provided to the patient. A copy of his HCP has been requested. DP TBD by patients recovery ETOH WD. Psych eval pending. Recovery team in place. Home self care shuttle transport home.
--- NOTE | 2023-05-27 14:02 | PM.PSYCN ---
History of Present Illness Date of Service: 05/27/2023 Chief Complaint: Alcohol withdrawal Sources of Information: patient interviewed, chart reviewed and crisis/core team assessment reviewed HPI Narrative: Mr. Pierce is a 52 year-old male with hx of depression, alcohol use disorder who is medically admitted for alcohol withdrawal on phenobarbital protocol. Psychiatry asked to see him for mood contributing to alcohol use. Pt seen in his room. He is sitting in bed. He is pleasant on approach. He reports hx of trauma and depression contributing to his urges to use alcohol. He reports using alcohol daily for several years. He reports is affecting his health and relationships. He denies VH/AH. He also denies SI/HI. He reports his PCP has been prescribing lexapro for several years but he is unsure as to how much is helping. We discussed medications to decrease alcohol cravings. He decided to try naltrexon- although hour after he took medication he reports feeling anxious, sweating, space out. We decided on retrying it outpatient once he is done with phenobarb protocol. He is not on any opioids, utox negative for opioids. [facility] Medical History Ileus Myocardial infarction CAD (coronary artery disease) Diagnostics Vital Signs (24Hr): Vital Signs - 24 hr 05/26/23 15:22 05/26/23 21:10 05/27/23 00:00 Temperature 100 F 98.0 F 98.6 F Pulse Rate 76 79 76 Respiratory Rate 18 16 18 Blood Pressure 151/88 H 143/83 H 133/78 Pulse Oximetry 95 94 96 Oxygen Delivery Method Room Air Room Air Room Air 05/27/23 03:47 05/27/23 08:00 05/27/23 09:49 Temperature 98.2 F 98.6 F Pulse Rate 64 76 Respiratory Rate 18 20 Blood Pressure 130/84 174/94 H 125/76 Pulse Oximetry 98 96 Oxygen Delivery Method Room Air Room Air 05/27/23 11:47 Temperature 98.3 F Pulse Rate 60 Respiratory Rate 16 Blood Pressure 106/66 Pulse Oximetry 96 Oxygen Delivery Method Room Air BMI result Body Mass Index 24.7 Labs 05/26/23 12:57 05/27/23 06:24 Labs: Laboratory Results - last 48 hr 05/26/23 05/26/23 05/26/23 12:57 15:45 17:07 WBC 6.0 RBC 4.54 L Hgb 14.3 Hct 39.8 L MCV 87.7 MCH 31.5 MCHC 35.9 RDW 13.3 Plt Count 195 MPV 10.2 Immature Gran % (Auto) 0.2 Neut % (Auto) 70.7 Lymph % (Auto) 19.5 L [place] % (Auto) 7.1 Eos % (Auto) 1.8 Baso % (Auto) 0.7 Lymph # (Auto) 1.2 [place] # (Auto) 0.4 Eos # (Auto) 0.1 Baso # (Auto) 0.0 Abs Immat Gran (auto) 0.01 Absolute Neuts (auto) 4.3 Absolute Nucleated RBC 0.000 Nucleated RBC % (auto) 0.0 Hold Purple Top Sodium 133 L Potassium 3.8 Chloride 103 Carbon Dioxide 16 L Anion Gap 18 BUN 11 Creatinine 0.85 Estim Creat Clear Calc 138.0 Estimated GFR > 60 Random Glucose 80 Calcium 8.8 D Magnesium 2.1 Total Bilirubin 1.9 H AST 20 ALT 13 Alkaline Phosphatase 54 Total Protein 7.3 Albumin 4.3 Lipase 62 Urine Color Yellow Urine Appearance Clear Urine pH 5.5 Ur Specific [place] <= 1.005 Urine Protein Negative Urine Glucose (UA) Negative Urine Ketones 15 Urine Blood Negative Urine Nitrite Negative Ur Leukocyte Esterase Negative Salicylates < 5.0 L Urine Opiates Screen Not Detected Urine Fentanyl Screen Not Detected Ur Barbiturates Screen Not Detected Ur Phencyclidine Scrn Not Detected Ur Amphetamines Screen Not Detected U Benzodiazepines Scrn Not Detected Urine Cocaine Screen Not Detected U Marijuana (THC) Screen Not Detected Ethyl Alcohol 29 Influenza Type A (PCR) NEGATIVE Influenza Type B (PCR) NEGATIVE RSV RNA Qual (PCR) NEGATIVE SARS-CoV-2 RNA (RT-PCR) NEGATIVE 05/27/23 06:24 WBC RBC Hgb Hct MCV MCH MCHC RDW Plt Count MPV Immature Gran % (Auto) Neut % (Auto) Lymph % (Auto) [place] % (Auto) Eos % (Auto) Baso % (Auto) Lymph # (Auto) [place] # (Auto) Eos # (Auto) Baso # (Auto) Abs Immat Gran (auto) Absolute Neuts (auto) Absolute Nucleated RBC Nucleated RBC % (auto) Hold Purple Top SEE NOTE Sodium 141 Potassium 4.3 Chloride 107 Carbon Dioxide 23 Anion Gap 15 BUN 11 Creatinine 1.02 Estim Creat Clear Calc 115.0 Estimated GFR > 60 Random Glucose 98 Calcium 8.7 Magnesium Total Bilirubin AST ALT Alkaline Phosphatase Total Protein Albumin Lipase Urine Color Urine Appearance Urine pH Ur Specific [place] Urine Protein Urine Glucose (UA) Urine Ketones Urine Blood Urine Nitrite Ur Leukocyte Esterase Salicylates Urine Opiates Screen Urine Fentanyl Screen Ur Barbiturates Screen Ur Phencyclidine Scrn Ur Amphetamines Screen U Benzodiazepines Scrn Urine Cocaine Screen U Marijuana (THC) Screen Ethyl Alcohol Influenza Type A (PCR) Influenza Type B (PCR) RSV RNA Qual (PCR) SARS-CoV-2 RNA (RT-PCR) Imaging Radiology Impressions: ITS Impressions KUB X-Ray 05/26/23 16:15 IMPRESSION: No evidence of bowel obstruction. Significant improvement in appearances when compared to the prior study. Mental Status Exam Mental Status Exam Narrative: Appearance: wearing hospital gown, fair hygiene, in NAD Behavior: cooperative Psychomotor: no agitation or retardation noted Speech: clear, normal rate/rhythm/volume, spontaneous TP: linear TC: wanting help for mood and alcohol use disorder Mood: depressed Affect: brightens up at times SI: denies HI: denies VH/AH: none Delusions: none Insight/judgment: fair x 2. Memory/cog: alert, oriented x 3. Medications Medications Current Medications Acetaminophen (Acetaminophen 325 Mg Tablet) 650 mg PO Q6H PRN PRN Reason: Pain, Mild (Pain Scale 1-3) Last Admin: 05/27/23 08:30 Dose: 650 mg Amlodipine Besylate (Amlodipine Besylate 5 Mg Tablet) 5 mg PO DAILY [facility]; Protocol Last Admin: 05/27/23 08:26 Dose: 5 mg Aspirin (Aspirin Enteric Coated 81 Mg Tablet.Dr) 81 mg PO DAILY [facility] Last Admin: 05/27/23 08:26 Dose: 81 mg Atorvastatin Calcium (Atorvastatin Calcium 80 Mg Tablet) 80 mg PO DAILY [facility] Last Admin: 05/27/23 08:26 Dose: 80 mg Benzonatate (Benzonatate 100 Mg Capsule) 100 mg PO TID PRN PRN Reason: Cough Carvedilol (Carvedilol 12.5 Mg Tablet) 12.5 mg PO BID [facility]; Protocol Last Admin: 05/27/23 08:26 Dose: 12.5 mg Docusate Sodium (Docusate Sodium 100 Mg Capsule) 100 mg PO DAILY PRN PRN Reason: Constipation Enoxaparin Sodium (Enoxaparin Sodium 40 Mg/0.4 Ml Syringe) 40 mg SUBCUT Q24H [facility] Last Admin: 05/26/23 19:38 Dose: Not Given Escitalopram Oxalate (Escitalopram Oxalate 20 Mg Tablet) 20 mg PO DAILY [facility] Last Admin: 05/27/23 08:26 Dose: 20 mg Famotidine (Famotidine 20 Mg Tablet) 20 mg PO BID [facility] Last Admin: 05/27/23 08:26 Dose: 20 mg Lactated Ringer's (Lr) 1,000 mls @ 100 mls/hr IVCONT .Q10H [facility] Last Admin: 05/27/23 03:31 Dose: 100 mls/hr Thiamine HCl 100 mg/ Sodium (Chloride) 101 mls @ 202 mls/hr IV DAILY [facility] Last Admin: 05/27/23 08:41 Dose: Not Given Folic Acid 1 mg/ Sodium (Chloride) 50.2 mls @ 100.4 mls/hr IV DAILY [facility] Last Infusion: 05/27/23 09:36 Dose: Infused Ondansetron HCl (Ondansetron Hcl 4 Mg/2 Ml Vial) 4 mg IVPUSH Q8H PRN PRN Reason: Nausea and Vomiting Last Admin: 05/27/23 08:31 Dose: 4 mg Pharmacy Consult (Consult Rx Etoh Phenob Im/Po) 1 each MISCELLANE ONCE PRN; Protocol PRN Reason: Consult order Phenobarbital (Phenobarbital 30 Mg Tablet) 60 mg PO BID [facility]; Protocol Stop: 05/28/23 21:01 Last Admin: 05/27/23 08:27 Dose: 60 mg Phenobarbital (Phenobarbital 30 Mg Tablet) 30 mg PO BID [facility]; Protocol Stop: 05/30/23 21:01 Phenobarbital (Phenobarbital 30 Mg Tablet) 30 mg PO DAILY [facility] Stop: 06/01/23 09:01 Sodium Chloride (0.9 % Sodium Chloride Flush 3 Ml Syringe) 3 ml IVFLUSH QSHIFT [facility] Last Admin: 05/27/23 08:27 Dose: Not Given Trazodone HCl (Trazodone Hcl 50 Mg Tablet) 50 mg PO BEDTIME PRN PRN Reason: insomnia Trazodone HCl (Trazodone Hcl 50 Mg Tablet) 50 mg PO BEDTIME [facility] Last Admin: 05/26/23 21:24 Dose: 50 mg Allergies Allergies Allergy/AdvReac Type Severity Reaction Status Date / Time No Known Allergies Allergy Verified 11/12/22 08:05 Assessment & Plan Assessment & Plan (1) MDD (major depressive disorder), recurrent episode, moderate: Status: Acute Code(s): F33.1 - Major depressive disorder, recurrent, moderate (2) Alcohol abuse: Status: Acute Code(s): F10.10 - Alcohol abuse, uncomplicated Plan Mr. Pierce is a 52 year-old male with hx of depression and alcohol use disorder. He was medically admitted for alcohol withdrawal, currently on a phenobarbital protocol. Pt reports depressed mood for a very long time. He has been taking lexapro, which he is not sure how much is helping. He reports he has upcoming appointment with [facility] to see psych prescriber. We discussed since discharge is soon to follow up with [facility] providers to further adjust medications. We discussed medications to decrease alcohol use and cravings. He tried while in the hospital naltrexon but felt sweaty and anxious and space out. Again advice to retry outpatient once done with phenobarbital protocol. No imminent safety concerns. plan 1. follow up with appointment with [facility]. will not do any changes as he is leaving soon. 2. he tried naltrexon 50mg po felt sweaty and spaced out. advice to re try outpatient once he is done with phenobarb protocol. he was not on any opioid prior or during admission to suspect opioid withdrawal reaction when he tried naltrexon. Total time managing care of this patient today ____ minutes.
[2023-05-27] MEDS: Acamprosate Calcium 333 MG TABLET.DR 666 MG PO (14:13)
[2023-05-27] MEDS: Naltrexone HCl 50 MG TABLET PO (14:13)
--- NOTE | 2023-05-27 16:10 | P.PNIM_ITS ---
Subjective Subjective Date of Service: 05/27/23 Interval History: Alcohol withdrawal,hyponatremia Review of Systems nausea vomiting seems improved abd pain also improved. feels still very anxious ,tramulous. Physical Exam 2 Vital Signs: Vital Signs: Last Vital Signs Temp 98.3 F 05/27/23 11:47 Pulse 60 05/27/23 11:47 Resp 16 05/27/23 11:47 BP 106/66 05/27/23 11:47 Pulse Ox 96 05/27/23 11:47 O2 Del Method Room Air 05/27/23 11:47 BMI result Body Mass Index 24.7 Appearance: Alert.? Oriented X3.? tramulous ,anxious cvs: rrr, [id number] . res: clear to auscultation ,no rhonchii or wheezing abd: no rebound or guarding ,nt, bs present. ext pulses present , no cyanosis . neuro: axo3 , nonfocal. Objective Data Active Medications Acetaminophen (Acetaminophen 325 Mg Tablet) 650 mg PO Q6H PRN PRN Reason: Pain, Mild (Pain Scale 1-3) Last Admin: 05/27/23 08:30 Dose: 650 mg Documented By: DORCAS Amlodipine Besylate (Amlodipine Besylate 5 Mg Tablet) 5 mg PO DAILY [facility]; Protocol Last Admin: 05/27/23 08:26 Dose: 5 mg Documented By: DORCAS Aspirin (Aspirin Enteric Coated 81 Mg Tablet.) 81 mg PO DAILY [facility] Last Admin: 05/27/23 08:26 Dose: 81 mg Documented By: DORCAS Atorvastatin Calcium (Atorvastatin Calcium 80 Mg Tablet) 80 mg PO DAILY [facility] Last Admin: 05/27/23 08:26 Dose: 80 mg Documented By: DORCAS Benzonatate (Benzonatate 100 Mg Capsule) 100 mg PO TID PRN PRN Reason: Cough Carvedilol (Carvedilol 12.5 Mg Tablet) 12.5 mg PO BID [facility]; Protocol Last Admin: 05/27/23 08:26 Dose: 12.5 mg Documented By: DORCAS Docusate Sodium (Docusate Sodium 100 Mg Capsule) 100 mg PO DAILY PRN PRN Reason: Constipation Enoxaparin Sodium (Enoxaparin Sodium 40 Mg/0.4 Ml Syringe) 40 mg SUBCUT Q24H [facility] Last Admin: 05/26/23 19:38 Dose: Not Given Documented By: JONNY Non-Admin Reason: Patient Refused Escitalopram Oxalate (Escitalopram Oxalate 20 Mg Tablet) 20 mg PO DAILY [facility] Last Admin: 05/27/23 08:26 Dose: 20 mg Documented By: DORCAS Famotidine (Famotidine 20 Mg Tablet) 20 mg PO BID [facility] Last Admin: 05/27/23 08:26 Dose: 20 mg Documented By: DORCAS Lactated Ringer's (Lr) 1,000 mls @ 100 mls/hr IVCONT .Q10H [facility] Last Infusion: 05/27/23 12:00 Dose: 0 mls/hr Documented By: DORCAS Thiamine HCl 100 mg/ Sodium (Chloride) 101 mls @ 202 mls/hr IV DAILY [facility] Last Admin: 05/27/23 08:41 Dose: Not Given Documented By: DORCAS Non-Admin Reason: Duplicate Order Folic Acid 1 mg/ Sodium (Chloride) 50.2 mls @ 100.4 mls/hr IV DAILY [facility] Last Infusion: 05/27/23 09:36 Dose: Infused Documented By: DORCAS Ondansetron HCl (Ondansetron Hcl 4 Mg/2 Ml Vial) 4 mg IVPUSH Q8H PRN PRN Reason: Nausea and Vomiting Last Admin: 05/27/23 08:31 Dose: 4 mg Documented By: DORCAS Pharmacy Consult (Consult Rx Etoh Phenob Im/Po) 1 each MISCELLANE ONCE PRN; Protocol PRN Reason: Consult order Phenobarbital (Phenobarbital 30 Mg Tablet) 60 mg PO BID [facility]; Protocol Stop: 05/28/23 21:01 Last Admin: 05/27/23 08:27 Dose: 60 mg Documented By: DORCAS Phenobarbital (Phenobarbital 30 Mg Tablet) 30 mg PO BID [facility]; Protocol Stop: 05/30/23 21:01 Phenobarbital (Phenobarbital 30 Mg Tablet) 30 mg PO DAILY [facility] Stop: 06/01/23 09:01 Sodium Chloride (0.9 % Sodium Chloride Flush 3 Ml Syringe) 3 ml IVFLUSH QSHIFT [facility] Last Admin: 05/27/23 08:27 Dose: Not Given Documented By: DORCAS Non-Admin Reason: IV Running Trazodone HCl (Trazodone Hcl 50 Mg Tablet) 50 mg PO BEDTIME PRN PRN Reason: insomnia Trazodone HCl (Trazodone Hcl 50 Mg Tablet) 50 mg PO BEDTIME [facility]ATH[facility] Last Admin: 05/26/23 21:24 Dose: 50 mg Documented By: JOCELINE Labs 05/26/23 12:57 05/27/23 06:24 Labs: Laboratory Results - last 24 hr 05/26/23 05/27/23 17:07 06:24 Hold Purple Top SEE NOTE Anion Gap 15 Estim Creat Clear Calc 115.0 Estimated GFR > 60 Random Glucose 98 Calcium 8.7 Influenza Type A (PCR) NEGATIVE Influenza Type B (PCR) NEGATIVE RSV RNA Qual (PCR) NEGATIVE SARS-CoV-2 RNA (RT-PCR) NEGATIVE Assessment and Plan (1) Alcohol withdrawal: Status: Acute Plan 52-year-old male with a PMH significant for?HTN, HLD/CAD, hx of [place] (last in 2020) s/p stenting, and alcohol use disorder with hx of alcohol withdrawal with seizures who presents to the ED with??withdrawal symptoms?. Pt will be admitted to the hospital for treatment and further evaluation acute alcohol withdrawal. Acute alcohol withdrawal still symptomatic Follow lytes, Mag, BMP CIWA scale on Phenobarb protocol,Daily multivitamin, folic acid, Thiamine,Famotidine 20 mg p.o. Seizure protocols,Monitor on telemetry Addiction medicine consult psych eval for anxiety Intractable nausea, vomiting, abdominal pain Previously admitted 1 month prior for ileus/possible SBO KUB negative for SBO; abdominal exam benign symptoms resolved . Antiemetics for nausea,Analgesics for pain management diet advanced. HTN Continue amlodipine, carvedilol HLD/CAD Continue statin, aspirin, Brillinta . Mood disorder-Continue escitalopram Insomnia-Continue trazodone Full Code DVT Prophylaxis: Lovenox ongoing hospitalization need for treatment of?acute alcohol withdrawal- for treatment of alcohol withdrawal with phenobarb, and close monitoring of labs and cardiac functioning. Quality Stroke Does the patient have a stroke diagnosis?: No VTE Prior VTE?: No VTE Risk Level:: Medical - moderate - high VTE Device Contraindication: Treatment Not Indicated VTE Drug Contraindication: N/A - Med Ordered
[2023-05-27] MEDS: traZODone HCL 50 MG TABLET PO (20:11)
[2023-05-27] MEDS: Ticagrelor 90 MG TABLET PO (20:12)
[2023-05-27] MEDS: Enoxaparin Sodium 40 MG/0.4 ML SYRINGE SUBCUT (20:16)
[2023-05-27] MEDS: Melatonin 3 MG TABLET 6 MG PO (21:52)
[2023-05-27] MEDS: 0.9 % Sodium Chloride Flush 3 ML SYRINGE IVFLUSH (21:54)
[2023-05-28] VITALS (7 sets, daily range): BP systolic 117–185; BP diastolic 71–104; PULSE 67–76; RESP 16–20; TEMP 35.8–37.2; O2SAT 95–99
[2023-05-28] MEDS: amLODIPine Besylate 5 MG TABLET PO (07:57)
[2023-05-28] MEDS: carvediloL 12.5 MG TABLET PO ×2 (07:57→20:38)
[2023-05-28] MEDS: Famotidine 20 MG TABLET PO ×2 (07:57→20:38)
[2023-05-28] MEDS: Ticagrelor 90 MG TABLET PO ×2 (07:57→20:38)
[2023-05-28] MEDS: Escitalopram Oxalate 20 MG TABLET PO (07:57)
[2023-05-28] MEDS: Aspirin Enteric Coated 81 MG TABLET.DR PO (07:57)
[2023-05-28] MEDS: Atorvastatin Calcium 80 MG TABLET PO (07:57)
[2023-05-28] MEDS: PHENobarbitaL 30 MG TABLET 60 MG PO ×2 (07:57→20:38)
[2023-05-28] MEDS: 0.9 % Sodium Chloride Flush 3 ML SYRINGE IVFLUSH ×2 (07:58→15:18)
[2023-05-28] MEDS: Thiamine HCL 100 MG in 0.9 % Sodium Chloride 100 ML 202 MG IV (07:58)
[2023-05-28] MEDS: hydrOXYzine HCL 25 MG TABLET PO (08:41)
[2023-05-28] MEDS: Folic Acid 1 MG in 0.9 % Sodium Chloride 50 ML 100 MG IV (08:41)
--- NOTE | 2023-05-28 13:39 | MHC.CM.PN ---
EMR REVIEWED, PER MULTIDISCIPLINARY ROUND PT CONT'S TO SCORE ON CIWA AND NOT YET MEDICALLY CLEARED, ANTIC PT WILL RETURN TO HIS [facility]D APT ONCE MEDICALLY CLEARED, CM WILL CONT TO FOLLOW DC NEEDS.
[2023-05-28] MEDS: Acetaminophen 325 MG TABLET 650 MG PO (15:18)
[2023-05-28] MEDS: ondansetron HCL 4 MG/2 ML VIAL IVPUSH (15:18)
[2023-05-28] MEDS: PHENobarbitaL sodium 130 MG/ML VIAL 65 MG IM (16:24)
--- NOTE | 2023-05-28 16:26 | P.PNIM_ITS ---
Subjective Subjective Date of Service: 05/28/23 Interval History: alcohol withdrawal Review of Systems still has anxiety severe tramulous Physical Exam 2 Vital Signs: Vital Signs: Last Vital Signs Temp 97.2 F 05/28/23 11:10 Pulse 70 05/28/23 11:10 Resp 16 05/28/23 11:10 BP 149/86 H 05/28/23 11:10 Pulse Ox 95 05/28/23 11:10 O2 Del Method Room Air 05/28/23 11:10 BMI result Body Mass Index 24.7 Appearance: Alert.? Oriented X3.? tramulous ,anxious cvs: rrr, [id number] . res: clear to auscultation ,no rhonchii or wheezing abd: no rebound or guarding ,nt, bs present. ext pulses present , no cyanosis . neuro: axo3 , nonfocal. Objective Data Active Medications Acetaminophen (Acetaminophen 325 Mg Tablet) 650 mg PO Q6H PRN PRN Reason: Pain, Mild (Pain Scale 1-3) Last Admin: 05/28/23 15:18 Dose: 650 mg Documented By: DESIRAE Amlodipine Besylate (Amlodipine Besylate 5 Mg Tablet) 5 mg PO DAILY [facility]; Protocol Aspirin (Aspirin Enteric Coated 81 Mg Tablet.) 81 mg PO DAILY [facility] Last Admin: 05/28/23 07:57 Dose: 81 mg Documented By: SHILPA Atorvastatin Calcium (Atorvastatin Calcium 80 Mg Tablet) 80 mg PO DAILY [facility] Last Admin: 05/28/23 07:57 Dose: 80 mg Documented By: SHILPA Benzonatate (Benzonatate 100 Mg Capsule) 100 mg PO TID PRN PRN Reason: Cough Carvedilol (Carvedilol 12.5 Mg Tablet) 12.5 mg PO BID [facility]; Protocol Last Admin: 05/28/23 07:57 Dose: 12.5 mg Documented By: SHILPA Docusate Sodium (Docusate Sodium 100 Mg Capsule) 100 mg PO DAILY PRN PRN Reason: Constipation Enoxaparin Sodium (Enoxaparin Sodium 40 Mg/0.4 Ml Syringe) 40 mg SUBCUT Q24H [facility] Last Admin: 05/27/23 20:16 Dose: 40 mg Documented By: WILLIAM Escitalopram Oxalate (Escitalopram Oxalate 20 Mg Tablet) 20 mg PO DAILY [facility] Last Admin: 05/28/23 07:57 Dose: 20 mg Documented By: SHILPA Famotidine (Famotidine 20 Mg Tablet) 20 mg PO BID [facility] Last Admin: 05/28/23 07:57 Dose: 20 mg Documented By: SHILPA Thiamine HCl 100 mg/ Sodium (Chloride) 101 mls @ 202 mls/hr IV DAILY [facility] Last Infusion: 05/28/23 08:49 Dose: Infused Documented By: SHILPA Folic Acid 1 mg/ Sodium (Chloride) 50.2 mls @ 100.4 mls/hr IV DAILY [facility] Last Infusion: 05/28/23 09:20 Dose: Infused Documented By: SHILPA Melatonin (Melatonin 3 Mg Tablet) 6 mg PO BEDTIME [facility] Last Admin: 05/27/23 21:52 Dose: 6 mg Documented By: WILLIAM Ondansetron HCl (Ondansetron Hcl 4 Mg/2 Ml Vial) 4 mg IVPUSH Q8H PRN PRN Reason: Nausea and Vomiting Last Admin: 05/28/23 15:18 Dose: 4 mg Documented By: DESIRAE Pharmacy Consult (Consult Rx Etoh Phenob Im/Po) 1 each MISCELLANE ONCE PRN; Protocol PRN Reason: Consult order Phenobarbital (Phenobarbital 30 Mg Tablet) 60 mg PO BID [facility]; Protocol Stop: 05/28/23 21:01 Last Admin: 05/28/23 07:57 Dose: 60 mg Documented By: SHILPA Phenobarbital (Phenobarbital 30 Mg Tablet) 30 mg PO BID [facility]; Protocol Stop: 05/30/23 21:01 Phenobarbital (Phenobarbital 30 Mg Tablet) 30 mg PO DAILY [facility] Stop: 06/01/23 09:01 Sodium Chloride (0.9 % Sodium Chloride Flush 3 Ml Syringe) [facility] Last Admin: 05/28/23 15:18 Dose: 3 ml Documented By: DESIRAE Ticagrelor (Ticagrelor 90 Mg Tablet) 90 mg PO BID [facility] Last Admin: 05/28/23 07:57 Dose: 90 mg Documented By: SHILPA Trazodone HCl (Trazodone Hcl 50 Mg Tablet) 50 mg PO BEDTIME PRN PRN Reason: insomnia Trazodone HCl (Trazodone Hcl 50 Mg Tablet) 50 mg PO BEDTIME [facility] Last Admin: 05/27/23 20:11 Dose: 50 mg Documented By: WILLIAM Labs 05/26/23 12:57 05/27/23 06:24 Assessment and Plan (1) Alcohol withdrawal: Status: Acute Assessment and Plan: 52-year-old male with a PMH significant for?HTN, HLD/CAD, hx of [place] (last in 2020) s/p stenting, and alcohol use disorder with hx of alcohol withdrawal with seizures who presents to the ED with??withdrawal symptoms?. Pt will be admitted to the hospital for treatment and further evaluation acute alcohol withdrawal. Acute alcohol withdrawal still symptomatic CIWA scale:11-? mostly anxiety Follow lytes, Mag, BMP. added extra phenobarbital dose. on Phenobarb protocol,Daily multivitamin, folic acid, Thiamine,Famotidine 20 mg p.o. Seizure protocols,Monitor on telemetry Addiction medicine consult psych eval for anxiety Intractable nausea, vomiting, abdominal pain Previously admitted 1 month prior for ileus/possible SBO KUB negative for SBO; abdominal exam benign symptoms resolved . Antiemetics for nausea,Analgesics for pain management diet advanced. HTN Continue amlodipine, carvedilol HLD/CAD Continue statin, aspirin, Brillinta . Mood disorder-Continue escitalopram Insomnia-Continue trazodone Full Code DVT Prophylaxis: Lovenox ongoing hospitalization need for treatment of?acute alcohol withdrawal- for treatment of alcohol withdrawal with phenobarb, and close monitoring of labs and cardiac functioning. Quality Stroke Does the patient have a stroke diagnosis?: No VTE Prior VTE?: No VTE Risk Level:: Medical - moderate - high VTE Device Contraindication: Treatment Not Indicated VTE Drug Contraindication: N/A - Med Ordered
[2023-05-28] MEDS: Mirtazapine 7.5 MG TABLET PO (20:38)
[2023-05-28] MEDS: traZODone HCL 50 MG TABLET PO (20:38)
[2023-05-28] MEDS: Melatonin 3 MG TABLET 6 MG PO (20:38)
[2023-05-28] MEDS: Enoxaparin Sodium 40 MG/0.4 ML SYRINGE SUBCUT (20:39)
[2023-05-29 03:14] VITALS: BP 137/84; PULSE 58; RESP 19; TEMP 36.3; O2SAT 97
[2023-05-29] MEDS: 0.9 % Sodium Chloride Flush 3 ML SYRINGE IVFLUSH ×3 (05:13→19:54)
[2023-05-29 08:00] VITALS: BP 176/99; PULSE 58; RESP 20; TEMP 36; O2SAT 95
[2023-05-29] MEDS: Ticagrelor 90 MG TABLET PO ×2 (08:59→19:53)
[2023-05-29] MEDS: Aspirin Enteric Coated 81 MG TABLET.DR PO (08:59)
[2023-05-29] MEDS: Escitalopram Oxalate 20 MG TABLET PO (08:59)
[2023-05-29] MEDS: amLODIPine Besylate 5 MG TABLET PO (08:59)
[2023-05-29] MEDS: Atorvastatin Calcium 80 MG TABLET PO (08:59)
[2023-05-29] MEDS: Famotidine 20 MG TABLET PO ×2 (08:59→19:52)
[2023-05-29] MEDS: carvediloL 12.5 MG TABLET PO ×2 (09:00→19:52)
[2023-05-29] MEDS: PHENobarbitaL 30 MG TABLET PO ×2 (09:00→19:52)
[2023-05-29] MEDS: Folic Acid 1 MG in 0.9 % Sodium Chloride 50 ML 100 MG IV (09:00)
[2023-05-29] MEDS: ondansetron HCL 4 MG/2 ML VIAL IVPUSH (09:02)
[2023-05-29] MEDS: Thiamine HCL 100 MG in 0.9 % Sodium Chloride 100 ML 202 MG IV (09:47)
[2023-05-29] MEDS: hydrOXYzine HCL 25 MG TABLET PO ×2 (10:39→18:34)
[2023-05-29 10:57] VITALS: BP 132/78; PULSE 71; RESP 20; TEMP 36.1; O2SAT 96
--- NOTE | 2023-05-29 12:25 | P.PNIM_ITS ---
Subjective Subjective Date of Service: 05/29/23 Interval History: alcohol withdrawal Review of Systems still similar anxious ,tramulous ciwa 10 Physical Exam 2 Vital Signs: Vital Signs: Last Vital Signs Temp 96.9 F 05/29/23 10:57 Pulse 71 05/29/23 10:57 Resp 20 05/29/23 10:57 BP 132/78 05/29/23 10:57 Pulse Ox 96 05/29/23 10:57 O2 Del Method Room Air 05/29/23 10:57 BMI result Body Mass Index 24.7 Appearance: Alert.? Oriented X3.? tramulous ,anxious cvs: rrr, [id number] . res: clear to auscultation ,no rhonchii or wheezing abd: no rebound or guarding ,nt, bs present. ext pulses present , no cyanosis . neuro: axo3 , nonfocal. Objective Data Active Medications Acetaminophen (Acetaminophen 325 Mg Tablet) 650 mg PO Q6H PRN PRN Reason: Pain, Mild (Pain Scale 1-3) Last Admin: 05/28/23 15:18 Dose: 650 mg Documented By: DESIRAE Amlodipine Besylate (Amlodipine Besylate 5 Mg Tablet) 5 mg PO DAILY [facility]; Protocol Last Admin: 05/29/23 08:59 Dose: 5 mg Documented By: KATHIE Aspirin (Aspirin Enteric Coated 81 Mg Tablet.) 81 mg PO DAILY [facility] Last Admin: 05/29/23 08:59 Dose: 81 mg Documented By: KATHIE Atorvastatin Calcium (Atorvastatin Calcium 80 Mg Tablet) 80 mg PO DAILY [facility] Last Admin: 05/29/23 08:59 Dose: 80 mg Documented By: KATHIE Benzonatate (Benzonatate 100 Mg Capsule) 100 mg PO TID PRN PRN Reason: Cough Carvedilol (Carvedilol 12.5 Mg Tablet) 12.5 mg PO BID [facility]; Protocol Last Admin: 05/29/23 09:00 Dose: 12.5 mg Documented By: KATHIE Docusate Sodium (Docusate Sodium 100 Mg Capsule) 100 mg PO DAILY PRN PRN Reason: Constipation Enoxaparin Sodium (Enoxaparin Sodium 40 Mg/0.4 Ml Syringe) 40 mg SUBCUT Q24H [facility] Last Admin: 05/28/23 20:39 Dose: 40 mg Documented By: JOSE JUAN Escitalopram Oxalate (Escitalopram Oxalate 20 Mg Tablet) 20 mg PO DAILY [facility] Last Admin: 05/29/23 08:59 Dose: 20 mg Documented By: KATHIE Famotidine (Famotidine 20 Mg Tablet) 20 mg PO BID [facility] Last Admin: 05/29/23 08:59 Dose: 20 mg Documented By: KATHIE Thiamine HCl 100 mg/ Sodium (Chloride) 101 mls @ 202 mls/hr IV DAILY [facility] Last Infusion: 05/29/23 11:23 Dose: Infused Documented By: KATHIE Folic Acid 1 mg/ Sodium (Chloride) 50.2 mls @ 100.4 mls/hr IV DAILY [facility] Last Infusion: 05/29/23 10:08 Dose: Infused Documented By: KATHIE Melatonin (Melatonin 3 Mg Tablet) 6 mg PO BEDTIME [facility] Last Admin: 05/28/23 20:38 Dose: 6 mg Documented By: JOSE JUAN Mirtazapine (Mirtazapine 7.5 Mg Tablet) 7.5 mg PO BEDTIME MRX1 [facility] Last Admin: 05/29/23 00:03 Dose: Not Given Documented By: JOSE JUAN Non-Admin Reason: FIRST DOSE EFFECTIVE Ondansetron HCl (Ondansetron Hcl 4 Mg/2 Ml Vial) 4 mg IVPUSH Q8H PRN PRN Reason: Nausea and Vomiting Last Admin: 05/29/23 09:02 Dose: 4 mg Documented By: KATHIE Pharmacy Consult (Consult Rx Etoh Phenob Im/Po) 1 each MISCELLANE ONCE PRN; Protocol PRN Reason: Consult order Phenobarbital (Phenobarbital 30 Mg Tablet) 30 mg PO BID [facility]; Protocol Stop: 05/30/23 21:01 Last Admin: 05/29/23 09:00 Dose: 30 mg Documented By: KATHIE Phenobarbital (Phenobarbital 30 Mg Tablet) 30 mg PO DAILY [facility] Stop: 06/01/23 09:01 Sodium Chloride (0.9 % Sodium Chloride Flush 3 Ml Syringe) 3 ml IVFLUSH QSHIFT [facility] Last Admin: 05/29/23 09:01 Dose: 3 ml Documented By: KATHIE Ticagrelor (Ticagrelor 90 Mg Tablet) 90 mg PO BID [facility] Last Admin: 05/29/23 08:59 Dose: 90 mg Documented By: KATHIE Trazodone HCl (Trazodone Hcl 50 Mg Tablet) 50 mg PO BEDTIME PRN PRN Reason: insomnia Trazodone HCl (Trazodone Hcl 50 Mg Tablet) 50 mg PO BEDTIME [facility] Last Admin: 05/28/23 20:38 Dose: 50 mg Documented By: JOSE JUAN Labs 05/26/23 12:57 05/27/23 06:24 Assessment and Plan (1) Alcohol withdrawal: Status: Acute Assessment and Plan: 52-year-old male with a PMH significant for?HTN, HLD/CAD, hx of [place] (last in 2020) s/p stenting, and alcohol use disorder with hx of alcohol withdrawal with seizures who presents to the ED with??withdrawal symptoms?. Pt will be admitted to the hospital for treatment and further evaluation acute alcohol withdrawal. Acute alcohol withdrawal still symptomatic CIWA scale:10 Follow lytes, Mag, BMP. added extra phenobarbital dose. on Phenobarb protocol,Daily multivitamin, folic acid, Thiamine,Famotidine 20 mg p.o. Seizure protocols,Monitor on telemetry Addiction medicine consult psych eval for anxiety-added remerone. Intractable nausea, vomiting, abdominal pain Previously admitted 1 month prior for ileus/possible SBO KUB negative for SBO; abdominal exam benign symptoms resolved . Antiemetics for nausea,Analgesics for pain management diet advanced. HTN Continue amlodipine, carvedilol HLD/CAD Continue statin, aspirin, Brillinta . Mood disorder-Continue escitalopram Insomnia-Continue trazodone Full Code DVT Prophylaxis: Lovenox ongoing hospitalization need for treatment of?acute alcohol withdrawal- for treatment of alcohol withdrawal with phenobarb, and close monitoring of labs and cardiac functioning. Quality Stroke Does the patient have a stroke diagnosis?: No VTE Prior VTE?: No VTE Risk Level:: Medical - moderate - high VTE Device Contraindication: Treatment Not Indicated VTE Drug Contraindication: N/A - Med Ordered
[2023-05-29 15:38] VITALS: BP 148/86; PULSE 68; RESP 20; TEMP 36.2; O2SAT 98
--- NOTE | 2023-05-29 18:20 | PM.PSYCN ---
History of Present Illness Date of Service: 05/29/23 Chief Complaint: Alcohol withdrawal Requesting physician: Edilberto Torrez Discussed with referring provider: Yes Sources of Information: patient interviewed and chart reviewed HPI Narrative: Patient was admitted care of Seen call withdrawal he does have a history of alcohol withdrawal seizures history of anxiety. Patient does have a psychiatric history history of depression generalized anxiety and has been on multiple antidepressants in the past. Not currently in treatment. Patient on a CINE protocol with phenobarb Reports he has been increasingly depressed and anxious at home he does have an appointment with local [facility] coming up denies recent self-harming behavior Patient was given 1 dose naltrexone felt sweaty no opiate use noted. He has been on escitalopram has been complaining of feeling increasingly anxious and dysphoric Past Psychiatric History: Reports history of depression chronic alcoholism Personal & Social History: The patient lives alone intermittently smokes marijuana he has some university [facility] Medical History (Updated 07/14/23 @ 12:23 by Tom Flores MD) Generalized anxiety disorder Ileus Myocardial infarction CAD (coronary artery disease) Diagnostics Vital Signs (24Hr): Vital Signs - 24 hr 05/28/23 19:31 05/28/23 23:07 05/29/23 03:14 Temperature 98.1 F 96.5 F L 97.3 F Pulse Rate 67 70 58 Respiratory Rate 20 20 19 Blood Pressure 146/88 H 117/71 137/84 Pulse Oximetry 99 95 97 Oxygen Delivery Method Room Air Room Air Room Air 05/29/23 08:00 05/29/23 10:57 05/29/23 15:38 Temperature 96.8 F 96.9 F 97.2 F Pulse Rate 58 71 68 Respiratory Rate 20 20 20 Blood Pressure 176/99 H 132/78 148/86 H Pulse Oximetry 95 96 98 Oxygen Delivery Method Room Air Room Air Room Air BMI result Body Mass Index 24.7 Labs 05/26/23 12:57 05/27/23 06:24 Imaging Radiology Impressions: ITS Impressions KUB X-Ray 05/26/23 16:15 IMPRESSION: No evidence of bowel obstruction. Significant improvement in appearances when compared to the prior study. Mental Status Exam Mental Status Exam Narrative: Appearance: wearing hospital gown, fair hygiene, in NAD Behavior: cooperative Psychomotor: no agitation or retardation noted Speech: clear, normal rate/rhythm/volume, spontaneous TP: linear TC: wanting help for mood and alcohol use disorder fearful of returning home Mood: Depressed and anxious Affect: brightens up at times SI: denies HI: denies VH/AH: none Delusions: none Insight/judgment: fair x 2. Memory/cog: alert, oriented x 3. Medications Medications Current Medications Acetaminophen (Acetaminophen 325 Mg Tablet) 650 mg PO Q6H PRN PRN Reason: Pain, Mild (Pain Scale 1-3) Last Admin: 05/28/23 15:18 Dose: 650 mg Amlodipine Besylate (Amlodipine Besylate 5 Mg Tablet) 5 mg PO DAILY [facility]; Protocol Last Admin: 05/29/23 08:59 Dose: 5 mg Aspirin (Aspirin Enteric Coated 81 Mg Tablet.Dr) 81 mg PO DAILY [facility] Last Admin: 05/29/23 08:59 Dose: 81 mg Atorvastatin Calcium (Atorvastatin Calcium 80 Mg Tablet) 80 mg PO DAILY [facility] Last Admin: 05/29/23 08:59 Dose: 80 mg Benzonatate (Benzonatate 100 Mg Capsule) 100 mg PO TID PRN PRN Reason: Cough Carvedilol (Carvedilol 12.5 Mg Tablet) 12.5 mg PO BID [facility]; Protocol Last Admin: 05/29/23 09:00 Dose: 12.5 mg Docusate Sodium (Docusate Sodium 100 Mg Capsule) 100 mg PO DAILY PRN PRN Reason: Constipation Enoxaparin Sodium (Enoxaparin Sodium 40 Mg/0.4 Ml Syringe) 40 mg SUBCUT Q24H [facility] Last Admin: 05/28/23 20:39 Dose: 40 mg Escitalopram Oxalate (Escitalopram Oxalate 20 Mg Tablet) 20 mg PO DAILY [facility] Last Admin: 05/29/23 08:59 Dose: 20 mg Famotidine (Famotidine 20 Mg Tablet) 20 mg PO BID [facility] Last Admin: 05/29/23 08:59 Dose: 20 mg Hydroxyzine HCl (Hydroxyzine Hcl 25 Mg Tablet) 25 mg PO Q6H PRN PRN Reason: Anxiety Thiamine HCl 100 mg/ Sodium (Chloride) 101 mls @ 202 mls/hr IV DAILY [facility] Last Infusion: 05/29/23 11:23 Dose: Infused Folic Acid 1 mg/ Sodium (Chloride) 50.2 mls @ 100.4 mls/hr IV DAILY [facility] Last Infusion: 05/29/23 10:08 Dose: Infused Melatonin (Melatonin 3 Mg Tablet) 6 mg PO BEDTIME [facility] Last Admin: 05/28/23 20:38 Dose: 6 mg Mirtazapine (Mirtazapine 7.5 Mg Tablet) 7.5 mg PO BEDTIME MRX1 [facility] Last Admin: 05/29/23 00:03 Dose: Not Given Ondansetron HCl (Ondansetron Hcl 4 Mg/2 Ml Vial) 4 mg IVPUSH Q8H PRN PRN Reason: Nausea and Vomiting Last Admin: 05/29/23 09:02 Dose: 4 mg Pharmacy Consult (Consult Rx Etoh Phenob Im/Po) 1 each MISCELLANE ONCE PRN; Protocol PRN Reason: Consult order Phenobarbital (Phenobarbital 30 Mg Tablet) 30 mg PO BID [facility]; Protocol Stop: 05/30/23 21:01 Last Admin: 05/29/23 09:00 Dose: 30 mg Phenobarbital (Phenobarbital 30 Mg Tablet) 30 mg PO DAILY [facility] Stop: 06/01/23 09:01 Sodium Chloride (0.9 % Sodium Chloride Flush 3 Ml Syringe) 3 ml IVFLUSH QSHIFT [facility] Last Admin: 05/29/23 17:45 Dose: Not Given Ticagrelor (Ticagrelor 90 Mg Tablet) 90 mg PO BID [facility] Last Admin: 05/29/23 08:59 Dose: 90 mg Trazodone HCl (Trazodone Hcl 50 Mg Tablet) 50 mg PO BEDTIME PRN PRN Reason: insomnia Trazodone HCl (Trazodone Hcl 50 Mg Tablet) 50 mg PO BEDTIME [facility] Last Admin: 05/28/23 20:38 Dose: 50 mg Allergies Allergies Allergy/AdvReac Type Severity Reaction Status Date / Time No Known Allergies Allergy Verified 11/12/22 08:05 Assessment & Plan Assessment & Plan (1) MDD (major depressive disorder), recurrent episode, moderate: Status: Acute Code(s): F33.1 - Major depressive disorder, recurrent, moderate (2) Alcohol withdrawal: Qualifiers: Complication of substance-induced condition: uncomplicated Qualified Code(s): F10.930 - Alcohol use, unspecified with withdrawal, uncomplicated Status: Acute Code(s): F10.939 - Alcohol use, unspecified with withdrawal, unspecified (3) Alcohol abuse: Status: Acute Code(s): F10.10 - Alcohol abuse, uncomplicated (4) Generalized anxiety disorder: Status: Acute Code(s): F41.1 - Generalized anxiety disorder Plan Discussed the addition of gabapentin and mirtazapine for help with anxiety will alcohol withdrawal symptoms. Patient might benefit from partial hospital setting he does have an appointment at [facility] risks alternatives different strategies reviewed with patient Case reviewed with Dr. Torrez Total time managing care of this patient today _35__ minutes.
[2023-05-29] MEDS: Enoxaparin Sodium 40 MG/0.4 ML SYRINGE SUBCUT (18:35)
[2023-05-29 19:27] VITALS: BP 139/83; PULSE 64; RESP 18; TEMP 35.8; O2SAT 96
[2023-05-29] MEDS: Mirtazapine 7.5 MG TABLET PO (19:52)
[2023-05-29] MEDS: traZODone HCL 50 MG TABLET PO (19:53)
[2023-05-29] MEDS: Melatonin 3 MG TABLET 6 MG PO (19:53)
[2023-05-29 23:01] VITALS: BP 128/79; PULSE 59; RESP 20; TEMP 36.6; O2SAT 96
[2023-05-30 03:12] VITALS: BP 162/93; PULSE 62; RESP 20; TEMP 36; O2SAT 98
[2023-05-30 08:00] VITALS: BP 160/82; PULSE 62; RESP 16; TEMP 36; O2SAT 97
[2023-05-30] MEDS: Famotidine 20 MG TABLET PO ×2 (08:56→20:02)
[2023-05-30] MEDS: Aspirin Enteric Coated 81 MG TABLET.DR PO (08:56)
[2023-05-30] MEDS: Escitalopram Oxalate 20 MG TABLET PO (08:57)
[2023-05-30] MEDS: amLODIPine Besylate 5 MG TABLET PO (08:57)
[2023-05-30] MEDS: Ticagrelor 90 MG TABLET PO ×2 (08:57→20:00)
[2023-05-30] MEDS: Folic Acid 1 MG in 0.9 % Sodium Chloride 50 ML 100 MG IV (08:57)
[2023-05-30] MEDS: PHENobarbitaL 30 MG TABLET PO ×2 (08:57→20:02)
[2023-05-30] MEDS: Atorvastatin Calcium 80 MG TABLET PO (08:57)
[2023-05-30] MEDS: carvediloL 12.5 MG TABLET PO ×2 (08:57→20:01)
[2023-05-30] MEDS: 0.9 % Sodium Chloride Flush 3 ML SYRINGE IVFLUSH (08:58)
--- NOTE | 2023-05-30 10:02 | PC.NURSE ---
Pt seen at approx 0900 for initial assessment and medication administration. Pt states that his withdrawal sx are much better at this time and that the only symptom he was feeling was slight anxiety and complained of sweatiness, requesting a shower and to go home. Pt instructed he would be able to shower later depending on how he felt after medications had taken effect, and that a discharge plan would be made once psych MD saw pt. Pt then requested one more night of hospitalization. MD rodriguez. Pt rang for RN at approx 0955 and c/o moderate to severe anxiety, requesting something to help ease his symptoms. Pt medicated with PRN atarax per MAY. Plan of care ongoing.
[2023-05-30] MEDS: Thiamine HCL 100 MG in 0.9 % Sodium Chloride 100 ML 202 MG IV (10:04)
[2023-05-30] MEDS: hydrOXYzine HCL 25 MG TABLET PO ×2 (10:04→15:30)
--- NOTE | 2023-05-30 11:51 | P.PNIM_ITS ---
Subjective Subjective Date of Service: 05/30/23 Interval History: alcohol withdrawal Review of Systems still similar anxious ,tramulous but somewhat improving ciwa 5 Physical Exam 2 Vital Signs: Vital Signs: Last Vital Signs Temp 96.8 F 05/30/23 08:00 Pulse 62 05/30/23 08:00 Resp 16 05/30/23 08:00 BP 160/82 H 05/30/23 08:00 Pulse Ox 97 05/30/23 08:00 O2 Del Method Room Air 05/30/23 08:00 BMI result Body Mass Index 24.7 Appearance: Alert.? Oriented X3.? tramulous ,anxious cvs: rrr, [id number] . res: clear to auscultation ,no rhonchii or wheezing abd: no rebound or guarding ,nt, bs present. ext pulses present , no cyanosis . neuro: axo3 , nonfocal. Objective Data Active Medications Acetaminophen (Acetaminophen 325 Mg Tablet) 650 mg PO Q6H PRN PRN Reason: Pain, Mild (Pain Scale 1-3) Last Admin: 05/28/23 15:18 Dose: 650 mg Documented By: DESIRAE Amlodipine Besylate (Amlodipine Besylate 5 Mg Tablet) 5 mg PO DAILY [facility]; Protocol Last Admin: 05/30/23 08:57 Dose: 5 mg Documented By: KATHIE Aspirin (Aspirin Enteric Coated 81 Mg Tablet.) 81 mg PO DAILY [facility] Last Admin: 05/30/23 08:56 Dose: 81 mg Documented By: KATHIE Atorvastatin Calcium (Atorvastatin Calcium 80 Mg Tablet) 80 mg PO DAILY [facility] Last Admin: 05/30/23 08:57 Dose: 80 mg Documented By: KATHIE Benzonatate (Benzonatate 100 Mg Capsule) 100 mg PO TID PRN PRN Reason: Cough Carvedilol (Carvedilol 12.5 Mg Tablet) 12.5 mg PO BID [facility]; Protocol Last Admin: 05/30/23 08:57 Dose: 12.5 mg Documented By: KATHIE Docusate Sodium (Docusate Sodium 100 Mg Capsule) 100 mg PO DAILY PRN PRN Reason: Constipation Enoxaparin Sodium (Enoxaparin Sodium 40 Mg/0.4 Ml Syringe) 40 mg SUBCUT Q24H [facility] Last Admin: 05/29/23 18:35 Dose: 40 mg Documented By: KATHIE Escitalopram Oxalate (Escitalopram Oxalate 20 Mg Tablet) 20 mg PO DAILY [facility] Last Admin: 05/30/23 08:57 Dose: 20 mg Documented By: KATHIE Famotidine (Famotidine 20 Mg Tablet) 20 mg PO BID [facility] Last Admin: 05/30/23 08:56 Dose: 20 mg Documented By: KATHIE Hydroxyzine HCl (Hydroxyzine Hcl 25 Mg Tablet) 25 mg PO Q6H PRN PRN Reason: Anxiety Last Admin: 05/30/23 10:04 Dose: 25 mg Documented By: KATHIE Thiamine HCl 100 mg/ Sodium (Chloride) 101 mls @ 202 mls/hr IV DAILY [facility] Last Infusion: 05/30/23 10:54 Dose: Infused Documented By: KATHIE Folic Acid 1 mg/ Sodium (Chloride) 50.2 mls @ 100.4 mls/hr IV DAILY [facility] Last Infusion: 05/30/23 09:47 Dose: Infused Documented By: KATHIE Melatonin (Melatonin 3 Mg Tablet) 6 mg PO BEDTIME [facility] Last Admin: 05/29/23 19:53 Dose: 6 mg Documented By: JOSE JUAN Mirtazapine (Mirtazapine 7.5 Mg Tablet) 7.5 mg PO BEDTIME MRX1 [facility] Last Admin: 05/29/23 21:45 Dose: Not Given Documented By: JOSE JUAN Non-Admin Reason: first dose effective Ondansetron HCl (Ondansetron Hcl 4 Mg/2 Ml Vial) 4 mg IVPUSH Q8H PRN PRN Reason: Nausea and Vomiting Last Admin: 05/29/23 09:02 Dose: 4 mg Documented By: KATHIE Pharmacy Consult (Consult Rx Etoh Phenob Im/Po) 1 each MISCELLANE ONCE PRN; Protocol PRN Reason: Consult order Phenobarbital (Phenobarbital 30 Mg Tablet) 30 mg PO BID [facility]; Protocol Stop: 05/30/23 21:01 Last Admin: 05/30/23 08:57 Dose: 30 mg Documented By: KATHIE Phenobarbital (Phenobarbital 30 Mg Tablet) 30 mg PO DAILY [facility] Stop: 06/01/23 09:01 Sodium Chloride (0.9 % Sodium Chloride Flush 3 Ml Syringe) 3 ml IVFLUSH QSHIFT [facility] Last Admin: 05/30/23 08:58 Dose: 3 ml Documented By: KATHIE Ticagrelor (Ticagrelor 90 Mg Tablet) 90 mg PO BID [facility] Last Admin: 05/30/23 08:57 Dose: 90 mg Documented By: KATHIE Trazodone HCl (Trazodone Hcl 50 Mg Tablet) 50 mg PO BEDTIME PRN PRN Reason: insomnia Trazodone HCl (Trazodone Hcl 50 Mg Tablet) 50 mg PO BEDTIME [facility] Last Admin: 05/29/23 19:53 Dose: 50 mg Documented By: JOSE JUAN Labs 05/26/23 12:57 05/27/23 06:24 Assessment and Plan (1) Alcohol withdrawal: Status: Acute Plan 52-year-old male with a PMH significant for?HTN, HLD/CAD, hx of NC (last in 2020) s/p stenting, and alcohol use disorder with hx of alcohol withdrawal with seizures who presents to the ED with??withdrawal symptoms?. Pt will be admitted to the hospital for treatment and further evaluation acute alcohol withdrawal. Acute alcohol withdrawal still symptomatic CIWA scale:5 Follow lytes, Mag, BMP. added extra phenobarbital dose. on Phenobarb protocol,Daily multivitamin, folic acid, Thiamine,Famotidine 20 mg p.o. Seizure protocols,Monitor on telemetry Addiction medicine consult psych eval for anxiety-added remerone. Intractable nausea, vomiting, abdominal pain Previously admitted 1 month prior for ileus/possible SBO KUB negative for SBO; abdominal exam benign symptoms resolved . Antiemetics for nausea,Analgesics for pain management diet advanced. HTN Continue amlodipine, carvedilol HLD/CAD Continue statin, aspirin, Brillinta . Mood disorder-Continue escitalopram Insomnia-Continue trazodone Full Code DVT Prophylaxis: Lovenox ongoing hospitalization need for treatment of?acute alcohol withdrawal- for treatment of alcohol withdrawal with phenobarb, and close monitoring of labs and cardiac functioning. Quality Stroke Does the patient have a stroke diagnosis?: No VTE Prior VTE?: No VTE Risk Level:: Medical - moderate - high VTE Device Contraindication: Treatment Not Indicated VTE Drug Contraindication: N/A - Med Ordered
[2023-05-30 12:00] VITALS: BP 130/77; PULSE 66; RESP 18; TEMP 36.3; O2SAT 96
[2023-05-30 15:27] VITALS: BP 134/85; PULSE 66; RESP 20; TEMP 36.4; O2SAT 98
[2023-05-30] MEDS: Gabapentin 100 MG CAPSULE 200 MG PO ×2 (15:30→20:01)
[2023-05-30] MEDS: Acetaminophen 325 MG TABLET 650 MG PO (15:30)
[2023-05-30] MEDS: Enoxaparin Sodium 40 MG/0.4 ML SYRINGE SUBCUT (18:24)
[2023-05-30 19:28] VITALS: BP 145/83; PULSE 77; RESP 20; TEMP 37.1; O2SAT 96
[2023-05-30] MEDS: Mirtazapine 7.5 MG TABLET PO ×2 (20:01→21:54)
[2023-05-30] MEDS: Melatonin 3 MG TABLET 6 MG PO (20:01)
[2023-05-30] MEDS: traZODone HCL 50 MG TABLET PO (20:01)
[2023-05-31] VITALS: BP 142/79; PULSE 55; RESP 20; TEMP 36.1; O2SAT 98
[2023-05-31] MEDS: 0.9 % Sodium Chloride Flush 3 ML SYRINGE IVFLUSH ×2 (00:16→08:22)
[2023-05-31 03:34] VITALS: BP 116/69; PULSE 54; RESP 20; TEMP 36.1; O2SAT 96
[2023-05-31 07:19] VITALS: BP 134/89; PULSE 64; RESP 20; TEMP 36.2; O2SAT 98
[2023-05-31] MEDS: Folic Acid 1 MG in 0.9 % Sodium Chloride 50 ML 100 MG IV (08:22)
[2023-05-31] MEDS: Aspirin Enteric Coated 81 MG TABLET.DR PO (08:23)
[2023-05-31] MEDS: PHENobarbitaL 30 MG TABLET PO (08:23)
[2023-05-31] MEDS: Famotidine 20 MG TABLET PO (08:23)
[2023-05-31] MEDS: amLODIPine Besylate 5 MG TABLET PO (08:23)
[2023-05-31] MEDS: carvediloL 12.5 MG TABLET PO (08:23)
[2023-05-31] MEDS: Ticagrelor 90 MG TABLET PO (08:23)
[2023-05-31] MEDS: Atorvastatin Calcium 80 MG TABLET PO (08:24)
[2023-05-31] MEDS: Escitalopram Oxalate 20 MG TABLET PO (08:24)
[2023-05-31] MEDS: Thiamine HCL 100 MG in 0.9 % Sodium Chloride 100 ML 202 MG IV (08:24)
--- NOTE | 2023-05-31 09:39 | P.DS_ITS ---
DS: Providers Provider Date of Service: 05/31/23 Date of admission: 05/26/23 18:22 Date of discharge: 05/31/23 Primary care physician: KE Norman Consults: 05/26/23 12:45 Addiction Medicine Stat Consulting Provider: Addiction Covering Reason for consultation: etoh abuse seeking detox 05/27/23 10:06 Consult to Psychiatry Routine Consulting Provider: Psych Covering Reason for consultation: Mood dis Has provider been notified: Yes 05/28/23 14:50 Consult to Psychiatry Routine Consulting Provider: Psych Covering Reason for consultation: severe anxiety/panic symptoms Has provider been notified: No Attending physician on discharge: Edilberto Torrez Discharging clinician: Edilberto Torrez DS: Diagnosis Discharge Diagnosis (1) Alcohol withdrawal: Status: Acute DS: Summary Hospital Course Hospital Course: 52-year-old male with a PMH significant for?HTN, HLD/CAD, hx of ID (last in 2020) s/p stenting, and alcohol use disorder with hx of alcohol withdrawal with seizures who presents to the ED with??withdrawal symptoms?. Patient initially presented to the ED complaining of nausea, vomiting, abdominal pain, lightheadedness, dizziness, and headache times 3-5 days. Has been unable to tolerate p.o. for the past 2-3 days secondary to nausea and because he was drinking so heavily. Reports he has been drinking ?a good amount? of alcohol, apparently 6+ beers daily and 3-4 nips of hard liquor. Last drink was 1 hour prior to arriving to the ED. Reports increasing anxiety, tino, diaphoresis, and tremors. Patient was previously admitted to the hospital last month on 04/27- 04/30 for ileus/possible SBO and alcohol withdrawal. Today patient reports passing gas with last bowel movement earlier this morning. Currently reports abdominal pain moderately well controlled. Denies chest pain/pressure, palpitations. No shortness of breath. Denies fever, chills. In the ED pt had elevated temperature of 100.0 degrees and was mildly hypertensive up to 151/88. Labs were significant for sodium 133, and bilirubin 1.9, otherwise grossly unremarkable. Tested negative for influenza type a and B, RSV, COVID. Tox screen showing ethyl alcohol level of 29, otherwise negative. KUB showed no evidence of bowel obstruction and significant improvement appearances when compared to prior study on 04/28/2023. Pt was treated with lorazepam, IVF, and ondansetron. Pt will be admitted to the hospital for treatment and further evaluation acute alcohol withdrawal. hospital course: Patient was admitted for alcohol withdrawal symptoms: Started on phenobarb protocol, CIWA monitored-patient withdrawals symptoms seems to be improved significantly with phenobarb, but afterwards patient still has anxiety which was also contributing to above symptoms-seen by psych recommended: Add mirtazapine 7.5 mg daily for 2 weeks as well as gabapentin 200 mg t.i.d. for 2 weeks and patient is to follow up outpatient psych for further management. plan: mirtazapine 7.5 mg daily for 2 weeks as well as gabapentin 200 mg t.i.d. for 2 weeks and patient is to follow up outpatient psych for further management. Above management discussed the patient detail length he understand in agreement with the above plan, time spent 40 minute. Time Attestation Total time managing care of this patient today: 40 mintues. Discharge Coordination Time (in mins): 40 min Quality: Safe Use of Opioids Does Pt have an Active Cancer Diagnosis on the Problem List?: No Quality: Stroke Does the patient have a stroke diagnosis?: No Physical Exam Vital Signs: Vital Signs: Last Vital Signs Temp 97.1 F 05/31/23 07:19 Pulse 64 05/31/23 07:19 Resp 20 05/31/23 07:19 BP 134/89 05/31/23 07:19 Pulse Ox 98 05/31/23 07:19 O2 Del Method Room Air 05/31/23 07:19 BMI result Body Mass Index 24.7 Appearance: Alert.? Oriented X3.? tramulous ,anxious cvs: rrr, [id number] . res: clear to auscultation ,no rhonchii or wheezing abd: no rebound or guarding ,nt, bs present. ext pulses present , no cyanosis . neuro: axo3 , nonfocal. DS: Data Data Completed and Pending Completed studies during hospitalization [Text1]: Procedures Detoxification Services for Substance Abuse Treatment (04/27/23) Imaging Chest x-ray: Radiologist's impression: ITS Impressions KUB X-Ray 05/26/23 16:15 IMPRESSION: No evidence of bowel obstruction. Significant improvement in appearances when compared to the prior study. Discharge Plan Discharge Anticipated Discharge Date/Time: 05/31/23 09:33 Patient Disposition: Home, Self-Care Discharge Diagnosis: alcohol withdrawal, anxiety Referrals: Hermila Cui PA [Primary Care Provider] - Discharge Medications: New gabapentin 100 mg Capsule 200 mg PO TID Qty: 42 0RF mirtazapine 7.5 mg Tablet 7.5 mg PO BEDTIME MRX1 Qty: 14 0RF acetaminophen 325 mg Tablet 650 mg PO Q6H PRN (Reason: Pain, Mild (Pain Scale 1-3)) Qty: 20 0RF melatonin 3 mg Tablet 6 mg PO BEDTIME Qty: 60 0RF Continued atorvastatin 80 mg tablet 80 mg PO DAILY trazodone 50 mg tablet 50 mg PO BEDTIME aspirin 81 mg tablet,delayed release (DR/EC) 81 mg PO DAILY escitalopram oxalate 20 mg tablet 20 mg PO DAILY Brilinta 90 mg tablet 90 mg PO BID trazodone 50 mg tablet 50 mg PO BEDTIME PRN (Reason: insomnia) Qty: 30 0RF carvedilol 12.5 mg Tablet 12.5 mg PO BID Qty: 180 0RF Protocol: Hold for SBP/HR < HOLD for SBP < : 90 HOLD for HR < : 60 amlodipine 5 mg Tablet 5 mg PO DAILY Qty: 90 0RF Protocol: Hold for SBP< HOLD for SBP < : 90 Discharge Orders: Discharge Order (Routine); Ordered 05/31/23 Ordered By: Edilberto Torrez Diet: Advance to usual diet Activity on Discharge: As tolerated Activity Restrictions/Additional Instructions: Care Plan Goals: Patient was admitted for alcohol withdrawal symptoms: Started on phenobarb protocol, CIWA monitored-patient withdrawals symptoms seems to be improved significantly with phenobarb, but afterwards patient still has anxiety which was also contributing to above symptoms-seen by psych recommended: Add mirtazapine 7.5 mg daily for 2 weeks as well as gabapentin 200 mg t.i.d. for 2 weeks and patient is to follow up outpatient psych for further management. Health Concerns: As above. Plan of Treatment: As above. Assessment: as above. Patient Instructions: Abuse of Alcohol (ED), Acute Delirium (ED), Alcohol Withdrawal (ED), Alcohol Use Disorder (ED), Hallucinations (ED)
[2023-05-31 11:06] VITALS: BP 97/62; PULSE 67; RESP 18; TEMP 36.2; O2SAT 97
--- NOTE | 2023-05-31 11:36 | MHC.CM.PN ---
Pt is medically cleared for D/C home self-care, pt will transport home via [facility] shuttle.
== END 2023-05-31 11:37 | disposition home or self-care (01) | DRG 775 ==
LOC: HO.ED 15:41 → HO.EDOVER 18:37 → HO.IMC 19:19
PROVIDERS: Physician Assistant Medical; Admitting Provider Student in an Organized Health Care Education/Training Program; Emergency Provider Emergency Medicine; PCP Physician Assistant; Visit Provider Internal Medicine
DX: F10.139 Alcohol abuse with withdrawal, unspecified (principal); F33.1 Major depressive disorder, recurrent, moderate; I10 Essential (primary) hypertension; F39 Unspecified mood [affective] disorder; E78.5 Hyperlipidemia, unspecified; G47.00 Insomnia, unspecified; F17.210 Nicotine dependence, cigarettes, uncomplicated; I25.10 Atherosclerotic heart disease of native coronary artery without angina pectoris; Z71.6 Tobacco abuse counseling; Z20.822 Contact with and (suspected) exposure to COVID-19; Y90.1 Blood alcohol level of 20-39 mg/100 ml; Z79.82 Long term (current) use of aspirin; Z79.899 Other long term (current) drug therapy
CPT/HCPCS: 0241U; 36415; 74018; 80048; 80053; 80179; 80307; 81003; 83690; 83735; 85025; 99285; J1650; J2405; J2560; J3411; J7120

== ENCOUNTER → 2023-05-26 18:22 | Outpatient (BNV) | payer MEDICAID, SELFPAY | PROVIDERS: Admitting Provider Student in an Organized Health Care Education/Training Program; Emergency Provider Emergency Medicine; PCP Physician Assistant; Visit Provider Student in an Organized Health Care Education/Training Program | DX: F10.930 Alcohol use, unspecified with withdrawal, uncomplicated (principal) | CPT/HCPCS: 99223; 99231; 99232; 99239 ==

== ENCOUNTER → 2023-05-26 18:22 | Outpatient (BNV) | payer OTHER, SELFPAY | PROVIDERS: Admitting Provider Student in an Organized Health Care Education/Training Program; Emergency Provider Emergency Medicine; PCP Physician Assistant; Visit Provider Psychiatry & Neurology Psychiatry | DX: F33.1 Major depressive disorder, recurrent, moderate (principal); F10.930 Alcohol use, unspecified with withdrawal, uncomplicated; F41.1 Generalized anxiety disorder | CPT/HCPCS: 99232 ==

== ENCOUNTER → 2023-05-26 18:22 | Outpatient (BNV) | payer OTHER, SELFPAY | PROVIDERS: Admitting Provider Student in an Organized Health Care Education/Training Program; Emergency Provider Emergency Medicine; PCP Physician Assistant; Visit Provider Social Worker | DX: F33.1 Major depressive disorder, recurrent, moderate (principal); F10.10 Alcohol abuse, uncomplicated | CPT/HCPCS: 99222 ==

== ENCOUNTER 2023-09-13 07:47 | Emergency (ER) | payer MEDICAID, SELFPAY ==
--- NOTE | ~2023-09-13 | XR_ITS ---
EXAMINATION: XR CHEST CLINICAL INFORMATION: Chest pain COMPARISON: Chest radiograph 04/27/2023 TECHNIQUE: Frontal view of the chest was obtained. FINDINGS: No significant abnormality is noted involving the heart, lungs, mediastinum, bony thorax or soft tissues. Heart size upper limits of normal given technique. Right coronary artery stent is present. Old healed right-sided rib fractures are seen. XR/XR chest 1V IMPRESSION: No acute intrathoracic disease.
[2023-09-13 07:53] VITALS: BP 124/86; BP 129/73; PULSE 65; PULSE 74; RESP 16; TEMP 36.4; O2SAT 95; O2SAT 96; BMI 35.4
[2023-09-13 07:59] VITALS: BP 129/73; PULSE 65; PULSE 73; RESP 16; TEMP 36.4; O2SAT 95
--- NOTE | 2023-09-13 08:00 | ECG_ITS ---
Test Reason : CHEST PAIN Blood Pressure : / mmHG Vent. Rate : 074 BPM Atrial Rate : 074 BPM P-R Int : 162 ms QRS Dur : 078 ms QT Int : 418 ms P-R-T Axes : 036 036 074 degrees QTc Int : 463 ms Normal sinus rhythm Normal ECG When compared with ECG of 03-MAY-2023 12:05, No significant change was found Referred By: Placido Feliciano Electronically Signed By:Mau Cox
--- NOTE | 2023-09-13 08:04 | ED_ITS ---
HPI - Chest Pain General Chief Complaint: Chest Pain Stated Complaint: CP X24 HRS W/INSP,ETOH USE T-1 PER EMS Time Seen by Provider: 09/13/23 07:54 Source: patient Mode of arrival: EMS Limitations: no limitations History of Present Illness HPI narrative: This is a 52 years old male presented to the emergency department with a chief complaint of chest pain. Chest pain is ongoing for a couple of days. Also the patient has a history of alcohol abuse states that he feels that is withdrawing. MD complaint: chest pain Pertinent past history: coronary artery disease Onset (ago): day(s) (2) Timing of current episode: episodic Prior episodes: Yes Onset: during rest Pain location: substernal Quality: aching Exacerbating factors: nothing Related Data Home Medications ?Medication ?Instructions ?Recorded ?Confirmed aspirin 81 mg tablet,delayed 81 mg PO DAILY 04/28/23 05/26/23 release atorvastatin 80 mg tablet 80 mg PO DAILY 04/28/23 05/26/23 escitalopram oxalate 20 mg tablet 20 mg PO DAILY 04/28/23 05/26/23 ticagrelor 90 mg tablet (Brilinta) 90 mg PO BID 04/28/23 05/26/23 trazodone 50 mg tablet 50 mg PO BEDTIME 04/28/23 05/26/23 Previous Rx's ?Medication ?Instructions ?Recorded amlodipine 5 mg tablet 5 mg PO DAILY #90 tabs 04/30/23 carvedilol 12.5 mg tablet 12.5 mg PO BID #180 tabs 04/30/23 trazodone 50 mg tablet 50 mg PO BEDTIME PRN insomnia #30 04/30/23 tabs acetaminophen 325 mg tablet 650 mg (2 x 325 mg) PO Q6H PRN 05/31/23 Pain, Mild (Pain Scale 1-3) #20 tabs gabapentin 100 mg capsule 200 mg (2 x 100 mg) PO TID #42 caps 05/31/23 melatonin 3 mg tablet 6 mg (2 x 3 mg) PO BEDTIME #60 tabs 05/31/23 mirtazapine 7.5 mg tablet 7.5 mg PO BEDTIME MRX1 #14 tabs 05/31/23 lorazepam 1 mg tablet 1 mg PO BID PRN alcohol withdrawal 09/13/23 #6 tabs Allergies Allergy/AdvReac Type Severity Reaction Status Date / Time No Known Allergies Allergy Verified 09/13/23 07:58 Review of Systems 2 Constitutional: Constitutional: Reports no additional constitutional complaints ENT: Reports system reviewed and no additional complaints, except as documented Cardiovascular: Cardiovascular: Reports no additional cardiovascular complaints Neurologic: Reports system reviewed and no additional complaints, except as documented [facility] Past Medical History [facility] Narrative: Alcohol abuse/history of coronary artery disease Medical History Generalized anxiety disorder Ileus Myocardial infarction CAD (coronary artery disease) Social History Social History Household Members: None Household Members Other:: self Housing: Apartment Do you presently have visiting nurse or other home services: No Alcohol intake: current Alcohol intake frequency: 3 or more drinks per day Alcohol type: beer Patient Tobacco Use Status: Current everyday Tobacco user Tobacco use type: Cigarette Cigarettes Per Day: 4 Years Smoked: 40 Smoked in Last 30 Days: Yes Second Hand Smoke Exposure: No Use of substances other than those prescribed or required for medical reasons: No Advance Directives: Yes Advance Directives on File: Yes Advance Directives Date on File: 05/26/23 Do you have a plan to hurt others: No Plan service: No Physical Exam 2 Vital Signs: Vital Signs: Last Vital Signs Temp 98.5 F 09/13/23 14:26 Pulse 89 09/13/23 14:26 Resp 16 09/13/23 14:26 BP 144/90 H 09/13/23 14:26 Pulse Ox 98 09/13/23 14:26 O2 Del Method Room Air 09/13/23 14:26 BMI result Body Mass Index 35.4 Const: General: cooperative Nutritional Appearance: average body habitus Orientation/consciousness: patient oriented x3 HEENT: Head: Yes normal to inspection General nose exam: Normal external nose present Face and sinus: Yes normal facial exam Mouth: Normal oral and palatal mucosa present Neck: Neck: Yes normal visual inspection Chest: Chest palpation & inspection: normal inspection of the chest Resp: Effort & Inspection: normal respiratory effort Auscultation: clear to auscultation bilaterally Cardio: Jugular venous distension: no JVD Rate: regular rate Rhythm: r egular rhythm GI: Inspection: Yes normal to inspection Palpation (GI): Soft to palpation, not firm and nontender Auscultation: normal bowel sounds Skin: General skin exam: no rashes or lesions noted Lesions: no lesions Rashes: no rashes Neuro: General: patient oriented x3 Cranial nerves: Yes CN's II-XII intact bilaterally Course Reevaluation(s) Reevaluation #1: Patient refused detox, was seen by assistant field hockey coach, delta trop is flat, he wants to go home I will send few Ativan to help him to detox. His vital signs remain stable he is not tachycardic his heart rate he is 89, knee he has afebrile is no diaphoretic. Time: 14:15 Medications Administered Discontinued Medications Generic Name Dose Route Start Last Admin Trade Name Freq PRN Reason Stop Dose Admin Aspirin 325 mg 09/13/23 08:01 09/13/23 08:13 Aspirin 325 Mg Tablet PO 09/13/23 08:02 325 mg ONCE ONE Administration Sodium Chloride 1,000 mls @ 999 mls/hr 09/13/23 12:30 09/13/23 13:55 Ns IVCONT 09/13/23 13:30 Infused .Q1H1M KATHERYN Infusion Lorazepam 1 mg 09/13/23 08:00 09/13/23 08:13 Lorazepam 1 Mg Tablet PO 09/13/23 08:01 1 mg ONCE ONE Administration Lorazepam 1 mg 09/13/23 11:08 09/13/23 11:33 Lorazepam 1 Mg Tablet PO 09/13/23 11:09 1 mg ONCE ONE Administration Lorazepam 1 mg 09/13/23 14:13 09/13/23 14:21 Lorazepam 1 Mg Tablet PO 09/13/23 14:14 1 mg ONCE ONE Administration Medical Decision Making Medical Decision Making [facility] Narrative: Patient presented with the complaint of chest pain we will obtain I says he troponin electrocardiogram and reassess Differential Diagnosis Differential Diagnoses: The differential diagnosis associated with the presentation includes ACS/pericarditis/pericardial effusion/alcohol withdrawal Admission/Observation Consideration of admission/observation: Escalation of care including admission/observation considered Consult Healthcare Provider Spoke with the assistant field hockey coach Lab Data [facility] Lab Attestation statement: I reviewed the patient's lab results. 09/13/23 08:18 09/13/23 08:17 Labs: Lab Results 09/13/23 09/13/23 09/13/23 Range/Units 08:17 08:18 11:40 WBC 5.2 (4.8-10.8) X10*3/uL RBC 4.43 L (4.60-5.80) X10*6/uL Hgb 14.1 (14.0-18.0) g/dl Hct 38.6 L (42.0-52.0) % MCV 87.1 (80.0-98.0) fL MCH 31.8 (27.0-33.0) pg MCHC 36.5 H (31.0-36.0) g/dl RDW 12.7 (11.0-16.0) % Plt Count 199 (160-400) X10*3/uL MPV 9.2 L (9.4-12.4) fL Immature Gran % (Auto) 0.4 (0.0-0.4) % Neut % (Auto) 70.0 (45-73) % Lymph % (Auto) 22.9 (20-40) % Real % (Auto) 5.5 (2-11) % Eos % (Auto) 0.4 (0-4) % Baso % (Auto) 0.8 (0-2) % Lymph # (Auto) 1.2 (1.2-4.9) X10*3/uL Real # (Auto) 0.3 (0.1-1.2) X10*3/uL Eos # (Auto) 0.0 (0.0-0.4) X10*3/uL Baso # (Auto) 0.0 (0.0-0.2) X10*3/uL Abs Immat Gran (auto) 0.02 (0.00-0.03) X10*3/uL Absolute Neuts (auto) 3.7 (2.0-8.3) x10*3/uL Absolute Nucleated RBC 0.000 (0.0-0.012) X10*3/uL Nucleated RBC % (auto) 0.0 (0.0-0.2) /100WBC Sodium 140 (135-145) mmol/L Potassium 3.7 (3.3-5.1) mmol/L Chloride 107 (96-108) mmol/L Carbon Dioxide 18 L (22-29) mmol/L Anion Gap 19 (12-20) BUN 13 (9-16) mg/dL Creatinine 1.15 (0.5-1.4) mg/dL Estim Creat Clear Calc 88.5 Estimated GFR > 60 Random Glucose 109 (60-115) mg/dL Calcium 8.1 L D (8.4-10.2) mg/dL Magnesium 2.2 (1.6-2.6) mg/dL Total Bilirubin 1.5 H (0.0-1.0) mg/dL AST 40 H (5-37) U/L ALT 20 (0-40) U/L Alkaline Phosphatase 52 (39-117) U/L Troponin I High Sens < 2.7 < 2.7 (<3.5-35.0) ng/L Total Protein 6.7 (6.5-8.0) g/dL Albumin 4.0 (3.5-5.0) g/dL Ethyl Alcohol 185 mg/dL Independent Interpretation I performed an independent interpretation of an: EKG Interpretation: Electrocardiogram was reviewed interpreted by me as normal sinus rhythm rate [address]-T changes External Record Review External record reviewed: Inpatient record Chronic Conditions Patient?s care impacted by: Other (CAD) Social Determinants Patient?s care significantly limited by Social Determinants of Health including: Other Social Determinant of Health lcohol abuse Discharge Plan Discharge Clinical Impression: Alcohol abuse Chest pain Qualifiers: Chest pain type: unspecified Qualified Code(s): R07.9 - Chest pain, unspecified Patient Disposition: Home, Self-Care Instructions: Chest Pain (DC), Abuse of Alcohol (DC) Prescriptions: New lorazepam 1 mg tablet 1 mg PO BID PRN (Reason: alcohol withdrawal) Qty: 6 0RF No Action atorvastatin 80 mg tablet 80 mg PO DAILY trazodone 50 mg tablet 50 mg PO BEDTIME aspirin 81 mg tablet,delayed release (DR/EC) 81 mg PO DAILY escitalopram oxalate 20 mg tablet 20 mg PO DAILY Brilinta 90 mg tablet 90 mg PO BID trazodone 50 mg tablet 50 mg PO BEDTIME PRN (Reason: insomnia) Qty: 30 0RF carvedilol 12.5 mg Tablet 12.5 mg PO BID Qty: 180 0RF Protocol: Hold for SBP/HR < HOLD for SBP < : 90 HOLD for HR < : 60 amlodipine 5 mg Tablet 5 mg PO DAILY Qty: 90 0RF Protocol: Hold for SBP< HOLD for SBP < : 90 gabapentin 100 mg Capsule 200 mg PO TID Qty: 42 0RF mirtazapine 7.5 mg Tablet 7.5 mg PO BEDTIME MRX1 Qty: 14 0RF acetaminophen 325 mg Tablet 650 mg PO Q6H PRN (Reason: Pain, Mild (Pain Scale 1-3)) Qty: 20 0RF melatonin 3 mg Tablet 6 mg PO BEDTIME Qty: 60 0RF Referrals: Hermila Cui PA [Primary Care Provider] - 2 days Interventions: ED Discharge Assessment Last Done: 09/13/23 14:26 Discharge Date/Time: 09/13/23 14:33 Print Language: Ukrainian
[2023-09-13] MEDS: LORazepam 1 MG TABLET PO ×3 (08:13→14:21)
[2023-09-13] MEDS: Aspirin 325 MG TABLET PO (08:13)
[2023-09-13 08:20] LABS: MANUAL DIFF FLAG NO
[2023-09-13 08:24] LABS: Basophils Percent Auto 0.8 % (0-2); Eosinophils Percent Auto 0.4 % (0-4); Hematocrit 38.6 % (42.0-52.0); Hemoglobin 14.1 g/dl (14.0-18.0); Imm Gran Abs Auto 0.02 X10*3/uL (0.00-0.03); Imm Gran Pct Auto 0.4 % (0.0-0.4); Lymphocytes Absolute Auto 1.2 X10*3/uL (1.2-4.9); Lymphocytes Percent Auto 22.9 % (20-40); Mean Corpuscular HGB Conc 36.5 g/dl (31.0-36.0); Mean Corpuscular Hemoglobin 31.8 pg (27.0-33.0); Mean Corpuscular Volume 87.1 fL (80.0-98.0); Mean Platelet Volume 9.2 fL (9.4-12.4); Monocytes Absolute Auto 0.3 X10*3/uL (0.1-1.2); Monocytes Percent Auto 5.5 % (2-11); Neutrophils Absolute Auto 3.7 x10*3/uL (2.0-8.3); Platelet Count 199 X10*3/uL (160-400); Red Blood Count 4.43 X10*6/uL (4.60-5.80); Red Cell Distribution Width 12.7 % (11.0-16.0); White Blood Count 5.2 X10*3/uL (4.8-10.8)
[2023-09-13 08:40] LABS: Ethanol 185 mg/dL; Magnesium 2.2 mg/dL (1.6-2.6)
[2023-09-13 08:40] LABS: Alanine Aminotransferase 20 U/L (0-40); Alkaline Phosphatase 52 U/L (39-117); Anion Gap 19 (12-20); Aspartate Amino Transferase 40 U/L (5-37); Bilirubin Total 1.5 mg/dL (0.0-1.0); Blood Urea Nitrogen 13 mg/dL (9-16); Calcium 8.1 mg/dL (8.4-10.2); Carbon Dioxide 18 mmol/L (22-29); Chloride 107 mmol/L (96-108); Creatinine Clr Calc Pharmacy 88.5; Estimated Glomerular Filt Rate > 60; Glucose Random 109 mg/dL (60-115); Potassium 3.7 mmol/L (3.3-5.1); Sodium 140 mmol/L (135-145); Total Protein 6.7 g/dL (6.5-8.0)
[2023-09-13 08:47] LABS: Troponin-I High Sensitivity < 2.7 ng/L (<3.5-35.0)
[2023-09-13 10:04] VITALS: BP 119/80; PULSE 82; RESP 16; TEMP 36.8; O2SAT 97
[2023-09-13 12:22] LABS: Troponin-I High Sensitivity < 2.7 ng/L (<3.5-35.0)
[2023-09-13 12:56] VITALS: BP 144/90; PULSE 89; RESP 16; TEMP 36.9; O2SAT 98
[2023-09-13] MEDS: 0.9 % Sodium Chloride 1,000 ML 999 ML IVCONT (12:57)
--- NOTE | 2023-09-13 13:38 | MHC.RECOVRN ---
Met with pt in ED16 after consult placed to CARE Team for ATS. Pt sitting in bed, awake, alert, easily engages in conversation, appears comfortable. Pt reports alcohol use, 3 24 ounce beers daily, 9% alcohol, as well as 2 nips Fireball daily x 3 months. Pt does report history withdrawal seizures. Discussed ATS, pt states I'd rather tough it out at home. Pt reports he has been to [facility] x 2. Pt reports longest period in recovery was 1 month, this occurred last summer. Pt reports he lives alone. Educated pt on dangers of abrupt cessation of alcohol, pt verbalizes understanding. Pt reports he has recovery supports in place, has a coach wirer and goes weekly to AA. Pt does not feel other support is needed at this time. Pt denies questions or concerns for t/w. Discussed with RN and provider.
[2023-09-13 14:26] VITALS: BP 144/90; PULSE 89; RESP 16; TEMP 36.9; O2SAT 98
== END 2023-09-13 14:33 | disposition home or self-care (01) ==
PROVIDERS: Emergency Provider Emergency Medicine; PCP Physician Assistant
DX: R07.89 Other chest pain (principal); I25.10 Atherosclerotic heart disease of native coronary artery without angina pectoris; R11.2 Nausea with vomiting, unspecified; F10.10 Alcohol abuse, uncomplicated; Y90.6 Blood alcohol level of 120-199 mg/100 ml; Z79.899 Other long term (current) drug therapy
CPT/HCPCS: 36415; 71045; 80053; 80307; 83735; 84484; 85025; 93005; 96360; 99284; 99285

== ENCOUNTER → 2023-09-13 08:00 | Outpatient (BNV) | payer MEDICAID, SELFPAY | PROVIDERS: Emergency Provider Emergency Medicine; PCP Physician Assistant; Visit Provider Internal Medicine Cardiovascular Disease | DX: R07.9 Chest pain, unspecified (principal) | CPT/HCPCS: 93010 ==

== ENCOUNTER 2023-09-15 06:57 | Emergency (ER) | payer MEDICAID, SELFPAY ==
--- NOTE | ~2023-09-15 | US_ITS ---
EXAMINATION: US ABDOMEN LIMITED CLINICAL INFORMATION: Right upper quadrant pain. COMPARISON: 04/27/2023 TECHNIQUE: Real-time imaging of the right upper quadrant abdominal viscera. FINDINGS: PANCREAS: The pancreas is obscured by midline bowel gas. LIVER: Liver does appear to be echogenic. There is a small simple appearing cyst in the left lobe at 8 x 7 x 7 mm. No suspicious hepatic lesions. There is no intrahepatic biliary dilatation. GALLBLADDER: Tiny 3 mm polyp observed within the gallbladder. No discrete stones. No gallbladder wall thickening or pericholecystic fluid. COMMON BILE DUCT: Normal in caliber measuring 0.3 cm in diameter. RIGHT KIDNEY: Slight cortical thinning. No hydronephrosis. No renal calculi or focal parenchymal lesions. The kidney measures 9.8 cm in maximum dimension. FREE FLUID: None. US/US abdomen limited IMPRESSION: Echogenic liver. Tiny gallbladder polyp.
[2023-09-15 07:16] VITALS: BP 136/85; BP 140/84; PULSE 83; PULSE 94; RESP 20; TEMP 37.3; O2SAT 98; O2SAT 99; BMI 35.0
--- NOTE | 2023-09-15 07:19 | ED_ITS ---
HPI - General Adult General Chief complaint: Abdominal Pain Stated complaint: SEVERE ABDOMINAL PAIN Time Seen by Provider: 09/15/23 07:19 Source: patient, EMS and RN notes reviewed Mode of arrival: EMS Limitations: no limitations History of Present Illness ED Provider: xuan HPI narrative: Patient is a 52-year-old male with history of alcohol use disorder, pancreatitis, CAD, MIx2, ileus, anxiety presenting to the emergency department with complaint of black, tarry stools since he was discharged from here 2 days ago for alcohol withdrawal, fatigue and lightheadedness. States he has been drinking fluids but has been urinating very little. Complains of generalized abdominal pain. Feeling very anxious. Denies nausea, vomiting or diarrhea. States has not drank any alcohol since he was here on 09/12 and denies any other drug use. Denies syncope. Denies chest pain, palpitations or dyspnea. Denies use of Pepto bismol or iron supplements. MD complaint: abdominal pain Onset (ago): day(s) Location: abdomen Radiation: non-radiation Quality: aching Pain Consistency: colicky Associated symptoms: other Treatments prior to arrival: none Related Data Home Medications ?Medication ?Instructions ?Recorded ?Confirmed aspirin 81 mg tablet,delayed 81 mg PO DAILY 04/28/23 05/26/23 release atorvastatin 80 mg tablet 80 mg PO DAILY 04/28/23 05/26/23 escitalopram oxalate 20 mg tablet 20 mg PO DAILY 04/28/23 05/26/23 ticagrelor 90 mg tablet (Brilinta) 90 mg PO BID 04/28/23 05/26/23 trazodone 50 mg tablet 50 mg PO BEDTIME 04/28/23 05/26/23 Previous Rx's ?Medication ?Instructions ?Recorded amlodipine 5 mg tablet 5 mg PO DAILY #90 tabs 04/30/23 carvedilol 12.5 mg tablet 12.5 mg PO BID #180 tabs 04/30/23 trazodone 50 mg tablet 50 mg PO BEDTIME PRN insomnia #30 04/30/23 tabs acetaminophen 325 mg tablet 650 mg (2 x 325 mg) PO Q6H PRN 05/31/23 Pain, Mild (Pain Scale 1-3) #20 tabs gabapentin 100 mg capsule 200 mg (2 x 100 mg) PO TID #42 caps 05/31/23 melatonin 3 mg tablet 6 mg (2 x 3 mg) PO BEDTIME #60 tabs 05/31/23 mirtazapine 7.5 mg tablet 7.5 mg PO BEDTIME MRX1 #14 tabs 05/31/23 lorazepam 1 mg tablet 1 mg PO BID PRN alcohol withdrawal 09/13/23 #6 tabs Allergies Allergy/AdvReac Type Severity Reaction Status Date / Time No Known Allergies Allergy Verified 09/15/23 07:22 Review of Systems 2 Review of Systems: As per HPI. Yes all other systems are reviewed and are negative Constitutional: Constitutional: Reports as per HPI [facility] Past Medical History Medical History Generalized anxiety disorder Ileus Myocardial infarction CAD (coronary artery disease) Social History Social History Household Members: None Household Members Other:: self Housing: Apartment Do you presently have visiting nurse or other home services: No Alcohol intake: current Alcohol intake frequency: former alcohol drinker Alcohol type: beer Patient Tobacco Use Status: Current everyday Tobacco user Tobacco use type: Cigarette Cigarettes Per Day: 4 Years Smoked: 40 Smoked in Last 30 Days: No Second Hand Smoke Exposure: No Use of substances other than those prescribed or required for medical reasons: No Advance Directives: No Advance Directives Information Provided: Yes Advance Directives Date on File: 05/26/23 service: No Physical Exam ED Vital Signs: Vital Signs - 24 hr 09/15/23 07:16 09/15/23 12:00 09/15/23 15:03 Temperature 99.2 F 98.0 F Pulse Rate 83 76 76 Respiratory Rate 20 20 Blood Pressure 140/84 H 147/95 H 147/95 H Pulse Oximetry 98 97 97 Oxygen Delivery Method Room Air Room Air Room Air BMI result Body Mass Index 35.0 Vital signs have been reviewed and appear to be correct. Blood pressure elevated. Heart rate normal. Respiratory rate normal. Temperature normal. Oxygen saturation normal. Const General: cooperative and no acute distress Orientation/consciousness: oriented to person, oriented to place, oriented to time and patient oriented x3 Limitations: no limitations HENMT Head: Yes normocephalic and Yes atraumatic Ears: external ears normal General nose exam: Normal external nose present Face and sinus: Yes face symmetric Mouth: oropharynx normal and moist mucous membranes Throat: Yes uvula midline Eyes Pupils: Equal, round and reactive pupils present Neck Neck: Yes normal visual inspection and Yes supple Resp Effort & Inspection: normal respiratory effort and able to speak in complete sentences Auscultation: clear to auscultation bilaterally Cardio Rate: regular rate Rhythm: regular rhythm Heart sounds: S1 normal heart sound present and S2 normal heart sound present GI Other: rectal exam chaperoned by ROHIT Meneses Palpation (GI): Soft to palpation, Tenderness to palpation present (GI) in the RUQ; Hopper's sign negative, no guarding and No Rebound tenderness present Auscultation: normoactive bowel sounds Rectal Exam - Male: Yes visual inspection normal, Yes normal sphincter tone, Yes heme positive stool, No mass and No tenderness General: Yes no CVA tenderness Back/Spine/Pelvis Back: no CVA tenderness Skin General skin exam: elasticity normal and turgor normal Neuro General: oriented to person, oriented to place, oriented to time, patient oriented x3, moves all extremities, no focal motor deficits and CN's II-XI intact bilaterally Cranial nerves: Yes Equal, round and reactive pupils present Cognition (Neuro): normal cognition Extrem General: Yes full ROM, Yes no pedal edema and Yes no calf tenderness Psych Mental Status: mental status grossly normal Affect: normal affect Thought process: Normal thought process present Medications Administered Discontinued Medications Generic Name Dose Route Start Last Admin Trade Name Freq PRN Reason Stop Dose Admin Sodium Chloride 1,000 mls @ 999 mls/hr 09/15/23 12:45 09/15/23 13:45 Ns IV 09/15/23 13:45 Infused .Q1H1M KATHERYN Infusion Medical Decision Making Medical Decision Making MDM Narrative: Patient is a 52-year-old male with history of alcohol use disorder, pancreatitis, CAD, MIx2, ileus, anxiety presenting to the emergency department with complaint of black, tarry stools since he was discharged from here 2 days ago for alcohol withdrawal, fatigue and lightheadedness. On exam patient is awake, A+Ox3, BP mildly elevated, VS otherwise WNL, afebrile, normal neurological exam without focal deficits, physical exam findings as above. Given reported symptoms and physical exam findings, initial differential includes GI bleed, biliary colic, cholecystitis, choledocolithiasis, hepatitis, pancreatitis. Labs notable for no leukocytosis, slight anemia consistent with priors, elevated Tbili of 2.0 which is similar to priors, no elevation of amylase or lipase. Guiac positive. Urinalysis is without evidence of infection. Ultrasound notable for tiny gallbladder polyp, echogenic liver. My interpretation is in agreement with the radiologist's interpretation. Case discussed with Dr. Nascimento who agrees that patient is stable for discharge home and can follow up with GI outpatient. Results and plan discussed with patient including follow up with PCP, GI. Patient became very upset that he was not meeting admission criteria, began screaming and swearing. Patient advised that he is ready for discharge at this time. Differential Diagnosis Differential Diagnoses: The differential diagnosis associated with the presentation includes As per [facility] Admission/Observation Consideration of admission/observation: Escalation of care including admission/observation considered Patient would have been admitted to the hospital had their work up had any findings where hospital admission was appropriate and their clinical presentation warranted hospital admission. Consult Healthcare Provider Management of the patient was discussed with: Adjustment Examiner (Dr. Nascimento, GI) Lab Data [facility] Lab Attestation statement: I reviewed the patient's lab results. As per [facility] 09/15/23 07:32 09/15/23 07:32 Labs: Lab Results 09/15/23 09/15/23 09/15/23 Range/Units 07:32 08:01 12:33 WBC 5.8 (4.8-10.8) X10*3/uL RBC 4.32 L (4.60-5.80) X10*6/uL Hgb 13.7 L (14.0-18.0) g/dl Hct 37.7 L (42.0-52.0) % MCV 87.3 (80.0-98.0) fL MCH 31.7 (27.0-33.0) pg MCHC 36.3 H (31.0-36.0) g/dl RDW 12.9 (11.0-16.0) % Plt Count 172 (160-400) X10*3/uL MPV 9.6 (9.4-12.4) fL Immature Gran % (Auto) 0.3 (0.0-0.4) % Neut % (Auto) 78.6 H (45-73) % Lymph % (Auto) 12.6 L (20-40) % Howard % (Auto) 6.2 (2-11) % Eos % (Auto) 1.6 (0-4) % Baso % (Auto) 0.7 (0-2) % Lymph # (Auto) 0.7 L (1.2-4.9) X10*3/uL Howard # (Auto) 0.4 (0.1-1.2) X10*3/uL Eos # (Auto) 0.1 (0.0-0.4) X10*3/uL Baso # (Auto) 0.0 (0.0-0.2) X10*3/uL Abs Immat Gran (auto) 0.02 (0.00-0.03) X10*3/uL Absolute Neuts (auto) 4.6 (2.0-8.3) x10*3/uL Absolute Nucleated RBC 0.000 (0.0-0.012) X10*3/uL Nucleated RBC % (auto) 0.0 (0.0-0.2) /100WBC PT 10.8 L (11.1-13.3) SEC INR 0.9 (0.9-1.1) Sodium 141 (135-145) mmol/L Potassium 3.4 (3.3-5.1) mmol/L Chloride 107 (96-108) mmol/L Carbon Dioxide 22 (22-29) mmol/L Anion Gap 15 (12-20) BUN 9 (9-16) mg/dL Creatinine 1.09 (0.5-1.4) mg/dL Estim Creat Clear Calc 92.8 Estimated GFR > 60 Random Glucose 159 H (60-115) mg/dL Calcium 8.8 D (8.4-10.2) mg/dL Magnesium 2.0 (1.6-2.6) mg/dL Total Bilirubin 2.0 H (0.0-1.0) mg/dL AST 60 H (5-37) U/L ALT 20 (0-40) U/L Alkaline Phosphatase 53 (39-117) U/L Ammonia 32 (13-55) umol/L Total Protein 6.9 (6.5-8.0) g/dL Albumin 4.1 (3.5-5.0) g/dL Amylase 67 (28-100) U/L Lipase 51 (8-78) U/L Urine Color Urine Appearance Urine pH (5.0-9.0) Ur Specific [place] (1.005-1.025) Urine Protein (Neg-Trace) mg/dL Urine Glucose (UA) (Negative) mg/dL Urine Ketones (Negative) mg/dL Urine Blood (Negative) Urine Nitrite (Negative) Ur Leukocyte Esterase (Negative) Urine RBC (0-2) /HPF Urine WBC (0-5) /HPF Ur Squamous Epith Cells (0-2) /HPF Urine Bacteria (None Seen) Hyaline Casts (0-2) /LPF Stool Occult Blood POSITIVE (NEGATIVE) Ethyl Alcohol < 10 mg/dL Influenza Type A (PCR) NEGATIVE (Negative) Influenza Type B (PCR) NEGATIVE (Negative) RSV RNA Qual (PCR) NEGATIVE (Negative) SARS-CoV-2 RNA (RT-PCR) NEGATIVE (Negative) Blood Type A Positive Antibody Screen NEGATIVE 09/15/23 Range/Units 12:56 WBC (4.8-10.8) X10*3/uL RBC (4.60-5.80) X10*6/uL Hgb (14.0-18.0) g/dl Hct (42.0-52.0) % MCV (80.0-98.0) fL MCH (27.0-33.0) pg MCHC (31.0-36.0) g/dl RDW (11.0-16.0) % Plt Count (160-400) X10*3/uL MPV (9.4-12.4) fL Immature Gran % (Auto) (0.0-0.4) % Neut % (Auto) (45-73) % Lymph % (Auto) (20-40) % Howard % (Auto) (2-11) % Eos % (Auto) (0-4) % Baso % (Auto) (0-2) % Lymph # (Auto) (1.2-4.9) X10*3/uL Howard # (Auto) (0.1-1.2) X10*3/uL Eos # (Auto) (0.0-0.4) X10*3/uL Baso # (Auto) (0.0-0.2) X10*3/uL Abs Immat Gran (auto) (0.00-0.03) X10*3/uL Absolute Neuts (auto) (2.0-8.3) x10*3/uL Absolute Nucleated RBC (0.0-0.012) X10*3/uL Nucleated RBC % (auto) (0.0-0.2) /100WBC PT (11.1-13.3) SEC INR (0.9-1.1) Sodium (135-145) mmol/L Potassium (3.3-5.1) mmol/L Chloride (96-108) mmol/L Carbon Dioxide (22-29) mmol/L Anion Gap (12-20) BUN (9-16) mg/dL Creatinine (0.5-1.4) mg/dL Estim Creat Clear Calc Estimated GFR Random Glucose (60-115) mg/dL Calcium (8.4-10.2) mg/dL Magnesium (1.6-2.6) mg/dL Total Bilirubin (0.0-1.0) mg/dL AST (5-37) U/L ALT (0-40) U/L Alkaline Phosphatase (39-117) U/L Ammonia (13-55) umol/L Total Protein (6.5-8.0) g/dL Albumin (3.5-5.0) g/dL Amylase (28-100) U/L Lipase (8-78) U/L Urine Color Dark Yellow Urine Appearance Clear Urine pH 6.0 (5.0-9.0) Ur Specific [place] 1.020 (1.005-1.025) Urine Protein 100 (2+) H (Neg-Trace) mg/dL Urine Glucose (UA) Negative (Negative) mg/dL Urine Ketones 40 (Negative) mg/dL Urine Blood Negative (Negative) Urine Nitrite Negative (Negative) Ur Leukocyte Esterase Negative (Negative) Urine RBC 0-2 (0-2) /HPF Urine WBC 0-5 (0-5) /HPF Ur Squamous Epith Cells 0-2 (0-2) /HPF Urine Bacteria None Seen (None Seen) Hyaline Casts 3-5 (0-2) /LPF Stool Occult Blood (NEGATIVE) Ethyl Alcohol mg/dL Influenza Type A (PCR) (Negative) Influenza Type B (PCR) (Negative) RSV RNA Qual (PCR) (Negative) SARS-CoV-2 RNA (RT-PCR) (Negative) Blood Type Antibody Screen Independent Interpretation I performed an independent interpretation of an: Ultrasound Interpretation: U/S RUQ shows small gallbladder polyp, echogenic liver Radiology Impression Discussion of test interpretation with radiology: I have reviewed the radiologist's reading. Radiologist Impression: US/US abdomen limited IMPRESSION: Echogenic liver. Tiny gallbladder polyp. External Record Review External record reviewed: Inpatient record, Office record and Outpatient record Discharge Plan Discharge Clinical Impression: Melena, Abdominal pain Patient Disposition: Home, Self-Care Instructions: Abdominal Pain (ED), Melena (ED) Additional Instructions: You have been evaluated in the emergency department today for abdominal pain and dark stool. Your evaluation did not show evidence of medical conditions requiring emergent intervention at this time. Please schedule an appointment with your primary care physician as soon as possible. Return to the emergency department if you experience bright red rectal bleeding, dizzyness or lightheadedness, worsening or uncontrolled pain, fevers 100.4? F or greater, recurrent vomiting, inability to tolerate food or fluids by mouth, bloody stools or vomit, black or tarry stools, or any other concerning symptoms. Prescriptions: No Action atorvastatin 80 mg tablet 80 mg PO DAILY trazodone 50 mg tablet 50 mg PO BEDTIME aspirin 81 mg tablet,delayed release (DR/EC) 81 mg PO DAILY escitalopram oxalate 20 mg tablet 20 mg PO DAILY Brilinta 90 mg tablet 90 mg PO BID trazodone 50 mg tablet 50 mg PO BEDTIME PRN (Reason: insomnia) Qty: 30 0RF carvedilol 12.5 mg Tablet 12.5 mg PO BID Qty: 180 0RF Protocol: Hold for SBP/HR < HOLD for SBP < : 90 HOLD for HR < : 60 amlodipine 5 mg Tablet 5 mg PO DAILY Qty: 90 0RF Protocol: Hold for SBP< HOLD for SBP < : 90 gabapentin 100 mg Capsule 200 mg PO TID Qty: 42 0RF mirtazapine 7.5 mg Tablet 7.5 mg PO BEDTIME MRX1 Qty: 14 0RF acetaminophen 325 mg Tablet 650 mg PO Q6H PRN (Reason: Pain, Mild (Pain Scale 1-3)) Qty: 20 0RF melatonin 3 mg Tablet 6 mg PO BEDTIME Qty: 60 0RF lorazepam 1 mg tablet 1 mg PO BID PRN (Reason: alcohol withdrawal) Qty: 6 0RF Referrals: [facility] [Provider Group] Interventions: ED Discharge Assessment Last Done: 09/15/23 15:03 Discharge Date/Time: 09/15/23 15:04 Print Language: Moroccan
[2023-09-15 07:43] LABS: MANUAL DIFF FLAG NO
[2023-09-15 07:47] LABS: Basophils Percent Auto 0.7 % (0-2); Eosinophils Absolute Auto 0.1 X10*3/uL (0.0-0.4); Eosinophils Percent Auto 1.6 % (0-4); Hematocrit 37.7 % (42.0-52.0); Hemoglobin 13.7 g/dl (14.0-18.0); Imm Gran Abs Auto 0.02 X10*3/uL (0.00-0.03); Imm Gran Pct Auto 0.3 % (0.0-0.4); Lymphocytes Absolute Auto 0.7 X10*3/uL (1.2-4.9); Lymphocytes Percent Auto 12.6 % (20-40); Mean Corpuscular HGB Conc 36.3 g/dl (31.0-36.0); Mean Corpuscular Hemoglobin 31.7 pg (27.0-33.0); Mean Corpuscular Volume 87.3 fL (80.0-98.0); Mean Platelet Volume 9.6 fL (9.4-12.4); Monocytes Absolute Auto 0.4 X10*3/uL (0.1-1.2); Monocytes Percent Auto 6.2 % (2-11); Neutrophils Absolute Auto 4.6 x10*3/uL (2.0-8.3); Neutrophils Percent Auto 78.6 % (45-73); Platelet Count 172 X10*3/uL (160-400); Red Blood Count 4.32 X10*6/uL (4.60-5.80); Red Cell Distribution Width 12.9 % (11.0-16.0); White Blood Count 5.8 X10*3/uL (4.8-10.8)
[2023-09-15 07:50] LABS: Ammonia 32 umol/L (13-55)
[2023-09-15 07:52] LABS: INTERNATIONAL NORM RATIO 0.9 (0.9-1.1); Prothrombin Time 10.8 SEC (11.1-13.3)
[2023-09-15 07:59] LABS: Alanine Aminotransferase 20 U/L (0-40); Albumin Level 4.1 g/dL (3.5-5.0); Alkaline Phosphatase 53 U/L (39-117); Anion Gap 15 (12-20); Aspartate Amino Transferase 60 U/L (5-37); Blood Urea Nitrogen 9 mg/dL (9-16); Calcium 8.8 mg/dL (8.4-10.2); Carbon Dioxide 22 mmol/L (22-29); Chloride 107 mmol/L (96-108); Creatinine Clr Calc Pharmacy 92.8; Estimated Glomerular Filt Rate > 60; Glucose Random 159 mg/dL (60-115); Lipase 51 U/L (8-78); Potassium 3.4 mmol/L (3.3-5.1); Sodium 141 mmol/L (135-145); Total Protein 6.9 g/dL (6.5-8.0)
[2023-09-15 08:01] LABS: Amylase 67 U/L (28-100); Ethanol < 10 mg/dL
[2023-09-15 08:27] LABS: Influenza A PCR NEGATIVE (Negative); Influenza B PCR NEGATIVE (Negative); Resp Syncy Virus RNA Qual PCR NEGATIVE (Negative); SARS COV2 PCR INHOUSE NEGATIVE (Negative)
[2023-09-15 12:00] VITALS: BP 147/95; PULSE 76; O2SAT 97
[2023-09-15] MEDS: 0.9 % Sodium Chloride 1,000 ML 999 ML IV (12:41)
[2023-09-15 12:51] LABS: OBS Int Ctl Valid YES; OBS1 POSITIVE (NEGATIVE)
[2023-09-15 13:03] LABS: Appearance Urine Clear; Color Urine Dark Yellow; Glucose Urine UA Negative (Negative); Leukocyte Esterase Urine Negative (Negative); Nitrite Urine Negative (Negative); UMIC TRIGGER UACC YES; Urine Blood Negative (Negative); Urine Ketones 40 mg/dL (Negative); Urine Protein 100 (2+) mg/dL (Neg-Trace)
[2023-09-15 13:08] LABS: Bacteria Urine None Seen (None Seen); RBC Urine 0-2 /HPF (0-2); Squamous Epithelial Cell Urine 0-2 /HPF (0-2); WBC Urine 0-5 /HPF (0-5)
[2023-09-15 15:03] VITALS: BP 147/95; PULSE 76; RESP 20; TEMP 36.7; O2SAT 97
== END 2023-09-15 15:04 | disposition home or self-care (01) ==
PROVIDERS: Registered Nurse Emergency; Emergency Provider Emergency Medicine; PCP Physician Assistant
DX: K92.1 Melena (principal); R10.9 Unspecified abdominal pain; R11.2 Nausea with vomiting, unspecified; Z03.818 Encounter for observation for suspected exposure to other biological agents ruled out; Z79.899 Other long term (current) drug therapy
CPT/HCPCS: 0241U; 36415; 76705; 80053; 80307; 81001; 81003; 82140; 82150; 82272; 83690; 83735; 85025; 85610; 86850; 86900; 86901; 96360; 99284

== ENCOUNTER 2023-12-15 09:41 | Emergency (ER) | payer MEDICAID, SELFPAY ==
--- NOTE | ~2023-12-15 | XR_ITS ---
EXAMINATION: XR CHEST CLINICAL INFORMATION: Chest pain COMPARISON: 09/13/2023 TECHNIQUE: Frontal view of the chest was obtained. FINDINGS: Lungs clear. Heart and pulmonary vessels normal. No congestive change. Right coronary artery stent again seen. Old right-sided rib fractures noted. XR/XR chest 1V IMPRESSION: Unremarkable examination. Electronically signed by: Darrius Jefferson MD 12/15/2023 11:37 AM EDT
--- NOTE | ~2023-12-15 | CT_ITS ---
EXAMINATION: CT ABDOMEN AND PELVIS WITH CONTRAST CLINICAL INFORMATION: Elevated lipase. COMPARISON: 09/15/2023 ultrasound abdomen limited TECHNIQUE: Multidetector volumetric images were obtained from the superior aspect of the liver through the pubic symphysis following administration 85 mL of Omnipaque 350 intravenous contrast. Sagittal and coronal reformatted images were obtained on the technologist's workstation. Oral contrast: No This CT examination was performed using dose optimization techniques as appropriate, variously including the following: *Automated exposure control *Adjustment of mA and/or kV according to patient size (this includes techniques or standardized protocols for targeted exams where dose is matched to indication/reason for exam; i.e. extremities or head) *Use of iterative reconstruction technique DLP: 796 mGy-cm FINDINGS: LUNG BASES: Lung bases grossly clear. Mild bibasilar pleural thickening. LIVER, GALLBLADDER, AND BILIARY TREE: Advanced hepatic steatosis. Liver is prominent. No focal hepatic mass. No intrahepatic biliary dilatation. The gallbladder is unremarkable with no evidence of radiopaque gallstones, gallbladder wall thickening, or obvious pericholecystic inflammatory changes. PANCREAS: Unremarkable. No peripancreatic inflammation or fluid collection. SPLEEN: Unremarkable. ADRENAL GLANDS: Unremarkable. KIDNEYS AND URETERS: A few tiny to small to characterize foci in both kidneys none of which appear suspicious. No calcification or hydronephrosis or perinephric collection. BLADDER: Unremarkable. GASTROINTESTINAL TRACT: Appendix normal. No bowel obstruction or right or left lower quadrant inflammatory change. ABDOMINAL WALL: No significant hernia is appreciated. LYMPH NODES: Normal. VASCULAR: Atherosclerotic change but no aneurysm in the aorta and iliac bifurcation. PELVIC VISCERA: Unremarkable. OSSEOUS STRUCTURES: Spondylitic change throughout the lumbar spine. CT/CT abdomen pelvis w IV con IMPRESSION: Unremarkable study. No evidence for pancreatitis. No biliary dilatation. Fleischner guidelines were followed. Electronically signed by: Darrius Jefferson MD 12/15/2023 02:48 PM EDT
[2023-12-15 09:55] VITALS: BP 140/88; BP 146/94; PULSE 84; PULSE 90; RESP 19; TEMP 36.8; O2SAT 97; O2SAT 99; BMI 36.6
--- NOTE | 2023-12-15 09:57 | ED.CHESTPAIN ---
HPI - Chest Pain General Chief Complaint: Chest Pain Stated Complaint: [id number],WORSENING PER EMS Time Seen by Provider: 12/15/23 09:49 Source: patient, EMS and old records reviewed Mode of arrival: EMS Limitations: no limitations History of Present Illness ED Provider: WEST SCHWARZ narrative: 53 yo male with PMH of HTN, HLD, CAD s/p DE with stent in 2020, ETOH use disorder hx of withdrawal and seizures in pst who presents with c/o heavy ETOH use last drink 3 hours ago. He notes for 2 days burning chest pain with n/v. He has not had a seizure in a few months. He denies any falls or trauma. He has no cough or fevers. No blood reported in vomit. He thinks his stool might have been dark. He has not been compliant with any medications but states he has been drinking lots of alcohol. No dyspnea reported. MD complaint: chest pain Onset (ago): day(s) (3) Timing of current episode: constant Prior episodes: Yes Onset: during rest Pain location: substernal Pain radiation: none Severity: moderate Quality: burning Relieving factors: nothing Exacerbating factors: other (vomiting, movement) Context: other (heavy ETOH abuse) Associated symptoms: nausea and vomiting Treatment prior to arrival: aspirin Related Data Home Medications ?Medication ?Instructions ?Recorded ?Confirmed aspirin 81 mg tablet,delayed 81 mg PO DAILY 04/28/23 05/26/23 release atorvastatin 80 mg tablet 80 mg PO DAILY 04/28/23 05/26/23 escitalopram oxalate 20 mg tablet 20 mg PO DAILY 04/28/23 05/26/23 ticagrelor 90 mg tablet (Brilinta) 90 mg PO BID 04/28/23 05/26/23 trazodone 50 mg tablet 50 mg PO BEDTIME 04/28/23 05/26/23 Previous Rx's ?Medication ?Instructions ?Recorded amlodipine 5 mg tablet 5 mg PO DAILY #90 tabs 04/30/23 carvedilol 12.5 mg tablet 12.5 mg PO BID #180 tabs 04/30/23 trazodone 50 mg tablet 50 mg PO BEDTIME PRN insomnia #30 04/30/23 tabs acetaminophen 325 mg tablet 650 mg (2 x 325 mg) PO Q6H PRN 05/31/23 Pain, Mild (Pain Scale 1-3) #20 tabs gabapentin 100 mg capsule 200 mg (2 x 100 mg) PO TID #42 caps 05/31/23 melatonin 3 mg tablet 6 mg (2 x 3 mg) PO BEDTIME #60 tabs 05/31/23 mirtazapine 7.5 mg tablet 7.5 mg PO BEDTIME MRX1 #14 tabs 05/31/23 lorazepam 1 mg tablet 1 mg PO BID PRN alcohol withdrawal 09/13/23 #6 tabs chlordiazepoxide HCl 25 mg capsule 50 mg (2 x 25 mg) PO Q4H PRN 12/15/23 alcohol withdrawal 10 doses #20 caps Allergies Allergy/AdvReac Type Severity Reaction Status Date / Time No Known Allergies Allergy Verified 12/15/23 09:59 Review of Systems Review of Systems: Constitutional : No Weight loss, No Fever, No Chills ENT/Mouth : No sore throat, No Rhinorrhea Eyes: No Swelling, No Redness Cardiovascular : pos Chest Pain, No SOB, No Edema Respiratory : No Cough, No Sputum, No Wheezing Gastrointestinal : Positive Nausea, Positive Vomiting, no Diarrhea, no abdominal Pain, No Hematochezia, No Melena Genitourinary : No Dysuria, No Urinary Frequency, No Hematuria, No Urgency Musculoskeletal : No joint pain, No Myalgias, No Joint Swelling Skin : No Skin Lesions, No rash Neuro : No Weakness, No Numbness, No Dizziness, No Headache Psych : pos Anxiety/Panic, No Depression Heme/Lymph: No Bruising, No Lymphadenopathy Endocrine : No Polyuria, No Polydipsia All other systems reviewed and are negative. [facility] Past Medical History Attestation statement: The following information was validated with the patient. Source: old records reviewed Medical History Generalized anxiety disorder Ileus Myocardial infarction CAD (coronary artery disease) Social History Social History Household Members: None Household Members Other:: self Housing: Apartment Do you presently have visiting nurse or other home services: No Alcohol intake: current Alcohol intake frequency: 3 or more drinks per day Alcohol type: beer and hard liquor Patient Tobacco Use Status: Current everyday Tobacco user Tobacco use type: Cigarette Cigarettes Per Day: 4 Years Smoked: 40 Smoked in Last 30 Days: No Second Hand Smoke Exposure: No Use of substances other than those prescribed or required for medical reasons: No Advance Directives: No Advance Directives Information Provided: Yes Advance Directives Date on File: 05/26/23 Do you have a plan to hurt others: No Plan service: No Physical Exam Vital Signs: Vital Signs: Last Vital Signs Temp 98.2 F 12/15/23 10:02 Pulse 88 12/15/23 10:50 Resp 13 12/15/23 10:50 BP 122/78 12/15/23 10:50 Pulse Ox 97 12/15/23 10:50 O2 Del Method Room Air 12/15/23 10:50 BMI result Body Mass Index 36.6 Appearance: Alert. Oriented X3. No acute distress. Appears under the influence, odor, glassy eyed Eyes: Pupils equal, round and reactive to light. ENT: Pharynx normal. Neck: Normal inspection. Neck supple. CVS: Normal heart rate and rhythm. Pulses normal. Respiratory: No respiratory distress. Breath sounds normal. Abdomen: Soft and nontender. Skin: Skin warm and dry. Normal skin color. Normal skin turgor. Extremities: No lower extremity edema. No calf ttp Neuro: Oriented X 3. No motor deficit. No sensory deficit. Course Course Course Narrative: keeps asking for ativan for anxiety no signs of withdrawal Medications Administered Discontinued Medications Generic Name Dose Route Start Last Admin Trade Name Mir PRN Reason Stop Dose Admin Magnesium Sulfate 2 gm in 50 mls @ 25 mls/hr 12/15/23 10:02 12/15/23 13:02 Magnesium Sulfate/H2o IV 12/15/23 12:01 Infused ONCE ONE Infusion Thiamine HCl 200 mg/ Sodium 102 mls @ 204 mls/hr 12/15/23 10:02 12/15/23 11:13 Chloride IV 12/15/23 10:31 Infused ONCE ONE Infusion Iohexol 100 ml 12/15/23 12:57 12/15/23 12:58 Iohexol 350 Mg/Ml 100 Ml Infus..Btl IV 12/15/23 12:58 100 ml ONCE ONE Administration Lorazepam 1 mg 12/15/23 10:18 12/15/23 10:36 Lorazepam 2 Mg/Ml Vial IVPUSH 12/15/23 10:19 1 mg STAT STA Administration Lorazepam 1 mg 12/15/23 12:51 12/15/23 13:02 Lorazepam 2 Mg/Ml Vial IVPUSH 12/15/23 12:52 1 mg STAT STA Administration Ondansetron HCl 4 mg 12/15/23 10:07 12/15/23 10:36 Ondansetron Hcl 4 Mg/2 Ml Vial IVPUSH 12/15/23 10:08 4 mg ONCE ONE Administration Pantoprazole Sodium 40 mg 12/15/23 10:07 12/15/23 10:38 Pantoprazole Sodium 40 Mg/10 Ml Vial IVPUSH 12/15/23 10:08 40 mg ONCE ONE Administration Medical Decision Making Medical Decision Making MDM Narrative: 53 yo male with PMH of HTN, HLD, CAD s/p DE with stent in 2020, ETOH use disorder hx of withdrawal and seizures in pst who presents with c/o atypical burning chest pain n/v and ETOH abuse at this time it is very atypical in nature and likely GI related after ETOH abuse will obtain basic labs, EKG, troponin x 1, start on thiamine, magnesium and IV protonix as he states he might have had dark stools. Doubt VTE or dissection this very much seems ETOH and GI related - no trauma or seizures reported. Differential Diagnosis Differential Diagnoses: The differential diagnosis associated with the presentation includes gastritis, esophagitis, GERD, ETOH abuse Admission/Observation Consideration of admission/observation: Escalation of care including admission/observation considered trop flat with 3 days of atypical symptoms EKG nonischemic CXR normal CT scan negative for pancreatitis with bump in LFTs likely due to ETOH and he has no pain on abdominal exam no vomiting while in ED H/H stable at this time offered detox and addiction medicine referral but he refuses. I do not think he need admission for ETOH withdrawal this is likely anxiety and he is refusing outpatient services he wants to go home on PO librium Lab Data [facility] Lab Attestation statement: I reviewed the patient's lab results. 12/15/23 10:27 12/15/23 10:27 Labs: Lab Results 12/15/23 12/15/23 Range/Units 10:27 12:13 WBC 6.5 (4.8-10.8) X10*3/uL RBC 4.76 (4.60-5.80) X10*6/uL Hgb 14.8 (14.0-18.0) g/dl Hct 41.6 L (42.0-52.0) % MCV 87.4 (80.0-98.0) fL MCH 31.1 (27.0-33.0) pg MCHC 35.6 (31.0-36.0) g/dl RDW 13.5 (11.0-16.0) % Plt Count 266 D (160-400) X10*3/uL MPV 9.5 (9.4-12.4) fL Immature Gran % (Auto) 0.3 (0.0-0.4) % Neut % (Auto) 76.6 H (45-73) % Lymph % (Auto) 15.4 L (20-40) % [place] % (Auto) 6.6 (2-11) % Eos % (Auto) 0.3 (0-4) % Baso % (Auto) 0.8 (0-2) % Lymph # (Auto) 1.0 L (1.2-4.9) X10*3/uL [place] # (Auto) 0.4 (0.1-1.2) X10*3/uL Eos # (Auto) 0.0 (0.0-0.4) X10*3/uL Baso # (Auto) 0.1 (0.0-0.2) X10*3/uL Abs Immat Gran (auto) 0.02 (0.00-0.03) X10*3/uL Absolute Neuts (auto) 5.0 (2.0-8.3) x10*3/uL Absolute Nucleated RBC 0.000 (0.0-0.012) X10*3/uL Nucleated RBC % (auto) 0.0 (0.0-0.2) /100WBC PT 10.0 L (10.9-12.4) SEC INR 0.9 (0.9-1.1) Sodium 138 (135-145) mmol/L Potassium 3.9 (3.3-5.1) mmol/L Chloride 104 (96-108) mmol/L Carbon Dioxide 17 L (22-29) mmol/L Anion Gap 21 H (12-20) BUN 12 (9-16) mg/dL Creatinine 1.08 (0.5-1.4) mg/dL Estim Creat Clear Calc 94.8 Estimated GFR > 60 Random Glucose 114 (60-115) mg/dL Calcium 8.3 L (8.4-10.2) mg/dL Magnesium 2.3 (1.6-2.6) mg/dL Total Bilirubin 1.1 H (0.0-1.0) mg/dL Direct Bilirubin 0.4 (0.0-0.5) mg/dL AST 72 H (5-37) U/L ALT 31 (0-40) U/L Alkaline Phosphatase 60 (39-117) U/L Troponin I High Sens 3.1 (<3.5-35.0) ng/L B-Natriuretic Peptide < 10 (<100) pg/mL Total Protein 7.1 (6.5-8.0) g/dL Albumin 4.3 (3.5-5.0) g/dL Lipase 315 H (8-78) U/L Urine Color Yellow Urine Appearance Clear Urine pH 5.5 (5.0-9.0) Ur Specific [place] <= 1.005 (1.005-1.025) Urine Protein 30 (1+) H (Neg-Trace) mg/dL Urine Glucose (UA) Negative (Negative) mg/dL Urine Ketones 15 (Negative) mg/dL Urine Blood Negative (Negative) Urine Nitrite Negative (Negative) Ur Leukocyte Esterase Negative (Negative) Urine RBC 0-2 (0-2) /HPF Urine WBC 0-5 (0-5) /HPF Ur Squamous Epith Cells 0-2 (0-2) /HPF Urine Bacteria None Seen (None Seen) Hyaline Casts 0-2 (0-2) /LPF Granular Casts Present Urine Opiates Screen Not Detected (Not Detect) Ur Buprenorphine Scrn Not Detected (Not Detect) ng/mL Ur Oxycodone Screen Not Detected (Not Detect) ng/mL Urine Methadone Screen Not Detected (Not Detect) ng/mL Urine Fentanyl Screen Not Detected (Not Detect) Ur Barbiturates Screen Not Detected (Not Detect) Ur Phencyclidine Scrn Not Detected (Not Detect) Ur Amphetamines Screen Not Detected (Not Detect) U Benzodiazepines Scrn Not Detected (Not Detect) Urine Cocaine Screen Not Detected (Not Detect) U Marijuana (THC) Screen Not Detected (Not Detect) Ethyl Alcohol 260 mg/dL Influenza Type A (PCR) NEGATIVE (Negative) Influenza Type B (PCR) NEGATIVE (Negative) RSV RNA Qual (PCR) NEGATIVE (Negative) SARS-CoV-2 RNA (RT-PCR) NEGATIVE (Negative) Independent Interpretation I performed an independent interpretation of an: EKG, Plain X-Ray (normal) and CT Scan (no pancreatitis) Interpretation: Rate: 82 Rhythm: NSR [place]: normal Normal P waves. Normal FADUMO. Normal QRS complex. ST T wave : normal no CHERIE qTC: 446 prior studies: no acute ischemia The study has been interpreted contemporaneously by me. . Radiology Impression Discussion of test interpretation with radiology: I have reviewed the radiologist's reading. Independent Historian Clinical information obtained from an independent historian. History obtained from or confirmed by: EMS External Record Review External record reviewed: Inpatient record Prescription Management I considered prescription management with: Other Critical Care Time Critical Care Time Critical Care Time: Yes Total Critical Care Time: 60 Attestation: review of records, IV magnesium, repeat IV ativan for anxiety I attest to this time spent taking care of the patient Discharge Plan Discharge Clinical Impression: Alcohol abuse, Atypical chest pain Acute alcoholic gastritis Qualifiers: Gastritis bleeding: without bleeding Qualified Code(s): K29.20 - Alcoholic gastritis without bleeding Patient Disposition: Home, Self-Care Instructions: Chest Pain (ED), Gastritis (ED), Abuse of Alcohol (ED) Additional Instructions: electrocardiogram and heart markers normal chest xray normal CT scan shows no inflammation near pancreas or stomach area - no acute findings you need to start taking your medications and stop drinking you were offered referral for detox but refused - you can come back at any time if you change your mind please follow up with your primary care doctor and let them know about your recent relapse Prescriptions: New chlordiazepoxide HCl 25 mg capsule 50 mg PO Q4H PRN (Reason: alcohol withdrawal) Qty: 20 0RF Rx Instructions: until symptoms controlled No Action atorvastatin 80 mg tablet 80 mg PO DAILY trazodone 50 mg tablet 50 mg PO BEDTIME aspirin 81 mg tablet,delayed release (DR/EC) 81 mg PO DAILY escitalopram oxalate 20 mg tablet 20 mg PO DAILY Brilinta 90 mg tablet 90 mg PO BID trazodone 50 mg tablet 50 mg PO BEDTIME PRN (Reason: insomnia) Qty: 30 0RF carvedilol 12.5 mg Tablet 12.5 mg PO BID Qty: 180 0RF Protocol: Hold for SBP/HR < HOLD for SBP < : 90 HOLD for HR < : 60 amlodipine 5 mg Tablet 5 mg PO DAILY Qty: 90 0RF Protocol: Hold for SBP< HOLD for SBP < : 90 gabapentin 100 mg Capsule 200 mg PO TID Qty: 42 0RF mirtazapine 7.5 mg Tablet 7.5 mg PO BEDTIME MRX1 Qty: 14 0RF acetaminophen 325 mg Tablet 650 mg PO Q6H PRN (Reason: Pain, Mild (Pain Scale 1-3)) Qty: 20 0RF melatonin 3 mg Tablet 6 mg PO BEDTIME Qty: 60 0RF lorazepam 1 mg tablet 1 mg PO BID PRN (Reason: alcohol withdrawal) Qty: 6 0RF Print Language: Vietnamese
[2023-12-15 10:02] VITALS: BP 140/88; PULSE 84; RESP 19; TEMP 36.8; O2SAT 99
--- NOTE | 2023-12-15 10:02 | ECG_ITS ---
Test Reason : CHEST PAIN Blood Pressure : / mmHG Vent. Rate : 082 BPM Atrial Rate : 082 BPM P-R Int : 164 ms QRS Dur : 078 ms QT Int : 382 ms P-R-T Axes : 044 036 078 degrees QTc Int : 446 ms Normal sinus rhythm Normal ECG When compared with ECG of 13-SEP-2023 07:57, No significant change was found Referred By: Dona Hernández Electronically Signed By:VARGHESE QUIROZ MD
[2023-12-15] MEDS: LORazepam 2 MG/ML VIAL 1 MG IVPUSH ×2 (10:36→13:02)
[2023-12-15] MEDS: ondansetron HCL 4 MG/2 ML VIAL IVPUSH (10:36)
[2023-12-15] MEDS: Pantoprazole Sodium 40 MG/10 ML VIAL IVPUSH (10:38)
[2023-12-15 10:41] LABS: MANUAL DIFF FLAG NO
[2023-12-15] MEDS: Thiamine HCL 200 MG in 0.9 % Sodium Chloride 100 ML 204 MG IV (10:41)
[2023-12-15 10:43] LABS: Basophils Absolute Auto 0.1 X10*3/uL (0.0-0.2); Basophils Percent Auto 0.8 % (0-2); Eosinophils Percent Auto 0.3 % (0-4); Hematocrit 41.6 % (42.0-52.0); Hemoglobin 14.8 g/dl (14.0-18.0); Imm Gran Abs Auto 0.02 X10*3/uL (0.00-0.03); Imm Gran Pct Auto 0.3 % (0.0-0.4); Lymphocytes Percent Auto 15.4 % (20-40); Mean Corpuscular HGB Conc 35.6 g/dl (31.0-36.0); Mean Corpuscular Hemoglobin 31.1 pg (27.0-33.0); Mean Corpuscular Volume 87.4 fL (80.0-98.0); Mean Platelet Volume 9.5 fL (9.4-12.4); Monocytes Absolute Auto 0.4 X10*3/uL (0.1-1.2); Monocytes Percent Auto 6.6 % (2-11); Neutrophils Percent Auto 76.6 % (45-73); Platelet Count 266 X10*3/uL (160-400); Red Blood Count 4.76 X10*6/uL (4.60-5.80); Red Cell Distribution Width 13.5 % (11.0-16.0); White Blood Count 6.5 X10*3/uL (4.8-10.8)
[2023-12-15 10:48] LABS: INTERNATIONAL NORM RATIO 0.9 (0.9-1.1)
[2023-12-15 10:50] VITALS: BP 122/78; PULSE 88; RESP 13; O2SAT 97
[2023-12-15 11:07] LABS: Alanine Aminotransferase 31 U/L (0-40); Albumin Level 4.3 g/dL (3.5-5.0); Alkaline Phosphatase 60 U/L (39-117); Anion Gap 21 (12-20); Aspartate Amino Transferase 72 U/L (5-37); B Type Natriuretic Peptide < 10 pg/mL (<100); Bilirubin Direct 0.4 mg/dL (0.0-0.5); Bilirubin Total 1.1 mg/dL (0.0-1.0); Blood Urea Nitrogen 12 mg/dL (9-16); Calcium 8.3 mg/dL (8.4-10.2); Carbon Dioxide 17 mmol/L (22-29); Chloride 104 mmol/L (96-108); Creatinine Clr Calc Pharmacy 94.8; Estimated Glomerular Filt Rate > 60; Ethanol 260 mg/dL; Glucose Random 114 mg/dL (60-115); Magnesium 2.3 mg/dL (1.6-2.6); Potassium 3.9 mmol/L (3.3-5.1); Sodium 138 mmol/L (135-145); Total Protein 7.1 g/dL (6.5-8.0)
[2023-12-15 11:09] LABS: Troponin-I High Sensitivity 3.1 ng/L (<3.5-35.0)
[2023-12-15] MEDS: Magnesium Sulfate/H2O 2 GM/50 ML PIGGYBACK IV (11:14)
[2023-12-15 11:19] LABS: Influenza A PCR NEGATIVE (Negative); Influenza B PCR NEGATIVE (Negative); Resp Syncy Virus RNA Qual PCR NEGATIVE (Negative); SARS COV2 PCR INHOUSE NEGATIVE (Negative)
--- NOTE | 2023-12-15 11:24 | PC.NURSE ---
Pt comes to ED today via EMS for c/o chest pain and ETOH withdrawal. Pt reports he has been suffering from depression and has been drinking excessively for the last week, beer and hard liquor--last drink 2-3 hours prior to arrival. VSS, afebrile, A&Ox3 Breaths and speech are slow, even, and unlabored. Skin is warm and dry. Pt presents with heightened anxiety. Denies SI/HI and reports he is open to help with his MH care. Pt medicated per MAR including Ativan for anxiety. Pt is now noted to be resting comfortably with his eye closed.
[2023-12-15 11:26] LABS: Lipase 315 U/L (8-78)
[2023-12-15 12:21] LABS: Appearance Urine Clear; Color Urine Yellow; Glucose Urine UA Negative (Negative); Leukocyte Esterase Urine Negative (Negative); Nitrite Urine Negative (Negative); PH 5.5 (5.0-9.0); Specific Gravity - Urine <= 1.005 (1.005-1.025); UMIC TRIGGER UACC YES; Urine Blood Negative (Negative); Urine Ketones 15 mg/dL (Negative); Urine Protein 30 (1+) mg/dL (Neg-Trace)
[2023-12-15 12:31] LABS: Amphetamine Screen Urine Not Detected (Not Detect); Barbiturates, Urine Not Detected (Not Detect); Benzodiazepines Screen Urine Not Detected (Not Detect); Buprenorphine Scr Not Detected (Not Detect); Cannabinoid Screen Urine Not Detected (Not Detect); Cocaine Screen Urine Not Detected (Not Detect); Fentanyl, urine Not Detected (Not Detect); Methadone Screen, Urine Not Detected (Not Detect); Opiate Screen Urine Not Detected (Not Detect); Oxycodone Screen Urine Not Detected (Not Detect); Phencyclidine Screen Urine Not Detected (Not Detect)
[2023-12-15 12:47] LABS: Bacteria Urine None Seen (None Seen); Granular Casts Urine Present; Hyaline Casts Urine 0-2 /LPF (0-2); RBC Urine 0-2 /HPF (0-2); Squamous Epithelial Cell Urine 0-2 /HPF (0-2); WBC Urine 0-5 /HPF (0-5)
[2023-12-15] MEDS: iohexoL 350 MG/ML 100 ML INFUS..BTL IV (12:58)
[2023-12-15 16:07] VITALS: BP 149/95; PULSE 98; RESP 16; TEMP 36.3; O2SAT 95
== END 2023-12-15 16:07 | disposition home or self-care (01) ==
PROVIDERS: Emergency Provider Emergency Medicine; PCP Physician Assistant
DX: K29.20 Alcoholic gastritis without bleeding (principal); F10.10 Alcohol abuse, uncomplicated; Y90.8 Blood alcohol level of 240 mg/100 ml or more; R07.89 Other chest pain; R11.2 Nausea with vomiting, unspecified; Z03.818 Encounter for observation for suspected exposure to other biological agents ruled out; F17.210 Nicotine dependence, cigarettes, uncomplicated; Z79.899 Other long term (current) drug therapy
CPT/HCPCS: 0241U; 71045; 74177; 80048; 80076; 80307; 81001; 83690; 83735; 83880; 84484; 85025; 85610; 93005; 96365; 96366; 96367; 96375; 96376; 99284; 99285; J2060; J2405; J2470; J3411; J3475; Q9967

== ENCOUNTER → 2023-12-15 10:02 | Outpatient (BNV) | payer MEDICAID, SELFPAY | PROVIDERS: Emergency Provider Emergency Medicine; PCP Physician Assistant; Visit Provider Internal Medicine Cardiovascular Disease | DX: R07.9 Chest pain, unspecified (principal) | CPT/HCPCS: 93010 ==

== ENCOUNTER 2024-08-16 09:46 | Inpatient (IN) | payer MEDICAID, SELFPAY ==
[2024-08-16] VITALS (10 sets, daily range): BP systolic 92–142; BP diastolic 58–89; PULSE 84–121; RESP 16–23; TEMP 36.3–36.8; O2SAT 93–98; BMI 24.5
--- NOTE | ~2024-08-16 | XR_ITS ---
EXAMINATION: XR CHEST CLINICAL INFORMATION: Chest pain, rule out pneumonia, CHF COMPARISON: 12/15/2023 and September 13, 2023 TECHNIQUE: Frontal view of the chest was obtained. FINDINGS: Heart size is within normal limits. Hilar and mediastinal structures are unremarkable. Lungs are clear and aerated. No interval changes. XR/XR chest 1V IMPRESSION: No acute disease Electronically signed by: Alo Chacon MD 08/16/2024 11:16 AM EDT
--- NOTE | 2024-08-16 10:03 | ECG_ITS ---
Test Reason : chest pain Blood Pressure : */* mmHG Vent. Rate : 83 BPM Atrial Rate : 83 BPM P-R Int : 152 ms QRS Dur : 74 ms QT Int : 388 ms P-R-T Axes : 40 42 84 degrees QTcB Int : 455 ms Normal sinus rhythm Septal infarct , age undetermined T wave abnormality, consider anterior ischemia Abnormal ECG When compared with ECG of 15-Dec-2023 10:11, T wave inversion now evident in Anterior leads Referred By: Emma Garcia Electronically Signed By: VARGHESE QUIROZ MD
--- NOTE | 2024-08-16 10:29 | ED.CHESTPAIN ---
HPI - Chest Pain General Chief Complaint: Chest Pain Stated Complaint: CP,L ARM PAIN,H/O PR,DETOXING FROM ETOH PER EMS Time Seen by Provider: 08/16/24 10:01 Source: patient Limitations: no limitations History of Present Illness ED Provider: Dr. Benedicto Mendes HPI narrative: 53-year-old male with a history of PR x3 with last PR 3 years prior who presents emergency department for evaluation of chest pain and withdrawing from gabapentin and lorazepam. The patient states that this morning around 2 hours prior to coming to the emergency department, he developed chest pressure. He points to his sternum when asked to localize the pain. It is a constant, pressure-like pain which is 8/10 at its worse associated with nausea, lightheadedness, dizziness, diaphoresis, shortness of breath and dyspnea on exertion and left arm pain. He states the pain feels similar to his heart attack pain. Patient states that he was prescribed lorazepam 2 mg daily but ran out in his medication. He states that he was taking a friend's gabapentin 500 mg q.day and ran out of this medication as well. Patient states he is feeling very weak and feels like he is not able to walk secondary to his withdrawal from medications and from his chest pain. He states that he does drink 8 beers daily and had a beer and a nip of liquor just prior to coming to the emergency department. He illicit drug use. Related Data Home Medications ?Medication ?Instructions ?Recorded ?Confirmed aspirin 81 mg tablet,delayed 81 mg PO DAILY 04/28/23 05/26/23 release atorvastatin 80 mg tablet 80 mg PO DAILY 04/28/23 05/26/23 escitalopram oxalate 20 mg tablet 20 mg PO DAILY 04/28/23 05/26/23 ticagrelor 90 mg tablet (Brilinta) 90 mg PO BID 04/28/23 05/26/23 trazodone 50 mg tablet 50 mg PO BEDTIME 04/28/23 05/26/23 Previous Rx's ?Medication ?Instructions ?Recorded amlodipine 5 mg tablet 5 mg PO DAILY #90 tabs 04/30/23 carvedilol 12.5 mg tablet 12.5 mg PO BID #180 tabs 04/30/23 trazodone 50 mg tablet 50 mg PO BEDTIME PRN insomnia #30 04/30/23 tabs acetaminophen 325 mg tablet 650 mg (2 x 325 mg) PO Q6H PRN 05/31/23 Pain, Mild (Pain Scale 1-3) #20 tabs gabapentin 100 mg capsule 200 mg (2 x 100 mg) PO TID #42 caps 05/31/23 melatonin 3 mg tablet 6 mg (2 x 3 mg) PO BEDTIME #60 tabs 05/31/23 mirtazapine 7.5 mg tablet 7.5 mg PO BEDTIME MRX1 #14 tabs 05/31/23 lorazepam 1 mg tablet 1 mg PO BID PRN alcohol withdrawal 09/13/23 #6 tabs chlordiazepoxide HCl 25 mg capsule 50 mg (2 x 25 mg) PO Q4H PRN 12/15/23 alcohol withdrawal 10 doses #20 caps Allergies Allergy/AdvReac Type Severity Reaction Status Date / Time No Known Allergies Allergy Verified 08/16/24 10:18 Review of Systems Review of Systems: Yes all other systems are reviewed and are negative [facility] Past Medical History [facility] Narrative: Over the 3: Patient smokes 4 cigarettes per day. He has smoked for 37 years. Patient drinks 8 beers per day. Patient denies drug use. Medical History Generalized anxiety disorder Ileus Myocardial infarction CAD (coronary artery disease) Social History Social History Household Members: None Household Members Other:: self Housing: Apartment Do you presently have visiting nurse or other home services: No Alcohol intake: current Alcohol intake frequency: 3 or more drinks per day Alcohol type: beer and hard liquor Patient Tobacco Use Status: Current everyday Tobacco user Tobacco use type: Cigarette Cigarettes Per Day: 4 Years Smoked: 40 Smoked in Last 30 Days: No Second Hand Smoke Exposure: No Use of substances other than those prescribed or required for medical reasons: No Advance Directives: No Advance Directives Information Provided: No Advance Directives Date on File: 05/26/23 Do you have a plan to hurt others: No Plan service: No Physical Exam Vital Signs: Vital Signs: Last Vital Signs Temp 98 F 08/16/24 15:11 Pulse 121 H 08/16/24 17:44 Resp 21 H 08/16/24 17:44 BP 142/71 H 08/16/24 17:44 Pulse Ox 97 08/16/24 17:44 O2 Del Method Room Air 08/16/24 17:44 BMI result Body Mass Index 24.5 Vital signs were normal Exam: General: Awake, alert in no distress Head: Normocephalic, atraumatic EENT: PERRL, Lids normal, sclera normal, conjunctiva normal, nose normal , ears normal, throat without erythema or exudates Neck: Supple, no adenopathy Lung: breath sounds symmetric, no wheezing, rales or rhonchi Chest: symmetric movement, moderate sternal and costochondral tenderness bilaterally Heart: regular rate and rhythm, normal S1, S2 no murmurs or rubs Abdomen: soft, non-tender, nondistended, normal bowel sounds Back: no vertebral tenderness, no CVAT Extremities: no deformities, moves all extremities symmetrically Neuro: Awake, alert, oriented, normal speech, cranial nerves intact, moves all extremities symmetrically Psych: Pleasant, cooperative Course Reevaluation(s) Reevaluation #1: 08/16/2024 DR. Vasques's progress note: I assumed care for this patient at 18:00, patient is a 53-year-old male alcoholic last drink was this morning, with high CIWA score of 18 and patient also been having visual hallucination. Patient will be admitted medically for alcohol withdrawal will start the patient on phenobarb. The case was discussed with my colleague with the hospitalist for admission. Time: 18:02 Medications Administered Discontinued Medications Generic Name Dose Route Start Last Admin Trade Name Freq PRN Reason Stop Dose Admin Aspirin 324 mg 08/16/24 10:44 08/16/24 11:29 Aspirin 81 Mg Tab.Chew PO 08/16/24 10:45 Not Given ONCE ONE Sodium Chloride 1,000 mls @ 999 mls/hr 08/16/24 10:21 08/16/24 11:29 Ns IV 08/16/24 11:21 Infused .Q1H1M STA Infusion Ketorolac Tromethamine 15 mg 08/16/24 10:21 08/16/24 10:37 Ketorolac Tromethamine 15 Mg/Ml Vial IVPUSH 08/16/24 10:22 15 mg ONCE STA Administration Lorazepam 2 mg 08/16/24 10:21 08/16/24 10:38 Lorazepam 1 Mg Tablet PO 08/16/24 10:22 2 mg ONCE STA Administration Olanzapine 10 mg 08/16/24 11:30 08/16/24 11:36 Olanzapine 10 Mg Tablet PO 08/16/24 11:31 10 mg ONCE ONE Administration Olanzapine 10 mg 08/16/24 16:50 08/16/24 17:09 Olanzapine 10 Mg Tablet PO 08/16/24 16:51 10 mg ONCE ONE Administration Ondansetron HCl 4 mg 08/16/24 10:21 08/16/24 10:37 Ondansetron Hcl 4 Mg/2 Ml Vial IVPUSH 08/16/24 10:22 4 mg ONCE ONE Administration Medical Decision Making Medical Decision Making MDM Narrative: 53-year-old male with a history of PR x3 with last PR 3 years prior who presents emergency department for evaluation of chest pain and withdrawing from gabapentin and lorazepam. The patient states that this morning around 2 hours prior to coming to the emergency department, he developed chest pressure. He points to his sternum when asked to localize the pain. It is a constant, pressure-like pain which is 8/10 at its worse associated with nausea, lightheadedness, dizziness, diaphoresis, shortness of breath and dyspnea on exertion and left arm pain. He states the pain feels similar to his heart attack pain. Patient states that he was prescribed lorazepam 2 mg daily but ran out in his medication. He states that he was taking a friend's gabapentin 500 mg q.day and ran out of this medication as well. Patient states he is feeling very weak and feels like he is not able to walk secondary to his withdrawal from medications and from his chest pain. Physical examination did reveal chest wall tenderness otherwise was unremarkable Differential diagnosis: ?Includes but is not limited to myocardial infarction, myocardial ischemia, costochondritis, chest wall pain, alcohol intoxication, alcohol withdrawal, benzodiazepine withdrawal, gabapentin and withdrawal, anemia, electrolyte abnormalities Course: 10:40 Patient's 12 EKG did not reveal any ST segment elevation but he does have inverted T-waves V1 through V3 compared to an EKG from 12/15/2023 the inverted T-waves in the anterior leads are new but no evidence for STEMI. I ordered Ativan 2 mg orally, Toradol 15 mg IV, aspirin 324 mg orally. I did order a cardiac workup on the patient, the patient will be kept on a phototypesetting equipment monitor and O2 saturation monitor. 23:32 My interpretation patient's laboratory evaluation is as follows: CBC was normal. BUN elevated 22 with a normal creatinine 1.0. Bicarb low 18. AST and ALT elevated 99 and 44. Magnesium normal at 2.3. Lipase elevated 87. Ethanol elevated 229. High sensitive troponin detectable but not elevated at 2.8. I ordered a repeat 2 hour troponin for 12:45 The patient's chest pain improved after the above treatment but he is still feeling anxious and agitated, I do not think that he is withdrawing from alcohol, benzodiazepines or gabapentin and that he may just be having anxiety. Patient was given Zyprexa 10 mg orally. 13:30 Patient's repeat troponin was unchanged at 3.2. This is reassuring and suggests that his chest pain is not secondary to myocardial infarction. The patient is medically cleared and would like to talk to the recovery team to try to get into detox program 16:35 Patient was seen by the recovery team and detox bed search was started for this patient. 18:06 Patient was given a 2nd dose of Zyprexa with improvement in his anxiety. The patient however is now reporting moderate to severe hallucinations. The patient is a CIWA scale was 18. Given this finding, the patient was started on a phenobarbital protocol 12 milligrams/kilogram in 3 divided doses. I did discuss admission over tiger text with the covering hospitalist and the patient will be admitted for further treatment of his alcohol withdrawal. Admission/Observation Consideration of admission/observation: Escalation of care including admission/observation considered (Yes) Lab Data 08/16/24 10:44 08/16/24 10:44 Labs: Lab Results 08/16/24 08/16/24 08/16/24 Range/Units 10:44 12:46 15:03 WBC 5.0 (4.8-10.8) X10*3/uL RBC 4.73 (4.60-5.80) X10*6/uL Hgb 14.7 (14.0-18.0) g/dl Hct 41.0 L (42.0-52.0) % MCV 86.7 (80.0-98.0) fL MCH 31.1 (27.0-33.0) pg MCHC 35.9 (31.0-36.0) g/dl RDW 13.5 (11.0-16.0) % Plt Count 225 (160-400) X10*3/uL MPV 9.3 L (9.4-12.4) fL Immature Gran % (Auto) 0.2 (0.0-0.4) % Neut % (Auto) 61.9 (45-73) % Lymph % (Auto) 28.3 (20-40) % [place] % (Auto) 6.4 (2-11) % Eos % (Auto) 1.6 (0-4) % Baso % (Auto) 1.6 (0-2) % Lymph # (Auto) 1.4 (1.2-4.9) X10*3/uL [place] # (Auto) 0.3 (0.1-1.2) X10*3/uL Eos # (Auto) 0.1 (0.0-0.4) X10*3/uL Baso # (Auto) 0.1 (0.0-0.2) X10*3/uL Abs Immat Gran (auto) 0.01 (0.00-0.03) X10*3/uL Absolute Neuts (auto) 3.1 (2.0-8.3) x10*3/uL Absolute Nucleated RBC 0.000 (0.0-0.012) X10*3/uL Nucleated RBC % (auto) 0.0 (0.0-0.2) /100WBC APTT 28.5 (26.0-36.8) SEC Sodium 136 (135-145) mmol/L Potassium 4.4 (3.3-5.1) mmol/L Chloride 100 (96-108) mmol/L Carbon Dioxide 18 L (22-29) mmol/L Anion Gap 22 H (12-20) BUN 7 L (9-16) mg/dL Creatinine 1.01 (0.5-1.4) mg/dL Estim Creat Clear Calc 81.8 Estimated GFR > 60 Random Glucose 104 (60-115) mg/dL Calcium 8.4 (8.4-10.2) mg/dL Magnesium 2.3 (1.6-2.6) mg/dL Total Bilirubin 1.0 (0.0-1.0) mg/dL AST 99 H (5-37) U/L ALT 44 H (0-40) U/L Alkaline Phosphatase 64 (39-117) U/L Troponin I High Sens 2.8 3.2 (<3.5-35.0) ng/L B-Natriuretic Peptide < 10 (<100) pg/mL Total Protein 7.1 (6.5-8.0) g/dL Albumin 4.4 (3.5-5.0) g/dL Lipase 87 H (8-78) U/L Urine Opiates Screen Not Detected (Not Detect) Ur Buprenorphine Scrn Not Detected (Not Detect) ng/mL Ur Oxycodone Screen Not Detected (Not Detect) ng/mL Urine Methadone Screen Not Detected (Not Detect) ng/mL Urine Fentanyl Screen Not Detected (Not Detect) Ur Barbiturates Screen Not Detected (Not Detect) Ur Phencyclidine Scrn Not Detected (Not Detect) Ur Amphetamines Screen Not Detected (Not Detect) U Benzodiazepines Scrn Not Detected (Not Detect) Urine Cocaine Screen Not Detected (Not Detect) U Marijuana (THC) Screen Not Detected (Not Detect) Ethyl Alcohol 229 mg/dL Independent Interpretation I performed an independent interpretation of an: EKG and Plain X-Ray Interpretation: My independent interpretation patient's 12 EKG done on 08/16/2024 at 10:03 hours is as follows: Normal sinus rhythm rate of 83, normal AR interval, QRS duration QTC interval,, no ST segment depression, inverted T-waves V1 through V3, no PACs, no PVCs. Compared to an EKG dated 12/14/2024 at 10:11 hours, the inverted T-waves V1 through V3 are new. My independent interpretation patient's one-view chest x-ray is as follows: No acute disease Radiology Impression Discussion of test interpretation with radiology: I have reviewed the radiologist's reading. Radiologist Impression: XR chest 1V IMPRESSION: No acute disease Electronically signed by: Alo Chacon MD 08/16/2024 11:16 AM EDT Critical Care Time Critical Care Time Critical Care Time: Yes Total Critical Care Time: 45 Attestation: Critical Care: The patient was critically ill with a high probability of imminent or life threatening deterioration. I spent greater than 30 minutes of discontinuous time evaluating the patient,delivering critical care at the bedside, discussing and evaluating pertinent data with consultants. Critical care time does not include time spent performing separately billable procedures or teaching. Total time spent performing critical care was 45 minutes. Discharge Plan Discharge Clinical Impression: Chest pain, Anxiety Alcohol withdrawal Qualifiers: Complication of substance-induced condition: with perceptual disturbance Qualified Code(s): F10.932 - Alcohol use, unspecified with withdrawal with perceptual disturbance Prescriptions: No Action atorvastatin 80 mg tablet 80 mg PO DAILY trazodone 50 mg tablet 50 mg PO BEDTIME aspirin 81 mg tablet,delayed release (DR/EC) 81 mg PO DAILY escitalopram oxalate 20 mg tablet 20 mg PO DAILY Brilinta 90 mg tablet 90 mg PO BID trazodone 50 mg tablet 50 mg PO BEDTIME PRN (Reason: insomnia) Qty: 30 0RF carvedilol 12.5 mg Tablet 12.5 mg PO BID Qty: 180 0RF Protocol: Hold for SBP/HR < HOLD for SBP < : 90 HOLD for HR < : 60 amlodipine 5 mg Tablet 5 mg PO DAILY Qty: 90 0RF Protocol: Hold for SBP< HOLD for SBP < : 90 gabapentin 100 mg Capsule 200 mg PO TID Qty: 42 0RF mirtazapine 7.5 mg Tablet 7.5 mg PO BEDTIME MRX1 Qty: 14 0RF acetaminophen 325 mg Tablet 650 mg PO Q6H PRN (Reason: Pain, Mild (Pain Scale 1-3)) Qty: 20 0RF melatonin 3 mg Tablet 6 mg PO BEDTIME Qty: 60 0RF lorazepam 1 mg tablet 1 mg PO BID PRN (Reason: alcohol withdrawal) Qty: 6 0RF chlordiazepoxide HCl 25 mg capsule 50 mg PO Q4H PRN (Reason: alcohol withdrawal) Qty: 20 0RF Rx Instructions: until symptoms controlled Print Language: Slovak
[2024-08-16] MEDS: ondansetron HCL 4 MG/2 ML VIAL IVPUSH (10:37)
[2024-08-16] MEDS: Ketorolac Tromethamine 15 MG/ML VIAL IVPUSH (10:37)
[2024-08-16] MEDS: LORazepam 1 MG TABLET 2 MG PO (10:38)
[2024-08-16] MEDS: 0.9 % Sodium Chloride 1,000 ML 999 ML IV (10:38)
[2024-08-16 10:51] LABS: MANUAL DIFF FLAG NO
[2024-08-16 10:54] LABS: Basophils Absolute Auto 0.1 X10*3/uL (0.0-0.2); Basophils Percent Auto 1.6 % (0-2); Eosinophils Absolute Auto 0.1 X10*3/uL (0.0-0.4); Eosinophils Percent Auto 1.6 % (0-4); Hemoglobin 14.7 g/dl (14.0-18.0); Imm Gran Abs Auto 0.01 X10*3/uL (0.00-0.03); Imm Gran Pct Auto 0.2 % (0.0-0.4); Lymphocytes Absolute Auto 1.4 X10*3/uL (1.2-4.9); Lymphocytes Percent Auto 28.3 % (20-40); Mean Corpuscular HGB Conc 35.9 g/dl (31.0-36.0); Mean Corpuscular Hemoglobin 31.1 pg (27.0-33.0); Mean Corpuscular Volume 86.7 fL (80.0-98.0); Mean Platelet Volume 9.3 fL (9.4-12.4); Monocytes Absolute Auto 0.3 X10*3/uL (0.1-1.2); Monocytes Percent Auto 6.4 % (2-11); Neutrophils Absolute Auto 3.1 x10*3/uL (2.0-8.3); Neutrophils Percent Auto 61.9 % (45-73); Platelet Count 225 X10*3/uL (160-400); Red Blood Count 4.73 X10*6/uL (4.60-5.80); Red Cell Distribution Width 13.5 % (11.0-16.0)
[2024-08-16 11:02] LABS: Partial Thromboplastin Time 28.5 SEC (26.0-36.8)
[2024-08-16 11:10] LABS: Alanine Aminotransferase 44 U/L (0-40); Albumin Level 4.4 g/dL (3.5-5.0); Alkaline Phosphatase 64 U/L (39-117); Anion Gap 22 (12-20); Aspartate Amino Transferase 99 U/L (5-37); Blood Urea Nitrogen 7 mg/dL (9-16); Calcium 8.4 mg/dL (8.4-10.2); Carbon Dioxide 18 mmol/L (22-29); Chloride 100 mmol/L (96-108); Creatinine Clr Calc Pharmacy 81.8; Estimated Glomerular Filt Rate > 60; Ethanol 229 mg/dL; Glucose Random 104 mg/dL (60-115); Lipase 87 U/L (8-78); Magnesium 2.3 mg/dL (1.6-2.6); Potassium 4.4 mmol/L (3.3-5.1); Sodium 136 mmol/L (135-145); Total Protein 7.1 g/dL (6.5-8.0)
[2024-08-16 11:14] LABS: B Type Natriuretic Peptide < 10 pg/mL (<100); Troponin-I High Sensitivity 2.8 ng/L (<3.5-35.0)
[2024-08-16] MEDS: OLANZapine 10 MG TABLET PO ×2 (11:36→17:09)
[2024-08-16 13:20] LABS: Troponin-I High Sensitivity 3.2 ng/L (<3.5-35.0)
[2024-08-16 15:27] LABS: Amphetamine Screen Urine Not Detected (Not Detect); Barbiturates, Urine Not Detected (Not Detect); Benzodiazepines Screen Urine Not Detected (Not Detect); Buprenorphine Scr Not Detected (Not Detect); Cannabinoid Screen Urine Not Detected (Not Detect); Cocaine Screen Urine Not Detected (Not Detect); Fentanyl, urine Not Detected (Not Detect); Methadone Screen, Urine Not Detected (Not Detect); Opiate Screen Urine Not Detected (Not Detect); Oxycodone Screen Urine Not Detected (Not Detect); Phencyclidine Screen Urine Not Detected (Not Detect)
--- NOTE | 2024-08-16 17:58 | PC.NURSE ---
This nurse assessed PT CIWA SCALE Provider [place] notified of CIWA score of 18, Provider to put new orders at this time.
[2024-08-16] MEDS: PHENobarbitaL sodium 130 MG/ML IM ONCE 328 MG IM (18:59)
--- NOTE | 2024-08-16 19:05 | PHA.MEDREC ---
Addendum entered by Claudine Nixon [facility] 08/16/24 19:20: reviewed Original Note: Pharmacy Consult ? Medication Reconciliation Pharmacy has completed the medication reconciliation. Spoke to patient to confirm med list. Patient states he is not taking Chlordiazepoxide HCl 50 mg, Gabapentin 200 mg, Lorazepam 1 mg, and Mirtazapine 7.5 mg. Patient confirmed Trazodone is 100 mg QHS prn.
[2024-08-16] MEDS: Thiamine HCL 100 MG in 0.9 % Sodium Chloride 100 ML 202 MG IV (19:18)
--- NOTE | 2024-08-16 20:40 | PC.NURSE ---
PT CIWA Scale assessed score of 12 PT on monitor, call aj within reach.
[2024-08-16] MEDS: Ticagrelor 90 MG TABLET PO (22:24)
[2024-08-16] MEDS: carvediloL 6.25 MG TABLET PO (22:24)
[2024-08-16] MEDS: PHENobarbitaL sodium 130 MG/ML VIAL IM Q3Hx2 246 MG IM (22:25)
--- NOTE | 2024-08-16 22:45 | PM.IMHP ---
History of Present Illness Date of Service: 08/16/24 Attending physician on admission: Emma Garcia Chief Complaint: Vomiting Kari Turpin is a 53 years old woman with past medical history significant for CAD, essential hypertension and alcohol abuse presents to the emergency department complaining of upper abdominal discomfort associated with no bloody vomiting. These symptoms has been going on for the last 3 days. He drinks 3 beers daily (24 oz) -last drink was about 3 days ago. He also reports headache, anxiety, tremulousness, and hallucinations. Denied shortness of the breath, fever, chills and palpitations. He did have chest tightness. He said that he drinks alcohol for insomnia and has been using the gabapentin is of a friend. He also smoked tobacco. Denied illicit drug use. The ED, he was found to have tachycardia and tachypnea. Blood pressure is and O2 sat and blood pressure are unremarkable. Last blood pressure was 141/84. Your workup showed no leukocytosis. Hemoglobin and platelets. CMP is unremarkable except for elevated transaminases. Bilirubin, alk-phos and lipase are normal. Troponin is flat x2. Urine drug screen is negative. ETOH level is 229. ED tx: NS 1 L bolus, Ativan 2 mg p.o., Zofran 4 mg IV, ketorolac 15 mg IV, aspirin 325 mg p.o., Zyprexa 20 mg p.o. x2 ,phenobarbital protocol started. Review of Systems Review of Systems: All 12 systems were reviewed and normal except as noted in HPI. [facility] Medical History Generalized anxiety disorder Ileus Myocardial infarction CAD (coronary artery disease) Social History Household Members: None Household Members Other:: self Housing: Apartment Do you presently have visiting nurse or other home services: No Alcohol intake: current Alcohol intake frequency: 3 or more drinks per day Alcohol type: beer and hard liquor Patient Tobacco Use Status: Tobacco use Unknown Tobacco use type: Cigarette Cigarettes Per Day: 4 Years Smoked: 40 Smoked in Last 30 Days: No Second Hand Smoke Exposure: No Use of substances other than those prescribed or required for medical reasons: No Advance Directives: No Advance Directives Information Provided: No Advance Directives Date on File: 05/26/23 Do you have a plan to hurt others: No Plan service: No Meds Allergies Allergy/AdvReac Type Severity Reaction Status Date / Time No Known Allergies Allergy Verified 08/16/24 10:18 Active Medications: Current Medications Acetaminophen (Acetaminophen 325 Mg Tablet) 650 mg PO Q6H PRN PRN Reason: Pain, Mild (Pain Scale 1-3) Amlodipine Besylate (Amlodipine Besylate 5 Mg Tablet) 5 mg PO DAILY [facility]; Protocol Aspirin (Aspirin Enteric Coated 81 Mg Tablet.Dr) 81 mg PO DAILY [facility] Atorvastatin Calcium (Atorvastatin Calcium 80 Mg Tablet) 80 mg PO DAILY [facility] Carvedilol (Carvedilol 6.25 Mg Tablet) 6.25 mg PO BID [facility]; Protocol Last Admin: 08/16/24 22:24 Dose: 6.25 mg Escitalopram Oxalate (Escitalopram Oxalate 20 Mg Tablet) 20 mg PO DAILY [facility] Melatonin (Melatonin 3 Mg Tablet) 3 mg PO BEDTIME PRN PRN Reason: Sleep Pharmacy Consult (Consult Rx Etoh Phenob Im/Po) 1 each MISCELLANE ONCE PRN; Protocol PRN Reason: Consult order Phenobarbital (Phenobarbital 15 Mg Tablet) 45 mg PO BID [facility] Stop: 08/18/24 21:01 Phenobarbital (Phenobarbital 30 Mg Tablet) 30 mg PO BID [facility] Stop: 08/20/24 21:01 Phenobarbital (Phenobarbital 15 Mg Tablet) 15 mg PO DAILY [facility] Stop: 08/22/24 09:01 Phenobarbital Sodium (Phenobarbital Sodium 130 Mg/Ml Vial Im Q3hx2) 246 mg IM Q3H [facility] Stop: 08/17/24 01:01 Last Admin: 08/16/24 22:25 Dose: 246 mg Ticagrelor (Ticagrelor 90 Mg Tablet) 90 mg PO BID [facility] Last Admin: 08/16/24 22:24 Dose: 90 mg Trazodone HCl (Trazodone Hcl 100 Mg Tablet) 100 mg PO BEDTIME PRN PRN Reason: Sleep Home Medications ?Medication ?Instructions ?Recorded ?Confirmed ?Last Taken ?Type aspirin 81 mg tablet,delayed 81 mg PO DAILY 04/28/23 08/16/24 08/15/24 History release atorvastatin 80 mg tablet 80 mg PO DAILY 04/28/23 08/16/24 08/15/24 History escitalopram oxalate 20 mg tablet 20 mg PO DAILY 04/28/23 08/16/24 08/15/24 History carvedilol 12.5 mg tablet 6.25 mg PO BID 08/16/24 08/16/24 08/15/24 History hydroxyzine HCl 25 mg tablet 25 mg PO BID PRN Anxiety 08/16/24 08/16/24 Unknown History melatonin 3 mg tablet 3 mg PO BEDTIME PRN Sleep 08/16/24 08/16/24 Unknown History ticagrelor 90 mg tablet 90 mg PO BID 08/16/24 08/16/24 08/15/24 History trazodone 100 mg tablet 100 mg PO BEDTIME PRN Sleep 08/16/24 08/16/24 Unknown History Physical Exam Vital Signs and Narrative: Vital Signs: Last Vital Signs Temp 97.4 F 08/16/24 22:21 Pulse 84 08/16/24 22:24 Resp 17 08/16/24 22:21 BP 141/84 H 08/16/24 22:24 Pulse Ox 95 08/16/24 22:21 O2 Del Method Room Air 08/16/24 22:21 BMI result Body Mass Index 24.5 Constitutional - Awake and Alert, No apparent distress. Anxious. Obese. Pleasant. HEENT - PER, EOMI. Normal sclerae. Dry oral mucosa. Heart - S1S2, RRR, No murmurs. Lungs - Normal lung expansion, Normal respiratory effort, No respiratory distress, CTA bilaterally Abdomen - NT / ND; +BS; No rebound or guarding - No CVA tenderness Extremities - no calf tenderness bilaterally, no swelling Musculoskeletal - Normal inspection, normal ROM Skin - Warm/Dry Neurological - Alert & oriented x3. No focal weakness grossly noted. Normal speech. Psychological - Appropriate affect Results Labs 08/16/24 10:44 08/16/24 10:44 Labs: Laboratory Results - last 24 hr 08/16/24 08/16/24 08/16/24 10:44 12:46 15:03 MCV 86.7 MCH 31.1 MCHC 35.9 RDW 13.5 Plt Count 225 MPV 9.3 L Immature Gran % (Auto) 0.2 Neut % (Auto) 61.9 Lymph % (Auto) 28.3 [place] % (Auto) 6.4 Eos % (Auto) 1.6 Baso % (Auto) 1.6 Lymph # (Auto) 1.4 [place] # (Auto) 0.3 Eos # (Auto) 0.1 Baso # (Auto) 0.1 Abs Immat Gran (auto) 0.01 Absolute Neuts (auto) 3.1 Absolute Nucleated RBC 0.000 Nucleated RBC % (auto) 0.0 APTT 28.5 Anion Gap 22 H Estim Creat Clear Calc 81.8 Estimated GFR > 60 Random Glucose 104 Calcium 8.4 Magnesium 2.3 Total Bilirubin 1.0 AST 99 H ALT 44 H Alkaline Phosphatase 64 Troponin I High Sens 2.8 3.2 B-Natriuretic Peptide < 10 Total Protein 7.1 Albumin 4.4 Lipase 87 H Urine Opiates Screen Not Detected Ur Buprenorphine Scrn Not Detected Ur Oxycodone Screen Not Detected Urine Methadone Screen Not Detected Urine Fentanyl Screen Not Detected Ur Barbiturates Screen Not Detected Ur Phencyclidine Scrn Not Detected Ur Amphetamines Screen Not Detected U Benzodiazepines Scrn Not Detected Urine Cocaine Screen Not Detected U Marijuana (THC) Screen Not Detected Ethyl Alcohol 229 Imaging Radiologist's Impressions: Impressions Chest X-Ray 08/16/24 10:55 IMPRESSION: No acute disease Electronically signed by: Alo Chacon MD 08/16/2024 11:16 AM EDT RP Assessment and Plan (1) Alcohol withdrawal: Qualifiers: Complication of substance-induced condition: with perceptual disturbance Qualified Code(s): F10.932 - Alcohol use, unspecified with withdrawal with perceptual disturbance Status: Acute (2) Anxiety: Status: Acute (3) Chest pain: Qualifiers: Chest pain type: unspecified Qualified Code(s): R07.9 - Chest pain, unspecified Status: Acute Plan Kari Turpin is a 53 y/o man admitted with: Alcohol withdrawal symptoms. Admit to hospitalist service. Telemetry. CIWA protocol. Continue phenobarbital. Start treatment with thiamine, folic acid and multivitamins. Social work consult. Chest pain, resolved. Likely secondary to anxiety and above. ECG negative. Troponin negative x2. Continue aspirin, Brilinta and atorvastatin. Essential hypertension. Continue carvedilol, amlodipine. Atorvastatin. Continue statin. CAD. Continue aspirin, Brilinta and atorvastatin. Mood disorder. Continue citalopram and trazodone. Insomnia. Continue trazodone. DVT prophylaxis: SCDs. Code status: Full Patient will need hospitalization for at least 2 midnights for alcohol withdrawal symptoms mangagement with CIWA and phenobarbital. Quality Stroke Does the patient have a stroke diagnosis?: No VTE Prior VTE?: No VTE Risk Level:: Medical - moderate - high VTE Device Contraindication: N/A - Device Ordered VTE Drug Contraindication: Treatment Not Indicated
[2024-08-16] MEDS: 0.9 % Sodium Chloride Flush 3 ML SYRINGE IVFLUSH (23:38)
--- NOTE | 2024-08-16 23:39 | PC.NURSE ---
pt with oxygen saturation of 84% on room air. Placed on 2L per nasal cannula wuith good effect. Pt continues to refuse changing in to hospital attire at this time.
[2024-08-17] VITALS (11 sets, daily range): BP systolic 118–146; BP diastolic 65–98; PULSE 63–89; RESP 12–20; TEMP 36.4–36.9; O2SAT 94–98
[2024-08-17] MEDS: PHENobarbitaL sodium 130 MG/ML VIAL IM Q3Hx2 246 MG IM (00:57)
[2024-08-17 04:52] LABS: MANUAL DIFF FLAG NO
[2024-08-17 04:54] LABS: Eosinophils Absolute Auto 0.2 X10*3/uL (0.0-0.4); Eosinophils Percent Auto 4.2 % (0-4); Hematocrit 38.6 % (42.0-52.0); Hemoglobin 13.7 g/dl (14.0-18.0); Imm Gran Abs Auto 0.01 X10*3/uL (0.00-0.03); Imm Gran Pct Auto 0.2 % (0.0-0.4); Lymphocytes Absolute Auto 0.9 X10*3/uL (1.2-4.9); Lymphocytes Percent Auto 22.6 % (20-40); Mean Corpuscular HGB Conc 35.5 g/dl (31.0-36.0); Mean Corpuscular Volume 87.3 fL (80.0-98.0); Mean Platelet Volume 9.3 fL (9.4-12.4); Monocytes Absolute Auto 0.3 X10*3/uL (0.1-1.2); Monocytes Percent Auto 6.9 % (2-11); Neutrophils Absolute Auto 2.7 x10*3/uL (2.0-8.3); Neutrophils Percent Auto 65.1 % (45-73); Platelet Count 170 X10*3/uL (160-400); Red Blood Count 4.42 X10*6/uL (4.60-5.80); Red Cell Distribution Width 13.8 % (11.0-16.0); White Blood Count 4.1 X10*3/uL (4.8-10.8)
[2024-08-17 05:15] LABS: Alanine Aminotransferase 36 U/L (0-40); Albumin Level 3.9 g/dL (3.5-5.0); Alkaline Phosphatase 56 U/L (39-117); Anion Gap 14 (12-20); Aspartate Amino Transferase 62 U/L (5-37); Bilirubin Total 2.4 mg/dL (0.0-1.0); Blood Urea Nitrogen 10 mg/dL (9-16); Calcium 8.5 mg/dL (8.4-10.2); Carbon Dioxide 25 mmol/L (22-29); Chloride 104 mmol/L (96-108); Creatinine Clr Calc Pharmacy 88.8; Estimated Glomerular Filt Rate > 60; Glucose Random 110 mg/dL (60-115); Magnesium 2.3 mg/dL (1.6-2.6); Sodium 139 mmol/L (135-145); Total Protein 6.2 g/dL (6.5-8.0)
[2024-08-17 05:23] LABS: Troponin-I High Sensitivity 5.3 ng/L (<3.5-35.0)
--- NOTE | 2024-08-17 09:13 | MHC.CM.PN ---
08/17/24 09:09 - Case Mgmt Progress Note by Shruthi Leon Acct Num: [id number] : 1970 Patient Age: 53 CM met with Patient at bedside, in the ED. Patient lives alone in a CHD supported apartment. Home self care vs Recovery Team intervention r/t ETOH is the tentative plan and CM has initiated and will follow for dc planning. PCP is Dr. Gricelda Mckeon and Patient will need assist with transport (shuttle). Initialized on 08/17/24 09:09 - END OF NOTE
[2024-08-17] MEDS: PHENobarbitaL 15 MG TABLET 45 MG PO ×2 (09:23→20:36)
[2024-08-17] MEDS: Ticagrelor 90 MG TABLET PO ×2 (09:23→20:36)
[2024-08-17] MEDS: carvediloL 6.25 MG TABLET PO ×2 (09:23→20:36)
[2024-08-17] MEDS: Thiamine HCL 100 MG TABLET PO (09:23)
[2024-08-17] MEDS: Folic Acid 1 MG TABLET PO (09:23)
[2024-08-17] MEDS: Aspirin Enteric Coated 81 MG TABLET.DR PO (09:23)
[2024-08-17] MEDS: Atorvastatin Calcium 80 MG TABLET PO (09:23)
[2024-08-17] MEDS: Multivitamin TABLET 1 TAB PO (09:23)
[2024-08-17] MEDS: Escitalopram Oxalate 20 MG TABLET PO (09:24)
[2024-08-17] MEDS: amLODIPine Besylate 5 MG TABLET PO (09:24)
[2024-08-17] MEDS: 0.9 % Sodium Chloride Flush 3 ML SYRINGE IVFLUSH (09:28)
--- NOTE | 2024-08-17 11:28 | PC.NURSE ---
assumed care of pt at 1100 pt called nurse to room stated he fainted in bed vital signs 124/76, 77bpm, 95% RA - pt requests IV hydration. pt also requesting something for his anxiety current CIWA May reviewed no PRN's ordered at this time-- MD notified via [facility] connect
[2024-08-17] MEDS: Lactated Ringers 1,000 ML 100 ML IVCONT ×2 (11:44→20:40)
[2024-08-17] MEDS: hydrOXYzine HCL 25 MG TABLET PO (11:46)
--- NOTE | 2024-08-17 11:57 | PC.NURSE ---
pt medicated per MAR
--- NOTE | 2024-08-17 13:04 | P.PNIM_ITS ---
Subjective Subjective Date of Service: 08/17/24 Interval History: seen and examined this morning follow up for etoh withdrawal patient came seeking detox. reporting anxiety, sob (pt attributes to anxiety), nausea - reports all symptoms similar to him when he stops drinking alcohol reported to nurse he passed out in bed - requested IVF Review of Systems Review of Systems: Yes all other systems are reviewed and are negative Constitutional Constitutional: Denies chills and Denies fever(s) Cardiovascular Cardiovascular: Denies chest pain and Denies palpitations Gastrointestinal Gastrointestinal: Denies abdominal pain, Reports nausea and Denies vomiting Endocrine Endocrine: Denies palpitations Physical Exam 2 Vital Signs: Vital Signs: Last Vital Signs Temp 98.0 F 08/17/24 10:00 Pulse 63 08/17/24 10:00 Resp 12 08/17/24 10:00 BP 125/80 08/17/24 10:00 Pulse Ox 97 08/17/24 07:09 O2 Del Method Nasal Cannula 08/17/24 10:00 O2 Flow Rate 2 08/17/24 10:00 BMI result Body Mass Index 24.5 Const: General: cooperative, alert and awake Nutritional Appearance: a verage body habitus Orientation/consciousness: patient oriented x3 Resp: Effort & Inspection: normal respiratory effort, able to speak in complete sentences, no respiratory distress and no use of accessory muscles A uscultation: clear to auscultation bilaterally Cardio: Rate: regular rate GI: Inspection: No distended Palpation (GI): Soft to palpation and nontender Neuro: Other: no asterixis General: patient oriented x3, moves all extremities and CN's II-XI intact bilaterally Extrem: General: Yes no pedal edema Objective Data Active Medications Acetaminophen (Acetaminophen 325 Mg Tablet) 650 mg PO Q6H PRN PRN Reason: Pain, Mild 1-3,fever,headache Amlodipine Besylate (Amlodipine Besylate 5 Mg Tablet) 5 mg PO DAILY [facility]; Protocol Last Admin: 08/17/24 09:24 Dose: 5 mg Documented By: PIOTR Aspirin (Aspirin Enteric Coated 81 Mg Tablet.) 81 mg PO DAILY [facility] Last Admin: 08/17/24 09:23 Dose: 81 mg Documented By: PIOTR Atorvastatin Calcium (Atorvastatin Calcium 80 Mg Tablet) 80 mg PO DAILY [facility] Last Admin: 08/17/24 09:23 Dose: 80 mg Documented By: PIOTR Calcium Carbonate (Calcium Carbonate 750 Mg Tab.Chew) 750 mg PO Q4H PRN PRN Reason: Heartburn Carvedilol (Carvedilol 6.25 Mg Tablet) 6.25 mg PO BID [facility]; Protocol Last Admin: 08/17/24 09:23 Dose: 6.25 mg Documented By: PIOTR Escitalopram Oxalate (Escitalopram Oxalate 20 Mg Tablet) 20 mg PO DAILY [facility] Last Admin: 08/17/24 09:24 Dose: 20 mg Documented By: PIOTR Folic Acid (Folic Acid 1 Mg Tablet) 1 mg PO DAILY [facility] Last Admin: 08/17/24 09:23 Dose: 1 mg Documented By: PIOTR Hydroxyzine HCl (Hydroxyzine Hcl 25 Mg Tablet) 25 mg PO BID PRN PRN Reason: Anxiety Last Admin: 08/17/24 11:46 Dose: 25 mg Documented By: BECCA Lactated Ringer's (Lr) 1,000 mls @ 100 mls/hr IVCONT .Q10H [facility] Last Admin: 08/17/24 11:44 Dose: 100 mls/hr Documented By: BECCA Magnesium Hydroxide (Milk Of Magnesia 30 Ml Oral.Susp) 30 ml PO DAILY PRN PRN Reason: Constipation Melatonin (Melatonin 3 Mg Tablet) 3 mg PO BEDTIME PRN PRN Reason: Sleep Multivitamins/Vitamin C (Multivitamin Tablet) 1 tab PO DAILY [facility] Last Admin: 08/17/24 09:23 Dose: 1 tab Documented By: PIOTR Pharmacy Consult (Consult Rx Etoh Phenob Im/Po) 1 each MISCELLANE ONCE PRN; Protocol PRN Reason: Consult order Phenobarbital (Phenobarbital 15 Mg Tablet) 45 mg PO BID [facility] Stop: 08/18/24 21:01 Last Admin: 08/17/24 09:23 Dose: 45 mg Documented By: PIOTR Phenobarbital (Phenobarbital 30 Mg Tablet) 30 mg PO BID [facility] Stop: 08/20/24 21:01 Phenobarbital (Phenobarbital 15 Mg Tablet) 15 mg PO DAILY [facility] Stop: 08/22/24 09:01 Sodium Chloride (0.9 % Sodium Chloride Flush 3 Ml Syringe) 3 ml IVFLUSH QSHIFT [facility] Last Admin: 08/17/24 09:28 Dose: 3 ml Documented By: PIOTR Thiamine HCl (Thiamine Hcl 100 Mg Tablet) 100 mg PO DAILY [facility] Last Admin: 08/17/24 09:23 Dose: 100 mg Documented By: PIOTR Ticagrelor (Ticagrelor 90 Mg Tablet) 90 mg PO BID [facility] Last Admin: 08/17/24 09:23 Dose: 90 mg Documented By: PIOTR Trazodone HCl (Trazodone Hcl 100 Mg Tablet) 100 mg PO BEDTIME PRN PRN Reason: Sleep Labs 08/17/24 04:43 08/17/24 04:43 Labs: Laboratory Results - last 24 hr 08/16/24 08/16/24 08/17/24 12:46 15:03 04:43 MCV 87.3 MCH 31.0 MCHC 35.5 RDW 13.8 Plt Count 170 MPV 9.3 L Immature Gran % (Auto) 0.2 Neut % (Auto) 65.1 Lymph % (Auto) 22.6 Nelson % (Auto) 6.9 Eos % (Auto) 4.2 H Baso % (Auto) 1.0 Lymph # (Auto) 0.9 L Nelson # (Auto) 0.3 Eos # (Auto) 0.2 Baso # (Auto) 0.0 Abs Immat Gran (auto) 0.01 Absolute Neuts (auto) 2.7 Absolute Nucleated RBC 0.000 Nucleated RBC % (auto) 0.0 Anion Gap 14 Estim Creat Clear Calc 88.8 Estimated GFR > 60 Random Glucose 110 Calcium 8.5 Magnesium 2.3 Total Bilirubin 2.4 H AST 62 H ALT 36 Alkaline Phosphatase 56 Troponin I High Sens 3.2 5.3 D Total Protein 6.2 L Albumin 3.9 Urine Opiates Screen Not Detected Ur Buprenorphine Scrn Not Detected Ur Oxycodone Screen Not Detected Urine Methadone Screen Not Detected Urine Fentanyl Screen Not Detected Ur Barbiturates Screen Not Detected Ur Phencyclidine Scrn Not Detected Ur Amphetamines Screen Not Detected U Benzodiazepines Scrn Not Detected Urine Cocaine Screen Not Detected U Marijuana (THC) Screen Not Detected Assessment and Plan (1) Anxiety: Status: Acute (2) Alcohol withdrawal: Status: Acute (3) Alcohol abuse: Status: Acute Plan Kari Turpin is a 53 y/o man admitted with: Alcohol use disorder with acute Alcohol withdrawal Continue phenobarbital Monitor CIWA Continue thiamine, folic acid and multivitamins Addiction Medicine consult Chest pain, resolved. Likely secondary to anxiety and above. ECG negative. Troponin negative x2. Continue aspirin, Brilinta and atorvastatin. Mood disorder. Continue citalopram, hydroxyzine does appear to get rx for ativan sometimes on outpatient basis significant anxiety contributing to ongoing etoh use and mutiple somatic complaint po ativan prn psych consult for med adjustment - was previously on gabapentin, but no longer appears to be taking Essential hypertension. Continue carvedilol, amlodipine. Atorvastatin. Continue statin. CAD. Continue aspirin, BB, Brilinta and atorvastatin. Insomnia. Continue trazodone. DVT prophylaxis: SCDs. Code status: Full Requires ongoing inpatient stay for alcohol withdrawal symptoms mangagement with CIWA and phenobarbital. Quality Stroke Does the patient have a stroke diagnosis?: No VTE Prior VTE?: No VTE Risk Level:: Medical - moderate - high VTE Device Contraindication: N/A - Device Ordered VTE Drug Contraindication: Treatment Not Indicated
--- NOTE | 2024-08-17 13:05 | PC.NURSE ---
pt continues to complain of anxiety. CIWA 12, states atarax had no effect. it doesnt feel like you gave me anything .. requests ativan. KE Onofre notified via [employer]
[2024-08-17] MEDS: LORazepam 1 MG TABLET PO ×2 (13:13→21:00)
--- NOTE | 2024-08-17 13:30 | PC.NURSE ---
pt spo2 94% on RA- up to 97% while speaking - KE Onofre notified- okay to keep on RA right now
--- NOTE | 2024-08-17 14:12 | PC.NURSE ---
this nurse ambulated with pt to to bathroom. pt steady on feet- no complaints of SOB/Dizziness
--- NOTE | 2024-08-17 15:42 | P.CNPS_ITS ---
History of Present Illness Date of Service: 08/17/2024 Chief Complaint: Alcohol Withdrawal Reason for Consult: anxiety Requesting physician: Elvia Onofre Discussed with referring provider: Yes Sources of Information: patient interviewed, chart reviewed and crisis/core team assessment reviewed HPI Narrative: Mr. Pierce is a 53 year-old male with hx of alcohol use disorder. He is currently admitted for treatment of alcohol withdrawal. He was started on phenobarbitol protocol. Pt is known to psychiatry through 2 previous assessments while medically admitted for alcohol withdrawal back in 05/27/2023 and 05/29/2023. Pt seen in the ED awaiting bed for medical admission. Pt reports hx of depression and anxiety contributing to ongoing alcohol use. He denies SI/HI. He reports drinking at least 6 pack of beer or more daily. He reports no significant periods of sobriety. He reports alcohol use continues to affect his relationship with love ones and his health. He denies SI/HI. No hx of psychosis or delusions. No s/s of tino or hypomania. He has been seeing psychiatric prescriber at [facility] Jayla Weber. He is currently on lexapro and hydroxyzine for depression and anxiety. Past Psychiatric History: OP: Jayla Weber, [facility] through [facility]. No hx of suicide attempts No hx of inpt psych admission. Past medication trials: lexapro, remeron, gabapentin. Medical Evaluation Reviewed: Yes [facility] Medical History (Updated 08/17/24 @ 15:53 by Elizabeth Yang NP) Ileus Myocardial infarction CAD (coronary artery disease) Diagnostics Vital Signs (24Hr): Vital Signs - 24 hr 08/16/24 17:44 08/16/24 18:58 08/16/24 21:54 Temperature 97.9 F Pulse Rate 121 H 94 96 Respiratory Rate 21 H 23 H 20 Blood Pressure 142/71 H 119/74 122/72 Pulse Oximetry 97 93 96 Oxygen Delivery Method Room Air Room Air Room Air Oxygen Flow Rate 08/16/24 22:21 08/16/24 22:24 08/17/24 00:56 Temperature 97.4 F 98 F Pulse Rate 98 84 88 Respiratory Rate 17 16 Blood Pressure 141/84 H 141/84 H 127/79 Pulse Oximetry 95 98 Oxygen Delivery Method Room Air Nasal Cannula Oxygen Flow Rate 2 08/17/24 05:06 08/17/24 07:09 08/17/24 09:23 Temperature 97.9 F 98.1 F Pulse Rate 79 63 75 Respiratory Rate 16 12 Blood Pressure 142/81 H 125/80 146/89 H Pulse Oximetry 96 97 Oxygen Delivery Method Nasal Cannula Nasal Cannula Oxygen Flow Rate 2 08/17/24 09:24 08/17/24 10:00 08/17/24 13:28 Temperature 98.0 F Pulse Rate 63 70 Respiratory Rate 12 18 Blood Pressure 146/89 H 125/80 129/69 Pulse Oximetry 97 Oxygen Delivery Method Nasal Cannula Room Air Oxygen Flow Rate 2 08/17/24 14:19 Temperature Pulse Rate 89 Respiratory Rate Blood Pressure Pulse Oximetry 97 Oxygen Delivery Method Room Air Oxygen Flow Rate BMI result Body Mass Index 24.5 Labs 08/17/24 04:43 08/17/24 04:43 Labs: Laboratory Results - last 48 hr 08/16/24 08/16/24 08/16/24 10:44 12:46 15:03 WBC 5.0 RBC 4.73 Hgb 14.7 Hct 41.0 L MCV 86.7 MCH 31.1 MCHC 35.9 RDW 13.5 Plt Count 225 MPV 9.3 L Immature Gran % (Auto) 0.2 Neut % (Auto) 61.9 Lymph % (Auto) 28.3 Allen % (Auto) 6.4 Eos % (Auto) 1.6 Baso % (Auto) 1.6 Lymph # (Auto) 1.4 Allen # (Auto) 0.3 Eos # (Auto) 0.1 Baso # (Auto) 0.1 Abs Immat Gran (auto) 0.01 Absolute Neuts (auto) 3.1 Absolute Nucleated RBC 0.000 Nucleated RBC % (auto) 0.0 APTT 28.5 Sodium 136 Potassium 4.4 Chloride 100 Carbon Dioxide 18 L Anion Gap 22 H BUN 7 L Creatinine 1.01 Estim Creat Clear Calc 81.8 Estimated GFR > 60 Random Glucose 104 Calcium 8.4 Magnesium 2.3 Total Bilirubin 1.0 AST 99 H ALT 44 H Alkaline Phosphatase 64 Troponin I High Sens 2.8 3.2 B-Natriuretic Peptide < 10 Total Protein 7.1 Albumin 4.4 Lipase 87 H Urine Opiates Screen Not Detected Ur Buprenorphine Scrn Not Detected Ur Oxycodone Screen Not Detected Urine Methadone Screen Not Detected Urine Fentanyl Screen Not Detected Ur Barbiturates Screen Not Detected Ur Phencyclidine Scrn Not Detected Ur Amphetamines Screen Not Detected U Benzodiazepines Scrn Not Detected Urine Cocaine Screen Not Detected U Marijuana (THC) Screen Not Detected Ethyl Alcohol 229 08/17/24 04:43 WBC 4.1 L RBC 4.42 L Hgb 13.7 L Hct 38.6 L MCV 87.3 MCH 31.0 MCHC 35.5 RDW 13.8 Plt Count 170 MPV 9.3 L Immature Gran % (Auto) 0.2 Neut % (Auto) 65.1 Lymph % (Auto) 22.6 Allen % (Auto) 6.9 Eos % (Auto) 4.2 H Baso % (Auto) 1.0 Lymph # (Auto) 0.9 L Allen # (Auto) 0.3 Eos # (Auto) 0.2 Baso # (Auto) 0.0 Abs Immat Gran (auto) 0.01 Absolute Neuts (auto) 2.7 Absolute Nucleated RBC 0.000 Nucleated RBC % (auto) 0.0 APTT Sodium 139 Potassium 4.0 Chloride 104 Carbon Dioxide 25 Anion Gap 14 BUN 10 Creatinine 0.93 Estim Creat Clear Calc 88.8 Estimated GFR > 60 Random Glucose 110 Calcium 8.5 Magnesium 2.3 Total Bilirubin 2.4 H AST 62 H ALT 36 Alkaline Phosphatase 56 Troponin I High Sens 5.3 D B-Natriuretic Peptide Total Protein 6.2 L Albumin 3.9 Lipase Urine Opiates Screen Ur Buprenorphine Scrn Ur Oxycodone Screen Urine Methadone Screen Urine Fentanyl Screen Ur Barbiturates Screen Ur Phencyclidine Scrn Ur Amphetamines Screen U Benzodiazepines Scrn Urine Cocaine Screen U Marijuana (THC) Screen Ethyl Alcohol Imaging Radiology Impressions: ITS Impressions Chest X-Ray 08/16/24 10:55 IMPRESSION: No acute disease Electronically signed by: Alo Chacon MD 08/16/2024 11:16 AM EDT Mental Status Exam Mental Status Exam Narrative: Appearance: MO, long bear, somewhat unkempt, wearing hospital gown, fair hygiene, in NAD Behavior: cooperative Psychomotor: no agitation or retardation noted Speech: clear, normal rate/rhythm/volume, spontaneous TP: linear TC: wanting help for alcohol use disorder Mood: could be better Affect: brightens up at times SI: denies HI: denies VH/AH: none Delusions: none Insight/judgment: fair x 2. Memory/cog: alert, oriented x 3. grossly intact Medications Medications Current Medications Acetaminophen (Acetaminophen 325 Mg Tablet) 650 mg PO Q6H PRN PRN Reason: Pain, Mild 1-3,fever,headache Amlodipine Besylate (Amlodipine Besylate 5 Mg Tablet) 5 mg PO DAILY [facility]; Protocol Last Admin: 08/17/24 09:24 Dose: 5 mg Aspirin (Aspirin Enteric Coated 81 Mg Tablet.Dr) 81 mg PO DAILY [facility] Last Admin: 08/17/24 09:23 Dose: 81 mg Atorvastatin Calcium (Atorvastatin Calcium 80 Mg Tablet) 80 mg PO DAILY [facility] Last Admin: 08/17/24 09:23 Dose: 80 mg Calcium Carbonate (Calcium Carbonate 750 Mg Tab.Chew) 750 mg PO Q4H PRN PRN Reason: Heartburn Carvedilol (Carvedilol 6.25 Mg Tablet) 6.25 mg PO BID [facility]; Protocol Last Admin: 08/17/24 09:23 Dose: 6.25 mg Escitalopram Oxalate (Escitalopram Oxalate 20 Mg Tablet) 20 mg PO DAILY [facility] Last Admin: 08/17/24 09:24 Dose: 20 mg Folic Acid (Folic Acid 1 Mg Tablet) 1 mg PO DAILY [facility] Last Admin: 08/17/24 09:23 Dose: 1 mg Hydroxyzine HCl (Hydroxyzine Hcl 25 Mg Tablet) 25 mg PO BID PRN PRN Reason: Anxiety Last Admin: 08/17/24 11:46 Dose: 25 mg Lactated Ringer's (Lr) 1,000 mls @ 100 mls/hr IVCONT .Q10H [facility] Last Admin: 08/17/24 11:44 Dose: 100 mls/hr Lorazepam (Lorazepam 1 Mg Tablet) 1 mg PO Q8H PRN PRN Reason: Anxiety Last Admin: 08/17/24 13:13 Dose: 1 mg Magnesium Hydroxide (Milk Of Magnesia 30 Ml Oral.Susp) 30 ml PO DAILY PRN PRN Reason: Constipation Melatonin (Melatonin 3 Mg Tablet) 3 mg PO BEDTIME PRN PRN Reason: Sleep Multivitamins/Vitamin C (Multivitamin Tablet) 1 tab PO DAILY [facility] Last Admin: 08/17/24 09:23 Dose: 1 tab Pharmacy Consult (Consult Rx Etoh Phenob Im/Po) 1 each MISCELLANE ONCE PRN; Protocol PRN Reason: Consult order Phenobarbital (Phenobarbital 15 Mg Tablet) 45 mg PO BID [facility] Stop: 08/18/24 21:01 Last Admin: 08/17/24 09:23 Dose: 45 mg Phenobarbital (Phenobarbital 30 Mg Tablet) 30 mg PO BID [facility] Stop: 08/20/24 21:01 Phenobarbital (Phenobarbital 15 Mg Tablet) 15 mg PO DAILY [facility] Stop: 08/22/24 09:01 Sodium Chloride (0.9 % Sodium Chloride Flush 3 Ml Syringe) 3 ml IVFLUSH QSHIFT [facility] Last Admin: 08/17/24 09:28 Dose: 3 ml Thiamine HCl (Thiamine Hcl 100 Mg Tablet) 100 mg PO DAILY [facility] Last Admin: 08/17/24 09:23 Dose: 100 mg Ticagrelor (Ticagrelor 90 Mg Tablet) 90 mg PO BID [facility] Last Admin: 08/17/24 09:23 Dose: 90 mg Trazodone HCl (Trazodone Hcl 100 Mg Tablet) 100 mg PO BEDTIME PRN PRN Reason: Sleep Allergies Allergies Allergy/AdvReac Type Severity Reaction Status Date / Time No Known Allergies Allergy Verified 08/16/24 10:18 Assessment & Plan Assessment & Plan (1) MDD (major depressive disorder), recurrent episode, moderate: Status: Acute Code(s): F33.1 - Major depressive disorder, recurrent, moderate (2) Alcohol-induced anxiety disorder: Status: Acute Code(s): F10.980 - Alcohol use, unspecified with alcohol-induced anxiety disorder (3) Alcohol use disorder, moderate, dependence: Status: Acute Code(s): F10.20 - Alcohol dependence, uncomplicated Plan Mr. Pierce is a 53 year-old male with hx of alcohol use disorder, depression who is currently admitted for treatment of alcohol withdrawal on phenobarb protocol. BAL 229. Utox negative. Psychiatry asked to assess pt for anxiety. Pt is known to psychiatric service through two assessment back in 05/2023 for similar presentation. We discussed risks benefits and alternative treatment options. Pt to continue lexapro. He reports gabapentin has been helpful for anxiety but mostly at night. He does not want extra doses as he gets very groggy. This designer/writer provided education on prolonged use of alcohol decreases levels natural production of kim and it takes several month after using alcohol for brain to self regulate and increase production of kim, causing sense of restlessness and anxiety (as there is no regulation to excitatory neurotransmitter glutamate). T his sense of restlessness/anxiety is different for psychiatric disorders such as generalized anxiety disorder or anxiety preceding alcohol use. Although use of substance often starts as self medication, at this point treating long standing depression or trauma, will NOT treat alcohol use disorder. These are now comorbid conditions that need specific interventions. The assumption that it is the anxiety that led to chronic alcohol use is inaccurate and unrealistic (given the expectation that treating anxiety will automatically lead to remission of alcohol use). PLAN 1. No need for inpt admission. No safety concerns in terms of SI/HI. 2. Start gabapentin 400mg po qhs. Continue lexapro 20mg po daily. 3. Follow up with CHD provider Jayla Weber NP. Pt has been seeing her regularly. Total time managing care of this patient today ____ minutes.
--- NOTE | 2024-08-17 16:41 | HO.ADDICT_ITS ---
History of Present Illness Date of Service: 08/17/2024 Chief Complaint: Alcohol Withdrawal Reason for Consult: AUD Sources of Information: patient interviewed and chart reviewed HPI Narrative: Patient is a 53 year old male with history of AUD, MDD. Medically admitted after presenting to [facility] ED in acute alcohol withdrawal. Patient seen in room 444. He is awake, alert, pleasant and engaged in interview. When asked how he was feeling in terms of withdrawal, he stated, oh just terrible , and started to list several sx, however when asked for clarification, since he did not present this way, he stated this was last night . He continues to feel anxiety, and some vertigo when moving positions quickly. No longer experiencing VH as he was when he presented to ED. He reports long history of AUD, with periods of abstaining in btwn, usually several months. Prior to admission he reports drinking 3-4 24 oz high alcohol content beers daily. He tried decreasing on his own, but felt terrible at home and unable to eat, which prompted ED visit. He reports 2 ATS admissions. Most recent several months ago at [facility] Denies any history of MARYJANE, but states he has been talking to his psych provider about this and he plans to start Naltrexone. Overall appearance, comfortable. No tremor noted or felt. No diaphoresis. Denies n/v. 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 No hx of suicide attempts No hx of inpt psych admission. Past medication trials: lexapro, remeron, gabapentin. Medical Evaluation Reviewed: Yes Review of Systems Constitutional: Reports as per HPI Diagnostics Vital Signs (24Hr): Vital Signs - 24 hr 08/16/24 17:44 08/16/24 18:58 08/16/24 21:54 Temperature 97.9 F Pulse Rate 121 H 94 96 Respiratory Rate 21 H 23 H 20 Blood Pressure 142/71 H 119/74 122/72 Pulse Oximetry 97 93 96 Oxygen Delivery Method Room Air Room Air Room Air Oxygen Flow Rate 08/16/24 22:21 08/16/24 22:24 08/17/24 00:56 Temperature 97.4 F 98 F Pulse Rate 98 84 88 Respiratory Rate 17 16 Blood Pressure 141/84 H 141/84 H 127/79 Pulse Oximetry 95 98 Oxygen Delivery Method Room Air Nasal Cannula Oxygen Flow Rate 2 08/17/24 05:06 08/17/24 07:09 08/17/24 09:23 Temperature 97.9 F 98.1 F Pulse Rate 79 63 75 Respiratory Rate 16 12 Blood Pressure 142/81 H 125/80 146/89 H Pulse Oximetry 96 97 Oxygen Delivery Method Nasal Cannula Nasal Cannula Oxygen Flow Rate 2 08/17/24 09:24 08/17/24 10:00 08/17/24 13:28 Temperature 98.0 F Pulse Rate 63 70 Respiratory Rate 12 18 Blood Pressure 146/89 H 125/80 129/69 Pulse Oximetry 97 Oxygen Delivery Method Nasal Cannula Room Air Oxygen Flow Rate 2 08/17/24 14:19 08/17/24 16:00 Temperature 98.5 F Pulse Rate 89 76 Respiratory Rate 18 Blood Pressure 145/98 H Pulse Oximetry 97 96 Oxygen Delivery Method Room Air Nasal Cannula Oxygen Flow Rate 1 BMI result Body Mass Index 24.5 Labs 08/17/24 04:43 08/17/24 04:43 Labs: Laboratory Results - last 48 hr 08/16/24 08/16/24 08/16/24 10:44 12:46 15:03 WBC 5.0 RBC 4.73 Hgb 14.7 Hct 41.0 L MCV 86.7 MCH 31.1 MCHC 35.9 RDW 13.5 Plt Count 225 MPV 9.3 L Immature Gran % (Auto) 0.2 Neut % (Auto) 61.9 Lymph % (Auto) 28.3 Gosper % (Auto) 6.4 Eos % (Auto) 1.6 Baso % (Auto) 1.6 Lymph # (Auto) 1.4 Gosper # (Auto) 0.3 Eos # (Auto) 0.1 Baso # (Auto) 0.1 Abs Immat Gran (auto) 0.01 Absolute Neuts (auto) 3.1 Absolute Nucleated RBC 0.000 Nucleated RBC % (auto) 0.0 APTT 28.5 Sodium 136 Potassium 4.4 Chloride 100 Carbon Dioxide 18 L Anion Gap 22 H BUN 7 L Creatinine 1.01 Estim Creat Clear Calc 81.8 Estimated GFR > 60 Random Glucose 104 Calcium 8.4 Magnesium 2.3 Total Bilirubin 1.0 AST 99 H ALT 44 H Alkaline Phosphatase 64 Troponin I High Sens 2.8 3.2 B-Natriuretic Peptide < 10 Total Protein 7.1 Albumin 4.4 Lipase 87 H Urine Opiates Screen Not Detected Ur Buprenorphine Scrn Not Detected Ur Oxycodone Screen Not Detected Urine Methadone Screen Not Detected Urine Fentanyl Screen Not Detected Ur Barbiturates Screen Not Detected Ur Phencyclidine Scrn Not Detected Ur Amphetamines Screen Not Detected U Benzodiazepines Scrn Not Detected Urine Cocaine Screen Not Detected U Marijuana (THC) Screen Not Detected Ethyl Alcohol 229 08/17/24 04:43 WBC 4.1 L RBC 4.42 L Hgb 13.7 L Hct 38.6 L MCV 87.3 MCH 31.0 MCHC 35.5 RDW 13.8 Plt Count 170 MPV 9.3 L Immature Gran % (Auto) 0.2 Neut % (Auto) 65.1 Lymph % (Auto) 22.6 Gosper % (Auto) 6.9 Eos % (Auto) 4.2 H Baso % (Auto) 1.0 Lymph # (Auto) 0.9 L Gosper # (Auto) 0.3 Eos # (Auto) 0.2 Baso # (Auto) 0.0 Abs Immat Gran (auto) 0.01 Absolute Neuts (auto) 2.7 Absolute Nucleated RBC 0.000 Nucleated RBC % (auto) 0.0 APTT Sodium 139 Potassium 4.0 Chloride 104 Carbon Dioxide 25 Anion Gap 14 BUN 10 Creatinine 0.93 Estim Creat Clear Calc 88.8 Estimated GFR > 60 Random Glucose 110 Calcium 8.5 Magnesium 2.3 Total Bilirubin 2.4 H AST 62 H ALT 36 Alkaline Phosphatase 56 Troponin I High Sens 5.3 D B-Natriuretic Peptide Total Protein 6.2 L Albumin 3.9 Lipase Urine Opiates Screen Ur Buprenorphine Scrn Ur Oxycodone Screen Urine Methadone Screen Urine Fentanyl Screen Ur Barbiturates Screen Ur Phencyclidine Scrn Ur Amphetamines Screen U Benzodiazepines Scrn Urine Cocaine Screen U Marijuana (THC) Screen Ethyl Alcohol Imaging Radiology Impressions: ITS Impressions Chest X-Ray 08/16/24 10:55 IMPRESSION: No acute disease Electronically signed by: Alo Chacon MD 08/16/2024 11:16 AM EDT Mental Status Exam Mental Status Exam Patient Appearance: Well Grooomed and Appropriate Level of Consciousness: Awake, Appropriate and Alert Patient Behavior: Appropriate and Talkative Mood Description: Anxious Affect Description: Appropriate Speech Pattern: Clear Hallucinations: None Thought Process: Intact Thought Content: positive for Intact and positive for [place] Judgement: Good Medications Medications Current Medications Acetaminophen (Acetaminophen 325 Mg Tablet) 650 mg PO Q6H PRN PRN Reason: Pain, Mild 1-3,fever,headache Amlodipine Besylate (Amlodipine Besylate 5 Mg Tablet) 5 mg PO DAILY [facility]; Protocol Last Admin: 08/17/24 09:24 Dose: 5 mg Aspirin (Aspirin Enteric Coated 81 Mg Tablet.Dr) 81 mg PO DAILY [facility] Last Admin: 08/17/24 09:23 Dose: 81 mg Atorvastatin Calcium (Atorvastatin Calcium 80 Mg Tablet) 80 mg PO DAILY [facility] Last Admin: 08/17/24 09:23 Dose: 80 mg Calcium Carbonate (Calcium Carbonate 750 Mg Tab.Chew) 750 mg PO Q4H PRN PRN Reason: Heartburn Carvedilol (Carvedilol 6.25 Mg Tablet) 6.25 mg PO BID [facility]; Protocol Last Admin: 08/17/24 09:23 Dose: 6.25 mg Escitalopram Oxalate (Escitalopram Oxalate 20 Mg Tablet) 20 mg PO DAILY [facility] Last Admin: 08/17/24 09:24 Dose: 20 mg Folic Acid (Folic Acid 1 Mg Tablet) 1 mg PO DAILY [facility] Last Admin: 08/17/24 09:23 Dose: 1 mg Gabapentin (Gabapentin 400 Mg Capsule) 400 mg PO BEDTIME KATHERYN Gabapentin (Gabapentin 100 Mg Capsule) 100 mg PO DAILY PRN PRN Reason: moderate anxiety Hydroxyzine HCl (Hydroxyzine Hcl 25 Mg Tablet) 25 mg PO BID PRN PRN Reason: Anxiety Last Admin: 08/17/24 11:46 Dose: 25 mg Lactated Ringer's (Lr) 1,000 mls @ 100 mls/hr IVCONT .Q10H [facility] Last Admin: 08/17/24 11:44 Dose: 100 mls/hr Lorazepam (Lorazepam 1 Mg Tablet) 1 mg PO Q8H PRN PRN Reason: Anxiety Last Admin: 08/17/24 13:13 Dose: 1 mg Magnesium Hydroxide (Milk Of Magnesia 30 Ml Oral.Susp) 30 ml PO DAILY PRN PRN Reason: Constipation Melatonin (Melatonin 3 Mg Tablet) 3 mg PO BEDTIME PRN PRN Reason: Sleep Multivitamins/Vitamin C (Multivitamin Tablet) 1 tab PO DAILY [facility] Last Admin: 08/17/24 09:23 Dose: 1 tab Pharmacy Consult (Consult Rx Etoh Phenob Im/Po) 1 each MISCELLANE ONCE PRN; Protocol PRN Reason: Consult order Phenobarbital (Phenobarbital 15 Mg Tablet) 45 mg PO BID [facility] Stop: 08/18/24 21:01 Last Admin: 08/17/24 09:23 Dose: 45 mg Phenobarbital (Phenobarbital 30 Mg Tablet) 30 mg PO BID [facility] Stop: 08/20/24 21:01 Phenobarbital (Phenobarbital 15 Mg Tablet) 15 mg PO DAILY [facility] Stop: 08/22/24 09:01 Sodium Chloride (0.9 % Sodium Chloride Flush 3 Ml Syringe) 3 ml IVFLUSH QSHIFT [facility] Last Admin: 08/17/24 09:28 Dose: 3 ml Thiamine HCl (Thiamine Hcl 100 Mg Tablet) 100 mg PO DAILY [facility] Last Admin: 08/17/24 09:23 Dose: 100 mg Ticagrelor (Ticagrelor 90 Mg Tablet) 90 mg PO BID [facility] Last Admin: 08/17/24 09:23 Dose: 90 mg Trazodone HCl (Trazodone Hcl 100 Mg Tablet) 100 mg PO BEDTIME PRN PRN Reason: Sleep Allergies Allergies Allergy/AdvReac Type Severity Reaction Status Date / Time No Known Allergies Allergy Verified 08/16/24 10:18 Assessment & Plan Assessment & Plan (1) Alcohol withdrawal: Qualifiers: Complication of substance-induced condition: with perceptual disturbance Qualified Code(s): F10.932 - Alcohol use, unspecified with withdrawal with perceptual disturbance Status: Acute Code(s): F10.939 - Alcohol use, unspecified with withdrawal, unspecified Assessment and Plan: * phenobarbital taper in place, withdrawal sx well managed * thiamine and folic acid * utilize PRN gabapentin for ongoing c/o anxiety. * will follow up in AM to discuss MARYJANE Total time managing care of this patient today __25__ minutes. [facility] Past Medical History Medical History (Updated 08/17/24 @ 15:53 by Elizabeth Yang NP) Ileus Myocardial infarction CAD (coronary artery disease) Social History Social History Household Members: None Household Members Other:: self Housing: Apartment Do you presently have visiting nurse or other home services: No Alcohol intake: current Alcohol intake frequency: 3 or more drinks per day Alcohol type: beer and hard liquor Patient Tobacco Use Status: Former Tobacco user Tobacco use type: Cigarette Cigarettes Per Day: 4 Years Smoked: 40 e-Cigarette/Vaping Use: Former Use Second Hand Smoke Exposure: No Advance Directives Date on File: 05/26/23 service: No
[2024-08-17] MEDS: Acetaminophen 325 MG TABLET 650 MG PO (16:58)
[2024-08-17] MEDS: Gabapentin 400 MG CAPSULE PO (20:36)
[2024-08-17] MEDS: traZODone HCL 100 MG TABLET PO (20:36)
[2024-08-18] VITALS (8 sets, daily range): BP systolic 135–156; BP diastolic 74–83; PULSE 68–91; RESP 18–20; TEMP 36.3–36.9; O2SAT 94–97
[2024-08-18] MEDS: Gabapentin 100 MG CAPSULE PO ×2 (03:23→17:33)
[2024-08-18] MEDS: Lactated Ringers 1,000 ML 100 ML IVCONT (05:15)
[2024-08-18] MEDS: Aspirin Enteric Coated 81 MG TABLET.DR PO (08:40)
[2024-08-18] MEDS: Escitalopram Oxalate 20 MG TABLET PO (08:40)
[2024-08-18] MEDS: PHENobarbitaL 15 MG TABLET 45 MG PO ×2 (08:40→20:46)
[2024-08-18] MEDS: Ticagrelor 90 MG TABLET PO ×2 (08:40→20:46)
[2024-08-18] MEDS: Thiamine HCL 100 MG TABLET PO (08:40)
[2024-08-18] MEDS: Atorvastatin Calcium 80 MG TABLET PO (08:40)
[2024-08-18] MEDS: amLODIPine Besylate 5 MG TABLET PO (08:40)
[2024-08-18] MEDS: Multivitamin TABLET 1 TAB PO (08:41)
[2024-08-18] MEDS: 0.9 % Sodium Chloride Flush 3 ML SYRINGE IVFLUSH ×2 (08:41→20:47)
[2024-08-18] MEDS: carvediloL 6.25 MG TABLET PO ×2 (08:41→20:05)
[2024-08-18] MEDS: Folic Acid 1 MG TABLET PO (08:41)
[2024-08-18 09:39] LABS: Alanine Aminotransferase 51 U/L (0-40); Albumin Level 4.3 g/dL (3.5-5.0); Alkaline Phosphatase 57 U/L (39-117); Anion Gap 13 (12-20); Aspartate Amino Transferase 82 U/L (5-37); Bilirubin Direct 0.4 mg/dL (0.0-0.5); Blood Urea Nitrogen 12 mg/dL (9-16); Calcium 8.7 mg/dL (8.4-10.2); Carbon Dioxide 30 mmol/L (22-29); Chloride 104 mmol/L (96-108); Creatinine Clr Calc Pharmacy 85.2; Estimated Glomerular Filt Rate > 60; Glucose Random 149 mg/dL (60-115); Magnesium 1.9 mg/dL (1.6-2.6); Potassium 3.5 mmol/L (3.3-5.1); Sodium 143 mmol/L (135-145); Total Protein 6.9 g/dL (6.5-8.0)
--- NOTE | 2024-08-18 10:17 | MHC.CM.PN ---
Per ROUNDS discussion, Patient is not yet medically cleared for dc (CIWA of 9); Patient may benefit from a PT Eval to assist with disposition. CM will continue to follow.
--- NOTE | 2024-08-18 11:26 | P.PNIM_ITS ---
Subjective Subjective Date of Service: 08/18/24 Interval History: seen and examined this morning follow up for alcohol withdrawal feeling dizzy, worse with lying flat, moving head, position change; no nausea or vomiting Review of Systems Review of Systems: Yes all other systems are reviewed and are negative Constitutional Constitutional: Denies chills and Denies fever(s) Cardiovascular Cardiovascular: Denies chest pain and Denies palpitations Gastrointestinal Gastrointestinal: Denies abdominal pain Endocrine Endocrine: Denies palpitations Physical Exam 2 Vital Signs: Vital Signs: Last Vital Signs Temp 97.6 F 08/18/24 07:32 Pulse 68 08/18/24 07:32 Resp 20 08/18/24 07:32 BP 156/74 H 08/18/24 07:32 Pulse Ox 97 08/18/24 07:32 O2 Del Method Room Air 08/18/24 07:32 O2 Flow Rate 1 08/17/24 18:59 BMI result Body Mass Index 24.5 Const: General: cooperative, comfortable, no acute distress, alert and awake Nutritional Appearance: overweight Orientation/consciousness: patient oriented x3 Resp: Effort & Inspection: normal respiratory effort, able to speak in complete sentences, no respiratory distress and no use of accessory muscles Cardio: Rate: regular rate GI: Inspection: No distended Palpation (GI): Soft to palpation and nontender Neuro: General: patient oriented x3, moves all extremities and CN's II-XI intact bilaterally Extrem: General: Yes no pedal edema Objective Data Active Medications Acetaminophen (Acetaminophen 325 Mg Tablet) 650 mg PO Q6H PRN PRN Reason: Pain, Mild 1-3,fever,headache Last Admin: 08/17/24 16:58 Dose: 650 mg Documented By: CASSIUS Amlodipine Besylate (Amlodipine Besylate 5 Mg Tablet) 5 mg PO DAILY [facility]; Protocol Last Admin: 08/18/24 08:40 Dose: 5 mg Documented By: CASSIUS Aspirin (Aspirin Enteric Coated 81 Mg Tablet.) 81 mg PO DAILY [facility] Last Admin: 08/18/24 08:40 Dose: 81 mg Documented By: CASSIUS Atorvastatin Calcium (Atorvastatin Calcium 80 Mg Tablet) 80 mg PO DAILY [facility] Last Admin: 08/18/24 08:40 Dose: 80 mg Documented By: CASSIUS Calcium Carbonate (Calcium Carbonate 750 Mg Tab.Chew) 750 mg PO Q4H PRN PRN Reason: Heartburn Carvedilol (Carvedilol 6.25 Mg Tablet) 6.25 mg PO BID [facility]; Protocol Last Admin: 08/18/24 08:41 Dose: 6.25 mg Documented By: CASSIUS Escitalopram Oxalate (Escitalopram Oxalate 20 Mg Tablet) 20 mg PO DAILY [facility] Last Admin: 08/18/24 08:40 Dose: 20 mg Documented By: CASSIUS Folic Acid (Folic Acid 1 Mg Tablet) 1 mg PO DAILY [facility] Last Admin: 08/18/24 08:41 Dose: 1 mg Documented By: CASSIUS Gabapentin (Gabapentin 400 Mg Capsule) 400 mg PO BEDTIME [facility] Last Admin: 08/17/24 20:36 Dose: 400 mg Documented By: JOSE Gabapentin (Gabapentin 100 Mg Capsule) 100 mg PO DAILY PRN PRN Reason: moderate anxiety Last Admin: 08/18/24 03:23 Dose: 100 mg Documented By: JANICE Comments: moderate anxiety Hydroxyzine HCl (Hydroxyzine Hcl 25 Mg Tablet) 25 mg PO BID PRN PRN Reason: Anxiety Last Admin: 08/17/24 11:46 Dose: 25 mg Documented By: BECCA Lactated Ringer's (Lr) 1,000 mls @ 100 mls/hr IVCONT .Q10H [facility] Last Admin: 08/18/24 05:15 Dose: 100 mls/hr Documented By: JANICE Lorazepam (Lorazepam 0.5 Mg Tablet) 0.5 mg PO Q8H PRN PRN Reason: Anxiety Magnesium Hydroxide (Milk Of Magnesia 30 Ml Oral.Susp) 30 ml PO DAILY PRN PRN Reason: Constipation Melatonin (Melatonin 3 Mg Tablet) 3 mg PO BEDTIME PRN PRN Reason: Sleep Multivitamins/Vitamin C (Multivitamin Tablet) 1 tab PO DAILY [facility] Last Admin: 08/18/24 08:41 Dose: 1 tab Documented By: CASSIUS Pharmacy Consult (Consult Rx Etoh Phenob Im/Po) 1 each MISCELLANE ONCE PRN; Protocol PRN Reason: Consult order Phenobarbital (Phenobarbital 15 Mg Tablet) 45 mg PO BID [facility] Stop: 08/18/24 21:01 Last Admin: 08/18/24 08:40 Dose: 45 mg Documented By: CASSIUS Phenobarbital (Phenobarbital 30 Mg Tablet) 30 mg PO BID [facility] Stop: 08/20/24 21:01 Phenobarbital (Phenobarbital 15 Mg Tablet) 15 mg PO DAILY [facility] Stop: 08/22/24 09:01 Sodium Chloride (0.9 % Sodium Chloride Flush 3 Ml Syringe) 3 ml IVFLUSH QSHIFT [facility] Last Admin: 08/18/24 08:41 Dose: 3 ml Documented By: CASSIUS Thiamine HCl (Thiamine Hcl 100 Mg Tablet) 100 mg PO DAILY [facility] Last Admin: 08/18/24 08:40 Dose: 100 mg Documented By: CASSIUS Ticagrelor (Ticagrelor 90 Mg Tablet) 90 mg PO BID [facility] Last Admin: 08/18/24 08:40 Dose: 90 mg Documented By: CASSIUS Trazodone HCl (Trazodone Hcl 100 Mg Tablet) 100 mg PO BEDTIME PRN PRN Reason: Sleep Last Admin: 08/17/24 20:36 Dose: 100 mg Documented By: RINKUARTB Labs 08/17/24 04:43 08/18/24 09:01 Labs: Laboratory Results - last 24 hr 08/18/24 09:01 Anion Gap 13 Estim Creat Clear Calc 85.2 Estimated GFR > 60 Random Glucose 149 H Calcium 8.7 Magnesium 1.9 Total Bilirubin 1.0 Direct Bilirubin 0.4 AST 82 H ALT 51 H Alkaline Phosphatase 57 Total Protein 6.9 Albumin 4.3 Assessment and Plan (1) Alcohol withdrawal: Status: Acute (2) Alcohol-induced anxiety disorder: Status: Acute Plan This is a 53 y/o man with history of CAD, HTN, anxiety, depression and alcohol dependence admitted for alcohol withdrawal Alcohol use disorder with acute Alcohol withdrawal Continue phenobarbital CIWA stable. main symptom anxiety Continue thiamine, folic acid and multivitamins Addiction Medicine following Dizziness vague on timeline/symptoms; probable BPPV prn meclizine PT evaluation Chest pain, resolved. Likely secondary to anxiety and above. ECG negative. Troponin negative x2. Continue aspirin, Brilinta and atorvastatin. transaminitis ?due to etoh/hepatic steatosis on imaging from 2023 no abdominal pain if trends up further, can consider holding statin Mood disorder. Continue citalopram, hydroxyzine significant anxiety po ativan prn psych consult for med adjustment - resumed on gabapentin Essential hypertension. Continue carvedilol, amlodipine. Atorvastatin. Continue statin. CAD. Continue aspirin, BB, Brilinta and atorvastatin. Insomnia. Continue trazodone. DVT prophylaxis: SCDs. Code status: Full Requires ongoing inpatient stay for alcohol withdrawal symptoms mangagement with CIWA and phenobarbital. Quality Stroke Does the patient have a stroke diagnosis?: No VTE Prior VTE?: No VTE Risk Level:: Medical - moderate - high VTE Device Contraindication: N/A - Device Ordered VTE Drug Contraindication: Treatment Not Indicated
[2024-08-18] MEDS: LORazepam 0.5 MG TABLET PO ×2 (11:46→20:06)
[2024-08-18] MEDS: Meclizine HCl 12.5 MG TABLET PO ×2 (11:46→20:06)
[2024-08-18] MEDS: Acetaminophen 325 MG TABLET 650 MG PO ×2 (15:16→20:06)
--- NOTE | 2024-08-18 15:52 | MHC.RECOVRN ---
Met with pt in 444 to discuss ongoing substance use, recovery supports, and other resources. Discussed how alcohol use has negatively impacted his life, affecting both his mental and physical wellbeing. Written materials on harm reduction, recovery coaching, CSS, TSS, and IOP programs provided & reviewed with patient. Pt declined outpatient [facility]ND[facility] appointment for treatment of his alcohol use disorder (AUD). Pt declined MARYJANE initiation for his AUD at this time. Wants to discuss with his PCP. Pt did accept Manager Relationship referral. Referral has been sent. Pt provided with Recovery Support Team contact information if questions or concerns arise. Denies any other questions or concerns at this time. Discussed with Jaren Hannah NP.
[2024-08-18] MEDS: hydrOXYzine HCL 25 MG TABLET PO (17:33)
[2024-08-18] MEDS: traZODone HCL 100 MG TABLET PO (20:46)
[2024-08-18] MEDS: Gabapentin 400 MG CAPSULE PO (20:46)
[2024-08-19 04:00] VITALS: BP 139/69; PULSE 68; RESP 16; TEMP 36.3; O2SAT 96
[2024-08-19 07:08] VITALS: BP 160/92; PULSE 73; RESP 20; TEMP 36.1; O2SAT 96
[2024-08-19 07:50] LABS: Alanine Aminotransferase 44 U/L (0-40); Albumin Level 3.8 g/dL (3.5-5.0); Alkaline Phosphatase 47 U/L (39-117); Anion Gap 9 (12-20); Aspartate Amino Transferase 57 U/L (5-37); Bilirubin Direct 0.2 mg/dL (0.0-0.5); Bilirubin Total 0.5 mg/dL (0.0-1.0); Blood Urea Nitrogen 12 mg/dL (9-16); Calcium 8.4 mg/dL (8.4-10.2); Carbon Dioxide 28 mmol/L (22-29); Chloride 109 mmol/L (96-108); Creatinine Clr Calc Pharmacy 83.4; Estimated Glomerular Filt Rate > 60; Glucose Random 123 mg/dL (60-115); Potassium 3.5 mmol/L (3.3-5.1); Sodium 142 mmol/L (135-145); Total Protein 6.3 g/dL (6.5-8.0)
--- NOTE | 2024-08-19 08:16 | P.DS_ITS ---
DS: Providers Provider Date of Service: 08/19/24 Date of admission: 08/16/24 18:18 Date of discharge: 08/19/24 Primary care physician: Unknown Physician Consults: 08/16/24 13:32 ED Recovery Team Consult Stat Comment: Reason for consultation: Presented with chest pain, anxiety, ETOH use disorder requesting detox eval 08/17/24 11:31 Addiction Medicine Provider Routine Consulting Provider: Addiction Covering Reason for consultation: etoh dependence Has provider been notified: No 08/17/24 13:07 Consult to Psychiatry Routine Consulting Provider: [facility] Psych Covering Reason for consultation: anxiety, med adjustment Has provider been notified: No DS: Diagnosis Discharge Diagnosis (1) Alcohol withdrawal: Status: Acute (2) Alcohol-induced anxiety disorder: Status: Acute DS: Summary Hospital Course Hospital Course: admission hpi Chief Complaint: Vomiting Kari Turpin is a 53 years old woman with past medical history significant for CAD, essential hypertension and alcohol abuse presents to the emergency department complaining of upper abdominal discomfort associated with no bloody vomiting. These symptoms has been going on for the last 3 days. He drinks 3 beers daily (24 oz) -last drink was about 3 days ago. He also reports headache, anxiety, tremulousness, and hallucinations. Denied shortness of the breath, fever, chills and palpitations. He did have chest tightness. He said that he drinks alcohol for insomnia and has been using the gabapentin is of a friend. He also smoked tobacco. Denied illicit drug use. The ED, he was found to have tachycardia and tachypnea. Blood pressure is and O2 sat and blood pressure are unremarkable. Last blood pressure was 141/84. Your workup showed no leukocytosis. Hemoglobin and platelets. CMP is unremarkable except for elevated transaminases. Bilirubin, alk-phos and lipase are normal. Troponin is flat x2. Urine drug screen is negative. ETOH level is 229. ED tx: NS 1 L bolus, Ativan 2 mg p.o., Zofran 4 mg IV, ketorolac 15 mg IV, aspirin 325 mg p.o., Zyprexa 20 mg p.o. x2 ,phenobarbital protocol started. hospital course: This is a 53 y/o man with history of CAD, HTN, anxiety, depression and alcohol dependence admitted for alcohol withdrawal treated with phenobarbital, he is doing better, CIWA scores low, seen by addiction med and given resources to help with sobriety Dizziness vague on timeline/symptoms; probable BPPV prn meclizine PT evaluation Chest pain, resolved. Likely secondary to anxiety and above. ECG negative. Troponin negative x2. Continue aspirin, Brilinta and atorvastatin. transaminitis ?due to etoh/hepatic steatosis on imaging from 2023 no abdominal pain if trends up further, can consider holding statin Mood disorder. Continue citalopram, hydroxyzine significant anxiety po ativan prn psych consult for med adjustment - resumed on gabapentin Essential hypertension. Continue carvedilol, amlodipine. Atorvastatin. Continue statin. CAD. Continue aspirin, BB, Brilinta and atorvastatin. Insomnia. Continue trazodone. Time Attestation Discharge Coordination Time (in mins): 45 Quality: Safe Use of Opioids Does Pt have an Active Cancer Diagnosis on the Problem List?: No Quality: Stroke Does the patient have a stroke diagnosis?: No Physical Exam Vital Signs: Vital Signs: Last Vital Signs Temp 97.0 F 08/19/24 07:08 Pulse 73 08/19/24 07:08 Resp 20 08/19/24 07:08 BP 160/92 H 08/19/24 07:08 Pulse Ox 96 08/19/24 07:08 O2 Del Method Room Air 08/19/24 07:08 O2 Flow Rate 1 08/18/24 11:26 BMI result Body Mass Index 24.5 DS: Data Data Completed and Pending Completed studies during hospitalization [Text1]: Procedures Detoxification Services for Substance Abuse Treatment (05/26/23) Labs on day of discharge: Laboratory Results - last 24 hr 08/18/24 08/19/24 09:01 07:05 Sodium 143 142 Potassium 3.5 3.5 Chloride 104 109 H Carbon Dioxide 30 H 28 Anion Gap 13 9 L BUN 12 12 Creatinine 0.97 0.99 Estim Creat Clear Calc 85.2 83.4 Estimated GFR > 60 > 60 Random Glucose 149 H 123 H Calcium 8.7 8.4 Magnesium 1.9 Total Bilirubin 1.0 0.5 Direct Bilirubin 0.4 0.2 AST 82 H 57 H ALT 51 H 44 H Alkaline Phosphatase 57 47 Total Protein 6.9 6.3 L Albumin 4.3 3.8 Discharge Plan Discharge Anticipated Discharge Date/Time: 08/19/24 12:54 Patient Disposition: Home, Self-Care Discharge Diagnosis: Alcohol withdrawal , anxiety Referrals: Physician,Unknown J [Primary Care Provider, Medical] - 1 Week Discharge Medications: Continued atorvastatin 80 mg tablet 80 mg PO DAILY aspirin 81 mg tablet,delayed release (DR/EC) 81 mg PO DAILY escitalopram oxalate 20 mg tablet 20 mg PO DAILY amlodipine 5 mg Tablet 5 mg PO DAILY Qty: 90 0RF Protocol: Hold for SBP< HOLD for SBP < : 90 acetaminophen 325 mg Tablet 650 mg PO Q6H PRN (Reason: Pain, Mild (Pain Scale 1-3)) Qty: 20 0RF hydroxyzine HCl 25 mg tablet 25 mg PO BID PRN (Reason: Anxiety) ticagrelor 90 mg tablet 90 mg PO BID trazodone 100 mg tablet 100 mg PO BEDTIME PRN (Reason: Sleep) melatonin 3 mg tablet 3 mg PO BEDTIME PRN (Reason: Sleep) carvedilol 12.5 mg tablet 6.25 mg PO BID Protocol: Hold for SBP/HR < HOLD for SBP < : 90 HOLD for HR < : 60 Discharge Orders: Discharge Order (Routine); Ordered 08/19/24 Ordered By: Oziel White Diet: Advance to usual diet Activity on Discharge: As tolerated Stand Alone Forms: Patient Portal Discharge page Print Language: Maltese Care Plan Goals: recovery from alcohol withdrawal, sobriety from alcohol Health Concerns: alcoholism Plan of Treatment: avoid alcohol seek help through resources given to you Assessment: see above Discharge Date/Time: 08/19/24 13:20
[2024-08-19] MEDS: Aspirin Enteric Coated 81 MG TABLET.DR PO (09:30)
[2024-08-19] MEDS: amLODIPine Besylate 5 MG TABLET PO (09:34)
[2024-08-19] MEDS: carvediloL 6.25 MG TABLET PO (09:35)
[2024-08-19] MEDS: PHENobarbitaL 30 MG TABLET PO (09:35)
[2024-08-19] MEDS: Ticagrelor 90 MG TABLET PO (09:35)
[2024-08-19] MEDS: Folic Acid 1 MG TABLET PO (09:35)
[2024-08-19] MEDS: Escitalopram Oxalate 20 MG TABLET PO (09:35)
[2024-08-19] MEDS: Multivitamin TABLET 1 TAB PO (09:35)
[2024-08-19] MEDS: 0.9 % Sodium Chloride Flush 3 ML SYRINGE IVFLUSH (09:36)
[2024-08-19] MEDS: Atorvastatin Calcium 80 MG TABLET PO (09:38)
[2024-08-19] MEDS: Thiamine HCL 100 MG TABLET PO (09:40)
[2024-08-19] MEDS: Acetaminophen 325 MG TABLET 650 MG PO (09:47)
[2024-08-19 11:22] VITALS: BP 132/86; PULSE 83; RESP 20; TEMP 36.5; O2SAT 96
--- NOTE | 2024-08-19 13:37 | MHC.CM.PN ---
PT MEDICALLY CLEARED FOR DC HOME SELF-CARE, PT TRANSPORT VIA [facility]
== END 2024-08-19 13:20 | disposition home or self-care (01) | DRG 775 ==
LOC: HO.ED 18:14 → HO.EDOVER 18:44 → HO.IMC 08-17 15:12
PROVIDERS: Physician Assistant Medical; Admitting Provider Internal Medicine; Emergency Provider Emergency Medicine Emergency Medical Services; Visit Provider Internal Medicine
DX: F10.239 Alcohol dependence with withdrawal, unspecified (principal); K76.0 Fatty (change of) liver, not elsewhere classified; F41.9 Anxiety disorder, unspecified; I25.10 Atherosclerotic heart disease of native coronary artery without angina pectoris; I10 Essential (primary) hypertension; I25.2 Old myocardial infarction; Y90.7 Blood alcohol level of 200-239 mg/100 ml; Z79.82 Long term (current) use of aspirin; Z87.891 Personal history of nicotine dependence; Z79.899 Other long term (current) drug therapy
CPT/HCPCS: 36415; 71045; 80048; 80053; 80076; 80307; 83690; 83735; 83880; 84484; 85025; 85730; 93005; 97162; 99285; J1885; J2405; J2560; J3411; J7120; S9485

== ENCOUNTER → 2024-08-16 10:03 | Outpatient (BNV) | payer MEDICAID, SELFPAY | PROVIDERS: Admitting Provider Internal Medicine; Emergency Provider Emergency Medicine Emergency Medical Services; Visit Provider Internal Medicine Cardiovascular Disease | DX: R94.31 Abnormal electrocardiogram [ECG] [EKG] (principal); R07.9 Chest pain, unspecified | CPT/HCPCS: 93010 ==

== ENCOUNTER → 2024-08-16 10:22 | Outpatient (BNV) | payer MEDICAID, SELFPAY | PROVIDERS: Emergency Provider Emergency Medicine Emergency Medical Services; Visit Provider Radiology Diagnostic Radiology | DX: I50.9 Heart failure, unspecified (principal); R07.9 Chest pain, unspecified | CPT/HCPCS: 71045 ==

== ENCOUNTER → 2024-08-16 18:18 | Outpatient (BNV) | payer MEDICAID, SELFPAY | PROVIDERS: Admitting Provider Internal Medicine; Emergency Provider Emergency Medicine Emergency Medical Services; Visit Provider Internal Medicine | DX: F10.932 Alcohol use, unspecified with withdrawal with perceptual disturbance (principal); F10.980 Alcohol use, unspecified with alcohol-induced anxiety disorder | CPT/HCPCS: 99223; 99232; 99233 ==

== ENCOUNTER → 2024-08-16 18:18 | Outpatient (BNV) | payer OTHER, SELFPAY | PROVIDERS: Admitting Provider Internal Medicine; Emergency Provider Emergency Medicine Emergency Medical Services; Visit Provider Social Worker | DX: F33.1 Major depressive disorder, recurrent, moderate (principal); F10.239 Alcohol dependence with withdrawal, unspecified | CPT/HCPCS: 99222; 99499 ==

== ENCOUNTER 2024-09-28 23:56 | Emergency (ER) | payer MEDICAID, SELFPAY ==
--- NOTE | ~2024-09-28 | XR_ITS ---
CLINICAL HISTORY: chest pain 1 view chest x-ray Comparison: CR/SR - XR CHEST 1 VIEW - 08/16/24 10:55 EDT Findings: The lungs are clear. Heart size is normal. No acute fracture. IMPRESSION: 1. No acute findings. This document has been electronically signed by: Kahlil Leal MD, PHD on 09/29/2024 02:15:38
[2024-09-29] VITALS (7 sets, daily range): BP systolic 122–153; BP diastolic 74–85; PULSE 87–93; RESP 14–17; TEMP 36.6–37.1; O2SAT 92–98; BMI 36.2
--- NOTE | 2024-09-29 | ECG_ITS ---
Test Reason : CP Blood Pressure : */* mmHG Vent. Rate : 88 BPM Atrial Rate : 88 BPM P-R Int : 146 ms QRS Dur : 86 ms QT Int : 392 ms P-R-T Axes : 37 39 68 degrees QTcB Int : 474 ms Normal sinus rhythm Normal ECG When compared with ECG of 16-Aug-2024 10:03, Criteria for Septal infarct are no longer Present Referred By: Generic ED Physician Electronically Signed By: Mau Cox
--- NOTE | 2024-09-29 00:21 | ED.CHESTPAIN ---
HPI - Chest Pain General Chief Complaint: Chest Pain Stated Complaint: CHEST PAIN Time Seen by Provider: 09/29/24 00:04 History of Present Illness ED Provider: Pipe Slade MD HPI narrative: [age] male reports 3 days of alcohol intoxication bowel bladder incontinence, chest pain feels similar to his prior AR. Related Data Home Medications ?Medication ?Instructions ?Recorded ?Confirmed aspirin 81 mg tablet,delayed 81 mg PO DAILY 04/28/23 08/16/24 release atorvastatin 80 mg tablet 80 mg PO DAILY 04/28/23 08/16/24 escitalopram oxalate 20 mg tablet 20 mg PO DAILY 04/28/23 08/16/24 carvedilol 12.5 mg tablet 6.25 mg PO BID 08/16/24 08/16/24 hydroxyzine HCl 25 mg tablet 25 mg PO BID PRN Anxiety 08/16/24 08/16/24 melatonin 3 mg tablet 3 mg PO BEDTIME PRN Sleep 08/16/24 08/16/24 ticagrelor 90 mg tablet 90 mg PO BID 08/16/24 08/16/24 trazodone 100 mg tablet 100 mg PO BEDTIME PRN Sleep 08/16/24 08/16/24 Previous Rx's ?Medication ?Instructions ?Recorded amlodipine 5 mg tablet 5 mg PO DAILY #90 tabs 04/30/23 acetaminophen 325 mg tablet 650 mg (2 x 325 mg) PO Q6H PRN 05/31/23 Pain, Mild (Pain Scale 1-3) #20 tabs Allergies Allergy/AdvReac Type Severity Reaction Status Date / Time No Known Allergies Allergy Verified 09/29/24 00:10 [facility] Past Medical History Medical History (Updated 08/27/24 @ 00:01 by Nandini Brower) MDD (major depressive disorder), recurrent episode, moderate Ileus Myocardial infarction CAD (coronary artery disease) Social History Social History Household Members: None Household Members Other:: self Housing: Apartment Do you presently have visiting nurse or other home services: No Alcohol intake: current Alcohol intake frequency: 3 or more drinks per day Alcohol type: beer and hard liquor Comment: pt refused yellow non-skid socks Patient Tobacco Use Status: Former Tobacco user Tobacco use type: Cigarette Cigarettes Per Day: 4 Years Smoked: 40 e-Cigarette/Vaping Use: Former Use Second Hand Smoke Exposure: No Advance Directives Date on File: 05/26/23 service: No Physical Exam Vital Signs: Vital Signs: Last Vital Signs Temp 98.7 F 09/29/24 11:16 Pulse 91 09/29/24 11:16 Resp 14 09/29/24 11:16 BP 140/82 H 09/29/24 11:16 Pulse Ox 98 09/29/24 11:16 O2 Del Method Room Air 09/29/24 11:16 BMI result Body Mass Index 36.2 Course Course Course Narrative: 09/29/24 10:58 , Benedicto Mendes MD The patient did not want detox at this point but did want to talk to care team. Care team told me that he was not suicidal or homicidal and that he did not meet inpatient level of care. He was given resources for depression anxiety as well as resources for detox programs. Patient was discharged home. Medications Administered Discontinued Medications Generic Name Dose Route Start Last Admin Trade Name Gatoq PRN Reason Stop Dose Admin Aspirin 325 mg 09/29/24 01:03 09/29/24 01:14 Aspirin 325 Mg Tablet PO 09/29/24 01:04 325 mg ONCE ONE Administration Hydroxyzine HCl 50 mg 09/29/24 02:37 09/29/24 02:51 Hydroxyzine Hcl 50 Mg Tablet PO 09/29/24 02:38 50 mg ONCE ONE Administration Lactated Ringer's 1,000 mls @ 999 mls/hr 09/29/24 00:30 09/29/24 01:50 Lr IV 09/29/24 01:30 Infused .Q1H1M KATHERYN Infusion Lidocaine HCl 15 ml 09/29/24 01:30 09/29/24 01:43 Lidocaine Hcl Viscous 2 % 15 Ml Solution MUCOUS MEM 09/29/24 01:31 15 ml ONCE ONE Administration Lorazepam 2 mg 09/29/24 02:37 09/29/24 02:51 Lorazepam 1 Mg Tablet PO 09/29/24 02:38 2 mg ONCE ONE Administration Lorazepam 2 mg 09/29/24 07:47 09/29/24 07:54 Lorazepam 1 Mg Tablet PO 09/29/24 07:48 2 mg ONCE STA Administration Oxycodone HCl 5 mg 09/29/24 01:03 09/29/24 01:14 Oxycodone Hcl Immed Release 5 Mg Tablet PO 09/29/24 01:04 5 mg ONCE ONE Administration Pantoprazole Sodium 40 mg 09/29/24 01:30 09/29/24 01:43 Pantoprazole Sodium 40 Mg/10 Ml Vial IVPUSH 09/29/24 01:31 40 mg ONCE ONE Administration Sucralfate 1 gm 09/29/24 01:30 09/29/24 01:43 Sucralfate Oral Suspension 1 Gm/10 Ml Oral.Susp PO 09/29/24 01:31 1 gm ONCE ONE Administration Medical Decision Making Medical Decision Making MDM Narrative: Medical Decision Makin-YEAR-OLD MALE WITH CORONARY ARTERY DISEASE REPORTED CHEST DISCOMFORT AFTER 3 DAYS OF HEAVY DRINKING TO ME HE POINTS TO THE EPIGASTRIC LOWER STERNAL AREA HE WAS INTOXICATED DURING MY INITIAL INTERVIEW. NO RADIATION OF THE PAIN NO FOCAL NEUROLOGIC COMPLAINTS NO TEARING RIPPING OR RADIATION TO THE BACK NECK JAW OR OR EXTREMITIES. PATIENT HAD ALCOHOL ON BREATH BUT LOOKED WELL NOT IN DISTRESS. SYMMETRIC PULSES NO ABDOMINAL PULSATILE MASS. ECG WITHOUT ACUTE ISCHEMIC CHANGES. TROPONIN NEGATIVE AND FLAT ON REPEAT. 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 Preliminary Favored Differential Diagnosis: GASTRITIS, PUD, GERD, ACS, PERICARDITIS, among additional considered etiologies Testing Interpreted Independently: SINUS RHYTHM RATE 88 QTC 474 NO ACUTE ISCHEMIC CHANGES. NO SIGNIFICANT CHANGE FROM PRIOR Radiology or Lab testing Results Reviewed: Not Applicable Consults: Not Applicable Independent Historians/External Chart Reviews: Not Applicable Social Determinants of Health Impacting MDM/Planning: Not Applicable Lab Data 09/29/24 00:27 09/29/24 00:27 Labs: Lab Results 09/29/24 09/29/24 Range/Units 00:27 01:54 WBC 5.8 (4.8-10.8) X10*3/uL RBC 4.82 (4.60-5.80) X10*6/uL Hgb 14.8 (14.0-18.0) g/dl Hct 40.1 L (42.0-52.0) % MCV 83.2 (80.0-98.0) fL MCH 30.7 (27.0-33.0) pg MCHC 36.9 H (31.0-36.0) g/dl RDW 13.3 (11.0-16.0) % Plt Count 300 D (160-400) X10*3/uL MPV 9.0 L (9.4-12.4) fL Immature Gran % (Auto) 0.3 (0.0-0.4) % Neut % (Auto) 64.1 (45-73) % Lymph % (Auto) 27.7 (20-40) % [place] % (Auto) 5.8 (2-11) % Eos % (Auto) 0.9 (0-4) % Baso % (Auto) 1.2 (0-2) % Lymph # (Auto) 1.6 (1.2-4.9) X10*3/uL [place] # (Auto) 0.3 (0.1-1.2) X10*3/uL Eos # (Auto) 0.1 (0.0-0.4) X10*3/uL Baso # (Auto) 0.1 (0.0-0.2) X10*3/uL Abs Immat Gran (auto) 0.02 (0.00-0.03) X10*3/uL Absolute Neuts (auto) 3.7 (2.0-8.3) x10*3/uL Absolute Nucleated RBC 0.000 (0.0-0.012) X10*3/uL Nucleated RBC % (auto) 0.0 (0.0-0.2) /100WBC PT 10.7 L (10.9-12.4) SEC INR 0.9 (0.9-1.1) Sodium 141 (135-145) mmol/L Potassium 3.7 (3.3-5.1) mmol/L Chloride 103 (96-108) mmol/L Carbon Dioxide 19 L (22-29) mmol/L Anion Gap 23 H (12-20) BUN 6 L (9-16) mg/dL Creatinine 1.02 (0.5-1.4) mg/dL Estim Creat Clear Calc 98.6 Estimated GFR > 60 Random Glucose 126 H (60-115) mg/dL Calcium 8.4 (8.4-10.2) mg/dL Magnesium 2.3 (1.6-2.6) mg/dL Total Bilirubin 1.2 H (0.0-1.0) mg/dL AST 42 H (5-37) U/L ALT 22 (0-40) U/L Alkaline Phosphatase 74 (39-117) U/L Troponin I High Sens 4.4 3.8 (<3.5-35.0) ng/L Total Protein 7.0 (6.5-8.0) g/dL Albumin 4.4 (3.5-5.0) g/dL Lipase 155 H (8-78) U/L Ethyl Alcohol 288 mg/dL Discharge Plan Discharge Clinical Impression: Alcohol abuse Patient Disposition: Home, Self-Care Additional Instructions: You were seen by our care team and they did give you some follow-up resources You should get into an outpatient detox program to help with your alcohol use disorder Continue taking medications as prescribed. Follow-up with your doctor in 2 days. Please return to the emergency department if your symptoms get worse or if you develop any symptoms that are concerning to you. Alcohol use disorder You were seen in the Emergency Department today for treatment of alcohol use disorder.? You may have been given medications to help with your withdrawal symptoms.? Please do not drink alcohol with them. This is very dangerous and can cause respiratory depression or other adverse reactions depending on the medication. If you would like to cut down or stop your alcohol use please consider calling our outpatient Addiction Treatment office:? [facility] (M-F [id number] [address] [phone] ? You have also been given a list of treatment providers in the area that can assist as well.? If you experience seizures, vomiting blood, black stools, falls, severe headache, chest pain, fevers, trouble breathing, hallucinations or any other concerns you need to call 911 or seek immediate care. Please stay hydrated. You were seen in our Emergency Department today for treatment of a behavioral health issue. It is important after your visit that you follow up with either your behavioral health provider or a primary care doctor within 7 days.? If you have trouble finding a therapist you can reach out to [address] [phone] The National Suicide and Crisis Lifeline can be reached 7 days a week 24 hours a day.? Call 988 to speak with someone.? Return for any worsening symptoms or concerns such as thoughts of self harm or harm to others. Please call 911 if you feel your mental health is worsening.? Prescriptions: No Action atorvastatin 80 mg tablet 80 mg PO DAILY aspirin 81 mg tablet,delayed release (DR/EC) 81 mg PO DAILY escitalopram oxalate 20 mg tablet 20 mg PO DAILY amlodipine 5 mg Tablet 5 mg PO DAILY Qty: 90 0RF Protocol: Hold for SBP< HOLD for SBP < : 90 acetaminophen 325 mg Tablet 650 mg PO Q6H PRN (Reason: Pain, Mild (Pain Scale 1-3)) Qty: 20 0RF hydroxyzine HCl 25 mg tablet 25 mg PO BID PRN (Reason: Anxiety) ticagrelor 90 mg tablet 90 mg PO BID trazodone 100 mg tablet 100 mg PO BEDTIME PRN (Reason: Sleep) melatonin 3 mg tablet 3 mg PO BEDTIME PRN (Reason: Sleep) carvedilol 12.5 mg tablet 6.25 mg PO BID Protocol: Hold for SBP/HR < HOLD for SBP < : 90 HOLD for HR < : 60 Interventions: ED Discharge Assessment Last Done: 09/29/24 11:16 Discharge Date/Time: 09/29/24 11:17 Print Language: Sami
[2024-09-29 00:32] LABS: MANUAL DIFF FLAG NO
[2024-09-29 00:34] LABS: Hematocrit 40.1 % (42.0-52.0); Hemoglobin 14.8 g/dl (14.0-18.0); Imm Gran Abs Auto 0.02 X10*3/uL (0.00-0.03); Imm Gran Pct Auto 0.3 % (0.0-0.4); Lymphocytes Absolute Auto 1.6 X10*3/uL (1.2-4.9); Mean Corpuscular HGB Conc 36.9 g/dl (31.0-36.0); Mean Corpuscular Hemoglobin 30.7 pg (27.0-33.0); Mean Corpuscular Volume 83.2 fL (80.0-98.0); NRBC Abs Auto 0.000 X10*3/uL (0.0-0.012); NRBC Pct Auto 0.0 /100WBC (0.0-0.2); Platelet Count 300 X10*3/uL (160-400); Red Blood Count 4.82 X10*6/uL (4.60-5.80); White Blood Count 5.8 X10*3/uL (4.8-10.8)
[2024-09-29] MEDS: Lactated Ringers 1,000 ML 999 ML IV (00:36)
[2024-09-29 00:41] LABS: INTERNATIONAL NORM RATIO 0.9 (0.9-1.1); Prothrombin Time 10.7 SEC (10.9-12.4)
--- OUTSIDE RECORDS SUMMARY | 2024-09-29 00:41 | XMS_ITS | Clinical Summary ---
Author Organization [facility] Address [address] [facility] [address] [place] [phone] Phone Care Team Providers Care Percussion Instrument Tuner Name Role Phone Hermila Cui Primary Care Provider [phone] Allergies No known active allergies Medications carvedilol (COREG CR) 20 MG 24 hr capsule Take 20 mg by mouth daily. Active lisinopril (PRINIVIL,ZESTR IL) 20 MG tablet Take 20 mg by mouth daily. Active escitalopram oxalate (LEXAPRO) 20 MG tablet Take 20 mg by mouth daily. Active atorvastatin (LIPITOR) 20 MG tablet Take 80 mg by mouth nightly at bedtime. Active ticagrelor (BRILINTA) 90 mg Tab Take 90 mg by mouth 2 (two) times a day. Active ezetimibe (ZETIA) 10 mg tablet TAKE 1 TABLET(10 MG) BY MOUTH DAILY 1 Active carvedilol (COREG) 12.5 MG tablet Take 12.5 mg by mouth 2 (two) times a day with meals. 1 Active aspirin 81 MG EC tablet Take 81 mg by mouth 2 (two) times a day. With Brilinta 0 Active methocarbamoL (ROBAXIN) 500 MG tablet Take 1 tablet (500 mg total) by mouth 3 (three) times a day as needed (back pain). 21 tablet 1 Active Additional Information Patient not taking.Reported on 09/25/2020 morphine (MSIR) 15 MG tablet Take 1 tablet (15 mg total) by mouth every 4 (four) hours as needed for pain (specific location in comments). Partial fill ok 8 tablet 1 Active Active Problems No known active problems Encounters Date Type Department Care Team Description 09/15/2024 Patient Outreach [facility] [address] [place] [phone] Gricelda Torres, ROHIT [facility] 09/15/2024 Patient Outreach [facility] [address] [place] [phone] Sandra Mccracken RN Post Discharge Follow Up Call (iCMP post discharge assessment); Program Discharge (iCMP Discharge) 09/04/2024 Patient Outreach [facility] [address] [place] [phone] Sandra Mccracken RN Post Discharge Follow Up Call (iCMP post discharge assessment, 3rd attempt) 08/21/2024 Patient Outreach [facility] [address] [place] [address] [phone] Sandra Mccracken RN Post Discharge Follow Up Call (iCMP post discharge assessment); Post Discharge Follow Up Call Attempt 2 (iCMP post discharge assessment, 2nd attempt) 08/16/2024 Patient Outreach [facility] [address] [place] [phone] Sandra Mccracken, ROHIT iCMP Care Plan Update ([facility] Plan of Care Update) 07/26/2024 Patient Outreach [facility] [address] [place] [phone] Sandra Mccracken RN iCMP Care Plan Update ([facility] Plan of Care Update) 07/05/2024 Telephone [facility] [address] [place] [phone] Pierre Mcdowell, [facility] Medication Review 07/04/2024 Patient Outreach [facility] [address] [place] [address] [phone] Sandra Mccracken, ROHIT iCMP Care Plan Update ([facility] Plan of Care Update) from Last 3 Months Social History Tobacco Use Types Packs/Day Years Used Date Smoking Tobacco: Every Day Cigarettes 0.1 36.6 Started: 1988 Smokeless Tobacco: Never Tobacco Cessation:Ready to Q uit: Yes; Counseling Given: Yes Comments:2 cigarettes a day Alcohol Use Standard Drinks/Week Comments Yes 8 (1 standard drink = 0.6 oz pure alcohol) pt reports it helps him sleep, but he admits feeling worse when he wakes back up Education Answer Date Recorded Are you interested in more education? Not on soni e 07/04/2022 Are you concerned about learning? Not on file 07/04/2022 No 07/04/2022 No 07/04/2022 Digital Access Answer Date Recorded No 08/04/2022 No 08/04/2022 Reliable internet access at home? Not on file 08/04/2022 Device with a working camera? Not on file Sex and Gender Information Value Date Recorded Sex Assigned at Male 09/25/2020 4:35 PM EDT Legal Sex Male 11:48 AM EDT Gender Identity Male 09/25/2020 4:35 PM EDT Sexual Orientation Not on file Last Filed Vital Signs Vital Sign Reading Time Taken Comments Blood Pressure 162/100 01/07/2021 7:02 PM EDT Pulse 70 01/07/2021 7:02 PM EDT Temperature 35.5 C (95.9 F) 01/07/2021 7:02 PM EDT Respiratory Rate 18 01/07/2021 7:02 PM EDT Oxygen Saturation 100% 01/07/2021 7:02 PM EDT Inhaled Oxygen Concentration - - Weight 90.7 kg (200 lb) 01/07/2021 7:02 PM EDT Height 172.7 cm (5' 8 ) 01/07/2021 7:02 PM EDT Body Mass Index 30.41 01/07/2021 7:02 PM EDT Plan of Treatment Health Maintenance Due Date Last Done Comments Adult Td,Tdap Booster 1970 SMOKING Hx and SMOKELESS TOBACCO SCREENING 09/20/1983 HEPATITIS C SCREENING 1988 HIV ONE-TIME SCREENING (18-6 5 YEARS) 1988 PNEUMOCOCCAL VACCINES (50+ years) (1 of 2 - PCV) 1989 COLOGUARD 09/20/2015 COLONOSCOPY 09/20/2015 COLORECTAL CANCER SCREENING 09/20/2015 FIT TEST 09/20/2015 FOBT 09/20/2015 SIGMOIDOSCOPY 09/20/2015 VIRTUAL COLONOSCOPY 09/20/2015 ZOSTER VACCINES (1 of 2) 2020 CREATININE LEVEL 12/24/2021 12/24/2020, 11/09/2020, 09/25/2020 POTASSIUM LEVEL 12/24/2021 12/24/2020, 11/09/2020, 09/25/2020 COVID-19 VACCINE (1 - 2023-2 5 season) 2023 DEPRESSION SCREENING 03/11/2024 03/11/2023, 03/11/2023 LIPID PANEL 06/22/2028 06/23/2023, 12/22/2020 HEPATITIS A VACCINES Aged Out No long er eligible based on patient's age to complete this topic HIB VACCINES Aged Out No longer eligi ble based on patient's age to complete this topic MENINGOCOCCAL VACCINES (ACWY) Aged Out No longer eligible based on patient's age to complete this topic MENINGOCOCCAL VACCINES (B) Aged Out N o longer eligible based on patient's age to complete this topic Medical Devices Not on file Procedures Procedure Name Priority Date/Time Associated Diagnosis Comments BASIC METABOLIC PANEL STAT 12/24/2020 7:07 PM EDT from Last 3 Months or Most Recently Relevant to Health Maintenance Results * (ABNORMAL) Basic metabolic panel (12/24/2020 7:07 PM EDT) SODIUM 138 133 - 146 mmol/L [facility] CHLORIDE 98 96 - 108 mmol/L [facility] POTASSIUM 3.5 3.3 - 5.1 mmol/L [facility] Comment:Specimen slightly he molyzed, result may be falsely elevated. CO2 22 21 - 35 mmol/L [facility] BUN 12 6 - 19 mg/dL [facility] CREATININE 1.60(H) 0.5 - 1.5 mg/dL [facility] GLUCOSE 81 70 - 99 mg/dL [facility] CALCIUM 9.1 8.4 - 10.3 mg/dL [facility] EGFR 49(L) >59 mL/min/1.7 3m2 [facility] Comment:Estimated glomerular filtration rate calculated using the CKD-EPI equation. ANION GAP 22(H) 10 - 20 mmol/L [facility] Blood 12/24/2020 7:07 PM EDT 12/25/2020 7:29 AM EDT us Selwyn Brandt MD LAB BLOOD ORDERABLES Final Result [address] [id number] from Last 3 Months or Most Recently Relevant to Health Maintenance Insurance [facility] Care Teams Percussion Instrument Tuner Relationship Specialty Start Date End Date Hermila Cui PA [address] [place] [phone] [email or web address] PCP - General Physician Business Applications Analyst 03/11/23 Additional Source Comments The information contained in this document represents components of the legal health record. It is not the complete legal health record.[facility]
--- NOTE | 2024-09-29 00:48 | PC.NURSE ---
pt feeling like he is going to have a seizure. reports hx of seizure with w/d. seizure pads in place. IVs placed, 20g IV RAC, 18g IV L forearm
[2024-09-29 00:50] LABS: Alanine Aminotransferase 22 U/L (0-40); Albumin Level 4.4 g/dL (3.5-5.0); Alkaline Phosphatase 74 U/L (39-117); Anion Gap 23 (12-20); Aspartate Amino Transferase 42 U/L (5-37); Blood Urea Nitrogen 6 mg/dL (9-16); Calcium 8.4 mg/dL (8.4-10.2); Carbon Dioxide 19 mmol/L (22-29); Chloride 103 mmol/L (96-108); Creatinine Clr Calc Pharmacy 98.6; Estimated Glomerular Filt Rate > 60; Lipase 155 U/L (8-78); Magnesium 2.3 mg/dL (1.6-2.6); Potassium 3.7 mmol/L (3.3-5.1); Sodium 141 mmol/L (135-145); Total Protein 7.0 g/dL (6.5-8.0)
[2024-09-29 00:54] LABS: Troponin-I High Sensitivity 4.4 ng/L (<3.5-35.0)
[2024-09-29] MEDS: oxyCODONE HCl Immed Release 5 MG TABLET PO (01:14)
[2024-09-29] MEDS: Lidocaine HCl Viscous 2 % 15 ML SOLUTION MUCOUS MEM (01:43)
[2024-09-29] MEDS: Sucralfate Oral Suspension 1 GM/10 ML ORAL.SUSP PO (01:43)
[2024-09-29 02:21] LABS: Troponin-I High Sensitivity 3.8 ng/L (<3.5-35.0)
--- NOTE | 2024-09-29 03:44 | PC.NURSE ---
Rounded on patient, resting on stretcher, with even unlabored respirations, maintaining oxygen saturation at 95%. Plan of care ongoing.
--- NOTE | 2024-09-29 05:31 | PC.NURSE ---
Assisted patient to bathroom to move bowels. Patient had an unsteady gait, made it safely on the toilet. Patient was instructed to pull the call aj when he was up, not to get up without supervision. Patient followed directions. Pt was assisted off the toliet and back into stretcher. Reattached to the monitor. Plan of care ongoing.
--- NOTE | 2024-09-29 06:19 | PC.NURSE ---
Addendum entered by Justine Weller RN 09/29/24 06:24: Patient was medicated with Ativan 2mg PO at 2:51 am. Original Note: Patient has stated multiple times throughout his care in the ED, that he was going to have a seizure and he could just feel it. Questioned patient if he gets auras for seizures, he states no he just knows. Seizure pads are in place, patient has not had seizure-like activity during care in the ED. Patient placed on monitor.
--- NOTE | 2024-09-29 07:16 | PC.NURSE ---
patient resting quietly in room, states that he is unable to ambulate however this RN watched patient ambulate from bathroom to room with steady gait. requesting ativan I'm in bad shape , states he is going through alcohol withdrawal. no obvious tremors noted, patient answering all questions appropriately. skin wpd.
== END 2024-09-29 11:17 | disposition home or self-care (01) ==
PROVIDERS: Emergency Medicine; Emergency Provider Emergency Medicine Emergency Medical Services
DX: F10.10 Alcohol abuse, uncomplicated (principal); Y90.8 Blood alcohol level of 240 mg/100 ml or more; F41.9 Anxiety disorder, unspecified; F32.A Depression, unspecified; R10.13 Epigastric pain; Z79.82 Long term (current) use of aspirin; Z79.02 Long term (current) use of antithrombotics/antiplatelets; Z79.899 Other long term (current) drug therapy; Z87.891 Personal history of nicotine dependence
CPT/HCPCS: 36415; 71045; 80053; 80307; 83690; 83735; 84484; 85025; 85610; 93005; 93308; 99285; J2470; J7120; S9485

== ENCOUNTER → 2024-09-29 00:02 | Outpatient (BNV) | payer MEDICAID, SELFPAY | PROVIDERS: Emergency Provider Emergency Medicine Emergency Medical Services; Visit Provider Internal Medicine Cardiovascular Disease | DX: R07.9 Chest pain, unspecified (principal) | CPT/HCPCS: 93010 ==

== ENCOUNTER → 2024-09-29 01:30 | Outpatient (BNV) | payer MEDICAID, SELFPAY | PROVIDERS: Emergency Provider Emergency Medicine; Visit Provider General Practice | DX: R07.9 Chest pain, unspecified (principal) | CPT/HCPCS: 71045 ==

== ENCOUNTER 2024-11-03 06:46 | Inpatient (IN) | payer MEDICAID, SELFPAY ==
[2024-11-03] VITALS (13 sets, daily range): BP systolic 128–179; BP diastolic 81–102; PULSE 77–96; RESP 12–20; TEMP 36.6–37.4; O2SAT 92–99; BMI 36.2; BMI 37.5
--- NOTE | ~2024-11-03 | XR_ITS ---
EXAMINATION: XR CHEST CLINICAL INFORMATION: chest pain COMPARISON: 09/29/2024 TECHNIQUE: AP view of the chest was obtained. FINDINGS: Heart size is mildly enlarged but may be magnified by AP technique. Mediastinal and hilar contours appear normal. The lungs are clear bilaterally. No pneumothorax or effusion. No focal osseous or soft tissue abnormality. XR/XR chest 1V IMPRESSION: No active pulmonary disease. Electronically signed by: Ben Bello MD 11/03/2024 08:44 AM EDT
--- OUTSIDE RECORDS SUMMARY | 2024-11-03 07:18 | XMS_ITS | Clinical Summary ---
Author Organization [facility] Address [address] [facility] [address] [place] [phone] Phone Care Team Providers Care Correspondent Name Role Phone Hermila Cui Primary Care Provider Allergies No known active allergies Medications carvedilol [...] Encounters Date Type Department Care Team Description 10/12/2024 Patient Outreach [facility] [address] [place] [phone] Elsi Smith [facility] Care Coordination (HRSN Nutrition) 09/29/2024 Patient Outreach [facility] [address] [place] [phone] [facility] 09/15/2024 Patient Outreach [facility] [address] [place] [phone] Gricelda Torres, ROHIT Administration (iCMP Discharge ) 09/15/2024 Patient Outreach [facility] [address] [place] [phone] Sandra Mccracken RN [facility] 09/04/2024 Patient Outreach [facility] [address] [place] [phone] Sandra Mccracken RN Post Discharge Follow [facility], 3rd attempt) 08/21/2024 Patient Outreach [facility] [address] [place] [phone] Sandra Mccracken RN Post Discharge Follow [facility] Post Discharge Follow Up Call Attempt 2 (iCMP post discharge assessment, 2nd attempt) 08/16/2024 Patient Outreach [facility] [address] [place] [phone] Sandra Mccracken RN [facility] Update ([facility] Plan of Care Update) from Last 3 Months Social History Tobacco Use Types Packs/Day Years Used Date Smoking Tobacco: Every Day Cigarettes 0.1 36.7 Started: 1988 Smokeless Tobacco: Never Tobacco Cessation:Ready [...] LEVEL 12/24/2021 12/24/2020, 11/09/2020, 09/25/2020 COVID-19 VACCINE (2023-2 5 season) 2023 DEPRESSION SCREENING 03/11/2024 03/11/2023, [...] EDT) SODIUM 138 133 - 146 mmol/L [facility] CHLORIDE 98 96 - 108 mmol/L [facility] POTASSIUM 3.5 3.3 - 5.1 mmol/L [facility] Comment:Specimen slightly he molyzed, result may be falsely elevated. CO2 22 21 - 35 mmol/L [facility] BUN 12 6 - 19 mg/dL [facility] CREATININE 1.60(H) 0.5 - 1.5 mg/dL [facility] GLUCOSE 81 70 - 99 mg/dL [facility] CALCIUM 9.1 8.4 - 10.3 mg/dL [facility] EGFR 49(L) >59 mL/min/1.7 3m2 [facility] Comment:Estimated glomerular filtration rate calculated using the CKD-EPI equation. ANION GAP 22(H) 10 - 20 mmol/L [facility] Blood 12/24/2020 7:07 PM EDT 12/25/2020 7:29 AM EDT us Selwyn Brandt MD LAB BLOOD ORDERABLES Final Result [facility] [address] [place] [address] from Last 3 Months or Most Recently Relevant to Health Maintenance [place] [address] [place] [address] [place] [address] [place] [address] [facility] ACO [facility] ACO [employer] Care Teams Correspondent Relationship Specialty Start Date End Date Hermila Cui PA [address] [place] [phone] [email or web address] PCP - General Physician Vacuum Cleaner Repairer 03/11/23 Additional Source Comments The information contained in this document represents components of the legal health record. It is not the complete legal health record.[facility]
--- OUTSIDE RECORDS SUMMARY | 2024-11-03 07:18 | XMS_ITS ---
Author Name [facility] Organization Unknown Encounters Encounter Type Encounter Reason Primary Diagnosis Location Date Ambulatory [facility] 09/14/2024 Care Team Organization Name Specialty Phone Email Start Date End [facility] 09/15
--- NOTE | 2024-11-03 07:34 | ECG_ITS ---
Test Reason : WITHDRAWAL Blood Pressure : */* mmHG Vent. Rate : 75 BPM Atrial Rate : 75 BPM P-R Int : 150 ms QRS Dur : 84 ms QT Int : 414 ms P-R-T Axes : 40 35 75 degrees QTcB Int : 462 ms Normal sinus rhythm Normal ECG When compared with ECG of 29-Sep-2024 00:02, No significant change was found Referred By: Generic ED Physician Electronically Signed By: LUIS ROUSE
--- NOTE | 2024-11-03 07:48 | ED_ITS ---
HPI - Chest Pain General Chief Complaint: Chest Pain Stated Complaint: Chest Pain, Generalized Sharp Pain Time Seen by Provider: 11/03/24 07:48 Source: patient and EMS Mode of arrival: EMS Limitations: no limitations History of Present Illness ED Provider: HPI narrative: 54-year-old male with prior cardiac history with prior MIs, alcohol use disorder drank 8 beers a day, last drink 16 hours ago, presented with midsternal chest pain, and also reports seeing things as he does when he states he has a seizure, he states at home he had a seizure overnight but it sounds like he just woke up feeling very tremulous, anxious affect and tremulousness at bedside. Related Data Home Medications ?Medication ?Instructions ?Recorded ?Confirmed aspirin 81 mg tablet,delayed 81 mg PO DAILY 04/28/23 0 08/16/24 release atorvastatin 80 mg tablet 80 mg PO DAILY 04/28/2308/06 escitalopram oxalate 20 mg tablet 20 mg PO DAILY 04/2808/16/24 carvedilol 12.5 mg tablet 6.25 mg PO BID 08/16/2408/06 hydroxyzine HCl 25 mg tablet 25 mg PO BID PRN Anxiety 08/16/24 08/16/24 melatonin 3 mg tablet 3 mg PO BEDTIME PRN Sleep 08/16/24 ticagrelor 90 mg tablet 90 mg PO BID 08/16/24 trazodone 100 mg tablet 100 mg PO BEDTIME PRN Sleep 08/16/24 08/16/24 Previous Rx's ?Medication ?Instructions ?Recorded amlodipine 5 mg tablet 5 mg PO DAILY #90 tabs 04/30 acetaminophen 325 mg tablet 650 mg (2 x 325 mg) PO Q6H PRN 05/31/23 Pain, Mild (Pain Scale 1-3) #20 tabs Allergies Allergy/AdvReac Type Severity Reaction Status Date / Time No Known Allergies Allergy Verified 11/03/24 07:08 Review of Systems 2 Constitutional: Constitutional: Reports as per [facility] Past Medical History Medical History (Updated 11/03/24 @ 08:34 by Antonino Jameson DO) MDD (major depressive disorder), recurrent episode, moderate Ileus Myocardial infarction CAD (coronary artery disease) Social History Social History Household Members: None Household Members Other:: self Housing: Apartment Do you presently have visiting nurse or other home services: No Alcohol intake: current Alcohol intake frequency: 3 or more drinks per day Alcohol type: wine and hard liquor Comment: pt refused yellow non-skid socks Patient Tobacco Use Status: Former Tobacco user Tobacco use type: Cigarette Cigarettes Per Day: 4 Years Smoked: 40 Smoked in Last 30 Days: Yes e-Cigarette/Vaping Use: Former Use Second Hand Smoke Exposure: No Use of substances other than those prescribed or required for medical reasons: No Advance Directives: No Advance Directives Information Provided: Yes Advance Directives Date on File: 05/26/23 Do you have a plan to hurt others: No Plan service: No Physical Exam 2 Vital Signs: Vital Signs: Last Vital Signs Temp 98.3 F 11/03/24 08:00 Pulse 78 11/03/24 08:00 Resp 12 11/03/24 08:00 BP 133/82 11/03/24 08:00 Pulse Ox 96 11/03/24 08:00 O2 Del Method Room Air 11/03/24 08:00 BMI result Body Mass Index 36.2 Const: Other: * Gen: ?Chronically ill-appearing * HEENT: No scleral icterus dry oral mucosa * Neck: Supple, no LAD * CV: RRR, no obvious murmurs appreciated * Resp: ?No wheezing rales rhonchi no stridor moving air well * Abd: ?Bowel sounds are present, no tenderness no rebound no rigidity * MSK: FROM, strength 5/5 all extremities * Skin: No jaundice, facial rosacea * Neuro: ?Alert and oriented x3, moving upper and lower extremities symmetrically, no obvious facial asymmetry noted, tremulous upper and lower extremity Medications Administered Generic Name Dose Route Start Last Admin Trade Name Freq PRN Reason Stop Dose Admin Sodium Chloride 1,000 mls @ 999 mls/hr 11/03/24 08:00 11/03/24 08:15 Ns IV 11/03/24 09:00 999 mls/hr .Q1H1M KATHERYN Administration Discontinued Medications Generic Name Dose Route Start Last Admin Trade Name Freq PRN Reason Stop Dose Admin Phenobarbital Sodium 274 mg 11/03/24 08:00 11/03/24 08:18 Phenobarbital Sodium 130 Mg/Ml Im Once IM 11/03/24 08:01 274 mg ONCE ONE Administration Medical Decision Making Medical Decision Making MDM Narrative: Patient has a history of benzodiazepine addiction, alcohol use disorder, states he is on Valium at home he did ask me for benzos and he is not feeling well, do not feel this is when benzos withdrawal, his alcohol level is 198, he is somewhat hypotensive, reports visual hallucinations, history of alcohol withdrawal seizures, anticipating medical admission, will start phenobarb protocol. He is also complaining of chest pain, we will initiate cardiac workup. Differential Diagnosis Differential Diagnoses: The differential diagnosis associated with the presentation includes (ACS, aortic dissection, alcohol withdrawals, benzodiazepine withdrawal, dehydration, electrolyte derangements,) Admission/Observation Consideration of admission/observation: Escalation of care including admission/observation considered 2022 Emergency Medicine Coding Guide from [employer] ([employer] on 11/03/2024 All calculations should be rechecked by clinician prior to use RESULT SUMMARY: 5 Estimated Level of Service Problems: High (5) Risk: High (5) Data: Extensive (5) NARRATIVE MDM: This patient's problem complexity is High as patient: with chronic illness(es) with severe exacerbation/progression/side effects. This patient's risk is High due to: overall presentation requiring evaluation for a potentially High-risk process. This patient's data complexity is Extensive due to: -multiple tests ordered -external notes reviewed -independent interpretation of imaging or EKG INPUTS: Number and Complexity ?> 1 = 5: chronic illness w/severe exacerbation (a) Risk level ?> 4 = High Tests ordered ?> 3 = >= Tests results reviewed (excluding labs) ?> 1 = 1 Prior external notes reviewed ?> 1 = 1 Assessment requiring and independent historian ?> 0 = No Independent interpretation of tests ?> 1 = Yes Discussed management/test interpretation w/external professional ?> 0 = No Consult Healthcare Provider Management of the patient was discussed with: Hospitalist Lab Data MDM Lab Attestation statement: I reviewed the patient's lab results. 11/03/24 07:59 11/03/24 07:59 Labs: Lab Results 11/03/24 Range/Units 07:59 WBC 4.6 L (4.8-10.8) X10*3/uL RBC 5.00 (4.60-5.80) X10*6/uL Hgb 15.3 (14.0-18.0) g/dl Hct 41.8 L (42.0-52.0) % MCV 83.6 (80.0-98.0) fL MCH 30.6 (27.0-33.0) pg MCHC 36.6 H (31.0-36.0) g/dl RDW 13.4 (11.0-16.0) % Plt Count 200 D (160-400) X10*3/uL MPV 9.5 (9.4-12.4) fL Immature Gran % (Auto) 0.2 (0.0-0.4) % Neut % (Auto) 61.2 (45-73) % Lymph % (Auto) 28.9 (20-40) % [place] % (Auto) 6.7 (2-11) % Eos % (Auto) 1.7 (0-4) % Baso % (Auto) 1.3 (0-2) % Lymph # (Auto) 1.3 (1.2-4.9) X10*3/uL [place] # (Auto) 0.3 (0.1-1.2) X10*3/uL Eos # (Auto) 0.1 (0.0-0.4) X10*3/uL Baso # (Auto) 0.1 (0.0-0.2) X10*3/uL Abs Immat Gran (auto) 0.01 (0.00-0.03) X10*3/uL Absolute Neuts (auto) 2.8 (2.0-8.3) x10*3/uL Absolute Nucleated RBC 0.000 (0.0-0.012) X10*3/uL Nucleated RBC % (auto) 0.0 (0.0-0.2) /100WBC Sodium 139 (135-145) mmol/L Potassium 4.6 D (3.3-5.1) mmol/L Chloride 102 (96-108) mmol/L Carbon Dioxide 23 (22-29) mmol/L Anion Gap 19 (12-20) BUN 15 (9-16) mg/dL Creatinine 1.20 (0.5-1.4) mg/dL Estim Creat Clear Calc 83.8 Estimated GFR > 60 Random Glucose 122 H (60-115) mg/dL Calcium 8.8 (8.4-10.2) mg/dL Ethyl Alcohol 198 mg/dL Independent Interpretation I performed an independent interpretation of an: EKG (75 beats per minute otherwise normal ECG without dysrhythmia, AV darwin blocks or ST-T changes to suspect underlying ACS, my independent interpretation) and Plain X-Ray (My independent chest xray interpretation: Lungs: Lungs are clear bilaterally without evidence of focal consolidation, pleural effusion, or pneumothorax. Cardiac silhouette is unremarkable, no obvious mediastinal widening, no obvious bony abnormalities such as fractures. Impression: Normal chest X-r) Radiology Impression Discussion of test interpretation with radiology: I have reviewed the radiologist's reading. Independent Historian Clinical information obtained from an independent historian. History obtained from or confirmed by: EMS External Record Review External record reviewed: Inpatient record Chronic Conditions Patient?s care impacted by: Hypertension Social Determinants Patient?s care significantly limited by Social Determinants of Health including: Low income Critical Care Time Critical Care Time Critical Care Time: Yes Total Critical Care Time: 35 Attestation: Time is exclusive of separately billable procedures. Time includes: direct patient care, patient reassessment, coordination of patient care, interpretation of data (laboratory data, pulse oximetry, arterial blood gases and chest xrays), review of patient's medical records, medical consultation and documentation of patient care. Procedures excluded from critical care time: central intravenous line placement and electrocardiography. Discharge Plan Discharge Clinical Impression: Alcohol abuse, Chest pain, precordial, Impending delirium tremens Prescriptions: No Action atorvastatin 80 mg tablet 80 mg PO DAILY aspirin 81 mg tablet,delayed release (DR/EC) 81 mg PO DAILY escitalopram oxalate 20 mg tablet 20 mg PO DAILY amlodipine 5 mg Tablet 5 mg PO DAILY Qty: 90 0RF Protocol: Hold for SBP< HOLD for SBP < : 90 acetaminophen 325 mg Tablet 650 mg PO Q6H PRN (Reason: Pain, Mild (Pain Scale 1-3)) Qty: 20 0RF hydroxyzine HCl 25 mg tablet 25 mg PO BID PRN (Reason: Anxiety) ticagrelor 90 mg tablet 90 mg PO BID trazodone 100 mg tablet 100 mg PO BEDTIME PRN (Reason: Sleep) melatonin 3 mg tablet 3 mg PO BEDTIME PRN (Reason: Sleep) carvedilol 12.5 mg tablet 6.25 mg PO BID Protocol: Hold for SBP/HR < HOLD for SBP < : 90 HOLD for HR < : 60 Print Language: Italian
[2024-11-03 08:05] LABS: MANUAL DIFF FLAG NO
[2024-11-03 08:06] LABS: Hematocrit 41.8 % (42.0-52.0); Hemoglobin 15.3 g/dl (14.0-18.0); Imm Gran Abs Auto 0.01 X10*3/uL (0.00-0.03); Imm Gran Pct Auto 0.2 % (0.0-0.4); Lymphocytes Absolute Auto 1.3 X10*3/uL (1.2-4.9); Mean Corpuscular HGB Conc 36.6 g/dl (31.0-36.0); Mean Corpuscular Hemoglobin 30.6 pg (27.0-33.0); Mean Corpuscular Volume 83.6 fL (80.0-98.0); NRBC Abs Auto 0.000 X10*3/uL (0.0-0.012); NRBC Pct Auto 0.0 /100WBC (0.0-0.2); Platelet Count 200 X10*3/uL (160-400); Red Blood Count 5.00 X10*6/uL (4.60-5.80); White Blood Count 4.6 X10*3/uL (4.8-10.8)
[2024-11-03] MEDS: PHENobarbitaL sodium 130 MG/ML IM ONCE 274 MG IM (08:18)
[2024-11-03 08:20] LABS: Anion Gap 19 (12-20); Blood Urea Nitrogen 15 mg/dL (9-16); Calcium 8.8 mg/dL (8.4-10.2); Carbon Dioxide 23 mmol/L (22-29); Chloride 102 mmol/L (96-108); Creatinine Clr Calc Pharmacy 83.8; Estimated Glomerular Filt Rate > 60; Potassium 4.6 mmol/L (3.3-5.1); Sodium 139 mmol/L (135-145)
[2024-11-03 08:41] LABS: Troponin-I High Sensitivity < 2.7 ng/L (<3.5-35.0)
--- NOTE | 2024-11-03 09:55 | PM.IMHP ---
History of Present Illness Date of Service: 11/03/24 Chief Complaint: withdrawal 54M PMH alcohol dependence, coronary disease status post stents, hypertension, obesity presented with withdrawal symptoms and chest pain. Patient was intentionally stopping to drink alcohol about 24 hours prior to presentation. He normally drinks 3 24 oz beers daily as well as 10 mg of Valium. On day of presentation reports jitteriness, withdrawal symptoms. Also complaining of mid sternal chest tightness. In ED troponin negative, EKG unremarkable. Review of Systems Review of Systems: Yes all other systems are reviewed and are negative [facility] Medical History MDD (major depressive disorder), recurrent episode, moderate Ileus Myocardial infarction CAD (coronary artery disease) Social History Household Members: None Household Members Other:: self Housing: Apartment Do you presently have visiting nurse or other home services: No Alcohol intake: current Alcohol intake frequency: 3 or more drinks per day Alcohol type: wine and hard liquor Comment: pt refused yellow non-skid socks Patient Tobacco Use Status: Former Tobacco user Tobacco use type: Cigarette Cigarettes Per Day: 4 Years Smoked: 40 Smoked in Last 30 Days: Yes e-Cigarette/Vaping Use: Former Use Second Hand Smoke Exposure: No Use of substances other than those prescribed or required for medical reasons: No Advance Directives: No Advance Directives Information Provided: Yes Advance Directives Date on File: 05/26/23 Do you have a plan to hurt others: No Plan service: No Meds Allergies Allergy/AdvReac Type Severity Reaction Status Date / Time No Known Allergies Allergy Verified 11/03/24 07:08 Active Medications: Current Medications Acetaminophen (Acetaminophen 325 Mg Tablet) 650 mg PO Q6H PRN PRN Reason: Pain, Mild 1-3,fever,headache Calcium Carbonate (Calcium Carbonate 750 Mg Tab.Chew) 750 mg PO Q4H PRN PRN Reason: Heartburn Enoxaparin Sodium (Enoxaparin Sodium 40 Mg/0.4 Ml Syringe) 40 mg SUBCUT Q24H KATHERYN Magnesium Hydroxide (Milk Of Magnesia 30 Ml Oral.Susp) 30 ml PO DAILY PRN PRN Reason: Constipation Melatonin (Melatonin 3 Mg Tablet) 6 mg PO BEDTIME PRN PRN Reason: Insomnia Pharmacy Consult (Consult Rx Etoh Phenob Im/Po) 1 each MISCELLANE ONCE PRN; Protocol PRN Reason: Consult order Phenobarbital (Phenobarbital 15 Mg Tablet) 45 mg PO BID [facility] Stop: 11/05/24 09:01 Phenobarbital (Phenobarbital 15 Mg Tablet) 15 mg PO BID [facility] Stop: 11/07/24 09:01 Phenobarbital (Phenobarbital 15 Mg Tablet) 15 mg PO DAILY [facility] Stop: 11/09/24 09:01 Phenobarbital Sodium (Phenobarbital Sodium 130 Mg/Ml Vial Im Q3hx2) 205 mg IM Q3H [facility] Stop: 11/03/24 14:01 Sodium Chloride (0.9 % Sodium Chloride Flush 3 Ml Syringe) 3 ml IVFLUSH QSHIFT [facility] Home Medications ?Medication ?Instructions ?Recorded ?Confirmed ?Last Taken ?Type aspirin 81 mg tablet,delayed 81 mg PO DAILY 04/28/23 08/16/24 08/15/24 History release atorvastatin 80 mg tablet 80 mg PO DAILY 04/28/23 08/16/24 08/15/24 History escitalopram oxalate 20 mg tablet 20 mg PO DAILY 04/28/23 08/16/24 08/15/24 History carvedilol 12.5 mg tablet 6.25 mg PO BID 08/16/24 08/16/24 08/15/24 History hydroxyzine HCl 25 mg tablet 25 mg PO BID PRN Anxiety 08/16/24 08/16/24 Unknown History melatonin 3 mg tablet 3 mg PO BEDTIME PRN Sleep 08/16/24 08/16/24 Unknown History ticagrelor 90 mg tablet 90 mg PO BID 08/16/24 08/16/24 08/15/24 History trazodone 100 mg tablet 100 mg PO BEDTIME PRN Sleep 08/16/24 08/16/24 Unknown History Physical Exam Vital Signs and Narrative: Vital Signs: Last Vital Signs Temp 98.3 F 11/03/24 08:00 Pulse 78 11/03/24 08:00 Resp 12 11/03/24 08:00 BP 133/82 11/03/24 08:00 Pulse Ox 96 11/03/24 08:00 O2 Del Method Room Air 11/03/24 08:00 BMI result Body Mass Index 36.2 General: AO X 3, no acute distress Resp: CTA bilateral, no accessory muscles used CVS: S1,S2,RRR GI: soft, non tender, non distended Neuro: motor grossly intact, alert, trmeor Psych: appropriate affect, appropriate insight Results Labs 11/03/24 07:59 11/03/24 07:59 Labs: Laboratory Results - last 24 hr 11/03/24 07:59 MCV 83.6 MCH 30.6 MCHC 36.6 H RDW 13.4 Plt Count 200 D MPV 9.5 Immature Gran % (Auto) 0.2 Neut % (Auto) 61.2 Lymph % (Auto) 28.9 [place] % (Auto) 6.7 Eos % (Auto) 1.7 Baso % (Auto) 1.3 Lymph # (Auto) 1.3 [place] # (Auto) 0.3 Eos # (Auto) 0.1 Baso # (Auto) 0.1 Abs Immat Gran (auto) 0.01 Absolute Neuts (auto) 2.8 Absolute Nucleated RBC 0.000 Nucleated RBC % (auto) 0.0 Anion Gap 19 Estim Creat Clear Calc 83.8 Estimated GFR > 60 Random Glucose 122 H Calcium 8.8 Ethyl Alcohol 198 Imaging Radiologist's Impressions: Impressions Chest X-Ray 11/03/24 08:29 IMPRESSION: No active pulmonary disease. Electronically signed by: Ben Bello MD 11/03/2024 08:44 AM EDT RP Assessment and Plan (1) Alcohol abuse: Status: Acute Plan 54M PMH alcohol dependence, coronary disease status post stents, hypertension, obesity presented with withdrawal symptoms and chest pain Alcohol dependence with acute withdrawal Phenobarbital protocol Monitor [facility] Addiction eval CAD with chest pain Follow up repeat troponin, unlikely ACS Continue aspirin statin Chest pain More likely alcoholic gastritis, continue PPI Obesity Weight loss recommended DVT prophylaxis with Lovenox Full Code Quality Stroke Does the patient have a stroke diagnosis?: No VTE Prior VTE?: No VTE Risk Level:: Medical - moderate - high VTE Device Contraindication: Treatment Not Indicated VTE Drug Contraindication: N/A - Med Ordered
[2024-11-03 10:32] LABS: Troponin-I High Sensitivity 2.7 ng/L (<3.5-35.0)
[2024-11-03] MEDS: PHENobarbitaL sodium 130 MG/ML VIAL IM Q3Hx2 205 MG IM ×2 (10:50→13:47)
--- NOTE | 2024-11-03 10:50 | PHA.MEDREC ---
Addendum entered by Eugenie Cortes RPh 11/03/24 10:54: reviewed by [facility]. Original Note: Pharmacy Consult ? Medication Reconciliation Pharmacy has completed the medication reconciliation Patient confirm al his medications. Patient states he is no longer taking Hydroxyzine Hcl 25 mg. Patient last had his medications yesterday.
[2024-11-03] MEDS: Aspirin Enteric Coated 81 MG TABLET.DR PO (11:53)
[2024-11-03] MEDS: 0.9 % Sodium Chloride Flush 3 ML SYRINGE IVFLUSH (19:44)
[2024-11-04] VITALS (9 sets, daily range): BP systolic 122–179; BP diastolic 67–96; PULSE 72–92; RESP 17–20; TEMP 36.3–37.3; O2SAT 94–98
[2024-11-04 05:31] LABS: Appearance Urine Clear; Glucose Urine UA Negative (Negative); PH 6.0 (5.0-9.0); Specific Gravity - Urine >= 1.030 (1.005-1.025); UMIC TRIGGER UACC YES
[2024-11-04 05:53] LABS: Cannabinoid Screen Urine Not Detected (Not Detect)
[2024-11-04 07:13] LABS: Hematocrit 38.3 % (42.0-52.0); Hemoglobin 13.9 g/dl (14.0-18.0); Mean Corpuscular HGB Conc 36.3 g/dl (31.0-36.0); Mean Corpuscular Hemoglobin 30.5 pg (27.0-33.0); Mean Corpuscular Volume 84.2 fL (80.0-98.0); NRBC Abs Auto 0.000 X10*3/uL (0.0-0.012); NRBC Pct Auto 0.0 /100WBC (0.0-0.2); Red Blood Count 4.55 X10*6/uL (4.60-5.80); White Blood Count 3.7 X10*3/uL (4.8-10.8)
[2024-11-04 07:15] LABS: Platelet Count 148 X10*3/uL (160-400)
[2024-11-04 07:16] LABS: Alanine Aminotransferase 38 U/L (0-40); Albumin Level 3.8 g/dL (3.5-5.0); Alkaline Phosphatase 68 U/L (39-117); Aspartate Amino Transferase 138 U/L (5-37); Blood Urea Nitrogen 15 mg/dL (9-16); Creatinine Clr Calc Pharmacy 89.1; Estimated Glomerular Filt Rate > 60; Magnesium 1.8 mg/dL (1.6-2.6); Total Protein 6.3 g/dL (6.5-8.0)
[2024-11-04 07:26] LABS: Anion Gap 16 (12-20); Calcium 8.1 mg/dL (8.4-10.2); Carbon Dioxide 23 mmol/L (22-29); Chloride 106 mmol/L (96-108); Potassium 3.5 mmol/L (3.3-5.1); Sodium 141 mmol/L (135-145)
[2024-11-04] MEDS: Aspirin Enteric Coated 81 MG TABLET.DR PO (08:03)
[2024-11-04] MEDS: 0.9 % Sodium Chloride Flush 3 ML SYRINGE IVFLUSH ×3 (08:05→21:37)
--- NOTE | 2024-11-04 09:41 | HO.PM.IMPN ---
Subjective Subjective Date of Service: 11/04/24 Interval History: anxious Physical Exam Exam: Exam: General: AO X 3, no acute distress Resp: CTA bilateral, no accessory muscles used CVS: S1,S2,RRR GI: soft, non tender, non distended Neuro: motor grossly intact, alert, trmeor Psych: appropriate affect, appropriate insight Vital Signs: Vital Signs: Last Vital Signs Temp 97.8 F 11/04/24 07:58 Pulse 90 11/04/24 07:58 Resp 20 11/04/24 07:58 BP 130/89 11/04/24 07:58 Pulse Ox 94 11/04/24 07:58 O2 Del Method Room Air 11/04/24 07:58 BMI result Body Mass Index 37.5 Objective Data Active Medications Acetaminophen (Acetaminophen 325 Mg Tablet) 650 mg PO Q6H PRN PRN Reason: Pain, Mild 1-3,fever,headache Last Admin: 11/03/24 19:42 Dose: 650 mg Documented By: OMAR Amlodipine Besylate (Amlodipine Besylate 5 Mg Tablet) 5 mg PO DAILY [facility]; Protocol Last Admin: 11/04/24 08:04 Dose: 5 mg Documented By: SONIA Aspirin (Aspirin Enteric Coated 81 Mg Tablet.) 81 mg PO DAILY [facility] Last Admin: 11/04/24 08:03 Dose: 81 mg Documented By: SONIA Atorvastatin Calcium (Atorvastatin Calcium 80 Mg Tablet) 80 mg PO DAILY [facility] Last Admin: 11/04/24 08:03 Dose: 80 mg Documented By: SONIA Calcium Carbonate (Calcium Carbonate 750 Mg Tab.Chew) 750 mg PO Q4H PRN PRN Reason: Heartburn Carvedilol (Carvedilol 6.25 Mg Tablet) 6.25 mg PO BID [facility]; Protocol Last Admin: 11/04/24 08:04 Dose: 6.25 mg Documented By: SONIA Clonidine HCl (Clonidine Hcl 0.1 Mg Tablet) 0.1 mg PO BID PRN; Protocol PRN Reason: anxiety Last Admin: 11/04/24 08:04 Dose: 0.1 mg Documented By: SONIA Enoxaparin Sodium (Enoxaparin Sodium 40 Mg/0.4 Ml Syringe) 40 mg SUBCUT Q24H [facility] Last Admin: 11/04/24 08:04 Dose: 40 mg Documented By: SONIA Escitalopram Oxalate (Escitalopram Oxalate 20 Mg Tablet) 20 mg PO DAILY [facility] Last Admin: 11/04/24 08:04 Dose: 20 mg Documented By: SONIA Magnesium Hydroxide (Milk Of Magnesia 30 Ml Oral.Susp) 30 ml PO DAILY PRN PRN Reason: Constipation Melatonin (Melatonin 3 Mg Tablet) 6 mg PO BEDTIME PRN PRN Reason: Insomnia Mirtazapine (Mirtazapine 7.5 Mg Tablet) 7.5 mg PO BEDTIME [facility] Last Admin: 11/03/24 19:41 Dose: 7.5 mg Documented By: OMAR Ondansetron HCl (Ondansetron Hcl 4 Mg/2 Ml Vial) 4 mg IVPUSH Q6H PRN PRN Reason: Nausea Last Admin: 11/03/24 19:42 Dose: 4 mg Documented By: OMAR Pantoprazole Sodium (Pantoprazole Sodium 40 Mg/10 Ml Vial) 40 mg IVPUSH DAILY@0630 [facility] Last Admin: 11/04/24 05:10 Dose: 40 mg Documented By: OMAR Pharmacy Consult (Consult Rx Etoh Phenob Im/Po) 1 each MISCELLANE ONCE PRN; Protocol PRN Reason: Consult order Phenobarbital (Phenobarbital 15 Mg Tablet) 45 mg PO BID [facility] Stop: 11/05/24 09:01 Last Admin: 11/04/24 08:03 Dose: 45 mg Documented By: SONIA Phenobarbital (Phenobarbital 15 Mg Tablet) 15 mg PO BID [facility] Stop: 11/07/24 09:01 Phenobarbital (Phenobarbital 15 Mg Tablet) 15 mg PO DAILY [facility] Stop: 11/09/24 09:01 Sodium Chloride (0.9 % Sodium Chloride Flush 3 Ml Syringe) 3 ml IVFLUSH QSHIFT [facility] Last Admin: 11/04/24 08:05 Dose: 3 ml Documented By: SONIA Ticagrelor (Ticagrelor 90 Mg Tablet) 90 mg PO BID [facility] Last Admin: 11/04/24 08:04 Dose: 90 mg Documented By: SONIA Trazodone HCl (Trazodone Hcl 100 Mg Tablet) 100 mg PO BEDTIME PRN PRN Reason: Sleep Labs 11/04/24 06:51 11/04/24 06:51 Labs: Laboratory Results - last 24 hr 11/04/24 11/04/24 05:10 06:51 MCV 84.2 MCH 30.5 MCHC 36.3 H RDW 13.3 Plt Count 148 L D MPV 9.9 Absolute Nucleated RBC 0.000 Nucleated RBC % (auto) 0.0 Anion Gap 16 Estim Creat Clear Calc 89.1 Estimated GFR > 60 Random Glucose 128 H Calcium 8.1 L D Magnesium 1.8 Total Bilirubin 3.3 H Direct Bilirubin 0.7 H AST 138 H ALT 38 Alkaline Phosphatase 68 Total Protein 6.3 L Albumin 3.8 Urine Color Yellow Urine Appearance Clear Urine pH 6.0 Ur Specific [place] >= 1.030 H Urine Protein 30 (1+) H Urine Glucose (UA) Negative Urine Ketones Negative Urine Blood Negative Urine Nitrite Negative Ur Leukocyte Esterase Negative Urine RBC 0-2 Urine WBC 0-5 Ur Squamous Epith Cells 0-2 Urine Bacteria None Seen Hyaline Casts 0-2 Urine Opiates Screen Not Detected Ur Buprenorphine Scrn Not Detected Ur Oxycodone Screen Not Detected Urine Methadone Screen Not Detected Urine Fentanyl Screen Not Detected Ur Barbiturates Screen POSITIVE H Ur Phencyclidine Scrn Not Detected Ur Amphetamines Screen Not Detected U Benzodiazepines Scrn POSITIVE H Urine Cocaine Screen Not Detected U Marijuana (THC) Screen Not Detected Assessment and Plan (1) Alcohol abuse: Status: Acute Plan 54M PMH alcohol dependence, coronary disease status post stents, hypertension, obesity presented with withdrawal symptoms and chest pain Alcohol dependence with acute withdrawal Phenobarbital protocol Monitor [facility] Addiction team added clonidine CAD with chest pain trop and ekg negative - unlikely ACS Continue aspirin statin Chest pain More likely alcoholic gastritis, continue PPI acute alcholic hepatitis monitor lfts Obesity Weight loss recommended DVT prophylaxis with Lovenox Full Code reason for continued hospitalization:withdraal Quality Stroke Does the patient have a stroke diagnosis?: No VTE Prior VTE?: No VTE Risk Level:: Medical - moderate - high VTE Device Contraindication: Treatment Not Indicated VTE Drug Contraindication: N/A - Med Ordered
[2024-11-04] MEDS: Milk of Magnesia 30 ML ORAL.SUSP PO (11:59)
[2024-11-05] VITALS (7 sets, daily range): BP systolic 119–137; BP diastolic 61–84; PULSE 64–80; RESP 16–20; TEMP 36.2–36.7; O2SAT 96–99
[2024-11-05 08:08] LABS: Hematocrit 35.9 % (42.0-52.0); Hemoglobin 12.3 g/dl (14.0-18.0); Mean Corpuscular HGB Conc 34.3 g/dl (31.0-36.0); Mean Corpuscular Hemoglobin 29.9 pg (27.0-33.0); Mean Corpuscular Volume 87.1 fL (80.0-98.0); NRBC Abs Auto 0.000 X10*3/uL (0.0-0.012); NRBC Pct Auto 0.0 /100WBC (0.0-0.2); Platelet Count 130 X10*3/uL (160-400); Red Blood Count 4.12 X10*6/uL (4.60-5.80); White Blood Count 3.4 X10*3/uL (4.8-10.8)
[2024-11-05 08:13] LABS: INTERNATIONAL NORM RATIO 0.9 (0.9-1.1); Prothrombin Time 10.2 SEC (10.9-12.4)
[2024-11-05] MEDS: 0.9 % Sodium Chloride Flush 3 ML SYRINGE IVFLUSH ×3 (08:20→19:56)
[2024-11-05 08:22] LABS: Alanine Aminotransferase 32 U/L (0-40); Albumin Level 3.5 g/dL (3.5-5.0); Alkaline Phosphatase 55 U/L (39-117); Anion Gap 13 (12-20); Aspartate Amino Transferase 90 U/L (5-37); Blood Urea Nitrogen 13 mg/dL (9-16); Calcium 7.8 mg/dL (8.4-10.2); Carbon Dioxide 25 mmol/L (22-29); Chloride 107 mmol/L (96-108); Creatinine Clr Calc Pharmacy 96.7; Estimated Glomerular Filt Rate > 60; Magnesium 2.1 mg/dL (1.6-2.6); Potassium 3.0 mmol/L (3.3-5.1); Sodium 142 mmol/L (135-145); Total Protein 6.0 g/dL (6.5-8.0)
[2024-11-05] MEDS: Aspirin Enteric Coated 81 MG TABLET.DR PO (08:23)
[2024-11-05] MEDS: Milk of Magnesia 30 ML ORAL.SUSP PO (08:24)
--- NOTE | 2024-11-05 09:03 | P.PNIM_ITS ---
Subjective Subjective Date of Service: 11/05/24 Interval History: improving Physical Exam 2 Exam: Exam: General: AO X 3, no acute distress Resp: CTA bilateral, no accessory muscles used CVS: S1,S2,RRR GI: soft, non tender, non distended Neuro: motor grossly intact, alert, trmeor Psych: appropriate affect, appropriate insight Vital Signs: Vital Signs: Last Vital Signs Temp 97.2 F 11/05/24 07:59 Pulse 64 11/05/24 07:59 Resp 18 11/05/24 07:59 BP 121/74 11/05/24 07:59 Pulse Ox 96 11/05/24 07:59 O2 Del Method Room Air 11/05/24 07:59 O2 Flow Rate 1 11/04/24 21:47 BMI result Body Mass Index 37.5 Objective Data Active Medications Acetaminophen (Acetaminophen 325 Mg Tablet) 650 mg PO Q6H PRN PRN Reason: Pain, Mild 1-3,fever,headache Last Admin: 11/04/24 21:42 Dose: 650 mg Documented By: BESSY Amlodipine Besylate (Amlodipine Besylate 5 Mg Tablet) 5 mg PO DAILY [facility]; Protocol Last Admin: 11/05/24 08:23 Dose: 5 mg Documented By: SONIA Aspirin (Aspirin Enteric Coated 81 Mg Tablet.Dr) 81 mg PO DAILY [facility] Last Admin: 11/05/24 08:23 Dose: 81 mg Documented By: SONIA Atorvastatin Calcium (Atorvastatin Calcium 80 Mg Tablet) 80 mg PO DAILY [facility] Last Admin: 11/05/24 08:23 Dose: 80 mg Documented By: SONIA Calcium Carbonate (Calcium Carbonate 750 Mg Tab.Chew) 750 mg PO Q4H PRN PRN Reason: Heartburn Carvedilol (Carvedilol 6.25 Mg Tablet) 6.25 mg PO BID [facility]; Protocol Last Admin: 11/05/24 08:22 Dose: 6.25 mg Documented By: SONIA Clonidine HCl (Clonidine Hcl 0.1 Mg Tablet) 0.1 mg PO BID PRN; Protocol PRN Reason: anxiety Last Admin: 11/05/24 08:22 Dose: 0.1 mg Documented By: SONIA Enoxaparin Sodium (Enoxaparin Sodium 40 Mg/0.4 Ml Syringe) 40 mg SUBCUT Q24H [facility] Last Admin: 11/05/24 08:24 Dose: 40 mg Documented By: SONIA Escitalopram Oxalate (Escitalopram Oxalate 20 Mg Tablet) 20 mg PO DAILY [facility] Last Admin: 11/05/24 08:23 Dose: 20 mg Documented By: SONIA Magnesium Hydroxide (Milk Of Magnesia 30 Ml Oral.Susp) 30 ml PO DAILY PRN PRN Reason: Constipation Last Admin: 11/05/24 08:24 Dose: 30 ml Documented By: SONIA Melatonin (Melatonin 3 Mg Tablet) 6 mg PO BEDTIME PRN PRN Reason: Insomnia Last Admin: 11/04/24 21:42 Dose: 6 mg Documented By: BESSY Mirtazapine (Mirtazapine 7.5 Mg Tablet) 7.5 mg PO BEDTIME [facility] Last Admin: 11/04/24 21:37 Dose: 7.5 mg Documented By: BESSY Ondansetron HCl (Ondansetron Hcl 4 Mg/2 Ml Vial) 4 mg IVPUSH Q6H PRN PRN Reason: Nausea Last Admin: 11/03/24 19:42 Dose: 4 mg Documented By: OMAR Pantoprazole Sodium (Pantoprazole Sodium 40 Mg/10 Ml Vial) 40 mg IVPUSH DAILY@0630 [facility] Last Admin: 11/05/24 06:21 Dose: 40 mg Documented By: BESSY Pharmacy Consult (Consult Rx Etoh Phenob Im/Po) 1 each MISCELLANE ONCE PRN; Protocol PRN Reason: Consult order Phenobarbital (Phenobarbital 15 Mg Tablet) 15 mg PO BID [facility] Stop: 11/07/24 09:01 Phenobarbital (Phenobarbital 15 Mg Tablet) 15 mg PO DAILY [facility] Stop: 11/09/24 09:01 Sodium Chloride (0.9 % Sodium Chloride Flush 3 Ml Syringe) 3 ml IVFLUSH QSHIFT [facility] Last Admin: 11/05/24 08:20 Dose: 3 ml Documented By: SONIA Ticagrelor (Ticagrelor 90 Mg Tablet) 90 mg PO BID [facility] Last Admin: 11/05/24 08:23 Dose: 90 mg Documented By: SONIA Trazodone HCl (Trazodone Hcl 100 Mg Tablet) 100 mg PO BEDTIME PRN PRN Reason: Sleep Labs 11/05/24 07:21 11/05/24 07:21 Labs: Laboratory Results - last 24 hr 11/05/24 07:21 MCV 87.1 MCH 29.9 MCHC 34.3 RDW 13.1 Plt Count 130 L MPV 10.5 Absolute Nucleated RBC 0.000 Nucleated RBC % (auto) 0.0 PT 10.2 L INR 0.9 Anion Gap 13 Estim Creat Clear Calc 96.7 Estimated GFR > 60 Random Glucose 151 H Calcium 7.8 L Magnesium 2.1 Total Bilirubin 0.7 Direct Bilirubin 0.3 AST 90 H ALT 32 Alkaline Phosphatase 55 Total Protein 6.0 L Albumin 3.5 Assessment and Plan (1) Alcohol abuse: Status: Acute Plan 54M PMH alcohol dependence, coronary disease status post stents, hypertension, obesity presented with withdrawal symptoms and chest pain Alcohol dependence with acute withdrawal Phenobarbital protocol Monitor CIWA added clonidine CAD with chest pain trop and ekg negative - unlikely ACS Continue aspirin statin Chest pain More likely alcoholic gastritis, continue PPI acute hypokalemia replace and monitor acute alcholic hepatitis resolved Obesity Weight loss recommended DVT prophylaxis with Lovenox Full Code reason for continued hospitalization:withdraal Quality Stroke Does the patient have a stroke diagnosis?: No VTE Prior VTE?: No VTE Risk Level:: Medical - moderate - high VTE Device Contraindication: Treatment Not Indicated VTE Drug Contraindication: N/A - Med Ordered
[2024-11-05] MEDS: Potassium Chloride ER 20 MEQ TAB.ER.PRT 40 MEQ PO (09:47)
--- NOTE | 2024-11-05 10:18 | MHC.CM.PN ---
Pt. lives in an apt. which has support services from [facility]. He does not have a home health aid or nurse, he is independent with his ADL's. PCP is Niecy Mckeon. HCP discussed, pt. does not have one and declined to complete form. He will need assistance with transport home at DC, DCP: home, self care, CM to follow for DC needs.
[2024-11-06 04:00] VITALS: BP 136/80; PULSE 63; RESP 16; TEMP 36.7; O2SAT 96
[2024-11-06 07:40] VITALS: BP 148/86; PULSE 63; RESP 18; TEMP 36.8; O2SAT 98
[2024-11-06 08:12] LABS: Hematocrit 37.4 % (42.0-52.0); Hemoglobin 13.0 g/dl (14.0-18.0); Mean Corpuscular HGB Conc 34.8 g/dl (31.0-36.0); Mean Corpuscular Hemoglobin 30.2 pg (27.0-33.0); Mean Corpuscular Volume 86.8 fL (80.0-98.0); NRBC Abs Auto 0.000 X10*3/uL (0.0-0.012); NRBC Pct Auto 0.0 /100WBC (0.0-0.2); Platelet Count 141 X10*3/uL (160-400); Red Blood Count 4.31 X10*6/uL (4.60-5.80); White Blood Count 5.2 X10*3/uL (4.8-10.8)
[2024-11-06 08:40] LABS: Anion Gap 13 (12-20); Blood Urea Nitrogen 11 mg/dL (9-16); Calcium 8.5 mg/dL (8.4-10.2); Carbon Dioxide 28 mmol/L (22-29); Chloride 106 mmol/L (96-108); Creatinine Clr Calc Pharmacy 103.5; Estimated Glomerular Filt Rate > 60; Potassium 3.6 mmol/L (3.3-5.1); Sodium 143 mmol/L (135-145)
[2024-11-06] MEDS: Aspirin Enteric Coated 81 MG TABLET.DR PO (08:49)
[2024-11-06] MEDS: 0.9 % Sodium Chloride Flush 3 ML SYRINGE IVFLUSH (08:50)
--- NOTE | 2024-11-06 09:38 | P.DS_ITS ---
DS: Providers Provider Date of Service: 11/06/24 Date of admission: 11/03/24 09:41 Date of discharge: 11/06/24 Primary care physician: Unknown Physician Consults: 11/03/24 09:58 Addiction Medicine Provider Routine Consulting Provider: Addiction Covering Reason for consultation: etoh DS: Diagnosis Discharge Diagnosis (1) Alcohol abuse: Status: Acute DS: Summary Hospital Course Hospital Course: from initial hpi: 54M PMH alcohol dependence, coronary disease status post stents, hypertension, obesity presented with withdrawal symptoms and chest pain. Patient was intentionally stopping to drink alcohol about 24 hours prior to presentation. He normally drinks 3 24 oz beers daily as well as 10 mg of Valium. On day of presentation reports jitteriness, withdrawal symptoms. Also complaining of mid sternal chest tightness. In ED troponin negative, EKG unremarkable. hospital course: Patient was admitted for alcohol dependence with acute withdrawal. Was treated phenobarbital protocol and given clonidine and symptoms resolved. Was seen by recovery team who provided patient with resources. For coronary artery disease with chest pain troponin and EKG were negative unlikely ACS was covered with PPI for alcoholic gastritis. For CAD was continued on aspirin and statin. For acute hypokalemia received replacement. For acute alcoholic hepatitis LFTs improved. For obesity weight loss recommended. Patient is feeling better and will be discharged home. Time Attestation Discharge Coordination Time (in mins): 32 Quality: Safe Use of Opioids Does Pt have an Active Cancer Diagnosis on the Problem List?: No Quality: Stroke Does the patient have a stroke diagnosis?: No Physical Exam Exam: Exam: General: AO X 3, no acute distress Resp: CTA bilateral, no accessory muscles used CVS: S1,S2,RRR GI: soft, non tender, non distended Neuro: motor grossly intact, alert Psych: appropriate affect, appropriate insight Vital Signs: Vital Signs: Last Vital Signs Temp 98.3 F 11/06/24 07:40 Pulse 63 11/06/24 07:40 Resp 18 11/06/24 07:40 BP 148/86 H 11/06/24 07:40 Pulse Ox 98 11/06/24 07:40 O2 Del Method Room Air 11/06/24 07:40 O2 Flow Rate 1 11/04/24 21:47 BMI result Body Mass Index 37.5 DS: Data Data Completed and Pending Completed studies during hospitalization [Text1]: Procedures Detoxification Services for Substance Abuse Treatment (08/16/24) Labs on day of discharge: Laboratory Results - last 24 hr 11/06/24 07:54 WBC 5.2 RBC 4.31 L Hgb 13.0 L Hct 37.4 L MCV 86.8 MCH 30.2 MCHC 34.8 RDW 13.7 Plt Count 141 L MPV 10.6 Absolute Nucleated RBC 0.000 Nucleated RBC % (auto) 0.0 Sodium 143 Potassium 3.6 Chloride 106 Carbon Dioxide 28 Anion Gap 13 BUN 11 Creatinine 0.99 Estim Creat Clear Calc 103.5 Estimated GFR > 60 Random Glucose 120 H Calcium 8.5 D Discharge Plan Discharge Anticipated Discharge Date/Time: 11/06/24 09:33 Patient Disposition: Home, Self-Care Discharge Diagnosis: etoh dependence with withdrawal Referrals: Physician,Unknown J [Primary Care Provider, Medical] - 1 Week Discharge Medications: New clonidine HCl 0.1 mg Tablet 0.1 mg PO BID PRN (Reason: anxiety) Qty: 180 0RF Protocol: Hold for SBP< HOLD for SBP < : 90 diazepam [Valium] 2 mg tablet 2 mg PO BID Qty: 10 0RF Rx Instructions: 1 tab twice daily for 3 days, then 1 tab daily for 4 days, then stop Continued atorvastatin 80 mg tablet 80 mg PO DAILY aspirin 81 mg tablet,delayed release (DR/EC) 81 mg PO DAILY escitalopram oxalate 20 mg tablet 20 mg PO DAILY amlodipine 5 mg Tablet 5 mg PO DAILY Qty: 90 0RF Protocol: Hold for SBP< HOLD for SBP < : 90 acetaminophen 325 mg Tablet 650 mg PO Q6H PRN (Reason: Pain, Mild (Pain Scale 1-3)) Qty: 20 0RF ticagrelor 90 mg tablet 90 mg PO BID trazodone 100 mg tablet 100 mg PO BEDTIME PRN (Reason: Sleep) melatonin 3 mg tablet 3 mg PO BEDTIME PRN (Reason: Sleep) carvedilol 12.5 mg tablet 6.25 mg PO BID Protocol: Hold for SBP/HR < HOLD for SBP < : 90 HOLD for HR < : 60 mirtazapine 7.5 mg tablet 7.5 mg PO BEDTIME Discontinued diazepam 5 mg tablet 5 mg PO DAILY PRN (Reason: Anxiety) Discharge Orders: Discharge Order (Routine); Ordered 11/06/24 Ordered By: Lei Severino Diet: Advance to usual diet Activity on Discharge: As tolerated Stand Alone Forms: Patient Portal Discharge page Print Language: Italian Care Plan Goals: etoh recovery Health Concerns: etoh Plan of Treatment: stop etoh, wean valium, follow up with services outpatient starting clonidine Assessment: see above
--- NOTE | 2024-11-06 10:48 | MHC.CM.PN ---
Pt is medically cleared for discharge home self-care, he will transport home via lyft ride.
== END 2024-11-06 11:05 | disposition home or self-care (01) | DRG 775 ==
LOC: HO.ED 07:48 → HO.EDOVER 09:41 → HO.IMC 16:36
PROVIDERS: Admitting Provider Internal Medicine; Emergency Provider Emergency Medicine; Visit Provider Internal Medicine
DX: F10.239 Alcohol dependence with withdrawal, unspecified (principal); K70.10 Alcoholic hepatitis without ascites; E66.9 Obesity, unspecified; I25.10 Atherosclerotic heart disease of native coronary artery without angina pectoris; K29.20 Alcoholic gastritis without bleeding; E87.6 Hypokalemia; Z87.891 Personal history of nicotine dependence; Y90.6 Blood alcohol level of 120-199 mg/100 ml; Z95.5 Presence of coronary angioplasty implant and graft; Z68.37 Body mass index [BMI] 37.0-37.9, adult; Z71.3 Dietary counseling and surveillance; Z79.82 Long term (current) use of aspirin; Z79.899 Other long term (current) drug therapy
CPT/HCPCS: 36415; 71045; 80048; 80076; 80307; 81001; 83735; 84484; 85025; 85027; 85610; 93005; 99285; J1650; J2405; J2470; J2560; S9485

== ENCOUNTER → 2024-11-03 07:34 | Outpatient (BNV) | payer MEDICAID, SELFPAY | PROVIDERS: Admitting Provider Internal Medicine; Emergency Provider Emergency Medicine; Visit Provider Internal Medicine | DX: F10.230 Alcohol dependence with withdrawal, uncomplicated (principal) | CPT/HCPCS: 93010 ==

== ENCOUNTER → 2024-11-03 08:29 | Outpatient (BNV) | payer MEDICAID, SELFPAY | PROVIDERS: Emergency Provider Emergency Medicine; Visit Provider Radiology Diagnostic Radiology | DX: R07.9 Chest pain, unspecified (principal) | CPT/HCPCS: 71045 ==

== ENCOUNTER → 2024-11-03 09:41 | Outpatient (BNV) | payer MEDICAID, SELFPAY | PROVIDERS: Admitting Provider Internal Medicine; Emergency Provider Emergency Medicine; Visit Provider Internal Medicine | DX: F10.10 Alcohol abuse, uncomplicated (principal) | CPT/HCPCS: 99223; 99232; 99233; 99239 ==

== ENCOUNTER 2024-12-16 07:27 | Inpatient (IN) | payer MEDICAID, SELFPAY ==
[2024-12-16] VITALS (9 sets, daily range): BP systolic 121–154; BP diastolic 71–89; PULSE 80–101; RESP 16–20; TEMP 36.6–37.2; O2SAT 93–98; BMI 35.5
--- NOTE | 2024-12-16 | ECG_ITS ---
Test Reason : ABDOMINAL PAIN Blood Pressure : */* mmHG Vent. Rate : 84 BPM Atrial Rate : 84 BPM P-R Int : 156 ms QRS Dur : 80 ms QT Int : 398 ms P-R-T Axes : 30 30 72 degrees QTcB Int : 470 ms Normal sinus rhythm Septal infarct , age undetermined Abnormal ECG When compared with ECG of 03-Nov-2024 07:02, No significant change was found Referred By: Generic ED Physician Electronically Signed By: VARGHESE QUIROZ MD
--- NOTE | 2024-12-16 07:51 | ED.ALCOHOL ---
HPI - Alcohol General Chief Complaint: ETOH/Substance Use Stated Complaint: BINGE DRINKING Time Seen by Provider: 12/16/24 07:48 Source: patient and EMS Mode of arrival: EMS Limitations: no limitations History of Present Illness ED Provider: HPI narrative: 54-year-old male with a history of alcohol use disorder, states has been drinking alcohol for the past 6 days straight, has not been eating presenting with anxiety, hallucinations, denies ongoing chest pain no fevers or chills no pleurisy no hematemesis or hematochezia. Denies other drug use at this time. Patient states he is prescribed 5 mg of Valium daily but has not taken any 5 days because I was so drunk Related Data Home Medications ?Medication ?Instructions ?Recorded ?Confirmed aspirin 81 mg tablet,delayed 81 mg PO DAILY 04/28/23 12/16/24 release atorvastatin 80 mg tablet 80 mg PO DAILY 04/28/23 12/16/24 escitalopram oxalate 20 mg tablet 20 mg PO DAILY 04/28/23 12/16/24 melatonin 3 mg tablet 3 mg PO BEDTIME PRN Sleep 08/16/24 12/16/24 ticagrelor 90 mg tablet 90 mg PO BID 08/16/24 12/16/24 trazodone 100 mg tablet 100 mg PO BEDTIME PRN Sleep 08/16/24 12/16/24 mirtazapine 7.5 mg tablet 7.5 mg PO BEDTIME 11/03/24 12/16/24 carvedilol 6.25 mg tablet 6.25 mg PO BID 12/16/24 12/16/24 diazepam 5 mg tablet 5 mg PO DAILY PRN Anxiety 12/16/24 12/16/24 Previous Rx's ?Medication ?Instructions ?Recorded amlodipine 5 mg tablet 5 mg PO DAILY #90 tabs 04/30/23 acetaminophen 325 mg tablet 650 mg (2 x 325 mg) PO Q6H PRN 05/31/23 Pain, Mild (Pain Scale 1-3) #20 tabs thiamine HCl (vitamin B1) 100 mg 100 mg PO DAILY #30 tabs 12/20/24 tablet Allergies Allergy/AdvReac Type Severity Reaction Status Date / Time No Known Allergies Allergy Verified 12/16/24 07:39 Review of Systems Constitutional: Constitutional: Reports as per HPI [facility] Past Medical History Medical History MDD (major depressive disorder), recurrent episode, moderate Ileus Myocardial infarction CAD (coronary artery disease) Social History Social History Household Members: None Household Members Other:: self Housing: Apartment Do you presently have visiting nurse or other home services: No Alcohol intake: current Alcohol intake frequency: 3 or more drinks per day Alcohol type: beer and hard liquor Comment: patient refuses bed alarm Patient Tobacco Use Status: Current everyday Tobacco user Tobacco use type: Cigarette Cigarettes Per Day: 0.5 Years Smoked: 30 e-Cigarette/Vaping Use: Former Use Second Hand Smoke Exposure: Yes Advance Directives Date on File: 05/26/23 service: No Physical Exam ED Vital Signs: Vital Signs - 24 hr 12/16/24 07:37 12/16/24 08:00 Temperature 98.1 F Pulse Rate 91 85 Respiratory Rate 18 18 Blood Pressure 121/83 121/71 Pulse Oximetry 98 98 Oxygen Delivery Method Room Air Room Air BMI result Body Mass Index 35.5 Const Other: General: ?Appears older than stated age ? ?no scleral icterus, dry oral mucosa ? Neck: Supple, no LAD ? ?CV: RRR, no obvious murmurs appreciated ? ?Resp: ?No wheezing rales rhonchi no stridor moving air well ? Abd: ?Bowel sounds are present, no tenderness no rebound no rigidity ? ?MSK: FROM, strength 5/5 all extremities ? Skin: Warm, dry, intact, no jaundice ? ?Neuro: ?Alert and oriented x3, with alcohol on breath, moving upper and lower extremities symmetrically, no obvious facial asymmetry noted, cranial nerves 2-12 intact Medical Decision Making Medical Decision Making MDM Narrative: 7:57 AM 12/16/2024 (Dr. Antonino Jameson): Has been admitted in the beginning of last month for alcohol withdrawal was on phenobarb protocol, at this time low start with fluids IV Valium, he is likely withdrawing from benzos as well although he is anxious and somewhat tachypneic he is not hypotensive not tachycardic not sweaty, I did not initiate phenobarb protocol at this time we will start with IV Valium that reassess but overall anticipating admission he is high-risk and reported hallucinations, no SI or HI, no other drug use reported accept for prescribed Valium. 8:38 AM 12/16/2024 (Dr. Antonino Jameson): Lactic acid elevated is not related to infection but dehydration, the rest of the blood work was reassuring there is slight gap elevation likely due to the lactic, will also start phenobarb protocol Differential Diagnosis Differential Diagnoses: The differential diagnosis associated with the presentation includes (Alcoholic ketosis, dehydration, electrolyte derangements, bedside has been withdrawal, alcohol withdrawal) Admission/Observation Consideration of admission/observation: Escalation of care including admission/observation considered Consult Healthcare Provider Management of the patient was discussed with: Hospitalist Lab Data MDM Lab Attestation statement: I reviewed the patient's lab results. 12/17/24 05:28 12/20/24 08:13 Labs: Lab Results 12/16/24 12/16/24 12/16/24 Range/Units 08:07 08:08 10:27 WBC 5.0 (4.8-10.8) X10*3/uL RBC 4.95 (4.60-5.80) X10*6/uL Hgb 14.5 (14.0-18.0) g/dl Hct 42.1 (42.0-52.0) % MCV 85.1 (80.0-98.0) fL MCH 29.3 (27.0-33.0) pg MCHC 34.4 (31.0-36.0) g/dl RDW 13.3 (11.0-16.0) % Plt Count 255 D (160-400) X10*3/uL MPV 9.8 (9.4-12.4) fL Immature Gran % (Auto) 0.2 (0.0-0.4) % Neut % (Auto) 68.8 (45-73) % Lymph % (Auto) 21.8 (20-40) % Mckenzie % (Auto) 6.2 (2-11) % Eos % (Auto) 1.2 (0-4) % Baso % (Auto) 1.8 (0-2) % Lymph # (Auto) 1.1 L (1.2-4.9) X10*3/uL Mckenzie # (Auto) 0.3 (0.1-1.2) X10*3/uL Eos # (Auto) 0.1 (0.0-0.4) X10*3/uL Baso # (Auto) 0.1 (0.0-0.2) X10*3/uL Abs Immat Gran (auto) 0.01 (0.00-0.03) X10*3/uL Absolute Neuts (auto) 3.5 (2.0-8.3) x10*3/uL Absolute Nucleated RBC 0.000 (0.0-0.012) X10*3/uL Nucleated RBC % (auto) 0.0 (0.0-0.2) /100WBC Sodium 139 (135-145) mmol/L Potassium 4.0 (3.3-5.1) mmol/L Chloride 100 (96-108) mmol/L Carbon Dioxide 21 L (22-29) mmol/L Anion Gap 22 H (12-20) BUN 11 (9-16) mg/dL Creatinine 1.13 (0.5-1.4) mg/dL Estim Creat Clear Calc 88.1 Estimated GFR > 60 Random Glucose 139 H (60-115) mg/dL Lactic Acid 6.4 H* (0.5-2.0) mmol/L Lactic Acid F/U @ 2Hr 6.1 H* (0.5-2.0) mmol/L Calcium 8.0 L (8.4-10.2) mg/dL Magnesium 2.1 (1.6-2.6) mg/dL Total Bilirubin 1.2 H (0.0-1.0) mg/dL AST 35 (5-37) U/L ALT 14 (0-40) U/L Alkaline Phosphatase 61 (39-117) U/L Total Creatine Kinase 66 (38-174) U/L Troponin I High Sens < 2.7 (<3.5-35.0) ng/L Total Protein 6.7 (6.5-8.0) g/dL Albumin 4.1 (3.5-5.0) g/dL Lipase 77 (8-78) U/L Beta-Hydroxybutyrate 0.19 (0.02-0.27) mmol/L Ethyl Alcohol 267 mg/dL Independent Interpretation I performed an independent interpretation of an: EKG (84 beats per minute no QTC prolongation) Independent Historian Clinical information obtained from an independent historian. History obtained from or confirmed by: EMS Medications Administered Discontinued Medications Generic Name Dose Route Start Last Admin Trade Name Gatoq PRN Reason Stop Dose Admin Acetaminophen 650 mg 12/16/24 11:09 12/18/24 15:38 Acetaminophen 325 Mg Tablet PO 650 mg Q6H PRN Administration Pain, Mild 1-3,fever,headache Amlodipine Besylate 5 mg 12/17/24 09:00 12/20/24 09:03 Amlodipine Besylate 5 Mg Tablet PO 5 mg DAILY KATHERYN Administration Protocol Aspirin 81 mg 12/17/24 09:00 12/20/24 09:04 Aspirin Enteric Coated 81 Mg Tablet. PO 81 mg DAILY KATHERYN Administration Atorvastatin Calcium 80 mg 12/17/24 09:00 12/20/24 09:03 Atorvastatin Calcium 80 Mg Tablet PO 80 mg DAILY KATHERYN Administration Carvedilol 6.25 mg 12/16/24 21:00 12/20/24 09:04 Carvedilol 6.25 Mg Tablet PO 6.25 mg BID KATHERYN Administration Protocol Clonidine HCl 0.1 mg 12/17/24 11:32 12/19/24 16:56 Clonidine Hcl 0.1 Mg Tablet PO 0.1 mg TID PRN Administration anxiety/restlessness Protocol Diazepam 5 mg 12/16/24 07:51 12/16/24 07:59 Diazepam 10 Mg/2 Ml Cartridge IVPUSH 12/16/24 07:52 5 mg STAT STA Administration Diazepam 5 mg 12/16/24 15:24 12/17/24 18:47 Diazepam 5 Mg Tablet PO 5 mg DAILY PRN Administration Anxiety Diazepam 10 mg 12/16/24 15:20 12/16/24 16:40 Diazepam 10 Mg/2 Ml Cartridge IVPUSH 12/16/24 15:21 10 mg STAT STA Administration Escitalopram Oxalate 20 mg 12/17/24 09:00 12/20/24 09:03 Escitalopram Oxalate 20 Mg Tablet PO 20 mg DAILY KATHERYN Administration Heparin Sodium (Porcine) 5,000 unit 12/16/24 11:15 12/20/24 11:20 Heparin Sodium,Porcine 5,000 Unit/Ml Vial SUBCUT Not Given Q12H KATHERYN Hydroxyzine HCl 25 mg 12/17/24 15:23 12/18/24 15:39 Hydroxyzine Hcl 25 Mg Tablet PO 25 mg Q6H PRN Administration anxiety/restlessness Lactated Ringer's 1,000 mls @ 0 mls/hr 12/16/24 08:00 12/16/24 10:58 Lr IV Infused .Q0M KATHERYN Infusion Wide Open Lactated Ringer's 1,000 mls @ 999 mls/hr 12/16/24 09:45 12/16/24 09:48 Lr IV 12/16/24 10:45 Not Given .Q1H1M KATHERYN Sodium Chloride 1,000 mls @ 999 mls/hr 12/16/24 11:00 12/16/24 12:10 Ns IV 12/16/24 12:00 Infused .Q1H1M KATHERYN Infusion Lactated Ringer's 1,000 mls @ 100 mls/hr 12/16/24 11:15 12/17/24 08:53 Lr IVCONT Infused .Q10H KATHERYN Infusion Thiamine HCl 100 mg/ Sodium 101 mls @ 202 mls/hr 12/16/24 15:15 12/20/24 09:05 Chloride IV 202 mls/hr DAILY KATHERYN Administration Ibuprofen 200 mg 12/18/24 16:07 12/19/24 16:56 Ibuprofen 200 Mg Tablet PO 200 mg Q8H PRN Administration pain - moderate Melatonin 6 mg 12/16/24 11:09 12/19/24 20:15 Melatonin 3 Mg Tablet PO 6 mg BEDTIME PRN Administration Insomnia Mirtazapine 7.5 mg 12/16/24 21:00 12/19/24 20:15 Mirtazapine 7.5 Mg Tablet PO 7.5 mg BEDTIME KATHERYN Administration Multivitamins/Vitamin C 1 tab 12/16/24 15:15 12/20/24 09:03 Multivitamin Tablet PO 1 tab DAILY KATHERYN Administration Ondansetron HCl 4 mg 12/16/24 07:51 12/16/24 07:57 Ondansetron Hcl 4 Mg/2 Ml Vial IVPUSH 12/16/24 07:52 4 mg ONCE ONE Administration Ondansetron HCl 4 mg 12/16/24 11:09 12/19/24 12:56 Ondansetron Hcl 4 Mg/2 Ml Vial IVPUSH 4 mg Q8H PRN Administration Nausea and Vomiting Ondansetron HCl 4 mg 12/16/24 17:56 12/16/24 18:15 Ondansetron Hcl 4 Mg/2 Ml Vial IVPUSH 4 mg Q8H PRN Administration Nausea and Vomiting Phenobarbital 45 mg 12/16/24 21:00 12/18/24 08:54 Phenobarbital 15 Mg Tablet PO 12/18/24 09:01 45 mg BID KATHERYN Administration Phenobarbital 15 mg 12/18/24 21:00 12/20/24 09:05 Phenobarbital 15 Mg Tablet PO 12/20/24 09:01 15 mg BID KATHERYN Administration Phenobarbital 90 mg 12/17/24 04:25 12/17/24 05:10 Phenobarbital 30 Mg Tablet PO 12/17/24 04:26 90 mg ONCE ONE Administration Phenobarbital 15 mg 12/19/24 18:27 12/19/24 18:40 Phenobarbital 15 Mg Tablet PO 12/19/24 18:28 15 mg ONCE ONE Administration Phenobarbital Sodium 274 mg 12/16/24 09:00 12/16/24 09:01 Phenobarbital Sodium 130 Mg/Ml Im Once IM 12/16/24 09:01 274 mg ONCE@0900 KATHERYN Administration Phenobarbital Sodium 205 mg 12/16/24 12:00 12/16/24 15:14 Phenobarbital Sodium 130 Mg/Ml Vial Im Q3hx2 IM 12/16/24 15:01 205 mg 1200,1500 KATHERYN Administration Phenobarbital Sodium 130 mg 12/17/24 10:43 12/17/24 11:04 Phenobarbital Sodium 130 Mg/Ml Vial IM 12/17/24 10:44 130 mg ONCE ONE Administration Potassium Chloride 40 meq 12/17/24 16:12 12/17/24 17:25 Potassium Chloride Packet 20 Meq Packet PO 12/17/24 16:13 40 meq ONCE ONE Administration Potassium Chloride 20 meq 12/18/24 09:30 12/18/24 20:12 Potassium Chloride Er 20 Meq Tab.Er.Prt PO 12/18/24 21:01 20 meq BID KATHERYN Administration Sodium Chloride 3 ml 12/16/24 16:00 12/20/24 09:11 0.9 % Sodium Chloride Flush 3 Ml Syringe IVFLUSH 3 ml QSHIFT KATHERYN Administration Ticagrelor 90 mg 12/16/24 21:00 12/20/24 09:07 Ticagrelor 90 Mg Tablet PO 90 mg BID KATHERYN Administration Trazodone HCl 100 mg 12/16/24 15:15 12/19/24 20:15 Trazodone Hcl 100 Mg Tablet PO 100 mg BEDTIME PRN Administration Sleep Critical Care Time Critical Care Time Critical Care Time: Yes Total Critical Care Time: 35 Attestation: Time is exclusive of separately billable procedures. Time includes: direct patient care, patient reassessment, coordination of patient care, interpretation of data (laboratory data, pulse oximetry, arterial blood gases and chest xrays), review of patient's medical records, medical consultation and documentation of patient care. Procedures excluded from critical care time: central intravenous line placement and electrocardiography. Discharge Plan Discharge Clinical Impression: Alcohol abuse Patient Disposition: Admitted As Inpatient Interventions: Admission Worksheet (ED) Last Done: 12/16/24 12:01 Discharge Date/Time: 12/16/24 14:50
[2024-12-16] MEDS: diazePAM 10 MG/2 ML CARTRIDGE 5 MG IVPUSH (07:59)
[2024-12-16] MEDS: Lactated Ringers 1,000 ML 999 ML IV ×2 (07:59→09:48)
--- OUTSIDE RECORDS SUMMARY | 2024-12-16 08:08 | XMS_ITS | Clinical Summary ---
Author Organization [facility] Address [address] [facility] [address] [place] [phone] Phone Care Team Providers Care Head Setter Name Role Phone Hermila Cui Primary Care [...] Encounters Date Type Department Care Team Description 12/04/2024 [facility] RISK SCORES SYSTEM GENERATED External System Generated Encounter [address] [place] [address] Unknown, Sim, 10/12/2024 Patient Outreach [facility] [address] [place] [address] Elsi Smith O Care Coordination (HRSN Nutrition) 09/29/2024 Patient Outreach [facility] [address] [place] [address] Kimberly Bass [facility] ([facility] HRSN) 09/15/2024 Patient Outreach [facility] [address] [place] [address] Gricelda Torres, ROHIT [facility] 09/15/2024 Patient Outreach [facility] [address] [place] [address] Sandra Mccracken RN Post Discharge Follow Up [facility]) from Last 3 Months Social History Tobacco Use Types Packs/Day Years Used Date Smoking Tobacco: Every Day Cigarettes 0.1 36.8 Started: 1988 Smokeless Tobacco: Never Tobacco Cessation:Ready [...] 09/25/2020 POTASSIUM LEVEL 12/24/2021 12/24/2020, 11/09/2020, 09/25/2020 DEPRESSION SCREENING 03/11/2024 03/11/2023, 03/11/2023 INFLUENZA VACCINE (#1) 2024 COVID-19 VACCINE (1 - 2024-2 6 season) 2024 LIPID PANEL 06/22/2028 06/23/2023, 12/22/2020 HEPATITIS A [...] EDT) SODIUM 138 133 - 146 mmol/L [facility] CHLORIDE 98 96 - 108 mmol/L [facility] POTASSIUM 3.5 3.3 - 5.1 mmol/L [facility] Comment:Specimen slightly he molyzed, result may be falsely elevated. CO2 22 21 - 35 mmol/L [facility] BUN 12 6 - 19 mg/dL [facility] CREATININE 1.60(H) 0.5 - 1.5 mg/dL [facility] GLUCOSE 81 70 - 99 mg/dL [facility] CALCIUM 9.1 8.4 - 10.3 mg/dL [facility] EGFR 49(L) >59 mL/min/1.7 3m2 [facility] Comment:Estimated glomerular filtration rate calculated using the CKD-EPI equation. ANION GAP 22(H) 10 - 20 mmol/L [facility] Blood 12/24/2020 7:07 PM EDT 12/25/2020 7:29 AM EDT us Selwyn Brandt MD LAB BLOOD ORDERABLES Final Result [facility] [address] [place] [address] from Last 3 Months or Most Recently Relevant to Health Maintenance Insurance [facility] [employer] Care Teams Head Setter Relationship Specialty Start Date End Date Hermila Cui PA [address] [place] [id number] [email or web address], Mobile Secretary PCP - General Physician Predator Control Trapper 03/11/23 Additional Source Comments The information contained in this document represents components of the legal health record. It is not the complete legal health record.[facility]
[2024-12-16 08:14] LABS: MANUAL DIFF FLAG NO
--- NOTE | 2024-12-16 08:15 | PC.NURSE ---
Alert and oriented, from home stating bine drinking whiskey and beer x 6 days. Has not taken any medication or ate for 5 days, reports this is because he is depressed. Denies SI/ HI. Reports abdominal pain and chest pain. EKG obtained. Patient reports last drink was around 7:30pm last night. Reports hx of etoh withdrawal seizures, seizure pads placed. Patient continually asking for ativan, medicated per may. No withdrawl symptoms at this time, resting with eyes closed. VSS.
[2024-12-16 08:20] LABS: Hematocrit 42.1 % (42.0-52.0); Hemoglobin 14.5 g/dl (14.0-18.0); Imm Gran Abs Auto 0.01 X10*3/uL (0.00-0.03); Imm Gran Pct Auto 0.2 % (0.0-0.4); Lymphocytes Absolute Auto 1.1 X10*3/uL (1.2-4.9); Mean Corpuscular HGB Conc 34.4 g/dl (31.0-36.0); Mean Corpuscular Hemoglobin 29.3 pg (27.0-33.0); Mean Corpuscular Volume 85.1 fL (80.0-98.0); NRBC Abs Auto 0.000 X10*3/uL (0.0-0.012); NRBC Pct Auto 0.0 /100WBC (0.0-0.2); Platelet Count 255 X10*3/uL (160-400); Red Blood Count 4.95 X10*6/uL (4.60-5.80); White Blood Count 5.0 X10*3/uL (4.8-10.8)
[2024-12-16 08:30] LABS: Alanine Aminotransferase 14 U/L (0-40); Albumin Level 4.1 g/dL (3.5-5.0); Alkaline Phosphatase 61 U/L (39-117); Anion Gap 22 (12-20); Aspartate Amino Transferase 35 U/L (5-37); Blood Urea Nitrogen 11 mg/dL (9-16); Calcium 8.0 mg/dL (8.4-10.2); Carbon Dioxide 21 mmol/L (22-29); Chloride 100 mmol/L (96-108); Creatinine Clr Calc Pharmacy 88.1; Estimated Glomerular Filt Rate > 60; Lipase 77 U/L (8-78); Magnesium 2.1 mg/dL (1.6-2.6); Potassium 4.0 mmol/L (3.3-5.1); Sodium 139 mmol/L (135-145); Total Protein 6.7 g/dL (6.5-8.0)
[2024-12-16 08:36] LABS: Troponin-I High Sensitivity < 2.7 ng/L (<3.5-35.0)
[2024-12-16] MEDS: PHENobarbitaL sodium 130 MG/ML IM ONCE 274 MG IM (09:01)
[2024-12-16 10:12] LABS: Reflex Lactate? Lactic Acid Added
[2024-12-16 10:56] LABS: ~Lactic Acid-LAB USE ONLY 6.1 mmol/L (0.5-2.0)
--- NOTE | 2024-12-16 11:11 | P.HPHOSP_ITS ---
History of Present Illness Date of Service: 12/16/24 Chief Complaint: Alcohol intoxication/withdrawal 54 year old man presenting to the ED with shakiness and alcohol intoxication. He reported that he drinks 3-24 oz can of beer and at least 6 shots of hard liquor. He had been on a binge for the last 6 weeks. prior to that he was sober for one month. He reported that he hasnt eaten or drank very well over the last few weeks. He denied fever, chills, nausea, vomiting, diarrhea, hemoptysis, bloody diarrhea. Alcohol level noted to be elevated at 267, lactic acid elevated, BP mildly elevated. He was started on phenobarbitol and IV fluids. he will be admitted for further manegement of alcohol intoxication and withdrawal Review of Systems 2 Review of Systems: Denies any recent fever chills or decrease in appetite respiratory denies any shortness of breath or cough cardiovascular denied chest pain gastrointestinal denies any dysphagia abdominal pain nausea vomiting or diarrhea genitourinary denies any dysuria frequency or hematuria musculoskeletal denies any joint pain or swelling neuropsych denies any weakness or seizures all other systems reviewed are negative [facility] Medical History MDD (major depressive disorder), recurrent episode, moderate Ileus Myocardial infarction CAD (coronary artery disease) Social History Household Members: None Household Members Other:: self Housing: Apartment Do you presently have visiting nurse or other home services: No Alcohol intake: current Alcohol intake frequency: 3 or more drinks per day Alcohol type: beer and hard liquor Comment: patient refuses bed alarm Patient Tobacco Use Status: Former Tobacco user Tobacco use type: Cigarette Cigarettes Per Day: 0.5 Years Smoked: 30 Smoked in Last 30 Days: Yes e-Cigarette/Vaping Use: Former Use Second Hand Smoke Exposure: Yes Use of substances other than those prescribed or required for medical reasons: No Advance Directives: No Advance Directives Information Provided: No Advance Directives Date on File: 05/26/23 service: No Meds Allergies Allergy/AdvReac Type Severity Reaction Status Date / Time No Known Allergies Allergy Verified 12/16/24 07:39 Active Medications: Current Medications Lactated Ringer's (Lr) 1,000 mls @ 0 mls/hr IV .Q0M KATHERYN Last Infusion: 12/16/24 10:58 Dose: Infused Sodium Chloride (Ns) 1,000 mls @ 999 mls/hr IV .Q1H1M [facility] Stop: 12/16/24 12:00 Last Admin: 12/16/24 11:05 Dose: 999 mls/hr Pharmacy Consult (Consult Rx Etoh Phenob Im/Po) 1 each MISCELLANE ONCE PRN; Protocol PRN Reason: Consult order Phenobarbital (Phenobarbital 15 Mg Tablet) 45 mg PO BID [facility] Stop: 12/18/24 09:01 Phenobarbital (Phenobarbital 15 Mg Tablet) 15 mg PO BID [facility] Stop: 12/20/24 09:01 Phenobarbital (Phenobarbital 15 Mg Tablet) 15 mg PO DAILY [facility] Stop: 12/22/24 09:01 Phenobarbital Sodium (Phenobarbital Sodium 130 Mg/Ml Vial Im Q3hx2) 205 mg IM 1200,1500 [facility] Stop: 12/16/24 15:01 Home Medications ?Medication ?Instructions ?Recorded ?Confirmed ?Last Taken ?Type aspirin 81 mg tablet,delayed 81 mg PO DAILY 04/28/23 1 12/13/24 History release atorvastatin 80 mg tablet 80 mg PO DAILY 04/28/2312/0612/13/24 History escitalopram oxalate 20 mg tablet 20 mg PO DAILY 04/2812/16/24 12/13/24 History melatonin 3 mg tablet 3 mg PO BEDTIME PRN Sleep 12/16/24 11/02/24 History ticagrelor 90 mg tablet 90 mg PO BID 08/16/2412/13/24 History trazodone 100 mg tablet 100 mg PO BEDTIME PRN Sleep 08/16/24 12/16/24 Unknown History mirtazapine 7.5 mg tablet 7.5 mg PO BEDTIME 11/03/24 1 12/13/24 History carvedilol 6.25 mg tablet 6.25 mg PO BID 12/16/2412/0612/13/24 History diazepam 5 mg tablet 5 mg PO DAILY PRN Anxiety 12/16/24 Unknown History Physical Exam 2 Vital Signs and Narrative: Vital Signs: Last Vital Signs Temp 98.1 F 12/16/24 07:37 Pulse 85 12/16/24 08:00 Resp 18 12/16/24 08:00 BP 121/71 12/16/24 08:00 Pulse Ox 98 12/16/24 08:00 O2 Del Method Room Air 12/16/24 08:00 BMI result Body Mass Index 35.5 Appearing in no acute distress head is normocephalic atraumatic eyes pupils are PERRLA sclera is anicteric mouth throat mucous membranes are intact and moist neck is supple no lymphadenopathy, no JVD noted lung sounds are clear to auscultation heart regular rate rhythm, clear S1, S2 positive bowel sounds, abdomen is soft, nontender neuro patient is alert x3, no focal deficits Results Labs 12/16/24 08:07 12/16/24 08:08 Labs: Laboratory Results - last 24 hr 12/16/24 12/16/24 12/16/24 08:07 08:08 10:27 MCV 85.1 MCH 29.3 MCHC 34.4 RDW 13.3 Plt Count 255 D MPV 9.8 Immature Gran % (Auto) 0.2 Neut % (Auto) 68.8 Lymph % (Auto) 21.8 Clarke % (Auto) 6.2 Eos % (Auto) 1.2 Baso % (Auto) 1.8 Lymph # (Auto) 1.1 L Clarke # (Auto) 0.3 Eos # (Auto) 0.1 Baso # (Auto) 0.1 Abs Immat Gran (auto) 0.01 Absolute Neuts (auto) 3.5 Absolute Nucleated RBC 0.000 Nucleated RBC % (auto) 0.0 Anion Gap 22 H Estim Creat Clear Calc 88.1 Estimated GFR > 60 Random Glucose 139 H Lactic Acid 6.4 H* Lactic Acid F/U @ 2Hr 6.1 H* Calcium 8.0 L Magnesium 2.1 Total Bilirubin 1.2 H AST 35 ALT 14 Alkaline Phosphatase 61 Total Creatine Kinase 66 Troponin I High Sens < 2.7 Total Protein 6.7 Albumin 4.1 Lipase 77 Beta-Hydroxybutyrate 0.19 Ethyl Alcohol 267 Assessment and Plan (1) Anxiety: Status: Acute Plan 54 year old man admitted with alcohol intoxication and withdrawal Alcohol intoxication/withdrawal Started on phenobarbital IV fluids Multivitamin, folic acid, thiamine Monitor closely for severe withdrawal Addiction consultation Lactic acidosis Likely secondary to alcohol use and dehydration Continue IV fluids Hypertension Continue amlodipine CAD asa, statin Continue ticagrelor Mental Health continue home medications DVT prophylaxis with heparin Full code Quality Stroke Does the patient have a stroke diagnosis?: No VTE Prior VTE?: No VTE Risk Level:: Medical - moderate - high VTE Device Contraindication: Treatment Not Indicated VTE Drug Contraindication: N/A - Med Ordered
--- NOTE | 2024-12-16 11:12 | PC.NURSE ---
Patient resting with eyes closed, upon entering room patient stating he needs more valium or ativan now d/t withdrawl symptoms. ROLAND obtained and MD aware. No new orders at this time.
[2024-12-16] MEDS: PHENobarbitaL sodium 130 MG/ML VIAL IM Q3Hx2 205 MG IM ×2 (11:24→15:14)
--- NOTE | 2024-12-16 11:57 | PC.NURSE ---
medicated for complaints of a mild headache, patient on phone talking with friend. Medicated with good effect for complaints of nausea.
[2024-12-16] MEDS: Lactated Ringers 1,000 ML 100 ML IVCONT ×2 (12:08→21:05)
--- NOTE | 2024-12-16 12:25 | PHA.MEDREC ---
Addendum entered by Francisco Villaseñor, Laz 12/16/24 13:55: Med rec checked by [facility] Original Note: Pharmacy Consult ? Medication Reconciliation Pharmacy has completed the medication reconciliation. Confirmed medication list with patient. Patient confirmed last date he took non-PRN medications (including ticagrelor) was on Wednesday, 12/13. Patient was prescribed Topiramate but does not take it. Patient last fill pickup was 11/13. Patient stated I did not like how it made me feel .
[2024-12-16 12:29] LABS: Reflex Lactate? 2 Y
[2024-12-16 13:21] LABS: ~Lactic Acid-LAB USE ONLY 5.8 mmol/L (0.5-2.0)
[2024-12-16] MEDS: 0.9 % Sodium Chloride Flush 3 ML SYRINGE IVFLUSH (16:40)
[2024-12-16] MEDS: diazePAM 10 MG/2 ML CARTRIDGE IVPUSH (16:40)
[2024-12-16] MEDS: Thiamine HCL 100 MG in 0.9 % Sodium Chloride 100 ML 202 MG IV (16:40)
[2024-12-17] VITALS (8 sets, daily range): BP systolic 127–156; BP diastolic 71–94; PULSE 79–89; RESP 17–20; TEMP 35.4–36.8; O2SAT 93–98
[2024-12-17] MEDS: Lactated Ringers 1,000 ML 100 ML IVCONT (05:41)
[2024-12-17 05:57] LABS: Hematocrit 38.6 % (42.0-52.0); Hemoglobin 13.3 g/dl (14.0-18.0); Mean Corpuscular HGB Conc 34.5 g/dl (31.0-36.0); Mean Corpuscular Hemoglobin 29.8 pg (27.0-33.0); Mean Corpuscular Volume 86.4 fL (80.0-98.0); NRBC Abs Auto 0.000 X10*3/uL (0.0-0.012); NRBC Pct Auto 0.0 /100WBC (0.0-0.2); Platelet Count 192 X10*3/uL (160-400); Red Blood Count 4.47 X10*6/uL (4.60-5.80); White Blood Count 4.7 X10*3/uL (4.8-10.8)
[2024-12-17 06:15] LABS: Anion Gap 16 (12-20); Blood Urea Nitrogen 9 mg/dL (9-16); Calcium 8.0 mg/dL (8.4-10.2); Carbon Dioxide 23 mmol/L (22-29); Chloride 104 mmol/L (96-108); Creatinine Clr Calc Pharmacy 99.6; Estimated Glomerular Filt Rate > 60; Magnesium 1.7 mg/dL (1.6-2.6); Potassium 3.2 mmol/L (3.3-5.1); Sodium 140 mmol/L (135-145)
[2024-12-17] MEDS: Thiamine HCL 100 MG in 0.9 % Sodium Chloride 100 ML 202 MG IV (08:43)
[2024-12-17] MEDS: Aspirin Enteric Coated 81 MG TABLET.DR PO (08:43)
[2024-12-17] MEDS: 0.9 % Sodium Chloride Flush 3 ML SYRINGE IVFLUSH ×3 (08:44→23:51)
--- NOTE | 2024-12-17 11:30 | P.PNIM_ITS ---
Subjective Subjective Date of Service: 12/17/24 Physical Exam 2 Vital Signs: Vital Signs: Last Vital Signs Temp 97.9 F 12/17/24 11:03 Pulse 80 12/17/24 11:03 Resp 20 12/17/24 11:03 BP 127/83 12/17/24 11:03 Pulse Ox 95 12/17/24 11:03 O2 Del Method Room Air 12/17/24 11:03 BMI result Body Mass Index 35.5 Objective Data Active Medications Acetaminophen (Acetaminophen 325 Mg Tablet) 650 mg PO Q6H PRN PRN Reason: Pain, Mild 1-3,fever,headache Last Admin: 12/17/24 05:32 Dose: 650 mg Documented By: KIANNA Acetaminophen (Acetaminophen 325 Mg Tablet) 650 mg PO Q6H PRN PRN Reason: Pain, Mild (Pain Scale 1-3) Amlodipine Besylate (Amlodipine Besylate 5 Mg Tablet) 5 mg PO DAILY [facility]; Protocol Last Admin: 12/17/24 08:44 Dose: 5 mg Documented By: ALKA Aspirin (Aspirin Enteric Coated 81 Mg Tablet.Dr) 81 mg PO DAILY [facility] Last Admin: 12/17/24 08:43 Dose: 81 mg Documented By: ALKA Atorvastatin Calcium (Atorvastatin Calcium 80 Mg Tablet) 80 mg PO DAILY [facility] Last Admin: 12/17/24 08:43 Dose: 80 mg Documented By: ALKA Calcium Carbonate (Calcium Carbonate 750 Mg Tab.Chew) 750 mg PO Q4H PRN PRN Reason: Heartburn Carvedilol (Carvedilol 6.25 Mg Tablet) 6.25 mg PO BID [facility]; Protocol Last Admin: 12/17/24 08:43 Dose: 6.25 mg Documented By: ALKA Diazepam (Diazepam 5 Mg Tablet) 5 mg PO DAILY PRN PRN Reason: Anxiety Last Admin: 12/16/24 18:15 Dose: 5 mg Documented By: ALKA Escitalopram Oxalate (Escitalopram Oxalate 20 Mg Tablet) 20 mg PO DAILY [facility] Last Admin: 12/17/24 08:44 Dose: 20 mg Documented By: ALKA Heparin Sodium (Porcine) (Heparin Sodium,Porcine 5,000 Unit/Ml Vial) 5,000 unit SUBCUT Q12H [facility] Last Admin: 12/17/24 11:04 Dose: 5,000 unit Documented By: ALKA Thiamine HCl 100 mg/ Sodium (Chloride) 101 mls @ 202 mls/hr IV DAILY [facility] Last Infusion: 12/17/24 09:15 Dose: Infused Documented By: ALKA Magnesium Hydroxide (Milk Of Magnesia 30 Ml Oral.Susp) 30 ml PO DAILY PRN PRN Reason: Constipation Melatonin (Melatonin 3 Mg Tablet) 6 mg PO BEDTIME PRN PRN Reason: Insomnia Melatonin (Melatonin 3 Mg Tablet) 3 mg PO BEDTIME PRN PRN Reason: Sleep Mirtazapine (Mirtazapine 7.5 Mg Tablet) 7.5 mg PO BEDTIME [facility] Last Admin: 12/16/24 21:04 Dose: 7.5 mg Documented By: KIANNA Multivitamins/Vitamin C (Multivitamin Tablet) 1 tab PO DAILY [facility] Last Admin: 12/17/24 08:43 Dose: 1 tab Documented By: ALKA Ondansetron HCl (Ondansetron Hcl 4 Mg/2 Ml Vial) 4 mg IVPUSH Q8H PRN PRN Reason: Nausea and Vomiting Last Admin: 12/17/24 08:43 Dose: 4 mg Documented By: ALKA Ondansetron HCl (Ondansetron Hcl 4 Mg/2 Ml Vial) 4 mg IVPUSH Q8H PRN PRN Reason: Nausea and Vomiting Last Admin: 12/16/24 18:15 Dose: 4 mg Documented By: ALKA Pharmacy Consult (Consult Rx Etoh Phenob Im/Po) 1 each MISCELLANE ONCE PRN; Protocol PRN Reason: Consult order Phenobarbital (Phenobarbital 15 Mg Tablet) 45 mg PO BID [facility] Stop: 12/18/24 09:01 Last Admin: 12/17/24 08:43 Dose: 45 mg Documented By: ALKA Phenobarbital (Phenobarbital 15 Mg Tablet) 15 mg PO BID [facility] Stop: 12/20/24 09:01 Phenobarbital (Phenobarbital 15 Mg Tablet) 15 mg PO DAILY [facility] Stop: 12/22/24 09:01 Sodium Chloride (0.9 % Sodium Chloride Flush 3 Ml Syringe) 3 ml IVFLUSH QSHIFT [facility] Last Admin: 12/17/24 08:44 Dose: 3 ml Documented By: ALKA Ticagrelor (Ticagrelor 90 Mg Tablet) 90 mg PO BID KATHERYN Last Admin: 12/17/24 08:43 Dose: 90 mg Documented By: ALKA Trazodone HCl (Trazodone Hcl 100 Mg Tablet) 100 mg PO BEDTIME PRN PRN Reason: Sleep Labs 12/17/24 05:28 12/17/24 05:28 Labs: Laboratory Results - last 24 hr 12/16/24 12/17/24 12:53 05:28 MCV 86.4 MCH 29.8 MCHC 34.5 RDW 13.5 Plt Count 192 MPV 10.3 Absolute Nucleated RBC 0.000 Nucleated RBC % (auto) 0.0 Anion Gap 16 Estim Creat Clear Calc 99.6 Estimated GFR > 60 Random Glucose 124 H Lactic Acid F/U @ 4Hr 5.8 H* Calcium 8.0 L Magnesium 1.7 Assessment and Plan (1) Alcohol abuse: Status: Acute (2) Alcohol-induced anxiety disorder: Status: Acute Plan 54M PMH alcohol dependence, coronary disease status post stents, hypertension, obesity presented admitted for alcohol withdrawal treatment Alcohol dependence with acute withdrawal, high CIWA scores Phenobarbital protocol, additional Pheno as needed Monitor CIWA added clonidine for anxiety CAD continue ASA, Brilanta, Lipitor and Coreg HTN continue Norvasc, Coreg Acute Lactic acidosis Likely secondary to alcohol use and dehydration Continue IV fluids, repeat level Mood disorder continue home medication Full code dvt: Heparin Quality Stroke Does the patient have a stroke diagnosis?: No VTE Prior VTE?: No VTE Risk Level:: Medical - moderate - high VTE Device Contraindication: Treatment Not Indicated VTE Drug Contraindication: N/A - Med Ordered
--- NOTE | 2024-12-17 12:37 | MHC.RECOVRN ---
Met w/ pt in f/u as he had stated he will consider MARYJANE. Pt declined MARYJANE initiation stating I already take too much & declined outpatient CYNDI tx appointment for AUD. Written materials left for pt to review info on CSS, IOP, and PHP. No further questions or concerns offered at this time.
[2024-12-17] MEDS: Potassium Chloride Packet 20 MEQ PACKET 40 MEQ PO (17:25)
[2024-12-18] VITALS (7 sets, daily range): BP systolic 118–136; BP diastolic 67–90; PULSE 68–84; RESP 16–20; TEMP 36.1–36.8; O2SAT 93–98
[2024-12-18 08:13] LABS: Alanine Aminotransferase 24 U/L (0-40); Albumin Level 3.5 g/dL (3.5-5.0); Alkaline Phosphatase 52 U/L (39-117); Anion Gap 13 (12-20); Aspartate Amino Transferase 56 U/L (5-37); Blood Urea Nitrogen 10 mg/dL (9-16); Calcium 8.0 mg/dL (8.4-10.2); Carbon Dioxide 27 mmol/L (22-29); Chloride 105 mmol/L (96-108); Creatinine Clr Calc Pharmacy 96.7; Estimated Glomerular Filt Rate > 60; Potassium 3.0 mmol/L (3.3-5.1); Sodium 142 mmol/L (135-145); Total Protein 6.0 g/dL (6.5-8.0)
[2024-12-18] MEDS: Aspirin Enteric Coated 81 MG TABLET.DR PO (08:54)
[2024-12-18] MEDS: 0.9 % Sodium Chloride Flush 3 ML SYRINGE IVFLUSH ×2 (08:56→23:23)
[2024-12-18] MEDS: Thiamine HCL 100 MG in 0.9 % Sodium Chloride 100 ML 202 MG IV (08:56)
[2024-12-18] MEDS: Potassium Chloride ER 20 MEQ TAB.ER.PRT PO ×2 (10:55→20:12)
--- NOTE | 2024-12-18 11:34 | P.PNIM_ITS ---
Subjective Subjective Date of Service: 12/18/24 Interval History: Endorses persistent anxiety. Reports low mood. Hypokalemia noted on blood work today. Physical Exam 2 Exam: Exam: General: A&O x3, oriented to time place person and situation, comfortable, no pain Cardiac: S1, S2 auscultated with no S3/4, no MRG. Well perfused. Respiratory: Normal breath sounds auscultated throughout all lung zones, without wheezing, rales. Normal rate. GI/ : No abdominal pain on palpation, no masses or distentions. MSK: Normal ambulation without pain at bony prominences or musculature Neurological: Normal neurological examination on overview, without obvious CN II-XII abnormalities. Psychology: Anxious affect, low mood Vital Signs: Vital Signs: Last Vital Signs Temp 97.6 F 12/18/24 08:00 Pulse 80 12/18/24 08:00 Resp 20 12/18/24 08:00 BP 133/90 H 12/18/24 08:00 Pulse Ox 94 12/18/24 08:00 O2 Del Method Room Air 12/18/24 08:00 BMI result Body Mass Index 35.5 Objective Data Active Medications Acetaminophen (Acetaminophen 325 Mg Tablet) 650 mg PO Q6H PRN PRN Reason: Pain, Mild 1-3,fever,headache Last Admin: 12/18/24 08:55 Dose: 650 mg Documented By: ALKA Acetaminophen (Acetaminophen 325 Mg Tablet) 650 mg PO Q6H PRN PRN Reason: Pain, Mild (Pain Scale 1-3) Amlodipine Besylate (Amlodipine Besylate 5 Mg Tablet) 5 mg PO DAILY [facility]; Protocol Last Admin: 12/18/24 08:55 Dose: 5 mg Documented By: ALKA Aspirin (Aspirin Enteric Coated 81 Mg Tablet.) 81 mg PO DAILY [facility] Last Admin: 12/18/24 08:54 Dose: 81 mg Documented By: ALKA Atorvastatin Calcium (Atorvastatin Calcium 80 Mg Tablet) 80 mg PO DAILY [facility] Last Admin: 12/18/24 08:55 Dose: 80 mg Documented By: ALKA Calcium Carbonate (Calcium Carbonate 750 Mg Tab.Chew) 750 mg PO Q4H PRN PRN Reason: Heartburn Carvedilol (Carvedilol 6.25 Mg Tablet) 6.25 mg PO BID [facility]; Protocol Last Admin: 12/18/24 08:55 Dose: 6.25 mg Documented By: ALKA Clonidine HCl (Clonidine Hcl 0.1 Mg Tablet) 0.1 mg PO TID PRN; Protocol PRN Reason: anxiety/restlessness Last Admin: 12/18/24 10:55 Dose: 0.1 mg Documented By: ALKA Diazepam (Diazepam 5 Mg Tablet) 5 mg PO DAILY PRN PRN Reason: Anxiety Last Admin: 12/17/24 18:47 Dose: 5 mg Documented By: ALKA Escitalopram Oxalate (Escitalopram Oxalate 20 Mg Tablet) 20 mg PO DAILY [facility] Last Admin: 12/18/24 08:54 Dose: 20 mg Documented By: ALKA Heparin Sodium (Porcine) (Heparin Sodium,Porcine 5,000 Unit/Ml Vial) 5,000 unit SUBCUT Q12H [facility] Last Admin: 12/18/24 10:55 Dose: 5,000 unit Documented By: ALKA Hydroxyzine HCl (Hydroxyzine Hcl 25 Mg Tablet) 25 mg PO Q6H PRN PRN Reason: anxiety/restlessness Last Admin: 12/18/24 08:55 Dose: 25 mg Documented By: ALKA Thiamine HCl 100 mg/ Sodium (Chloride) 101 mls @ 202 mls/hr IV DAILY [facility] Last Infusion: 12/18/24 09:31 Dose: Infused Documented By: ALKA Magnesium Hydroxide (Milk Of Magnesia 30 Ml Oral.Susp) 30 ml PO DAILY PRN PRN Reason: Constipation Melatonin (Melatonin 3 Mg Tablet) 6 mg PO BEDTIME PRN PRN Reason: Insomnia Melatonin (Melatonin 3 Mg Tablet) 3 mg PO BEDTIME PRN PRN Reason: Sleep Mirtazapine (Mirtazapine 7.5 Mg Tablet) 7.5 mg PO BEDTIME [facility] Last Admin: 12/17/24 20:05 Dose: 7.5 mg Documented By: GARCIA Multivitamins/Vitamin C (Multivitamin Tablet) 1 tab PO DAILY [facility] Last Admin: 12/18/24 08:55 Dose: 1 tab Documented By: ALKA Ondansetron HCl (Ondansetron Hcl 4 Mg/2 Ml Vial) 4 mg IVPUSH Q8H PRN PRN Reason: Nausea and Vomiting Last Admin: 12/17/24 08:43 Dose: 4 mg Documented By: ALKA Ondansetron HCl (Ondansetron Hcl 4 Mg/2 Ml Vial) 4 mg IVPUSH Q8H PRN PRN Reason: Nausea and Vomiting Last Admin: 12/16/24 18:15 Dose: 4 mg Documented By: ALKA Pharmacy Consult (Consult Rx Etoh Phenob Im/Po) 1 each MISCELLANE ONCE PRN; Protocol PRN Reason: Consult order Phenobarbital (Phenobarbital 15 Mg Tablet) 15 mg PO BID [facility] Stop: 12/20/24 09:01 Phenobarbital (Phenobarbital 15 Mg Tablet) 15 mg PO DAILY [facility] Stop: 12/22/24 09:01 Potassium Chloride (Potassium Chloride Er 20 Meq Tab.Er.Prt) 20 meq PO BID [facility] Stop: 12/18/24 21:01 Last Admin: 12/18/24 10:55 Dose: 20 meq Documented By: ALKA Sodium Chloride (0.9 % Sodium Chloride Flush 3 Ml Syringe) 3 ml IVFLUSH QSHIFT [facility] Last Admin: 12/18/24 08:56 Dose: 3 ml Documented By: ALKA Ticagrelor (Ticagrelor 90 Mg Tablet) 90 mg PO BID [facility] Last Admin: 12/18/24 08:55 Dose: 90 mg Documented By: ALKA Trazodone HCl (Trazodone Hcl 100 Mg Tablet) 100 mg PO BEDTIME PRN PRN Reason: Sleep Last Admin: 12/17/24 20:04 Dose: 100 mg Documented By: GARCIA Labs 12/17/24 05:28 12/18/24 07:41 Labs: Laboratory Results - last 24 hr 12/17/24 12/18/24 11:48 07:41 Anion Gap 13 Estim Creat Clear Calc 96.7 Estimated GFR > 60 Random Glucose 135 H Lactic Acid 1.5 Calcium 8.0 L Total Bilirubin 0.7 AST 56 H ALT 24 Alkaline Phosphatase 52 Total Protein 6.0 L Albumin 3.5 Assessment and Plan (1) Anxiety: Status: Acute (2) Alcohol abuse: Status: Acute (3) Alcohol use disorder, moderate, dependence: Status: Acute (4) Alcohol-induced anxiety disorder: Status: Acute (5) Hypokalemia: Status: Acute (6) Alcohol withdrawal: Status: Resolved (7) Acute alcoholic gastritis: Status: Inactive (8) MDD (major depressive disorder), recurrent episode, moderate: Status: Inactive Plan 54-year-old male, with a history of ETOH dependence, CAD s/p ANGELICA, HTN, obesity, presents alcohol withdrawal treatment, admitted with acute alcohol withdrawal and electrolyte abnormalities. Alcohol use disorder Acute alcohol withdrawal Alcoholic gastritis Currently on phenobarbital protocol. Monitor CIWA Receiving clonidine for anxiety Multiple presentations and admissions for alcohol intoxication/withdrawal. Phenobarbital p.r.n. Thiamine 100 mg OD p.o. P.r.n. diazepam P.r.n. clonidine P.r.n. hydroxyzine Hypokalemia 20 mEq KCL b.i.d. Check magnesium level Acute lactic acidosis Lactic acid 6.1 on presentation Resolved to 1.5. In the setting of alcohol withdrawal and poor p.o. intake Resolved CHRONIC MEDICAL ISSUES -CAD s/p ANGELICA: Aspirin 81 mg OD p.o., atorvastatin 80 mg, ticagrelor 90 mg b.i.d. -HTN: Carvedilol 6.25 b.i.d. -MDD/URI: Continue Lexapro 20 mg OD p.o., continue mirtazapine [employer] - VTE: Heparin 5000 t.i.d. SQ - CODE STATUS: Full code - DIET: Regular Total time managing care of this patient today: 35 minutes. Quality Stroke Does the patient have a stroke diagnosis?: No VTE Prior VTE?: No VTE Risk Level:: Medical - moderate - high VTE Device Contraindication: Treatment Not Indicated VTE Drug Contraindication: N/A - Med Ordered
--- NOTE | 2024-12-18 16:50 | MHC.CM.PN ---
PT REPORTS HE LIVES ALONE AND IS INDEPENDENT WITH SELF CARE HE HAS [facility] SUPPORT SERVICES AND PLANS TO GET A HOSPITAL NURSE [place] HE CONFIRMS HIS PCP IS [facility] DAILY PT DECLINES A HCP DCP: HOME WITH RESUMPTION OF [facility] OUTREACH AND NEW HOSPITAL NURSE WILL NEED SHUTTLE TRANSPORT
[2024-12-19] VITALS (8 sets, daily range): BP systolic 110–177; BP diastolic 66–86; PULSE 67–83; RESP 17–18; TEMP 36.4–37.2; O2SAT 92–99
[2024-12-19] MEDS: Aspirin Enteric Coated 81 MG TABLET.DR PO (09:54)
[2024-12-19] MEDS: 0.9 % Sodium Chloride Flush 3 ML SYRINGE IVFLUSH ×2 (09:55→18:04)
[2024-12-19] MEDS: Thiamine HCL 100 MG in 0.9 % Sodium Chloride 100 ML 202 MG IV (10:05)
--- NOTE | 2024-12-19 17:36 | P.PNIM_ITS ---
Subjective Subjective Date of Service: 12/19/24 Interval History: Feels improved today, persistent anxiety and headache. Endorses weakness and fatigability. Eating and drinking well, stooling and urinating well Review of Systems Review of Systems: Yes all other systems are reviewed and are negative Physical Exam 2 Exam: Exam: General: A&O x3, oriented to time place person and situation, comfortable, no pain Cardiac: S1, S2 auscultated with no S3/4, no MRG. Well perfused. Respiratory: Normal breath sounds auscultated throughout all lung zones, without wheezing, rales. Normal rate. GI/ : No abdominal pain on palpation, no masses or distentions. MSK: Normal ambulation without pain at bony prominences or musculature Neurological: Normal neurological examination on overview, without obvious CN II-XII abnormalities. Vital Signs: Vital Signs: Last Vital Signs Temp 99.0 F 12/19/24 15:04 Pulse 77 12/19/24 15:04 Resp 18 12/19/24 15:04 BP 132/81 12/19/24 16:56 Pulse Ox 99 12/19/24 15:04 O2 Del Method Room Air 12/19/24 15:04 BMI result Body Mass Index 35.5 Objective Data Active Medications Acetaminophen (Acetaminophen 325 Mg Tablet) 650 mg PO Q6H PRN PRN Reason: Pain, Mild (Pain Scale 1-3) Amlodipine Besylate (Amlodipine Besylate 5 Mg Tablet) 5 mg PO DAILY [facility]; Protocol Last Admin: 12/19/24 10:02 Dose: 5 mg Documented By: ANIYA Aspirin (Aspirin Enteric Coated 81 Mg Tablet.) 81 mg PO DAILY [facility] Last Admin: 12/19/24 09:54 Dose: 81 mg Documented By: ANIYA Atorvastatin Calcium (Atorvastatin Calcium 80 Mg Tablet) 80 mg PO DAILY [facility] Last Admin: 12/19/24 10:02 Dose: 80 mg Documented By: ANIYA Calcium Carbonate (Calcium Carbonate 750 Mg Tab.Chew) 750 mg PO Q4H PRN PRN Reason: Heartburn Carvedilol (Carvedilol 6.25 Mg Tablet) 6.25 mg PO BID [facility]; Protocol Last Admin: 12/19/24 10:04 Dose: 6.25 mg Documented By: ANIYA Clonidine HCl (Clonidine Hcl 0.1 Mg Tablet) 0.1 mg PO TID PRN; Protocol PRN Reason: anxiety/restlessness Last Admin: 12/19/24 16:56 Dose: 0.1 mg Documented By: ANIYA Diazepam (Diazepam 5 Mg Tablet) 5 mg PO DAILY PRN PRN Reason: Anxiety Last Admin: 12/17/24 18:47 Dose: 5 mg Documented By: ALKA Escitalopram Oxalate (Escitalopram Oxalate 20 Mg Tablet) 20 mg PO DAILY [facility] Last Admin: 12/19/24 10:05 Dose: 20 mg Documented By: ANIYA Heparin Sodium (Porcine) (Heparin Sodium,Porcine 5,000 Unit/Ml Vial) 5,000 unit SUBCUT Q12H [facility] Last Admin: 12/19/24 12:52 Dose: 5,000 unit Documented By: ANIYA Hydroxyzine HCl (Hydroxyzine Hcl 25 Mg Tablet) 25 mg PO Q6H PRN PRN Reason: anxiety/restlessness Last Admin: 12/18/24 15:39 Dose: 25 mg Documented By: ALKA Thiamine HCl 100 mg/ Sodium (Chloride) 101 mls @ 202 mls/hr IV DAILY [facility] Last Infusion: 12/19/24 11:10 Dose: Infused Documented By: ANIYA Ibuprofen (Ibuprofen 200 Mg Tablet) 200 mg PO Q8H PRN PRN Reason: pain - moderate Last Admin: 12/19/24 16:56 Dose: 200 mg Documented By: ANIYA Magnesium Hydroxide (Milk Of Magnesia 30 Ml Oral.Susp) 30 ml PO DAILY PRN PRN Reason: Constipation Melatonin (Melatonin 3 Mg Tablet) 6 mg PO BEDTIME PRN PRN Reason: Insomnia Last Admin: 12/18/24 20:12 Dose: 6 mg Documented By: ERIC Melatonin (Melatonin 3 Mg Tablet) 3 mg PO BEDTIME PRN PRN Reason: Sleep Mirtazapine (Mirtazapine 7.5 Mg Tablet) 7.5 mg PO BEDTIME [facility] Last Admin: 12/18/24 20:12 Dose: 7.5 mg Documented By: ERIC Multivitamins/Vitamin C (Multivitamin Tablet) 1 tab PO DAILY [facility] Last Admin: 12/19/24 10:04 Dose: 1 tab Documented By: ANIYA Ondansetron HCl (Ondansetron Hcl 4 Mg/2 Ml Vial) 4 mg IVPUSH Q8H PRN PRN Reason: Nausea and Vomiting Last Admin: 12/19/24 12:56 Dose: 4 mg Documented By: JOSHDISANDRA Ondansetron HCl (Ondansetron Hcl 4 Mg/2 Ml Vial) 4 mg IVPUSH Q8H PRN PRN Reason: Nausea and Vomiting Last Admin: 12/16/24 18:15 Dose: 4 mg Documented By: ALKA Pharmacy Consult (Consult Rx Etoh Phenob Im/Po) 1 each MISCELLANE ONCE PRN; Protocol PRN Reason: Consult order Phenobarbital (Phenobarbital 15 Mg Tablet) 15 mg PO BID KATHERYN Stop: 12/20/24 09:01 Last Admin: 12/19/24 10:04 Dose: 15 mg Documented By: JOSHDISANDRA Phenobarbital (Phenobarbital 15 Mg Tablet) 15 mg PO DAILY [facility] Stop: 12/22/24 09:01 Sodium Chloride (0.9 % Sodium Chloride Flush 3 Ml Syringe) 3 ml IVFLUSH QSHIFT [facility] Last Admin: 12/19/24 09:55 Dose: 3 ml Documented By: ANIYA Ticagrelor (Ticagrelor 90 Mg Tablet) 90 mg PO BID [facility] Last Admin: 12/19/24 10:04 Dose: 90 mg Documented By: ANIYA Trazodone HCl (Trazodone Hcl 100 Mg Tablet) 100 mg PO BEDTIME PRN PRN Reason: Sleep Last Admin: 12/18/24 20:12 Dose: 100 mg Documented By: BELANGB Labs 12/17/24 05:28 12/18/24 07:41 Assessment and Plan (1) Alcohol abuse: Status: Acute (2) Alcohol-induced anxiety disorder: Status: Acute (3) Alcohol use disorder, moderate, dependence: Status: Acute (4) Hypokalemia: Status: Acute Plan 54-year-old male, with a history of ETOH dependence, CAD s/p ANGELICA, HTN, obesity, presents alcohol withdrawal treatment, admitted with acute alcohol withdrawal and electrolyte abnormalities. Alcohol use disorder Acute alcohol withdrawal Alcoholic gastritis Currently on phenobarbital protocol. Monitor CIWA Receiving clonidine for anxiety Multiple presentations and admissions for alcohol intoxication/withdrawal. Phenobarbital p.r.n. Thiamine 100 mg OD p.o. P.r.n. diazepam P.r.n. clonidine P.r.n. hydroxyzine Hypokalemia 20 mEq KCL b.i.d. Check magnesium level Acute lactic acidosis Lactic acid 6.1 on presentation Resolved to 1.5. In the setting of alcohol withdrawal and poor p.o. intake Resolved CHRONIC MEDICAL ISSUES -CAD s/p ANGELICA: Aspirin 81 mg OD p.o., atorvastatin 80 mg, ticagrelor 90 mg b.i.d. -HTN: Carvedilol 6.25 b.i.d. -MDD/URI: Continue Lexapro 20 mg OD p.o., continue mirtazapine QUALITY [employer] - VTE: Heparin 5000 t.i.d. SQ - CODE STATUS: Full code - DIET: Regular Total time managing care of this patient today: 35 minutes. Quality Stroke Does the patient have a stroke diagnosis?: No VTE Prior VTE?: No VTE Risk Level:: Medical - moderate - high VTE Device Contraindication: Treatment Not Indicated VTE Drug Contraindication: N/A - Med Ordered
[2024-12-20] VITALS: BP 131/71; PULSE 72; RESP 18; TEMP 36.6; O2SAT 95
[2024-12-20] MEDS: 0.9 % Sodium Chloride Flush 3 ML SYRINGE IVFLUSH ×2 (00:21→09:11)
[2024-12-20 03:26] VITALS: BP 128/74; PULSE 64; RESP 18; TEMP 36.6; O2SAT 95
[2024-12-20 07:37] VITALS: BP 140/92; PULSE 80; RESP 18; TEMP 36.6; O2SAT 93
[2024-12-20 08:54] LABS: Anion Gap 14 (12-20); Blood Urea Nitrogen 8 mg/dL (9-16); Calcium 8.9 mg/dL (8.4-10.2); Carbon Dioxide 25 mmol/L (22-29); Chloride 107 mmol/L (96-108); Creatinine Clr Calc Pharmacy 124.5; Estimated Glomerular Filt Rate > 60; Potassium 3.4 mmol/L (3.3-5.1); Sodium 143 mmol/L (135-145)
[2024-12-20] MEDS: Aspirin Enteric Coated 81 MG TABLET.DR PO (09:04)
[2024-12-20] MEDS: Thiamine HCL 100 MG in 0.9 % Sodium Chloride 100 ML 202 MG IV (09:05)
--- NOTE | 2024-12-20 11:01 | MHC.CM.PN ---
PT MEDICALLY CLEARED FOR DC HOME SELF CARE, [facility] SHUTTLE FOR TRANSPORT
--- NOTE | 2025-02-07 18:40 | P.DS_ITS ---
DS: Providers Provider Date of Service: 12/20/24 Date of admission: 12/16/24 11:09 Date of discharge: 12/20/24 Primary care physician: Jesica Horner PA-C DS: Diagnosis Discharge Diagnosis (1) Alcohol abuse: Status: Resolved (2) Alcohol-induced anxiety disorder: Status: Resolved (3) Alcohol use disorder, moderate, dependence: Status: Acute (4) Hypokalemia: Status: Resolved DS: Summary Hospital Course Hospital Course: 54-year-old male, with a history of ETOH dependence, CAD s/p ANGELICA, HTN, obesity, presents alcohol withdrawal treatment, admitted with acute alcohol withdrawal and electrolyte abnormalities. Alcohol use disorder Acute alcohol withdrawal Alcoholic gastritis Currently on phenobarbital protocol. Monitor CIWA Receiving clonidine for anxiety Multiple presentations and admissions for alcohol intoxication/withdrawal. Phenobarbital p.r.n. Thiamine 100 mg OD p.o. P.r.n. diazepam P.r.n. clonidine P.r.n. hydroxyzine Improved back to baseline without new complaints or issues Hypokalemia 20 mEq KCL b.i.d. magnesium level WNL on date of discharge Acute lactic acidosis Lactic acid 6.1 on presentation Resolved to 1.5. In the setting of alcohol withdrawal and poor p.o. intake Resolved CHRONIC MEDICAL ISSUES -CAD s/p ANGELICA: Aspirin 81 mg OD p.o., atorvastatin 80 mg, ticagrelor 90 mg b.i.d. -HTN: Carvedilol 6.25 b.i.d. -MDD/URI: Continue Lexapro 20 mg OD p.o., continue mirtazapine Status at Discharge Functional status at discharge: independent ambulation Overall status at discharge: patient is back to baseline Time Attestation Total time managing care of this patient today: 35 mintues. Discharge Coordination Time (in mins): 35 Quality: Safe Use of Opioids Does Pt have an Active Cancer Diagnosis on the Problem List?: No Quality: Stroke Does the patient have a stroke diagnosis?: No Physical Exam Exam: Exam: General: A&O x3, oriented to time place person and situation, comfortable, no pain Cardiac: S1, S2 auscultated with no S3/4, no MRG. Well perfused. Respiratory: Normal breath sounds auscultated throughout all lung zones, without wheezing, rales. Normal rate. GI/ : No abdominal pain on palpation, no masses or distentions. MSK: Normal ambulation without pain at bony prominences or musculature Neurological: Normal neurological examination on overview, without obvious CN II-XII abnormalities. Vital Signs: Vital Signs: Last Vital Signs Temp 97.8 F 12/20/24 07:37 Pulse 80 12/20/24 07:37 Resp 18 12/20/24 07:37 BP 140/92 H 12/20/24 07:37 Pulse Ox 93 12/20/24 07:37 O2 Del Method Room Air 12/20/24 07:37 BMI result Body Mass Index 35.5 DS: Data Data Completed and Pending Completed studies during hospitalization [Text1]: Procedures Detoxification Services for Substance Abuse Treatment (12/16/24) Discharge Plan Discharge Anticipated Discharge Date/Time: 12/20/24 09:15 Patient Disposition: Home, Self-Care Discharge Diagnosis: Acute alcohol withdrawal, hypokalemia Referrals: Jesica Horner PA-C [Primary Care Provider, [facility]] - 1 Week Discharge Medications: New thiamine HCl (vitamin B1) 100 mg tablet 100 mg PO DAILY Qty: 30 0RF Continued atorvastatin 80 mg tablet 80 mg PO DAILY aspirin 81 mg tablet,delayed release (DR/EC) 81 mg PO DAILY escitalopram oxalate 20 mg tablet 20 mg PO DAILY amlodipine 5 mg Tablet 5 mg PO DAILY Qty: 90 0RF Protocol: Hold for SBP< HOLD for SBP < : 90 acetaminophen 325 mg Tablet 650 mg PO Q6H PRN (Reason: Pain, Mild (Pain Scale 1-3)) Qty: 20 0RF carvedilol 6.25 mg tablet 6.25 mg PO BID diazepam 5 mg tablet 5 mg PO DAILY PRN (Reason: Anxiety) ticagrelor 90 mg tablet 90 mg PO BID trazodone 100 mg tablet 100 mg PO BEDTIME PRN (Reason: Sleep) melatonin 3 mg tablet 3 mg PO BEDTIME PRN (Reason: Sleep) mirtazapine 7.5 mg tablet 7.5 mg PO BEDTIME Discharge Orders: Discharge Order (Routine); Ordered 12/20/24 Ordered By: Asya Vences Diet: Advance to usual diet Activity on Discharge: As tolerated Stand Alone Forms: Patient Portal Discharge page Print Language: German Care Plan Goals: As above Health Concerns: As above Plan of Treatment: - Follow up with PCP within 1 week of discharge - encourage follow up with outpatient addiction Medicine Services - follow up with alcoholics anonymous in outpatient setting Assessment: Hemodynamically stable at time of discharge. Patient has been successfully detoxed from ETOH. No acute medical issues currently. Patient is eager to be discharged home Discharge Date/Time: 12/20/24 11:36
== END 2024-12-20 11:36 | disposition home or self-care (01) | DRG 775 ==
LOC: HO.ED 08:24 → HO.EDOVER 11:16 → HO.IMC 14:11
PROVIDERS: Internal Medicine; Admitting Provider Nurse Practitioner Acute Care; Emergency Provider Emergency Medicine; PCP Physician Assistant; Visit Provider Hospitalist
DX: F10.239 Alcohol dependence with withdrawal, unspecified (principal); F10.229 Alcohol dependence with intoxication, unspecified; E87.6 Hypokalemia; F41.9 Anxiety disorder, unspecified; F17.210 Nicotine dependence, cigarettes, uncomplicated; I10 Essential (primary) hypertension; I25.10 Atherosclerotic heart disease of native coronary artery without angina pectoris; Z71.6 Tobacco abuse counseling; Y90.8 Blood alcohol level of 240 mg/100 ml or more; K29.20 Alcoholic gastritis without bleeding; Z95.5 Presence of coronary angioplasty implant and graft; F41.1 Generalized anxiety disorder; F32.9 Major depressive disorder, single episode, unspecified; Z79.899 Other long term (current) drug therapy
CPT/HCPCS: 36415; 80048; 80053; 80307; 82010; 82550; 83605; 83690; 83735; 84484; 85025; 85027; 93005; 99285; J1644; J2405; J2560; J3360; J3411; J7120; S9485

== ENCOUNTER → 2024-12-16 07:45 | Outpatient (BNV) | payer MEDICAID, SELFPAY | PROVIDERS: Admitting Provider Nurse Practitioner Acute Care; Emergency Provider Emergency Medicine; PCP Physician Assistant; Visit Provider Internal Medicine Cardiovascular Disease | DX: R94.31 Abnormal electrocardiogram [ECG] [EKG] (principal); R10.9 Unspecified abdominal pain | CPT/HCPCS: 93010 ==

== ENCOUNTER → 2024-12-16 11:09 | Outpatient (BNV) | payer MEDICAID, SELFPAY | PROVIDERS: Admitting Provider Nurse Practitioner Acute Care; Emergency Provider Emergency Medicine; PCP Physician Assistant; Visit Provider Nurse Practitioner Acute Care | DX: F10.10 Alcohol abuse, uncomplicated (principal); F10.980 Alcohol use, unspecified with alcohol-induced anxiety disorder; F10.20 Alcohol dependence, uncomplicated; E87.6 Hypokalemia | CPT/HCPCS: 99223; 99232 ==